=== PATIENT | female | born 1955 | race Caucasian/White ===

== ENCOUNTER → 2017-12-07 08:55 | Outpatient (CLI) | payer OTHER, SELFPAY ==
--- NOTE | 2017-12-07 08:58 | BI_ITS ---
MAMMOGRAPHY - BILATERAL SCREENING REASON FOR EXAM: Female, 62 years old. Routine annual screening examination. PERTINENT HISTORY: Non-contributory. TECHNIQUE: Digital bilateral breast velvet (3D mammographic acquisition) in the CC and MLO projections. 2-D mediolateral oblique (MLO) and craniocaudad (CC) views of both breasts were obtained. CAD: Full Field Digital Mammography with Computer Added Detection was performed. COMPARISON: Comparison is made with prior outside examination dated November 12, 2013. FINDINGS: Breast Composition: The breasts are almost entirely fatty. There are no dominant masses or suspicious calcifications. No other significant abnormalities are identified. There has been no significant change since the prior study. BI/SCREENING MAMM (CAD), BILAT IMPRESSION: Stable bilateral screening mammogram. Yearly follow-up mammogram recommended. (A) ASSESSMENT CATEGORY: BIRADS Category 1: Negative. A letter regarding these results will be sent to the patient by the facility within 30 days. Approximately 10% of breast cancers are not detected by mammography. A normal mammogram should not delay biopsy of a clinically suspicious abnormality. [id number] Electronically Signed: Matty Machado MD at 12:20 EDT Tel [phone], Service support ,
--- NOTE | 2017-12-07 09:18 | BD_ITS ---
STUDY: DUAL ENERGY X-RAY ABSORPTIOMETRY / DXA REASON FOR EXAM: Female, 62 years old. Early menopause. Loss of height. TECHNIQUE: Bone Mineral Density (BMD) measurements of lumbar spine and bilateral hips were obtained. COMPARISON: None. FINDINGS: Lumbar Spine (L1-L4): g/cm2 (0.989) / T-score (-1.6) / Z-score (-0.1) Findings are suggestive of osteopenia with a moderate fracture risk. Left Femur Total: g/cm2 (0.874) / T-score (-1.1) / Z-score (0.1) Left Femoral Neck: g/cm2 (0.716) / T-score (-2.3) / Z-score (-0.9) Right Femur Total: g/cm2 (0.847) / T-score (-1.3) / Z-score (-0.2) Right Femoral Neck: g/cm2 (0.719) / T-score (-2.3) / Z-score (-0.9) BD/Dexa Bone Density Study IMPRESSION: The patient is considered osteopenic as outlined below according to World [employer] Organization (WHO) criteria with a moderate fracture risk. Reference Information: The T-score is the number of standard deviations above or below the standard which is normal for young adults at their peak bone mineral density. The World Health Organization (WHO) interprets the T-scores as follows: Above -1 Normal bone density Between -1 and -2.5 Osteopenia Equal to / or below -2.5 Osteoporosis As a practical clinical guideline, osteopenia may be graded as follows: Mild -1 through -1.5 Moderate -1.6 through -2.0 Severe -2.1 through -2.4 The Z-score is the number of standard deviations above or below age-matched controls. A Z-score of less than -1.5 would be considered abnormal. References: 1. NIH Osteoporosis and Related Bone Diseases http://www.osteo.org 2. International Society for Clinical Densitometry http://www.iscd.org 3. National Osteoporosis Foundation http://www.nof.org Electronically Signed: Matty Machado MD at 12:52 EDT Tel [phone], Service support ,
== END ==
PROVIDERS: Family Provider Internal Medicine; PCP Internal Medicine; Visit Provider Internal Medicine
DX: Z12.31 Encounter for screening mammogram for malignant neoplasm of breast (principal); Z78.0 Asymptomatic menopausal state
CPT/HCPCS: 77063; 77067; 77080

== ENCOUNTER 2018-01-19 21:41 | Emergency (ER) | payer OTHER, SELFPAY ==
[2018-01-19 21:42] VITALS: BP 111/71; PULSE 79; RESP 16; TEMP 36.6; O2SAT 95; BMI 34.2
[2018-01-19 22:24] LABS: Mucous, Urine 0 SEEN /hpf (<or=2+); Red Blood Cells-Urine 0 SEEN /hpf (0-5)
[2018-01-19 22:28] LABS: Color, Urine Yellow (Yellow); Glucose, Dipstick 1000 mg/dl (Normal); Ketone-Dipstick Negative (Negative); Leukocyte Esterase-Dipstick 500 /ul (Negative); Nitrite-Dipstick Negative (Negative); Occult Blood-Urine 10 /ul (Negative); Protein-Dipstick 15 mg/dl (Negative); Specific Gravity, Urine 1.015 (1.002-1.030); Urine Bilirubin Dipstick Negative (Negative); Urine Clarity Sl. Cloudy (Clear); Urine Urobilinogen Normal (Normal)
[2018-01-19 22:45] LABS: Bacteria RARE /hpf (None Seen); Squamous Epithelial Cells - UA 0-5 SEEN /hpf (5-10); White Blood Cells 50-100 SEEN /hpf (0-5)
--- NOTE | 2018-01-19 22:56 | ED.VISSUMM ---
- ER Visit Summary Date of Service: 01/19/18 Chief Complaint: Abdominal and flank pain History of Present Illness: The patient is a 62 F who reports that she has upper abdominal and flank pain that began yesterday. She describes as a pressure. 9 out of 10 at worst and 710 currently. Is worsened by walking periods relieved by remaining still. She had nausea without vomiting. Her last bowel movements today. No melena or hematochezia. She had frequent urination, but no dysuria. Reports this is similar to when she has had a UTI in the past. She denies any fever or chills. Physical Examination: Vitals: Stable. Afebrile. General: Well-nourished and well-developed. Head: Normocephalic atraumatic. Neck: Supple, no lymphadenopathy. No JVD. Nontender. Cardiovascular: Regular rate and rhythm. No murmurs. Respiratory: No respiratory distress. Clear to auscultation bilaterally. Abdominal: Soft, mild diffuse upper abdominal tenderness to palpation, nondistended, normal bowel sounds. No guarding, rebound, or peritoneal signs. Back: Mild CVA tenderness bilaterally. Extremities: Nontender, no edema. Skin: Normal color, no rash. Neurologic: Alert and oriented ?3. Cranial nerves II through XII are intact. Normal strength and sensation. Psych: Normal affect. Test Results: UA does show a UTI. LFTs marked for globulin 4.4. Lipase normal. Chem-7 more for glucose 130 BUN of 19. CBC is more for 7 neutrophils of 47. Emergency Department Course and Treatment: Patient was treated with morphine and Zofran IV. She was given Keflex and Azo p.o. Treatment Plan: Patient will be discharged on Keflex and Pyridium. Instructed follow-up her primary care physician 1 week for another exam. Return to the emergency department for any worsening symptoms. Disposition: To home in improved and stable condition. Impression: 1. UTI. This note was generated with [employer] dictation software. It may contain incorrect words, spelling, and punctuation that were not noted in review of the chart prior to signing ED Disposition - Plan for ED Patient: Chief Complaint: Complaint Instructions: ED UTI Cystitis Female Prescriptions: Cephalexin [Keflex] 500 mg PO BID #14 capsule Phenazopyridine HCl [Pyridium] 200 mg PO TID #10 tablet Referrals: Madison Martins MD [Primary Care Provider] - 1 Week
[2018-01-19] MEDS: Ondansetron 4 MG/2 ML Vial IV (22:58)
[2018-01-19] MEDS: Morphine 4 MG/ML Syringe IV (22:58)
[2018-01-19 23:18] LABS: AST(SGOT) 29 U/L (15-37); Alanine Aminotransfer ALT/SGPT 27 U/L (13-56); Albumin, Serum 3.4 g/dL (3.2-5.0); Alkaline Phosphatase 101 U/L (45-117); Anion Gap 7 (5-15); BUN 19 mg/dL (7-18); BUN/Creat Ratio 19.8 RATIO (10-20); Bilirubin, Direct 0.09 mg/dL (0.00-0.30); Calcium,Total 9.1 mg/dL (8.5-10.1); Chloride 101 mmol/L (98-107); Creatinine, Serum 0.96 mg/dL (0.55-1.02); EST Glomerular Filtration Rate 62 mL/min (>60); Est Glom Filt Rate - Afr Amer 75 mL/min (>60); Estimated Creatinine Clearance 49.62 ml/min; Globulin 4.4 g/dL (2.2-4.2); Glucose 130 mg/dL (74-106); Lipase 167 U/L (73-393); Potassium 4.3 mmol/L (3.5-5.1); Protein, Total 7.8 g/dL (6.4-8.2); Sodium Level 138 mmol/L (136-145)
[2018-01-19 23:25] LABS: Absolute Lymphocyte Count 3.41 X10^3/ul (0.83-4.51); Basophil# 0.03 X10^3/uL; Basophil% 0.3 % (0-1); Eosinophil# 0.36 X10^3/uL; Eosinophils% 4.2 % (0-5); Hematocrit 40.5 % (37-47); Hemoglobin 12.4 g/dl (12.0-15.0); Lymphocyte # 3.41 X10^3/ul (4.0); Lymphocyte % 39.5 % (19-41); Mean Corp Hgb Conc 30.6 g/gl (32-36); Mean Corpuscular Volume 84.9 fL (81-99); Mean Platelet Vol. 9.4 fl (6.2-12.0); Monocyte# 0.79 X10^3/uL; Monocyte% 9.2 % (0-10); Neutrophil # 4.03 X10^3/uL (2.7-7.7); Neutrophil % 46.7 % (47-70); Platelet Count 246 K/mm3 (150-450); RBC Distribution Width CV 14.4 % (11.6-14.6); Red Blood Count 4.77 M/mm3 (4.2-5.4); White Blood Count 8.6 K/mm3 (4.4-11.0)
[2018-01-19] MEDS: Phenazopyridine 95 MG Tablet 190 MG PO (23:27)
[2018-01-19] MEDS: Cephalexin 250 MG Capsule 500 MG PO (23:27)
[2018-01-19 23:29] LABS: POSITIVE COUNT NO; POSITIVE DIFFERENTIAL NO; POSITIVE MORPHOLOGY NO
[2018-01-20 00:11] VITALS: BP 108/70; PULSE 64; RESP 16; O2SAT 98
== END 2018-01-20 00:12 | disposition home or self-care (01) ==
LOC: ED 22:25
PROVIDERS: Emergency Provider Emergency Medicine; Family Provider Internal Medicine; PCP Internal Medicine
DX: N39.0 Urinary tract infection, site not specified (principal); E11.9 Type 2 diabetes mellitus without complications; E78.00 Pure hypercholesterolemia, unspecified
CPT/HCPCS: 80048; 80076; 81001; 83690; 85025; 96361; 96374; 96375; 99285; J7030; J7040; A4216; J2405

== ENCOUNTER → 2018-03-02 10:22 | Outpatient (CLI) | payer OTHER, SELFPAY ==
--- NOTE | 2018-03-02 10:25 | STE_ITS ---
Reason For Study: Chest Pain Stress Results Protocol: Dex Protocol Maximum Predicted HR: 157 bpm Target HR: 133 bpm% Max imum Predicted HR: 89 % DurationHeart Rate Stage (mm:ss) (bpm) BPCom ment Baseline 78 118/72 No Chest Pain Dex Protocol Stage I 3:00 11 1 130/70No Chest Pain Dex Protocol Stage II 3:00 13 7 146/72No Chest Pain Dex Protocol Stage III 0:30 13 9 / No Chest Pain; Moderate Dyspnea; Leg Pain Recovery 86 114/70 No Chest Pain Stress Duration: 6:30 mm:ss Maximum Stress HR: 139 bpmM ETS: 8 Baseline Echocardiogram Findings Stress Echo Wall motion Data Resting WMIntermediate WMStress WM Resting Wall Motion Wall Motion Stress No regional wall motion No regional wall motion abnormalities noted. abnormalities noted. Ejection Fraction 55 %. Ejection Fraction 65 %. Stress Results Normal blood pressure response to exercise. Exercise was stopped due to dyspnea. Interpretation Summary Exercise stress echocardiogram. Stress test. Resting EKG demonstrates normal sinus rhythm with a rate of 78 bpm normal intervals and noted resting blood pressure 118/72 mmHg. The patient exercised according to regular Dex protocol for total duration of 6 minutes and 30 seconds completing 30 seconds into stage III of the Dex protocol. The maximum heart rate attained was 148 bpm which was 94% of maximum predicted heart rate the maximum workload was 8.5 metabolic equivalents. The patient maintained sinus rhythm throughout the recording. At rest and during peak exercise upsloping ST changes only were noted with no meet the criteria for ischemia. The resting blood pressure 118/72 with a peak blood pressure 146/72. Rate pressure product was 20,000. Stress echocardiogram. Resting echocardiographic images demonstrated an ejection fraction of approximately 55%. The patient exercised according to regular Dex protocol and peak stress images demonstrate an ejection fraction of 65%. No wall motion abnormalities were noted. No clinical angina was present. Next Conclusion: Normal exercise stress echo with no regional wall motion abnormalities noted No clinical angina noted No arrhythmias present. Ordering Physician: Seymour Doyle Referring Physician: Seymour Doyle Performed By: Isi Hatch, SANTIAGO
== END ==
PROVIDERS: Family Provider Internal Medicine; PCP Internal Medicine; Referring Provider Internal Medicine Cardiovascular Disease; Visit Provider Internal Medicine Cardiovascular Disease
DX: R07.9 Chest pain, unspecified (principal)
CPT/HCPCS: 93017; 93350

== ENCOUNTER → 2018-03-20 12:10 | Outpatient (CLI) | payer OTHER, SELFPAY ==
--- NOTE | 2018-03-20 12:12 | CT_ITS ---
STUDY: CARDIAC CALCIUM SCORING - CT CHEST REASON FOR EXAM: Female, 63 years old. Chest pain, coronary calcium scoring, screening. RADIATION DOSAGE (If Supplied By Facility): CTDIvol = ( 12.19 ) mGy, DLP = ( 219.42 ) mGycm TECHNIQUE: Axial non-enhanced images were acquired through the heart for the sole purpose of measuring coronary artery calcium. Individualized dose optimization techniques were used for this CT. COMPARISON: None. FINDINGS: Body wall soft tissues unremarkable. Limited evaluation of upper abdomen is normal. There is no acute osseous process. Scoliosis, osteopenia and mild thoracic spondylosis. Normal esophagus. No mediastinal or hilar mass or lymphadenopathy. Calcified pulmonary nodule of the apical segment of the left lower lobe consistent with old granulomatous disease. Lungs otherwise clear. Unremarkable airways. Cardiovascular: Normal heart size without effusion. Mild epicardial lipomatosis. Mild lipomatous hypertrophy of interatrial septum. There is evidence of mild fatty metaplasia involving one of the left ventricular papillary muscles. This is typically a benign finding. Not necessarily related to any prior myocardial infarction. The right and left coronary arteries each emerge from the appropriate coronary sinus with left coronary dominance to the PDA. There is a small focus of coronary calcium in the proximal RCA. There is no calcium in the left main. There is no calcium in the circumflex. There is no calcium in the PDA. There is a small focus of calcium in the proximal LAD. Total Calcium Score: 31.4 [address]AD [address]/Limited Chest CT w/CCTA IMPRESSION: A Calcium Score of 31.4 places the patient in the approximate 62nd percentile, based on the KELLY data calculator. Mild plaque burden. Likely mild or minimal coronary stenosis. Please go to: www.kelly-nhlbi.org/Calcium/input.aspx , for a description of the calculator. Electronically Signed: Taiwo Paez, at 17:36 EDT Tel , Service support ,
[2018-03-20 12:43] VITALS: PULSE 75; RESP 16; O2SAT 94; BMI 32.9
--- NOTE | 2018-03-28 07:17 | CA.SCORE ---
Calcium Scoring Date of Study:: 03/28/18 Coronary Calcium Scoring: Coronary calcium scoring. High-resolution CT imaging of the chest was performed on 03/20/2018 with particular attention paid to the coronary arteries. Images from the examination were examined for the presence and extent of coronary artery calcification using the coronary calcifications software. The patient tolerated the procedure well and there were no complications. The results of the coronary calcification analysis provided below demonstrated the following: Left main coronary calcium score of 0. Left anterior descending artery calcium score 27. Circumflex artery calcium score of 0. Right coronary artery calcium score 4. Total Agagston score of 31. The above is suggestive of mild plaque burden only noted. Impression: Low calcium score with evidence of mild plaque burden only.
== END ==
PROVIDERS: Family Provider Internal Medicine; PCP Internal Medicine; Referring Provider Internal Medicine Cardiovascular Disease; Visit Provider Internal Medicine Cardiovascular Disease
DX: R07.9 Chest pain, unspecified (principal)
CPT/HCPCS: 75571; 76380

== ENCOUNTER 2018-04-30 21:26 | Emergency (ER) | payer OTHER, SELFPAY ==
[2018-04-30 21:27] VITALS: BP 156/66; PULSE 79; RESP 16; TEMP 36.4; O2SAT 97; BMI 33.3
--- NOTE | 2018-04-30 21:30 | RAD_ITS ---
STUDY: X-RAY - LEFT FOOT CLINICAL: Female, 63 years old. Injury 5 days ago. Pain along the plantar aspect of foot. Bruising across the dorsal aspect of the toes. TECHNIQUE: 3 view(s) of the foot. COMPARISON: None. FINDINGS: Normal talus and tarsal bones. There are enthesophytes at the insertions of the Achilles tendon and plantar aponeurosis upon an otherwise normal calcaneus. Mild arthrosis of the visualized subtalar, talonavicular, calcaneocuboid, tarsal and tarsometatarsal articulations. Normal metatarsi. There is degenerative arthrosis of the metatarsophalangeal joint of the hallux . Normal tibial and fibular sesamoid bones. Normal interphalangeal joint of the great toe. Normal phalanges of the great toe. Normal second through fifth metatarsophalangeal joints. There is a nondisplaced fractures through the base of the fifth proximal phalanx. Otherwise normal interphalangeal joints and phalanges of the lesser toes. There is soft tissue swelling over the forefoot. RAD/Foot min 3 Views IMPRESSION: 1. Nondisplaced fracture of the base of the fifth proximal phalanx with associated soft tissue swelling. 2. Degenerative changes of the hindfoot. Electronically Signed: Alfredo Ayala DO at 22:05 EST Tel [phone], Service support ,
--- NOTE | 2018-04-30 23:12 | ED.DCSUM_ITS ---
- ER Visit Summary Date of Service: 04/30/18 Chief Complaint: Left third fourth fifth toe pain and pain right and left leg and feet with walking History of Present Illness: The patient is a 63 F who has multiple medical problems presents because of injury to her left foot. She complains of pain discoloration third fourth fifth toe. Maximal pain is fifth toe. She does not give description of neuropathic pain or paresthesia. She does complain of bilateral leg pain and feet pain with walking after 5-10 minutes and resolution of her symptoms after 5 minutes of rest. She does have history of smoking for greater than 30 years. She does have history of diabetes, hypertension hyperlipidemia. She has not smoked in 8 years. Physical Examination: Vital signs noted unremarkable blood pressure 156/66. There is discoloration of the third fourth and fifth toe. There is no subungual hematoma noted. There is significant pain over the fourth and fifth toe. There is no pain the patient at the base of the fifth metatarsal. Is no pain the patient over the lateral medial malleolus. The DP and PT pulses are not palpable either side. There is biphasic flow right PT and left DP. Plus minus biphasic flow left PT and monophasic flow right DP. Capillary refill is normal. Test Results: Three-view x-ray of the foot was obtained per nursing protocol. There is a nondisplaced fracture of the proximal phalanx. Radiologist read was in before mind. Emergency Department Course and Treatment: X-ray per nursing protocol Doppler flow since patient is giving symptoms of claudication. Treatment Plan: Issac tape hard sole shoe and keep appointment with box loader. Outpatient arterial study with treadmill exercising Disposition: Discharge to home with appropriate outpatient testing and follow-up Impression: 1. Nondisplaced proximal phalanx fracture fifth left toe 2. Claudication 3. Peripheral arterial disease 4. History of type 2 diabetes 5. History of hypercholesterolemia This note was generated with [employer] dictation software. It may contain incorrect words, spelling, and punctuation that were not noted in review of the chart prior to signing ED Disposition - Plan for ED Patient: Disposition: Home or Assisted Living Chief Complaint: Lower Extremity Injury Instructions: ED PVD, ED Fx Toe Closed Referrals: Madison Martins MD [Primary Care Provider] - 1-2 Weeks Kole Bojorquez DPM [STAFF PHYSICIAN] - Keep Ad appointment
[2018-04-30 23:34] VITALS: RESP 16
== END 2018-04-30 23:35 | disposition home or self-care (01) ==
PROVIDERS: Emergency Provider Emergency Medicine; Family Provider Internal Medicine; PCP Internal Medicine
DX: S92.912A Unspecified fracture of left toe(s), initial encounter for closed fracture (principal); X58.XXXA Exposure to other specified factors, initial encounter; Y93.89 Activity, other specified; Y92.9 Unspecified place or not applicable; Y99.9 Unspecified external cause status; I73.9 Peripheral vascular disease, unspecified; E11.9 Type 2 diabetes mellitus without complications; E78.00 Pure hypercholesterolemia, unspecified; Z87.891 Personal history of nicotine dependence
CPT/HCPCS: 73630; 99283

== ENCOUNTER → 2018-05-04 10:48 | Outpatient (CLI) | payer OTHER, SELFPAY ==
[2018-04-30 21:27] VITALS: BMI 33.3
--- NOTE | 2018-05-04 11:07 | VDLE_ITS ---
Reason For Study: Leg Pain RIGHT LEFT GSV is normal. GSV is normal. CFV is compressible, spontaneous, phasic, CFV is compressible, spontaneous, phasic, competent and demonstrates normal competent, and demonstrates normal augmentation. augmentation. FV is compressible, spontaneous, phasic, FV is compressible, spontaneous, phasic, competent and demonstrates normal competent and demonstrates normal augmentation. augmentation. POP V is compressible, spontaneous, phasic, POP V is compressible, spontaneous, phasic, competent and demonstrates normal competent and demonstrates normal augmentation. augmentation. T/P Trunk is compressible. T/P Trunk is compressible. PTV is compressible. PTV is compressible. RT PerV is compressible. LT PerV is compressible. Procedure Exam performed in department. A preliminary report was called and/or faxed to Dr. Berry. Interpretation Summary Deep veins of the lower extremities are bilaterally patent and compressible segmentally. There is no evidence of deep vein thrombosis on either side. Valvular competence appears intact within the proximal deep venous systems bilaterally. The greater saphenous veins appear bilaterally patent and compressible segmentally. Ordering Physician: Caro Berry Referring Physician: Madison Martins Performed By: Lakeshia Malagon RVT and Student
== END ==
PROVIDERS: Family Provider Internal Medicine; PCP Internal Medicine; Referring Provider Podiatrist; Visit Provider Podiatrist
DX: I87.2 Venous insufficiency (chronic) (peripheral) (principal); I73.89 Other specified peripheral vascular diseases; I82.491 Acute embolism and thrombosis of other specified deep vein of right lower extremity; M79.604 Pain in right leg; M79.605 Pain in left leg
CPT/HCPCS: 93970

== ENCOUNTER → 2018-05-21 14:00 | Outpatient (CLI) | payer OTHER, SELFPAY ==
[2018-05-07 09:09] VITALS: BMI 33.3
--- NOTE | 2018-05-21 14:03 | ART_ITS ---
Reason For Study: LEG PAIN Left Segmental Pressures Left brachial= 125mmHg. Left posterior tibial artery = 130mmHg. Left dorsalis pedis artery = 132mmHg. Left digit = 117 mmHg. The left dorsalis pedis waveforms are triphasic. The left posterior tibial artery waveforms are triphasic. Right Segmental Pressures Right brachial= 127mmHg. Right posterior tibial artery = 140mmHg. Right dorsalis pedis artery = 137mmHg. Right digit = 118 mmHg. The right dorsalis pedis waveforms are triphasic. The right posterior tibial artery waveforms are triphasic. Indices The right ankle brachial index by the dorsalis pedis is 1.0. The right ankle brachial index by the posterior tibial artery is 1.1. The right digital-brachial index is .93. The left ankle brachial index by the dorsalis pedis is 1.0. The left ankle brachial index by the posterior tibial artery is 1.0. The left digital-brachial index is .92. Interpretation Summary Triphasic waveforms are noted at ankle level bilaterally. Resting ankle-brachial indices appear bilaterally normal. Resting digital-brachial indices appear bilaterally normal. There is no evidence of significant arterial occlusive disease. Ordering Physician: Caro Berry Referring Physician: Caro Berry Performed By: Lakeshia Malagon Adwoa
== END ==
PROVIDERS: Family Provider Internal Medicine; PCP Internal Medicine; Referring Provider Podiatrist; Visit Provider Podiatrist
DX: I87.2 Venous insufficiency (chronic) (peripheral) (principal); I73.89 Other specified peripheral vascular diseases; I82.491 Acute embolism and thrombosis of other specified deep vein of right lower extremity; M79.604 Pain in right leg; M79.605 Pain in left leg
CPT/HCPCS: 93923

== ENCOUNTER → 2018-06-20 14:53 | Outpatient (CLI) | payer OTHER, SELFPAY ==
[2018-06-20 14:23] VITALS: BMI 33.3
--- NOTE | 2018-06-20 14:56 | RAD_ITS ---
STUDY: X-RAY CHEST REASON FOR EXAM: Female, 63 years old. Chest pain. Cough. TECHNIQUE: Frontal and lateral views of the chest COMPARISON: None. FINDINGS: The lungs are clear. There are no pleural effusions. There is no pneumothorax. The heart is normal in size. The visualized osseous structures are within normal limits. RAD/Chest PA and Lateral IMPRESSION: No acute thoracic pathology. Electronically Signed: Hayes Chavis, at 15:23 EST Tel , Service support ,
--- OUTSIDE RECORDS SUMMARY | 2018-08-22 17:29 | XMS RPT_ITS ---
:1955 Author Organization OHIP Support Name Relationship Address Phone VEGA FERRELL Unavailable [address] + [place] [address] [facility] Unavailable [address] + [place] [address] ARNIE MELGAR Unavailable . + [place] [address] VEGA FERRELL Unavailable [address] + [place] [address] [facility] Unavailable [address] + [place] [address] ANTOINE MELGARMY Unavailable . + [place] [address] VEGA FERRELL Unavailable [address] + [place] [address] [facility] Unavailable [address] + [place] [address] ARNIE MELGAR Unavailable . + [facility] [place] [address] VEGA FERRELL Unavailable [address] + [place] [address] [facility] Unavailable [address] + [place] [address] TALIA ARNIE Unavailable Unavailable + [place] [place] [address] VEGA FERRELL Unavailable [address] + [place] [address] [facility] Unavailable [address] + [place] [address] ANTOINE MELGARMY Unavailable . + [place] [address] VEGA FERRELL Unavailable [address] + [place] [address] [facility] Unavailable [address] + [place] [address] ARNIE MELGAR Unavailable . + [place] [address] FERRELLVEGA Unavailable [address] + [place] [address] [facility] Unavailable [address] + [place] [address] ARNIE MELGAR Unavailable . + [place] [address] FERRELLVEGA Voss Unavailable [address] + [place] [address] [facility] Unavailable [address] + [place], [place] [id number] NOEL Unavailable . + [place] [place] [address] VEGA FERRELL Unavailable [address] + [place] [address] [facility] Unavailable [address] + [place], [place] [address]ARNIE NOEL Unavailable Unavailable + [place] [address] VEGA FERRELL Unavailable [address] + [place] [address] [facility] Unavailable [address] + [place] [address]ARNIE NOEL Unavailable Unavailable + [place] [address] VEGA FERRELL Unavailable [address] + [place] [address] [facility] Unavailable [address] + [place], [place] [address]ARNIE NOEL Unavailable Unavailable + [place] [address] VEGA FERRELL Unavailable [address] + [place] [address] [facility] Unavailable [address] + [place], [place] [address]ARNIE NOEL Unavailable Unavailable + [place] [address] VEGA FERRELL Unavailable [address] + [place] [address] [facility] Unavailable [address] + [place], [place] [address]ARNIE NOEL Unavailable . + ., [place] . VEGA FERRELL Unavailable [address] + [place] [address] [facility] Unavailable [address] + [place], [place] [id number] NOEL Unavailable . + ., [place] . VEGA FERRELL Unavailable [address] + [place] [address] [facility] Unavailable [address] + [place], [place] [phone] NOEL Unavailable . + ., [place] . VEGA FERRELL Unavailable [address] + [place] [address] [facility] Unavailable [address] + [place], [place] [id number] NOEL Unavailable Unavailable + VEGA FERRELL Unavailable [address] + [place] [address] [facility] Unavailable [address] + [place], [place] [address]ARNIE NOEL Unavailable Unavailable + VEGA FERRELL Unavailable [address] + [place] [address] [facility] Unavailable [address] + [place], [place] [address]ARNIE NOEL Unavailable . + ., [place] . VEGA FERRELL Unavailable [address] + [place] [address] [facility] Unavailable [address] + [place], [place] [address]ARNIE NOEL Unavailable . + ., [place] . Care Team Providers Name Role Phone Madison Martins Attending Unavailable Primay Care Physicia, No Referring Unavailable Primay Care Physicia, No Primary Care Unavailable Keke Maza Attending Unavailable Oleghe, Efewongbe Attending Unavailable Oleghe, Efewongbe Referring Unavailable Oleghe, Efewongbe Primary Care Unavailable Oleghe, Efewongbe Primary Care Unavailable Chris Queenuel Attending Unavailable Bernice, Kishor Referring Unavailable Oleghe, Efewongbe Attending Unavailable Primay Care Physicia, No Referring Unavailable Oleghe, Efewongbe Primary Care Unavailable Jeimy Morales Attending Unavailable Fascione, Caro Attending Unavailable Fascione, Caro Referring Unavailable Oleghe, Efewongbe Primary Care Unavailable Oleghe, Efewongbe Attending Unavailable Oleghe, Efewongbe Primary Care Unavailable Oleghe, Efewongbe Attending Unavailable Oleghe, Efewongbe Referring Unavailable Oleghe, Efewongbe Attending Unavailable Oleghe, Efewongbe Referring Unavailable Oleghe, Efewongbe Primary Care Unavailable Vivek, [place] Attending Unavailable Oleghe, Efewongbe Referring Unavailable Oleghe, Efewongbe Primary Care Unavailable Vivek, [place] Attending Unavailable Vivek, [place] Referring Unavailable Oleghe, Efewongbe Primary Care Unavailable Vivek, Seymour Attending Unavailable Vivek, [place] Referring Unavailable Oleghe, Efewongbe Primary Care Unavailable Vivek, [place] Consulting Unavailable Vivek, [place] Attending Unavailable Vivek, Seym[place] Referring Unavailable Oleghe, Efewongbe Primary Care Unavailable Vivek, [place] Attending Unavailable Vivek, [place] Referring Unavailable Oleghe, Efewongbe Primary Care Unavailable Vivek, [place] Consulting Unavailable Vivek, [place] Attending Unavailable Oleghe, Efewongbe Referring Unavailable Oleghe, Efewongbe Primary Care Unavailable Howard Abdoulaye Attending Unavailable LexusoneCaro Attending Unavailable Fascione, Caro Referring Unavailable Oleghe, Efewongbe Primary Care Unavailable Oleghe, Efewongbe Attending Unavailable Oleghe, Efewongbe Referring Unavailable CYNTHIA FUENTES Attending Unavailable CASSIDY SALEEM ([facility]) Referring Unavailable TODD MATOS Referring Unavailable Aline FUENTES Attending Unavailable CASSIDY SALEEM Referring Unavailable CASSIDY SALEEM Primary Care Unavailable Aline FUENTES Referring Unavailable [facility] Primary Care Unavailable Aline FUENTES Attending Unavailable Aline FUENTES Referring Unavailable [facility] Primary Care Unavailable NANCI BERUMEN Attending Unavailable Aline FUENTES Referring Unavailable [facility] Primary Care Unavailable Aline FUENTES Referring Unavailable [facility] Primary Care Unavailable Aline FUENTES Admitting Unavailable Aline FUENTES Attending Unavailable [facility] Primary Care Unavailable Aline FUENTES Attending Unavailable Aline FUENTES Referring Unavailable [facility] Primary Care Unavailable Aline FUENTES Attending Unavailable Aline FUENTES Referring Unavailable [facility] Primary Care Unavailable [facility] Care Unavailable PROBLEMS PROBLEMS DATE TYPE CONDITION / CODE ATTENDING STATUS SOURCE 06/20/2018 Unknown R07.9 - Chest pain, Oleghe, Active [place] unspecified / [facility] R07.9(ICD-10) Hospital Repository 06/20/2018 Unknown R05 - Cough / Oleghe, Active [facility] R05(ICD-10) [facility] Hospital Repository 05/07/2018 Unknown E11.9 - Type 2 Oleghe, Active [place] diabetes mellitus [facility] without Hospital complications / Repository E11.9(ICD-10) 05/07/2018 Unknown E66.9 - Obesity, Oleghe, Active [place] unspecified / [facility] E66.9(ICD-10) Hospital Repository 05/07/2018 Unknown E78.5 - Oleghe, Active [place] Hyperlipidemia, [facility] unspecified / Hospital E78.5(ICD-10) Repository 04/25/2018 Active Type 2 diabetes NA Active [facility] mellitus with Clinic Other hyperglycemia / [place] E11.65(ICD-10) Repository 02/14/2018 Unknown K21.9 - VivekRaghavendraSeymour Active [facility] without esophagitis Repository / K21.9(ICD-10) 12/07/2017 Unknown Z12.31 - Encounter Oleyessenia, Active [place] for screening [facility] mammogram for Hospital malignant neoplasm Repository of breast / Z12.31(ICD-10) 12/07/2017 Unknown Z78.0 - Oleghe, Active [place] Asymptomatic [facility] menopausal state / Hospital Z78.0(ICD-10) Repository 08/24/2017 Active Acute upper NA Active [place] Other infection, [place] unspecified / Repository J06.9(ICD-10) 07/04/2017 Active Rectocele / NINIVAGGIO, Active [place] N81.6(ICD-10) [facility] Other [place] Repository 07/04/2017 [facility] [place] / N39.46(ICD-10) [facility] Other [place] Repository 07/04/2017 Active [facility] [place] pre[facility]ural [facility] Other examination / [place] Z01.818(ICD-10) Repository 07/04/2017 Active [facility] [place] mellitus without [facility] Other complications / [place] E11.9(ICD-10) Repository 07/04/2017 Admitting Unknown / KRISTINIVAGGSARAH BETH, Active [facility] diagnosis UNK(Unknown) [facility] Repository PROCEDURES PROCEDURES No Procedure Records FoundRESULTS RESULTS INTERNAL MEDICINE Observed: 06/25/2018 Status: F Source: [place] OFFICE VISIT 8:15 AM [facility] REPOSITORY [facility] [address] [place] [address] [place] [address] OFFICE VISIT Date of Service: 06/20/18 MR#: [id number] Acct: [id number] Name: LACIE WHITE Rep #: [id number] : 1955 Provider: Madison Martins MD Age/Sex: 63/F Location: [facility] Status: Signed Intake Vital Signs06/20/18 Body Mass Index (BMI) 33.3 06/20/18 Height 5 ft 3 in 06/20/18 Weight: 189 lb 06/20/18 Body Mass Index (BMI) 33.5 06/20/18 Blood Pressure 101/68 Intake Visit Reasons: head and chest congestion and cough Chief Complaint: Cough, Chest Congestion. Is patient in pain?: Yes (Mid back) Allergies Penicillins Allergy (Verified 06/20/18 14:21) Hives Sulfa (Sulfonamide Antibiotics) Allergy (Verified 06/20/18 14:21) Hives OCEAN PERCH Allergy (Uncoded 06/20/18 14:21) Hives Medications empagliflozin 10 mg tablet 40 mg PO QDAY 11/22/17 [History Confirmed 06/20/18] fluoxetine 40 mg capsule 40 mg PO QDAY 11/22/17 [History Confirmed 06/20/18] liraglutide 0.6 mg/0.1 mL (18 mg/3 mL) subcutaneous pen injector 1.2 mg SC QDAY 11/22/17 [History Confirmed 06/20/18] omeprazole 40 mg capsule,delayed release 40 mg PO QDAY 11/22/17 [History Confirmed 06/20/18] atorvastatin 40 mg tablet 40 mg PO DAILY #90 tab 02/06/18 [Rx Confirmed 06/20/18] insulin glargine (U-100) 100 unit/mL (3 mL) subcutaneous pen 1.7 unit SC QDAY ml 02/14/18 [History Confirmed 06/20/18] alendronate 35 mg tablet 35 mg PO QWEEK #20 tab 05/07/18 [Rx Confirmed 06/20/18] azithromycin 500 mg tablet See Rx Instructions PO .COMPLEX #9 tab 06/20/18 [Rx Confirmed 06/20/18] PFSH Medical History Obesity (BMI 30.0-34.9) (Chronic) Osteopenia (Chronic) Type 2 diabetes mellitus (Chronic) GERD (gastroesophageal reflux disease) (Chronic) Kidney stones (Chronic) Hyperlipidemia (Chronic) Hearing loss (Chronic) Frequent headaches (Chronic) IBS (irritable bowel syndrome) (Chronic) Depression (Chronic) Anemia (Chronic) Seasonal allergies (Chronic) History of DVT in adulthood (Resolved) Surgical History History of appendectomy (Resolved) History of cholecystectomy (Resolved) History of hysterectomy with bilateral oophorectomy (Resolved) History of shoulder surgery (Resolved) Family History Mother Anemia Adjustment disorder with anxiety Arthritis High cholesterol Bleeding disorder Osteoporosis COPD (chronic obstructive pulmonary disease) Peptic ulcer disease Sister Adjustment disorder with anxiety Brother Adjustment disorder with anxiety Mental disorder Aunt Colon cancer Social History Smoking Status: Former smoker how long ago did patient quit smokin alcohol intake: never substance use type: does not use what type of physical activity do you participate in: none HPI HPI Chief Complaint: Cough, Chest Congestion. Details: LACIE WHITE, is a 63yo F who presents to the office today due to worsening cough, feeling unwell, chest and nasal congestion. Said to have been ongoing for about 6 days and has slowly worsened. She also reports significant pain on deep inhalation and coughing on her right posterior chest. She reports a history of sick contacts. ROS Const Constitutional: Positive for headache(s); no chills, fatigue, fever(s), frequent falls, malaise, weakness, sleep problems or change in appetite Eyes Eyes: No blurry vision, change in vision, double vision, discharge or visual disturbances ENT ENT: Positive for nasal discharge, post nasal drip, headache(s), sore throat and hoarseness; no abnormal hearing, ear pain, ear pressure, tinnitus or dizziness/vertigo Resp Respiratory: Positive for cough Cough: Yes productive, change in phlegm color (Thick AND Light brown), chest congestion, pain on inspiration (Mid back) and pain with cough (Mid back); no shortness of breath or wheezing Cardio Cardiology: No chest pain at rest, chest pain with exertion, shortness of breath, dyspnea on exertion, generalized swelling, irregular heart rhythm, lightheadedness, orthopnea, fast heart rate or palpitations Gastro GI: No abdominal pain, change in bowel habits, constipation, diarrhea, nausea/dyspepsia or vomiting Genitourinary-Female: No difficulty urinating, burning urination, painful urination, urinary incontinence, urinary frequency, urinary urgency, urinary hesitancy, urinary retention, Frequent nighttime urination/ nocturia, sexual problems, genital lesions, abnormal vaginal bleeding, pelvic pain, vaginal dryness, vaginal odor or Vaginal Itching Musc Musculoskeletal: Positive for back pain (Rt side worse); no joint pain, joint swelling, limited range of motion, numbness, tingling or muscle weakness Skin Skin: No change in skin color, itching, rash or wounds Breast Breast: No breast lump or breast pain Neuro Neurology: Positive for headache(s); no frequent falls, weakness, visual disturbances, abnormal hearing, numbness, tingling, unsteady gait/balance, dizziness, loss of vision or memory loss Psych Psychiatric: No change in appetite, No memory loss, No anxiety, No depression, No Thoughts of harming yourself/Others Endo Endocrine: No fatigue, heat intolerance, increased thirst/drinking, increased hunger or increased urination Aller/Imm Allergy/Immunologic: No wheezing, itchy eyes or seasonal allergy symptoms Jacoby/Lymp Hematologic/Lymphatic: No easy bleeding, easy bruising or enlarged lymph nodes Exam Const General: cooperative, no acute distress, well developed Orientation: alert, awake, oriented x3 HENMT Head: normal to inspection, normocephalic, atraumatic Ears: hearing grossly normal bilaterally Resp Effort AND Inspection: normal respiratory effort, able to speak in complete sentences Auscultation: Bilateral: Clear to Auscultation Cardio Rate: regular rate Rhythm: regular rhythm Heart Sounds: S1 normal, S2 normal GI Palpation: soft, no hepatosplenomegaly Musc Musculoskeletal: No muscle weakness Neuro General: alert, awake, oriented x3, moves all extremities, CN's II-XI intact bilaterally Extrem General: no clubbing, cyanosis or edema Psych Appearance: grossly normal Mental Status: mental status grossly normal Affect: normal affect Assessment AND Plan 1. Cough R05 Plan Worsening over the last 6 days. Associated feeling of unwell. X-ray negative for pneumonia. Azithromycin, ibuprofen 600 mg 3 times daily, continue Mucinex, rest and increase fluid intake. Airborne immune supplements also recommended. Orders Orders: 2. Back pain M54.9 Plan Most likely pleuritic. Ibuprofen 600 mg 3 times daily with food. Rest and other conservative measures as above. Advised to call with any questions or concerns. 3. Upper respiratory infection J06.9 Plan Same as above. This note was generated with [employer] dictation software. It may contain incorrect words, spelling, and punctuation that were not noted in checking the note before signing. Plan Detail Other Orders Orders: Other Medications New: Coding Level of Care Code Off vis,est,level 4 Diagnoses Cough R05 Back pain M54.9 Upper respiratory infection J06.9 06/25/18 0815 <Electronically signed by Madison Martins MD> Date Madison Martins MD Cosigner Signature: Date (if applicable) CC: CHEST PA AND LATERAL Observed: 06/20/2018 Status: F Source: [place] 2:56 PM [facility] REPOSITORY [facility] Imaging Services [address] [place] [address] Chest PA and Lateral MR#: [id number] Acct: [id number] Name: LACIE WHITE Rep #: [id number] : 1955 F 63 From: Hayes Chavis MD PCP: Madison Martins MD Status: REG CLI Study: Chest PA and Lateral Date of Exam: 06/20/18 Exam# [id number] Ordering Dr: Madison Martins MD STUDY: X-RAY CHEST REASON FOR EXAM: Female, 63 years old. Chest pain. Cough. TECHNIQUE: Frontal and lateral views of the chest COMPARISON: None. FINDINGS: The lungs are clear. There are no pleural effusions. There is no pneumothorax. The heart is normal in size. The visualized osseous structures are within normal limits. RAD/Chest PA and Lateral IMPRESSION: No acute thoracic pathology. Electronically Signed: Hayes Chavis, at 15:23 EST Tel , Service support , CC: Madison Martins MD Chipper Operator: Signed ARTERIAL Observed: 05/21/2018 Status: F Source: [place] 4:32 PM [facility] REPOSITORY [facility] Cardiovascular Services [address] [place] [address] Lower Ext Art Exam w/o Exercis 05/21/18 1406 MR#: [id number] Acct: [id number] Name: LACIE WHITE Rep #: [id number] : 1955 63 From: Blu Alanis MD Attending Dr: Caro Berry DPM Status: REG CLI Ordering Dr: Caro Berry DPM Date: 05/21/18 Location: [facility] Sex: F C Admitted: Reason For Study: LEG PAIN Left Segmental Pressures Left brachial= 125mmHg. Left posterior tibial artery = 130mmHg. Left dorsalis pedis artery = 132mmHg. Left digit = 117 mmHg. The left dorsalis pedis waveforms are triphasic. The left posterior tibial artery waveforms are triphasic. Right Segmental Pressures Right brachial= 127mmHg. Right posterior tibial artery = 140mmHg. Right dorsalis pedis artery = 137mmHg. Right digit = 118 mmHg. The right dorsalis pedis waveforms are triphasic. The right posterior tibial artery waveforms are triphasic. Indices The right ankle brachial index by the dorsalis pedis is 1.0. The right ankle brachial index by the posterior tibial artery is 1.1. The right digital-brachial index is .93. The left ankle brachial index by the dorsalis pedis is 1.0. The left ankle brachial index by the posterior tibial artery is 1.0. The left digital-brachial index is .92. Interpretation Summary Triphasic waveforms are noted at ankle level bilaterally. Resting ankle-brachial indices appear bilaterally normal. Resting digital-brachial indices appear bilaterally normal. There is no evidence of significant arterial occlusive disease. Ordering Physician: Caro Berry Referring Physician: Caro Berry Performed By: Cassidy Malagon RVT 05/21/18 1632 Date Blu Alanis MD CC: Madison Martins MD; Caro Berry DPM Date Dictated: 05/21/18 1406 Date Transcribed: 05/21/18 163 Chipper Operator: Signed INTERNAL MEDICINE Observed: 05/07/2018 Status: F Source: [place] OFFICE VISIT 1:47 PM [facility] [place] [address] [place] [address] OFFICE VISIT Date of Service: 05/07/18 MR#: [id number] Acct: [id number] Name: CHRISTOPHERLACIE M Rep #: [id number] : 1955 Provider: Madison Martins MD Age/Sex: 63/F Location[place] [facility] [place] Status: Signed Intake Vital Signs05/07/18 Body Mass Index (BMI) 33.3 05/07/18 Height 5 ft 3 in Intake Visit Reasons: 3 MO FU Chief Complaint: Follow up visit Is patient in pain?: No Allergies Penicillins Allergy (Verified 04/30/18 21:29) Hives Sulfa (Sulfonamide Antibiotics) Allergy (Verified 04/30/18 21:29) Hives OCEAN PERCH Allergy (Uncoded 04/30/18 21:29) Hives Medications empagliflozin 10 mg tablet 40 mg PO QDAY 11/22/17 [History Confirmed 04/30/18] fluoxetine 40 mg capsule 40 mg PO QDAY 11/22/17 [History Confirmed 04/30/18] liraglutide 0.6 mg/0.1 mL (18 mg/3 mL) subcutaneous pen injector 1.2 mg SC QDAY 11/22/17 [History Confirmed 04/30/18] omeprazole 40 mg capsule,delayed release 40 mg PO QDAY 11/22/17 [History Confirmed 04/30/18] atorvastatin 40 mg tablet 40 mg PO DAILY #90 tab 02/06/18 [Rx Confirmed 04/30/18] insulin glargine (U-100) 100 unit/mL (3 mL) subcutaneous pen 1.7 unit SC QDAY ml 02/14/18 [History Confirmed 04/30/18] alendronate 35 mg tablet 35 mg PO QWEEK #20 tab 05/07/18 [Rx Confirmed 05/07/18] icosapent ethyl 1 gram capsule 2 g PO BID #180 cap 05/07/18 [Rx Confirmed 05/07/18] Post menopausal: Yes PFSH Medical History Obesity (BMI 30.0-34.9) (Chronic) Osteopenia (Chronic) Type 2 diabetes mellitus (Chronic) GERD (gastroesophageal reflux disease) (Chronic) Kidney stones (Chronic) Hyperlipidemia (Chronic) Hearing loss (Chronic) Frequent headaches (Chronic) IBS (irritable bowel syndrome) (Chronic) Depression (Chronic) Anemia (Chronic) Seasonal allergies (Chronic) History of DVT in adulthood (Resolved) Surgical History History of appendectomy (Resolved) History of cholecystectomy (Resolved) History of hysterectomy with bilateral oophorectomy (Resolved) History of shoulder surgery (Resolved) Family History Mother Anemia Adjustment disorder with anxiety Arthritis High cholesterol Bleeding disorder Osteoporosis COPD (chronic obstructive pulmonary disease) Peptic ulcer disease Sister Adjustment disorder with anxiety Brother Adjustment disorder with anxiety Mental disorder Aunt Colon cancer Social History Smoking Status: Former smoker how long ago did patient quit smokin alcohol intake: never substance use type: does not use what type of physical activity do you participate in: none HPI HPI Chief Complaint: Follow up visit Details: LACIE WHITE, is a 63yo F who presents to the office today for follow-up. She has no acute complaints at this time. Most recently sustained fractures of her left foot/digits after bumping her foot into a stool ([employer]). Currently following up with podiatry. Most recent bone density scan was suggestive of severe osteopenia with a T score of -2.3 in both hips. Also prior history of smoking last cigarette use was 8 years ago. Continues to follow-up with endocrinology. Most recent A1c up from 7.7 to about 8. Plans are underway to adjust her medications. She also did follow-up with cardiology due to her history of intermittent chest pain. Workup was not suggestive of any significant coronary disease. ROS Const Constitutional: No weight change, body ache, chills, fatigue, sleep problems, fever(s), change in appetite, snoring, weakness, frequent falls, headache(s) or excessive sweating Eyes Eyes: No change in vision, eye pain, light sensitivity or blurry vision ENT ENT: No headache(s), abnormal hearing, ear pain, tinnitus, nasal congestion, sore throat or neck pain Resp Respiratory: No snoring, cough, shortness of breath or wheezing Cardio Cardiology: No excessive sweating, chest pain at rest, chest pain with exertion, shortness of breath, dyspnea on exertion, palpitations, orthopnea or lightheadedness Gastro GI: No abdominal pain, change in bowel habits, constipation, diarrhea, vomiting, nausea/dyspepsia or cramping Genitourinary-Female: No burning urination, painful urination, urinary incontinence, urinary frequency, abnormal vaginal bleeding, pelvic pain or other Musc Musculoskeletal: No neck pain, abnormal walking, joint pain, back pain, limited range of motion, numbness, tingling or muscle weakness Skin Skin: No redness, dry skin, itching, lesions, wounds or rash Neuro Neurology: No weakness, frequent falls, headache(s), abnormal hearing, abnormal walking, numbness, tingling, abnormal speech, dizziness or memory loss Psych Psychiatric: No change in appetite, No memory loss, No anxiety, No depression, No Thoughts of harming yourself/Others Endo Endocrine: No fatigue, excessive sweating, cold intolerance, increased thirst/drinking, heat intolerance, flushing or increased hunger Aller/Imm Allergy/Immunologic: No wheezing, itchy eyes, hives or seasonal allergy symptoms Jacoby/Lymp Hematologic/Lymphatic: No easy bleeding, easy bruising or enlarged lymph nodes Exam Const General: cooperative, no acute distress, well developed Orientation: alert, awake, oriented x3 [facility] Head: normal to inspection, normocephalic, atraumatic Ears: hearing grossly normal bilaterally Resp Effort AND Inspection: normal respiratory effort, able to speak in complete sentences Auscultation: Bilateral: Clear to Auscultation Cardio Rate: regular rate Rhythm: regular rhythm Heart Sounds: S1 normal, S2 normal GI Palpation: soft, no hepatosplenomegaly Musc Musculoskeletal: No muscle weakness Neuro General: alert, awake, oriented x3, moves all extremities, CN's II-XI intact bilaterally Extrem General: no clubbing, cyanosis or edema Psych Appearance: grossly normal Mental Status: mental status grossly normal Affect: normal affect Assessment AND Plan 1. Osteopenia M85.80 Plan Severe. Also recent history of left lower extremity digit fractures. Prior history of smoking and family history of pathologic fractures. Will start on Fosamax 35 mg weekly. Administration discussed. If patient is poorly tolerant, will consider Prolia. Continue calcium and vitamin D supplements. 2. Type 2 diabetes mellitus E11.9 Plan Poorly controlled. Currently follows up with her pediatrician managing partner in [place]. Plan is underway to adjust her medications. Refer to the Why Weight program as patient will benefit from dietary counseling and weight loss. Orders Referrals: 3. Hyperlipidemia E78.5 Plan Currently on atorvastatin. Some improvement in her numbers. Per Patient. Labs were done at [place]. Triglycerides however still elevated. Will start on the Vascepa. Lifestyle and dietary modifications encouraged. Orders Referrals: 4. Chest pain R07.9 Plan No concerns at this time. Did follow-up with cardiology and workup was not suggestive of any significant heart disease. Risk factor modifications encouraged. Will follow. 5. Obesity (BMI 30.0-34.9) E66.9 Plan BMI of 33.8. Refer to the why weight program as above. This note was generated with [employer] dictation software. It may contain incorrect words, spelling, and punctuation that were not noted in checking the note before signing. Orders Referrals: Plan Detail Other Medications New: icosapent ethyl (Vascepa) administer with food2 grams (2 x 1 gram) PO BID 180 caps 3RF ; swallow whole; do not crush/chew/dissolve/break /cut Coding Level of Care Code Off vis,est,level 4 Diagnoses Osteopenia M85.80 Type 2 diabetes mellitus E11.9 Hyperlipidemia E78.5 Chest pain R07.9 Obesity (BMI 30.0-34.9) E66.9 05/07/18 1347 <Electronically signed by Madison Martins MD> Date Madison Martins MD Cosigner Signature: Date (if applicable) CC: VENOUS DUPLEX LOWER Observed: 05/05/2018 Status: F Source: [place] EXTREMITY 9:56 AM [facility] REPOSITORY [facility] Cardiovascular Services [address] [address] Venous Duplex US - Vega Extrem 05/04/18 1110 MR#: [id number] Acct: [id number] Name: LACIE WHITE Rep #: [id number] : 1955 63 From: Blu Alanis MD Attending Dr: Caro Berry DPM Status: REG CLI Ordering Dr: Caro Berry DPM Date: 05/04/18 Location: CVS Sex: F C Admitted: Reason For Study: Leg Pain RIGHT LEFT GSV is normal. GSV is normal. CFV is compressible, spontaneous, phasic, CFV is compressible, spontaneous, phasic, competent and demonstrates normal competent, and demonstrates normal augmentation. augmentation. FV is compressible, spontaneous, phasic, FV is compressible, spontaneous, phasic, competent and demonstrates normal competent and demonstrates normal augmentation. augmentation. POP V is compressible, spontaneous, phasic, POP V is compressible, spontaneous, phasic, competent and demonstrates normal competent and demonstrates normal augmentation. augmentation. T/P Trunk is compressible. T/P Trunk is compressible. PTV is compressible. PTV is compressible. RT PerV is compressible. LT PerV is compressible. Procedure Exam performed in department. A preliminary report was called and/or faxed to Dr. Berry. Interpretation Summary Deep veins of the lower extremities are bilaterally patent and compressible segmentally. There is no evidence of deep vein thrombosis on either side. Valvular competence appears intact within the proximal deep venous systems bilaterally. The greater saphenous veins appear bilaterally patent and compressible segmentally. Ordering Physician: Caro Berry Referring Physician: Madison Martins Performed By: Cassidy Malagon RVT and Student 05/05/1855 Date Blu Alanis MD CC: Madison Martins MD; Caor Berry DPM Date Dictated: 05/04/18 1110 Date Transcribed: 05/05/18954 Chipper Operator: Signed EMERGENCY DEPARTMENT Observed: 04/30/2018 Status: F Source: [place] SUMMARY 11:14 PM [facility] REPOSITORY [facility] Medical Records Department [address] [place] [address] Emergency Department Summary 04/30/18 2307 MR#: [id number] Acct: [id number] Name: LACIE WHITE Rep #: [id number] : 1955 63 From: Abdoulaye Howard MD PCP: Madison Martins MD Status: REG ER - ER Visit Summary Date of Service: 04/30/18 Chief Complaint: Left third fourth fifth toe pain and pain right and left leg and feet with walking History of Present Illness: The patient is a 63 F who has multiple medical problems presents because of injury to her left foot. She complains of pain discoloration third fourth fifth toe. Maximal pain is fifth toe. She does not give description of neuropathic pain or paresthesia. She does complain of bilateral leg pain and feet pain with walking after 5-10 minutes and resolution of her symptoms after 5 minutes of rest. She does have history of smoking for greater than 30 years. She does have history of diabetes, hypertension hyperlipidemia. She has not smoked in 8 years. Physical Examination: Vital signs noted unremarkable blood pressure 156/66. There is discoloration of the third fourth and fifth toe. There is no subungual hematoma noted. There is significant pain over the fourth and fifth toe. There is no pain the patient at the base of the fifth metatarsal. Is no pain the patient over the lateral medial malleolus. The DP and PT pulses are not palpable either side. There is biphasic flow right PT and left DP. Plus minus biphasic flow left PT and monophasic flow right DP. Capillary refill is normal. Test Results: Three-view x-ray of the foot was obtained per nursing protocol. There is a nondisplaced fracture of the proximal phalanx. Radiologist read was in before mind. Emergency Department Course and Treatment: X-ray per nursing protocol Doppler flow since patient is giving symptoms of claudication. Treatment Plan: Issac tape hard sole shoe and keep appointment with technical aide. Outpatient arterial study with treadmill exercising Disposition: Discharge to home with appropriate outpatient testing and follow-up Impression: 1. Nondisplaced proximal phalanx fracture fifth left toe 2. Claudication 3. Peripheral arterial disease 4. History of type 2 diabetes 5. History of hypercholesterolemia This note was generated with [employer] logoation software. It may contain incorrect words, spelling, and punctuation that were not noted in review of the chart prior to signing ED Disposition - Plan for ED Patient: Disposition: Home or Assisted Living Chief Complaint: Lower Extremity Injury Instructions: ED PVD, ED Fx Toe Closed Referrals: Madison Martins MD [Primary Care Provider] - 1-2 Weeks Kole Bojorquez DPM [STAFF PHYSICIAN] - Keep Ad appointment What to do if you have Problems For any increased pain, shortness of breath, bleeding, nausea or vomiting, chest pain, or any unexpected problems, contact your Primary Care Provider. Call [facility] ([phone]) or report to the closest Emergency Room. Call 911 if necessary. 04/30/18 9257 <Electronically signed by Abdoulaye Howard MD> Date Abdoulaye Howard MD Cosigner Signature (If Indicated): Date CC: Madison Martins MD; Kole Bojorquez DPM FOOT MIN 3 VIEWS Observed: 04/30/2018 Status: F Source: [place] 9:30 PM [facility] REPOSITORY [facility] Imaging Services [address] [place] [address] Foot min 3 Views MR#: [id number] Acct: [id number] Name: LACIE WHITE Rep #: [id number] : 1955 F 63 From: Alfredo Ayala DO PCP: Madison Martins MD Status: PRE ER Study: Foot min 3 Views Date of Exam: 04/30/18 Exam# [id number] Ordering Dr: Cuco Mckenna STUDY: X-RAY - LEFT FOOT CLINICAL: Female, 63 years old. Injury 5 days ago. Pain along the plantar aspect of foot. Bruising across the dorsal aspect of the toes. TECHNIQUE: 3 view(s) of the foot. COMPARISON: None. FINDINGS: Normal talus and tarsal bones. There are enthesophytes at the insertions of the Achilles tendon and plantar aponeurosis upon an otherwise normal calcaneus. Mild arthrosis of the visualized subtalar, talonavicular, calcaneocuboid, tarsal and tarsometatarsal articulations. Normal metatarsi. There is degenerative arthrosis of the metatarsophalangeal joint of the hallux . Normal tibial and fibular sesamoid bones. Normal interphalangeal joint of the great toe. Normal phalanges of the great toe. Normal second through fifth metatarsophalangeal joints. There is a nondisplaced fractures through the base of the fifth proximal phalanx. Otherwise normal interphalangeal joints and phalanges of the lesser toes. There is soft tissue swelling over the forefoot. RAD/Foot min 3 Views IMPRESSION: 1. Nondisplaced fracture of the base of the fifth proximal phalanx with associated soft tissue swelling. 2. Degenerative changes of the hindfoot. Electronically Signed: Alfredo Ayala DO at 22:05 EST Tel [phone], Service support , CC: ED PHYSICIAN PROVIDER; Madison Martins MD Chipper Operator: Signed MDRD EGFR Collected: 04/25/2018 Status: F Source: [facility] 10:22 AM HEALTH SYSTEM REPOSITORY TYPE CODE TESTS RESULT OUT OF RANGE REFERENCE UNITS LAB LGFRF(LOINC >60mL/min/1.73m ) 2 eGFR >60 Result Comment: If the patient is , multiply the result by 1.210. Performed By: #### LGFR #### [place] [address] MICROALB/CREAT, RANDOM Collected: 04/25/2018 Status: F Source: [place] 9:30 AM [facility] REPOSITORY TYPE CODE TESTS RESULT OUT OF RANGE REFERENCE UNITS LAB CREAU(LOINC mg/dL ) 58.4 Creatinine,U rine LAB MAR(LOINC) 0.20-2.50 mg/dL 2.40 Microalbumin ,Random LAB MACRE(LOINC 0.10-30.00 mg/g ) High MA/Creat 41.10 Ratio Performed By: #### MALBR #### [place] [address] TOTAL 25-OH VITAMIN Collected: 04/25/2018 Status: F Source: [facility] 9:30 AM HEALTH SYSTEM REPOSITORY TYPE CODE TESTS RESULT OUT OF REFERENCE UNITS RANGE LAB 25VD1(LOINC 30.0-100.0 ng/mL ) Low Total 25-OH 24.9 Vitamin D Performed By: #### 25VD1 #### [place] [address] LDL-CHOL, DIRECT Collected: 04/25/2018 Status: F Source: [facility] 9:30 AM HEALTH SYSTEM REPOSITORY TYPE CODE TESTS RESULT OUT OF REFERENCE UNITS RANGE LAB LDLX(LOINC) LDL-Chol, SEE BELOW Direct Result Comment: LDL-Chol, Direct 122 H <100 mg/dL <100 mg/dL, Optimal 100-129 mg/dL, Near optimal/above optimal 130-159 mg/dL, Borderline high 160-189 mg/dL, High >189 mg/dL, Very high Secondary prevention optimal LDL Cholesterol levels are recommended to be < 70 mg/dL VLDL Cholesterol SEE BELOW <30 mg/dL Test Not Indicated Performing Laboratory: [facility] [address] [place] [address] Performed By: #### LDLX #### [place] [address] HEMOGLOBIN A1C Collected: 04/25/2018 Status: F Source: [facility] 9:28 AM HEALTH SYSTEM REPOSITORY TYPE CODE TESTS RESULT OUT OF REFERENCE UNITS RANGE LAB LA1C2(LOINC 4.5-6.2 % ) High Hgb A1c 8.6 LAB ESAV(LOINC) mg/dl Est. Avg. 200 Glucose Performed By: #### LA1C #### [place] [address] BASIC PANEL Collected: 04/25/2018 Status: F Source: [facility] 9:[facility] REPOSITORY TYPE CODE TESTS RESULT OUT OF REFERENCE UNITS RANGE LAB RUBBER GOODS INSPECTOR(LOINC) 136-145 mEq/L Low Sodium Blood 135 LAB LK(LOINC) 3.5-5.1 mEq/L Potassium Blood 3.9 LAB LCL(LOINC) 98-107 mEq/L Chloride Blood 104 LAB LCO2(LOINC 21-32 mEq/L ) CO2 Blood 32 LAB LGLU(LOINC 70-99 mg/dL ) Glucose High Blood 153 LAB LBUN(LOINC 7-25 mg/dL ) BUN Blood 16 LAB LCREA(LOIN 0.51-0.95 mg/dL C) Creatinine Blood 0.64 LAB LCA(LOINC) 8.5-10.1 mg/dL Calcium Blood 9.3 LAB LANGP(LOIN 8-20 C) Low Anion Gap 3 LAB LBNCR(LOIN 10-20 C) High BUN/Creatinine 25 Ratio Performed By: #### LP8 #### [place] [address] AST-SGOT BLOOD Collected: 04/25/2018 Status: F Source: [facility] 9:28 HEALTH SYSTEM REPOSITORY TYPE CODE TESTS RESULT OUT OF RANGE REFERENCE UNITS LAB LAST(LOINC) 15-37 U/L Low AST-SGOT 14 Blood Performed By: #### LAST #### [place] [address] ALT-SGPT BLOOD Collected: 04/25/2018 Status: F Source: [facility] 9:28 AM HEALTH SYSTEM REPOSITORY TYPE CODE TESTS RESULT OUT OF RANGE REFERENCE UNITS LAB LALT(LOINC) 14-63 U/L ALT-SGPT 25 Blood Performed By: #### LALT #### [facility] [address] [place], [place] [address] TRIGLYCERIDE BLOOD Collected: 04/25/2018 Status: F Source: [facility] 9:28 AM HEALTH SYSTEM REPOSITORY TYPE CODE TESTS RESULT OUT OF REFERENCE UNITS RANGE LAB LTRIG(LOIN 0-149 mg/dL C) Triglyceride High Blood 316 Performed By: #### LTRIG #### [facility] [address] [place], [place] [address] CARDIOLOGY VISIT Observed: 04/03/2018 Status: F Source: [place] REPORT 9:59 AM [facility] REPOSITORY [facility] [place] [id number] [place] [address] OFFICE VISIT Date of Service: 04/03/18 MR#: [id number] Acct: [id number] Name: LACIE WHITE Rep #: [id number] : 1955 Provider: Seymour Doyle MD Age/Sex: 63/F Location: [facility] Status: Signed HPI HPI Chief Complaint: Follow up visit Details: LACIE WHITE, is a 63 F who presents to the office today for a follow up visit. She is a pleasant lady with a history of diabetes mellitus, hyperlipidemia who says that she has been getting intermittent chest pain in the past. She did have a stress test a year ago which she says was inconclusive. More recently she had an abdominal scan and was told that she did have calcium deposits. She was concerned about the above and together with the chest pain was decided to refer her here. Her most recent fasting lipid profile demonstrated triglyceride level of close to 500. She underwent an exercise stress echo where she exercised to 8.5 metabolic equivalents without any evidence of angina or EKG changes. In addition she underwent a CT scan of her chest which demonstrated a calcium score of 31 which suggests mild plaque burden only. She has had occasional chest discomfort which is somewhat atypical. She has had no typical neck arm or jaw discomfort suggest angina no dizziness or diaphoresis no near syncope or syncope. She has been compliant with her medications. Her blood pressure has been under excellent control. She is currently on high intensity statin. Her physical exam today demonstrates clear lung nicholas regular rate and rhythm and no pedal edema. Intake Vital Signs04/03/18 Height 5 ft 3 in 04/03/18 Weight: 188 lb 04/03/18 Body Mass Index (BMI) 33.3 04/03/18 Blood Pressure 128/6 H 04/03/18 Blood Pressure Location Lt brachial Intake Visit Reasons: 1 M FU Gospel Worker Required: No Accompanied by: none Is patient in pain?: No Allergies Penicillins Allergy (Verified 04/03/18 09:46) Hives Sulfa (Sulfonamide Antibiotics) Allergy (Verified 04/03/18 09:46) Hives OCEAN PERCH Allergy (Uncoded 02/14/18 11:55) Hives Medications empagliflozin 10 mg tablet 10 mg PO QDAY 11/22/17 [History Confirmed 04/03/18] fluoxetine 40 mg capsule 40 mg PO QDAY 11/22/17 [History Confirmed 04/03/18] liraglutide 0.6 mg/0.1 mL (18 mg/3 mL) subcutaneous pen injector 0.6 mg SC QDAY 11/22/17 [History Confirmed 04/03/18] omeprazole 40 mg capsule,delayed release 40 mg PO QDAY 11/22/17 [History Confirmed 04/03/18] alendronate 35 mg tablet 35 mg PO QWEEK #14 tab 02/06/18 [Rx Confirmed 04/03/18] aspirin 81 mg tablet,delayed release 81 mg PO DAILY #90 tab 02/06/18 [Rx Confirmed 04/03/18] atorvastatin 40 mg tablet 40 mg PO DAILY #90 tab 02/06/18 [Rx Confirmed 04/03/18] cholecalciferol (vitamin D3) 50,000 unit capsule 50,000 unit PO QWEEK 02/14/18 [History Confirmed 04/03/18] insulin glargine (U-100) 100 unit/mL (3 mL) subcutaneous pen 1.5 unit SC QDAY ml 02/14/18 [History Confirmed 04/03/18] [facility] Medical History Obesity (BMI 30.0-34.9) (Chronic) Osteopenia (Chronic) Type 2 diabetes mellitus (Chronic) GERD (gastroesophageal reflux disease) (Chronic) Kidney stones (Chronic) Hyperlipidemia (Chronic) Hearing loss (Chronic) Frequent headaches (Chronic) IBS (irritable bowel syndrome) (Chronic) Depression (Chronic) Anemia (Chronic) Seasonal allergies (Chronic) History of DVT in adulthood (Resolved) Surgical History History of appendectomy (Resolved) History of cholecystectomy (Resolved) History of hysterectomy with bilateral oophorectomy (Resolved) History of shoulder surgery (Resolved) Family History Mother Anemia Adjustment disorder with anxiety Arthritis High cholesterol Bleeding disorder Osteoporosis COPD (chronic obstructive pulmonary disease) Peptic ulcer disease Sister Adjustment disorder with anxiety Brother Adjustment disorder with anxiety Mental disorder Aunt Colon cancer Social History Smoking Status: Former smoker how long ago did patient quit smokin alcohol intake: never substance use type: does not use what type of physical activity do you participate in: none ROS Const Const: Negative for fatigue, weakness, night sweats, excessive sweating, frequent falls, headache(s) or daytime sleepiness Eyes Eyes: Negative for loss of peripheral vision, transient loss of vision, blind spots, double vision or blurry vision ENT ENT: Negative for headache(s), dizziness, balance problems, Nosebleed/epistaxis, tongue swelling or lip swelling Cardio Chest Pain: Yes (occasional) Palpitations: No Edema: None Muscle aches with walking: None Resp Respiratory: Negative for SOB at rest, SOB orthopnea\SOB lying down, Cough, paroxysmal nocturnal dyspnea or SOB with activity GI GI: Negative nausea, vomiting, heartburn, black,tarry stools or bright, red blood in stools : Negative for hematuria Musc Musc: Negative for balance problems, muscle aches/ myalgia, muscle weakness or joint pain Skin Skin: Negative non-healing lesions, unusual bruising or rash Neuro Neuro: Negative for weakness, frequent falls, headache(s), double vision, dizziness, lightheadedness, orthostatic symptoms, blurry vision or lack of coordination Jacoby Hematologic/Lymphatic: Negative for easy bruising or easy bleeding Endo Endo: Negative for fatigue, excessive sweating, cold intolerance, heat intolerance, increased thirst/drinking or hair loss Psych Psych: Negative for anxiety or depression Allergy Allergy/Immunology: Negative for throat swelling, Negative for tongue swelling, Negative for hives, Negative for rash, Negative for lip swelling Cardiology Exam Const Appearance: cooperative, healthy appearing, well developed, well groomed and no acute distress Nutritional Appearance: well nourished and average body habitus Orientation: alert, awake and oriented x3 Head Head: normal to inspection, normocephalic and atraumatic Ears: hearing grossly normal bilaterally and external ears normal Nose: external nose normal, nasal mucous membranes and turbinates normal, nares normal, septum normal, no nasal discharge Face and Sinus: face symmetric Mouth: oral mucosae normal, tongue normal, oropharynx normal and moist mucous membranes Teeth and gingiva: dentition normal Throat: posterior oropharynx normal, tonsils normal and uvula midline Eyes General: appearance normal, both eyes and all related structures Eyelids: eyelids normal Conjunctivae: conjunctivae normal Pupils: PERRL, normal by confrontation and accommodation normal EOM: EOM intact bilaterally Neck Neck: normal visual inspection, trachea midline and no JVD JVD: +5 Carotids: normal carotid upstroke and bounding pulses Chest Chest inspection: normal inspection of the chest, symmetric chest movement and normal respiratory effort Auscultation: Bilateral: Clear to Auscultation Cardio Palpation: normal PMI Rate: regular rate Rhythm: regular rhythm Heart sounds: S1 normal, S2 normal and normal, physiologic split S2; negative rub, gallop or murmur GI GI: normal to inspection, soft, no hepatosplenomegaly and bowel sounds present Neuro General: alert, awake, oriented x3, no focal sensory deficit, gait normal and moves all extremities Skin Skin: no rashes or lesions noted Extremities Pulses: Normal: Right Femoral Pulse, Left Femoral Pulse, Right Dorsalis Pedis Pulse, Left Dorsalis Pedis Pulse, Right Posterior Tibial Pulse, Left Posterior Tibial Pulse, Right Radial Pulse, Left Radial Pulse Lower Extremity Edema: None: Bilateral Musculoskel Musculoskeletal: No joint tenderness Psych Psychological: normal affect Assessment AND Plan 1. Chest pain R07.9 Plan She has had some atypical chest discomfort by the results of the coronary calcification score, as well as the stress echocardiogram were helpful. This is a low risk. At this time I would suggest that we pursue aggressive lipid-lowering medication with her high intensity statin. No other testing will be performed at this particular time. 2. Hyperlipidemia E78.5 Plan She continues to follow-up with the pediatrician managing partner in [place] and I have encouraged her to do so. At this juncture no new therapeutic options would be recommended. Thank you for allowing me to participate in the care of your patient. Please don't hesitate to call if any issues arise Plan Detail Follow Up 1 Year (production supv) Coding Level of Care Code Off vis,est,level 3 Diagnoses Chest pain R07.9 Hyperlipidemia E78.5 Coding Level of Care Code Off vis,est,level 3 Diagnoses Chest pain R07.9 Hyperlipidemia E78.5 04/03/18 0959 <Electronically signed by Seymour Doyle MD> Date Seymour Doyle MD Cosigner Signature: Date (if applicable) CC: Madison Martins MD LIMITED CHEST CT Observed: 03/20/2018 Status: F Source: [place] W/CCTA 1:25 PM [facility] REPOSITORY [facility] Imaging Services [address] [place] [id number] w/CCTA MR#: [id number] Acct: [id number] Name: LACIE WHITE Rep #: [id number] : 1955 F 63 From: Taiwo Paez MD PCP: Madison Martins MD Status: [facility] CLI Study: Limited Chest CT w/CCTA Date of Exam: 03/20/18 Exam# [id number] Ordering Dr: Seymour Doyle MD STUDY: CARDIAC CALCIUM SCORING - CT CHEST REASON FOR EXAM: Female, 63 years old. Chest pain, coronary calcium scoring, screening. RADIATION DOSAGE (If Supplied By Facility): CTDIvol = ( 12.19 ) mGy, DLP = ( 219.42 ) mGycm TECHNIQUE: Axial non-enhanced images were acquired through the heart for the sole purpose of measuring coronary artery calcium. Individualized dose optimization techniques were used for this CT. COMPARISON: None. FINDINGS: Body wall soft tissues unremarkable. Limited evaluation of upper abdomen is normal. There is no acute osseous process. Scoliosis, osteopenia and mild thoracic spondylosis. Normal esophagus. No mediastinal or hilar mass or lymphadenopathy. Calcified pulmonary nodule of the apical segment of the left lower lobe consistent with old granulomatous disease. Lungs otherwise clear. Unremarkable airways. Cardiovascular: Normal heart size without effusion. Mild epicardial lipomatosis. Mild lipomatous hypertrophy of interatrial septum. There is evidence of mild fatty metaplasia involving one of the left ventricular papillary muscles. This is typically a benign finding. Not necessarily related to any prior myocardial infarction. The right and left coronary arteries each emerge from the appropriate coronary sinus with left coronary dominance to the PDA. There is a small focus of coronary calcium in the proximal RCA. There is no calcium in the left main. There is no calcium in the circumflex. There is no calcium in the PDA. There is a small focus of calcium in the proximal LAD. Total Calcium Score: 31.4 LAD [address]/Limited Chest CT w/CCTA IMPRESSION: A Calcium Score of 31.4 places the patient in the approximate 62nd percentile, based on the KELLY data calculator. Mild plaque burden. Likely mild or minimal coronary stenosis. Please go to: [email or web address].[email or web address] , for a description of the calculator. Electronically Signed: Taiwo Jeannine, at 17:36 EDT Tel , Service support , CC: Seymour Doyle MD; Madison Martins MD Chipper Operator: Signed STRESS TEST ECHO W/O Observed: 03/02/2018 Status: F Source: [place] [facility] 3:24 PM [facility] REPOSITORY [facility] Cardiovascular Services [address] [place] [address] Stress Test Echo w/o Contrast MR#: [id number] Acct: [id number] Name: LACIE WHITE Rep #: [id number] : 1955 62 From: Seymour Doyle MD Primary Care: Madison Martins MD Status: REG CLI Ordering Dr: Seymour Doyle MD Sex: F C Reason For Study: Chest Pain Stress Results Protocol: Dex Protocol Maximum Predicted HR: 157 bpm Target HR: 133 bpm% Max imum Predicted HR: 89 % DurationHeart Rate Stage (mm:ss) (bpm) BPCom ment Baseline 78 118/72 No Chest Pain Dex Protocol Stage I 3:00 11 1 130/70No Chest Pain Dex Protocol Stage II 3:00 13 7 146/72No Chest Pain Dex Protocol Stage III 0:30 13 9 / No Chest Pain; Moderate Dyspnea; Leg Pain Recovery 86 114/70 No Chest Pain Stress Duration: 6:30 mm:ss Maximum Stress HR: 139 bpmM ETS: 8 Baseline Echocardiogram Findings Stress Echo Wall motion Data Resting WMIntermediate WMStress WM Resting Wall Motion Wall Motion Stress No regional wall motion No regional wall motion abnormalities noted. abnormalities noted. Ejection Fraction 55 %. Ejection Fraction 65 %. Stress Results Normal blood pressure response to exercise. Exercise was stopped due to dyspnea. Interpretation Summary Exercise stress echocardiogram. Stress test. Resting EKG demonstrates normal sinus rhythm with a rate of 78 bpm normal intervals and noted resting blood pressure 118/72 mmHg. The patient exercised according to regular Dex protocol for total duration of 6 minutes and 30 seconds completing 30 seconds into stage III of the Dex protocol. The maximum heart rate attained was 148 bpm which was 94% of maximum predicted heart rate the maximum workload was 8.5 metabolic equivalents. The patient maintained sinus rhythm throughout the recording. At rest and during peak exercise upsloping ST changes only were noted with no meet the criteria for ischemia. The resting blood pressure 118/72 with a peak blood pressure 146/72. Rate pressure product was 20,000. Stress echocardiogram. Resting echocardiographic images demonstrated an ejection fraction of approximately 55%. The patient exercised according to regular Dex protocol and peak stress images demonstrate an ejection fraction of 65%. No wall motion abnormalities were noted. No clinical angina was present. Next Conclusion: Normal exercise stress echo with no regional wall motion abnormalities noted No clinical angina noted No arrhythmias present. Ordering Physician: Seymour Doyle Referring Physician: Seymour Doyle Performed By: Iis Hatch RDCS 03/02/18 1523 Date Seymour Doyle MD CC: Seymour Doyle MD; Madison Martins MD Date Dictated: 03/02/18 1115 Date Transcribed: 03/02/18 1523 Chipper Operator: Signed CARDIOLOGY VISIT Observed: 02/14/2018 Status: F Source: [place] [facility] 12:18 PM [facility] REPOSITORY [facility] [address] [place] [address] OFFICE VISIT Date of Service: 02/14/18 MR#: [id number] Acct: [id number] Name: LACIE WHITE Rep #: [id number] : 1955 Provider: Seymour Doyle MD Age/Sex: 62/F [place] [facility]: Signed HPI HPI Chief Complaint: Initial visit Details: LACIE WHITE, is a 62 F who presents to the office today for an initial visit. She is a pleasant lady with a history of diabetes mellitus hyperlipidemia who says that she has been getting intermittent chest pain in the past. She did have a stress test a year ago which she says was inconclusive. More recently she had an abdominal scan and was told that she did have calcium deposits. She was concerned about the above and together with the chest pain was decided to refer her here. Her most recent fasting lipid profile demonstrated triglyceride level of close to 500. She has had no typical neck arm or jaw discomfort suggest angina no dizziness or diaphoresis no near syncope or syncope. She has been compliant with her medications. Her blood pressure has been under excellent control. She is currently on high intensity statin. Her physical exam today demonstrates clear lung nicholas regular rate and rhythm and no pedal edema. Intake Vital Signs02/14/18 Height 5 ft 3 in 02/14/18 Weight: 189 lb 02/14/18 Body Mass Index (BMI) 33.5 02/14/18 Blood Pressure 108/62 02/14/18 Respiratory Rate 16 02/14/18 Pulse Rate 72 Intake Visit Reasons: PCP ref'd for intermittent CP Allergies Penicillins Allergy (Verified 02/14/18 11:55) Hives Sulfa (Sulfonamide Antibiotics) Allergy (Verified 02/14/18 11:55) Hives OCEAN PERCH Allergy (Uncoded 02/14/18 11:55) Hives Medications empagliflozin 10 mg tablet 10 mg PO QDAY 11/22/17 [History Confirmed 02/14/18] fluoxetine 40 mg capsule 40 mg PO QDAY 11/22/17 [History Confirmed 02/14/18] liraglutide 0.6 mg/0.1 mL (18 mg/3 mL) subcutaneous pen injector 0.6 mg SC QDAY 11/22/17 [History Confirmed 02/14/18] omeprazole 40 mg capsule,delayed release 40 mg PO QDAY 11/22/17 [History Confirmed 02/14/18] alendronate 35 mg tablet 35 mg PO QWEEK #14 tab 02/06/18 [Rx Confirmed 02/14/18] aspirin 81 mg tablet,delayed release 81 mg PO DAILY #90 tab 02/06/18 [Rx Confirmed 02/14/18] atorvastatin 40 mg tablet 40 mg PO DAILY #90 tab 02/06/18 [Rx Confirmed 02/14/18] cholecalciferol (vitamin D3) 50,000 unit capsule 50,000 unit PO QWEEK 02/14/18 [History Confirmed 02/14/18] insulin glargine (U-100) 100 unit/mL (3 mL) subcutaneous pen 1.5 unit SC QDAY ml 02/14/18 [History Confirmed 02/14/18] [facility] Medical History Obesity (BMI 30.0-34.9) (Chronic) Osteopenia (Chronic) Type 2 diabetes mellitus (Chronic) GERD (gastroesophageal reflux disease) (Chronic) Kidney stones (Chronic) Hyperlipidemia (Chronic) Hearing loss (Chronic) Frequent headaches (Chronic) IBS (irritable bowel syndrome) (Chronic) Depression (Chronic) Anemia (Chronic) Seasonal allergies (Chronic) History of DVT in adulthood (Resolved) Surgical History History of appendectomy (Resolved) History of cholecystectomy (Resolved) History of hysterectomy with bilateral oophorectomy (Resolved) History of shoulder surgery (Resolved) Family History Mother Anemia Adjustment disorder with anxiety Arthritis High cholesterol Bleeding disorder Osteoporosis COPD (chronic obstructive pulmonary disease) Peptic ulcer disease Sister Adjustment disorder with anxiety Brother Adjustment disorder with anxiety Mental disorder Aunt Colon cancer Social History Smoking Status: Former smoker how long ago did patient quit smokin alcohol intake: never substance use type: does not use what type of physical activity do you participate in: none ROS Const Const: Negative for fatigue, weakness, difficulty sleeping, frequent falls, excessive sweating or headache(s) Eyes Eyes: Negative for loss of peripheral vision, transient loss of vision, blurry vision, tunnel vision or double vision ENT ENT: Negative for headache(s), dizziness, Nosebleed/epistaxis or balance problems Cardio Chest Pain: Yes (Chest pain with activity for the past 2 years) Frequency: other (couple times a month) Character: sharp, tightness Onset: exercise Location: mid sternal (Radiates to jaw) Duration: minutes Exacerbation: activity Relieving: rest Palpitations: No Edema: None Muscle aches with walking: None Resp Respiratory: Negative for SOB with activity, SOB at rest, SOB orthopnea\SOB lying down, paroxysmal nocturnal dyspnea or Cough GI GI: Negative nausea, heartburn, black,tarry stools or vomiting : Negative for hematuria Musc Musc: Negative for balance problems, muscle aches/ myalgia, muscle weakness or joint pain Skin Skin: Negative non-healing lesions, unusual bruising or rash Neuro Neuro: Negative for weakness, frequent falls, headache(s), blurry vision, double vision, dizziness, lightheadedness, orthostatic symptoms, near syncope, syncope or lack of coordination Jacoby Hematologic/Lymphatic: Negative for easy bruising or easy bleeding Endo Endo: Negative for fatigue, excessive sweating or increased thirst/drinking Psych Psych: Negative for anxiety or depression Allergy Allergy/Immunology: Negative for hives, Negative for rash Cardiology Exam Const Appearance: cooperative, healthy appearing, well developed, well groomed and no acute distress Nutritional Appearance: well nourished and average body habitus Orientation: alert, awake and oriented x3 Head Head: normal to inspection, normocephalic and atraumatic Ears: hearing grossly normal bilaterally and external ears normal Nose: external nose normal, nasal mucous membranes and turbinates normal, nares normal, septum normal, no nasal discharge Face and Sinus: face symmetric Mouth: oral mucosae normal, tongue normal, oropharynx normal and moist mucous membranes Teeth and gingiva: dentition normal Throat: posterior oropharynx normal, tonsils normal and uvula midline Eyes General: appearance normal, both eyes and all related structures Eyelids: eyelids normal Conjunctivae: conjunctivae normal Pupils: PERRL, normal by confrontation and accommodation normal EOM: EOM intact bilaterally Neck Neck: normal visual inspection, trachea midline and no JVD JVD: +5 Carotids: normal carotid upstroke and bounding pulses Chest Chest inspection: normal inspection of the chest, symmetric chest movement and normal respiratory effort Auscultation: Bilateral: Clear to Auscultation Cardio Palpation: normal PMI Rate: regular rate Rhythm: regular rhythm Heart sounds: S1 normal, S2 normal and normal, physiologic split S2; negative rub, gallop or murmur GI GI: normal to inspection, soft, no hepatosplenomegaly and bowel sounds present Neuro General: alert, awake, oriented x3, no focal sensory deficit, gait normal and moves all extremities Skin Skin: no rashes or lesions noted Extremities Pulses: Normal: Right Femoral Pulse, Left Femoral Pulse, Right Dorsalis Pedis Pulse, Left Dorsalis Pedis Pulse, Right Posterior Tibial Pulse, Left Posterior Tibial Pulse, Right Radial Pulse, Left Radial Pulse Lower Extremity Edema: None: Bilateral Musculoskel Musculoskeletal: No joint tenderness Psych Psychological: normal affect Assessment AND Plan 1. Chest pain R07.9 Plan She does have somewhat atypical chest discomfort my recommendation at this time will be for us to do a combination of tests by obtaining a coronary calcification score as well as a stress echocardiogram. Putting these 2 together we should be able to restart if I have appropriately to see whether she has any evidence of coronary disease or not. I discussed the above with her the risks benefits and alternatives she understands and agrees to proceed. In the meantime she will continue on the high intensity statin. As you know the recent studies have shown that for asymptomatic diabetic patients there is probably little benefit of the daily aspirin. However I will wait till the results of her stress test performed before suggesting discontinuation of the above. Orders Orders: Plan Detail Other Orders Orders: Follow Up 1 Month (csop) Coding Level of Care Code Off vis,new,level 4 Diagnoses Chest pain R07.9 Coding Level of Care Code Off vis,new,level 4 Diagnoses Chest pain R07.9 02/14/18 1218 <Electronically signed by Seymour Doyle MD> Date Seymour Doyle MD Cosigner Signature: Date (if applicable) CC: Madison Martins MD 12 LEAD EKG PERFORMED Observed: 02/14/2018 Status: F [place] [facility] [place] PM [facility] REPOSITORY [address] [address] 12 Lead EKG performed by [facility] 02/14/18 1202 MR#: [id number] Acct: [id number] Name: LACIE WHITE Rep #: [id number] : 1955 62 From: Seymour Doyle MD Attending Dr: Seymour Doyle MD Status: DEP AMB Ordering Dr: Seymour Doyle MD Date: 02/14/18 [place] [facility] [place]: F C Admitted: [facility]12 Lead EKG performed by [facility] ECG Report Interpretation Sinus Rhythm - Nonspecific T-abnormality. ABNORMAL Electronically signed on 05/02/2018 at 11:29 by Seymour Doylewood Software Version [id number] 05/02/18 1135 Date Seymour Doyle MD CC: Madison Martins MD Date Dictated: 02/14/18 120 Date Transcribed: 02/14/181201 Chipper Operator: CO Signed INTERNAL MEDICINE Observed: 02/06/2018 Status: F Source: [place] OFFICE VISIT 3:57 PM [facility] [address] [place], [place] [address] OFFICE VISIT Date of Service: 02/06/18 MR#: [id number] Acct: [id number] Name: LACIE WHITE Rep #: [id number] : 1955 Provider: Madison Martins MD Age/Sex: 62/F Location: [facility] Status: Signed Intake Vital Signs02/06/18 Height 5 ft 3 in 02/06/18 Weight: 189 lb 02/06/18 Body Mass Index (BMI) 33.5 02/06/18 Blood Pressure 108/70 Intake Visit Reasons: 3 mo fu Chief Complaint: 3 MO FU Is patient in pain?: No Allergies Penicillins Allergy (Verified 02/06/18 09:01) Hives Sulfa (Sulfonamide Antibiotics) Allergy (Verified 02/06/18 09:01) Hives OCEAN PERCH Allergy (Uncoded 02/06/18 09:01) Hives Medications empagliflozin 10 mg tablet 10 mg PO QDAY 11/22/17 [History Confirmed 11/24/17] fluoxetine 40 mg capsule 40 mg PO QDAY 11/22/17 [History Confirmed 11/24/17] insulin glargine (U-100) 100 unit/mL (3 mL) subcutaneous pen 17 unit SC QDAY ml 11/22/17 [History Confirmed 11/24/17] liraglutide 0.6 mg/0.1 mL (18 mg/3 mL) subcutaneous pen injector 0.6 mg SC QDAY 11/22/17 [History Confirmed 11/24/17] omeprazole 40 mg capsule,delayed release 40 mg PO QDAY 11/22/17 [History Confirmed 11/24/17] alendronate 35 mg tablet 35 mg PO QWEEK #14 tab 02/06/18 [Rx Confirmed 02/06/18] aspirin 81 mg tablet,delayed release 81 mg PO DAILY #90 tab 02/06/18 [Rx Confirmed 02/06/18] atorvastatin 40 mg tablet 40 mg PO DAILY #90 tab 02/06/18 [Rx Confirmed 02/06/18] PFSH Medical History GERD (gastroesophageal reflux disease) (Chronic) Kidney stones (Chronic) Hyperlipidemia (Chronic) Hearing loss (Chronic) Frequent headaches (Chronic) IBS (irritable bowel syndrome) (Chronic) Depression (Chronic) Diabetes (Chronic) Anemia (Chronic) Seasonal allergies (Chronic) Surgical History History of appendectomy (Acute) History of cholecystectomy (Acute) History of hysterectomy with bilateral oophorectomy (Acute) History of shoulder surgery (Acute) Family History Mother Anemia Adjustment disorder with anxiety Arthritis High cholesterol Bleeding disorder Osteoporosis COPD (chronic obstructive pulmonary disease) Peptic ulcer disease Sister Adjustment disorder with anxiety Brother Adjustment disorder with anxiety Mental disorder Aunt Colon cancer Social History Smoking Status: Former smoker how long ago did patient quit smokin alcohol intake: never substance use type: does not use what type of physical activity do you participate in: none HPI HPI Chief Complaint: 3 MO FU Details: LACIE WHITE, is a 62yo F who presents to the office today for follow-up of recent ER visit for UTI. Symptoms are now resolved. She continues to follow-up with pediatrician managing partner for management of her type 2 diabetes mellitus which she states for the most part is well controlled. She reports history of intermittent chest pain that started out being worked up however, did not follow through. She still reports intermittent chest pain. She however denies shortness of breath or palpitations. Recent bone density scan done suggestive of significant osteopenia. Positive family history of osteoporosis in her mother. Prior smoking history. ROS Const Constitutional: No chills, fatigue, fever(s), frequent falls, malaise, weakness, sleep problems or change in appetite Eyes Eyes: No blurry vision, change in vision, double vision, discharge or visual disturbances ENT ENT: No abnormal hearing, ear pain, ear pressure, tinnitus or dizziness/vertigo Resp Respiratory: No cough, shortness of breath or wheezing Cardio Cardiology: No chest pain at rest, chest pain with exertion, shortness of breath, dyspnea on exertion, generalized swelling, irregular heart rhythm, lightheadedness, orthopnea, fast heart rate or palpitations Gastro GI: No abdominal pain, change in bowel habits, constipation, diarrhea, nausea/dyspepsia or vomiting Genitourinary-Female: No difficulty urinating, burning urination, painful urination, urinary incontinence, urinary frequency, urinary urgency, urinary hesitancy, urinary retention, Frequent nighttime urination/ nocturia, sexual problems, genital lesions, abnormal vaginal bleeding, pelvic pain, vaginal dryness, vaginal odor or Vaginal Itching Musc Musculoskeletal: No joint pain, back pain, joint swelling, limited range of motion, muscle weakness, numbness or tingling Skin Skin: No change in skin color, itching, rash or wounds Breast Breast: No breast lump or breast pain Neuro Neurology: No frequent falls, weakness, abnormal hearing, numbness, tingling, unsteady gait/balance, dizziness, loss of vision, memory loss or visual disturbances Psych Psychiatric: No memory loss, No anxiety, No change in appetite, No depression, No Thoughts of harming yourself/Others Endo Endocrine: No fatigue, heat intolerance, increased thirst/drinking, increased hunger or increased urination Aller/Imm Allergy/Immunologic: No wheezing, itchy eyes or seasonal allergy symptoms Jacoby/Lymp Hematologic/Lymphatic: No easy bleeding, easy bruising or enlarged lymph nodes Exam Const General: cooperative, no acute distress, well developed Orientation: alert, awake, oriented x3 HENMT Head: normal to inspection, normocephalic, atraumatic Ears: hearing grossly normal bilaterally Resp Effort AND Inspection: normal respiratory effort, able to speak in complete sentences Auscultation: Bilateral: Clear to Auscultation Cardio Rate: regular rate Rhythm: regular rhythm Heart Sounds: S1 normal, S2 normal GI Palpation: soft, no hepatosplenomegaly Musc Musculoskeletal: No muscle weakness Neuro General: alert, awake, oriented x3, moves all extremities, CN's II-XI intact bilaterally Extrem General: no clubbing, cyanosis or edema Psych Appearance: grossly normal Mental Status: mental status grossly normal Affect: normal affect Assessment AND Plan 1. Type 2 diabetes mellitus E11.9 Plan Well controlled per patient. Currently follows up with her pediatrician managing partner. Continue current management. Will request records from her pediatrician managing partner. Follow-up with podiatry and ophthalmology recommended Orders Referrals: 2. Hyperlipidemia E78.5 Plan Increase atorvastatin to 40 mg daily. Continue low-dose aspirin. Other lifestyle and dietary modifications discussed. 3. Chest pain R07.9 Plan Chronic and intermittent. Had started work up in the past however, did not follow through. Referred to cardiology. Orders Referrals: 4. Osteopenia M85.80 Plan Severe osteopenia. Due to the significant family history and prior history of smoking, will start on alendronate 35 mg weekly. Continue calcium and vitamin D supplements daily. Follow-up at next visit. 5. Healthcare maintenance Z00.00 Plan Recent mammogram within normal. Colonoscopy and Pap smear Carol a year. Pneumonia vaccinations at next visit. Discussed shingles vaccine at next visit. This note was generated with [employer] dictation software. It may contain incorrect words, spelling, and punctuation that were not noted in checking the note before signing. Plan Detail Other Medications New: Discontinued: Coding Level of Care Code Off vis,est,level 4 Diagnoses Type 2 diabetes mellitus E11.9 Hyperlipidemia E78.5 Chest pain R07.9 Osteopenia M85.80 Healthcare maintenance Z00.00 02/06/18 1557 <Electronically signed by Madison Martins MD> Date Madison Martins MD Cosigner Signature: Date (if applicable) CC: BASIC METABOLIC PANEL Collected: 01/23/2018 Status: F Source: [facility] 10:55 AM PRIMARY CARE REPOSITORY Order Comment: Items in this order include: HgbA1C, Basic Metabolic Panel , AST (SGOT), ALT (SGPT), Direct LDL , Triglyceride, Vit D 25 [place] (Total), Urine, Random, Albumin/Crea , , , Fastin hours TYPE CODE TESTS RESULT OUT OF REFERENCE UNITS RANGE LAB CO28(LOINC 74-100 mg/dL ) Glucose High 135 LAB CO25(LOINC 8.5-10.5 mg/dL ) Calcium 9.7 LAB CO19(LOINC 135-145 mmol/L ) Sodium 139 LAB CO20(LOINC 3.5-5.3 mmol/L ) Potassium 4.5 LAB CO22(LOINC 98-107 mmol/L ) Chloride 99 LAB CO21(LOINC 22.0-30.0 mmol/L ) CO2 29.5 LAB CO58(LOINC 8.00-16.00 mmol/l ) Anion Gap 10.50 LAB CO23(LOINC 6-22 mg/dL ) BUN 14 LAB CO24(LOINC 0.1-1.2 mg/dL ) Creatinine 0.7 LAB CO101(LOIN Ratio C) B/C Ratio 20.0 LAB CO516(LOIN >60 mL/min per C) 1.73 GFR 84 Result Comment: The GFR estimate is not adjusted for race. If the patient's race is -[place], the GFR estimate must be multiplied by a factor of 1.21. Performed By: #### C45, C104, C103, C119, C141, C3763, C80, C406 #### [facility] [address] [place] [address] AST (SGOT) Collected: 01/23/2018 Status: F Source: [facility] 10:55 AM PRIMARY CARE REPOSITORY Order Comment: Fastin hours TYPE CODE TESTS RESULT OUT OF RANGE REFERENCE UNITS LAB CO15(LOINC) 11-43 U/L AST 20 Performed By: #### C45, C104, C103, C119, C141, C3763, C80, C406 #### [facility] [address] [place] [address] ALT (SGPT) Collected: 01/23/2018 Status: F Source: [facility] 10:55 AM PRIMARY CARE REPOSITORY Order Comment: Fastin hours TYPE CODE TESTS RESULT OUT OF RANGE REFERENCE UNITS LAB CO14(LOINC) 10-52 U/L ALT 29 Performed By: #### C45, C104, C103, C119, C141, C3763, C80, C406 #### [facility] [address] [place] [address] TRIGLYCERIDE Collected: 01/23/2018 Status: F Source: [facility] 10:55 AM PRIMARY CARE REPOSITORY Order Comment: Fastin hours TYPE CODE TESTS RESULT OUT OF REFERENCE UNITS RANGE LAB CO2(LOINC) <150 mg/dL Triglyceride High 497 Performed By: #### C45, C104, C103, C119, C141, C3763, C80, C406 #### [facility] [address] [place] [address] DIRECT LDL Collected: 01/23/2018 Status: F Source: [facility] 10:55 AM PRIMARY CARE REPOSITORY Order Comment: Items in this order include: HgbA1C, Basic Metabolic Panel , AST (SGOT), ALT (SGPT), Direct LDL , Triglyceride, Vit D 25 [place] (Total), Urine, Random, Albumin/Crea , , , Fastin hours TYPE CODE TESTS RESULT OUT OF REFERENCE UNITS RANGE LAB CO105(LOINC <130 mg/dL ) Direct LDL 101 Result Comment: LDL goal dependent upon individual risk Performed By: #### C45, C104, C103, C119, C141, C3763, C80, C406 #### [facility] [address] [place] [address] VIT D 25 [place] (TOTAL) Collected: 01/23/2018 Status: F Source: [facility] 10:55 AM PRIMARY CARE REPOSITORY Order Comment: Fastin hours TYPE CODE TESTS RESULT OUT OF RANGE REFERENCE UNITS LAB CO246(LOINC 31.0-100.0 ng/ml ) Low Vit D 25 15.4 [place] (Total) Result Comment: Deficiency <10 ng/ml Insufficiency 10-30 ng/ml Sufficiency 31-100 ng/ml Toxicity >100 ng/ml Performed By: #### C45, C104, C103, C119, C141, C3763, C80, C406 #### [facility] [address] [place] [address] URINE, RANDOM, Collected: 01/23/2018 Status: F Source: [facility] ALBUMIN/CREA 10:55 AM PRIMARY CARE REPOSITORY Order Comment: Items in this order include: HgbA1C, Basic Metabolic Panel , AST (SGOT), ALT (SGPT), Direct LDL , Triglyceride, Vit D 25 [place] (Total), Urine, Random, Albumin/Crea , , , Fastin hours TYPE CODE TESTS RESULT OUT OF REFERENCE UNITS RANGE LAB CO67(LOINC 0.0-1.6 mg/dL ) Urine Microalbumin 1.1 LAB CO68(LOINC 28.0-217.0 mg/dl ) Urine Creatinine 72.2 LAB CO69(LOINC 0.0-29.9 mcg/mg ) creat Urine Microalb/ Creat 15.2 Ratio Result Comment: The ADA (Diabetes Care 26:s94-s98,2003) defines abnormalities in albumin excretion as follows: Category Result (mcg/mg creatinine) Normal <30 Microalbuminuria 30-299 Clinical Albuminuria > or =300 The ADA recommends that at least two of three specimens collected within a 3-6 month period be abnormal before considering a patient to be within a diagnostics category. Performed By: #### C45, C104, C103, C119, C141, C3763, C80, C406 #### [facility] [address] [place] [address] HGBA1C Collected: 01/23/2018 Status: F Source: [facility] 10:55 AM PRIMARY CARE REPOSITORY Order Comment: Items in this order include: HgbA1C, Basic Metabolic Panel , AST (SGOT), ALT (SGPT), Direct LDL , Triglyceride, Vit D 25 [place] (Total), Urine, Random, Albumin/Crea , , , Fastin hours TYPE CODE TESTS RESULT OUT OF RANGE REFERENCE UNITS LAB CO36(LOINC) <6.0 % High HgbA1C 7.7 Performed By: #### C45, C104, C103, C119, C141, C3763, C80, C406 #### [facility] [address] [place] [address] EMERGENCY DEPARTMENT Observed: 01/20/2018 Status: F Source: [place] SUMMARY 12:36 AM [facility] REPOSITORY [facility] Medical Records Department [address] [place] [address] Emergency Department Summary 01/19/18 2256 MR#: [id number] Acct: [id number] Name: LACIE WHITE Rep #: [id number] : 1955 62 From: Kishor Queen MD PCP: Madison Martins MD Status: DEP ER - ER Visit Summary Date of Service: 01/19/18 Chief Complaint: Abdominal and flank pain History of Present Illness: The patient is a 62 F who reports that she has upper abdominal and flank pain that began yesterday. She describes as a pressure. 9 out of 10 at worst and 710 currently. Is worsened by walking periods relieved by remaining still. She had nausea without vomiting. Her last bowel movements today. No melena or hematochezia. She had frequent urination, but no dysuria. Reports this is similar to when she has had a UTI in the past. She denies any fever or chills. Physical Examination: Vitals: Stable. Afebrile. General: Well-nourished and well-developed. Head: Normocephalic atraumatic. Neck: Supple, no lymphadenopathy. No JVD. Nontender. Cardiovascular: Regular rate and rhythm. No murmurs. Respiratory: No respiratory distress. Clear to auscultation bilaterally. Abdominal: Soft, mild diffuse upper abdominal tenderness to palpation, nondistended, normal bowel sounds. No guarding, rebound, or peritoneal signs. Back: Mild CVA tenderness bilaterally. Extremities: Nontender, no edema. Skin: Normal color, no rash. Neurologic: Alert and oriented 3. Cranial nerves II through XII are intact. Normal strength and sensation. Psych: Normal affect. Test Results: UA does show a UTI. LFTs marked for globulin 4.4. Lipase normal. Chem-7 more for glucose 130 BUN of 19. CBC is more for 7 neutrophils of 47. Emergency Department Course and Treatment: Patient was treated with morphine and Zofran IV. She was given Keflex and Azo p.o. Treatment Plan: Patient will be discharged on Keflex and Pyridium. Instructed follow-up her primary care physician 1 week for another exam. Return to the emergency department for any worsening symptoms. Disposition: To home in improved and stable condition. Impression: 1. UTI. This note was generated with [employer] dictation software. It may contain incorrect words, spelling, and punctuation that were not noted in review of the chart prior to signing ED Disposition - Plan for ED Patient: Chief Complaint: Complaint Instructions: ED UTI Cystitis Female Prescriptions: Cephalexin [Keflex] 500 mg PO BID #14 capsule Phenazopyridine HCl [Pyridium] 200 mg PO TID #10 tablet Referrals: Madison Martins MD [Primary Care Provider] - 1 Week What to do if you have Problems For any increased pain, shortness of breath, bleeding, nausea or vomiting, chest pain, or any unexpected problems, contact your Primary Care Provider. Call [facility] ([phone]) or report to the closest Emergency Room. Call 911 if necessary. 01/20/18 0036 <Electronically signed by Kishor Queen MD> Date Kishor Queen MD Cosigner Signature (If Indicated): Date CC: Madison Martins MD CBC W/DIFF, AUTOMATED Collected: 01/19/2018 Status: F Source: [place] 11:20 PM [facility] REPOSITORY TYPE CODE TESTS RESULT OUT OF RANGE REFERENCE UNITS LAB L100.1000 4.4-11.0 K/mm3 Normal WBC 8.6 LAB L100.1200 4.2-5.4 M/mm3 Normal RBC 4.77 LAB L100.1300 12.0-15.0 g/dl Normal HGB 12.4 LAB L100.1400 37-47 % Normal HCT 40.5 LAB L100.1500 81-99 fL Normal MCV 84.9 LAB L100.1600 27.0-32.0 pg Low MCH 26.0 LAB L100.1700 32-36 g/gl Low MCHC 30.6 LAB L100.1810 11.6-14.6 % Normal RDW CV 14.4 LAB L100.1820 35.1-43.9 fl High RDW SD 45.0 LAB L100.1900 150-450 K/mm3 Normal PLT 246 LAB L100.2000 6.2-12.0 fl Normal MPV 9.4 LAB L100.2100 47-70 % Low NEUT% 46.7 LAB L100.2200 19-41 % Normal LY% 39.5 LAB L100.2300 0-10 % Normal MONO% 9.2 LAB L100.2400 0-5 % Normal EO% 4.2 LAB L100.2500 0-1 % Normal BASO% 0.3 LAB L100.2550 0.0-0.9 % Normal IM GRAN % 0.100 Result Comment: IG% - Immature Granulocytes (promyelocytes, myelocytes and metamyelocytes) > 1% indicates that a LEFT SHIFT is Present. LAB L100.2620 2.0-7.7 X10 3/uL Normal Absolute Neut 4.0 LAB L100.2720 0.83-4.51 X10 3/ul Normal Absolute Lymph 3.41 Performed By: #### L100.0100 #### [facility] [address] [place], [place], [address] CBC W/DIFF, AUTOMATED Collected: 01/19/2018 Status: F Source: [place] 10:50 PM [facility] REPOSITORY TYPE CODE TESTS RESULT OUT OF RANGE REFERENCE UNITS LAB L100.1000 4.4-11.0 K/mm3 Normal WBC 7.0 LAB L100.1200 4.2-5.4 M/mm3 Normal RBC 4.93 LAB L100.1300 12.0-15.0 g/dl Normal HGB 12.9 LAB L100.1400 37-47 % Normal HCT 41.8 LAB L100.1500 81-99 fL Normal MCV 84.8 LAB L100.1600 27.0-32.0 pg Low MCH 26.2 LAB L100.1700 32-36 g/gl Low MCHC 30.9 LAB L100.1810 11.6-14.6 % Normal RDW CV 14.5 LAB L100.1820 35.1-43.9 fl High RDW SD 45.2 LAB L100.1900 150-450 K/mm3 Low PLT 96 LAB L100.2000 6.2-12.0 fl Normal MPV 10.3 LAB L100.2100 47-70 % Low NEUT% 45.7 LAB L100.2200 19-41 % High LY% 43.5 LAB L100.2300 0-10 % Normal MONO% 6.4 LAB L100.2400 0-5 % Normal EO% 3.7 LAB L100.2500 0-1 % Normal BASO% 0.3 LAB L100.2550 0.0-0.9 % Normal IM GRAN % 0.400 Result Comment: IG% - Immature Granulocytes (promyelocytes, myelocytes and metamyelocytes) > 1% indicates that a LEFT SHIFT is Present. LAB L100.2620 2.0-7.7 X10 3/uL Normal Absolute Neut 3.2 LAB L100.2720 0.83-4.51 X10 3/ul Normal Absolute Lymph 3.04 Performed By: #### L100.0100 #### [facility] [address] [place], [address] BASIC METABOLIC Collected: 01/19/2018 Status: F Source: [place] PROFILE ([facility]) 10:50 PM [facility] REPOSITORY TYPE CODE TESTS RESULT OUT OF RANGE REFERENCE UNITS LAB L501.0100 74-106 mg/dL High GLU 130 Result Comment: Fasting Glucose result greater than or equal to 126 mg/dL suggests DIABETES MELLITUS per A.D.A. criteria. Please note revised GLUCOSE reference range effective 2017. LAB L501.1000 7-18 mg/dL High BUN 19 LAB L501.1100 0.55-1.02 mg/dL Normal CREAT,SERUM 0.96 Result Comment: The validity of the calculated GFR AND GFRAA in patients over 70 years has not been determined. Clinical correlation is essential. LAB L501.1110 >60 mL/min Normal EST GFR 62 Result Comment: Non- GFR Calc LAB L501.1115 >60 mL/min Normal EST GFR - AA 75 Result Comment: GFR Calc LAB L501.1255 ml/min Normal Estimated CRCL 49.62 LAB L501.1300 10-20 RATIO Normal BUN/CRE 19.8 LAB L501.2200 8.5-10 mg/dL Normal .1 CA 9.1 LAB L501.5300 136-14 mmol/L Normal 5 NA 138 LAB L501.5600 3.5-5. mmol/L Normal 1 K 4.3 Result Comment: Moderate Hemolysis, Result may be falsely increased. LAB L501.5900 98-107 mmol/L Normal CL 101 LAB L501.6100 21.0-32.0 mmol/L Normal CO2 30.0 LAB L501.6200 5-15 Normal 7 GAP Performed By: #### L500.2500, L500.3400, L501.2450 #### [facility] [address] [place], [place], [id number] LIVER PROFILE Collected: 01/19/2018 Status: F Source: [place] 10:50 PM [facility] REPOSITORY TYPE CODE TESTS RESULT OUT OF RANGE REFERENCE UNITS LAB L501.1500 6.4-8.2 g/dL Normal T PROT 7.8 LAB L501.1800 3.2-5.0 g/dL Normal ALB 3.4 LAB L501.1950 2.2-4.2 g/dL High GLOB 4.4 LAB L501.4100 15-37 U/L Normal AST 29 Result Comment: Moderate Hemolysis, Result may be falsely increased. LAB L501.4305 45-117 U/L Normal ALK P 101 LAB L501.4405 13-56 U/L Normal ALT 27 LAB L501.4600 0.20-1.00 mg/dL Normal T BILI 0.50 LAB L501.4700 0.00-0.30 mg/dL Normal D BILI 0.09 Performed By: #### L500.2500, L500.3400, L501.2450 #### [facility] [address] [place], [place], [id number] LIPASE Collected: 01/19/2018 Status: F Source: [place] 10:50 PM [facility] REPOSITORY TYPE CODE TESTS RESULT OUT OF RANGE REFERENCE UNITS LAB L501.2450 73-393 U/L Normal LIPASE 167 Performed By: #### L500.2500, L500.3400, L501.2450 #### [facility] [address] [place], [address] URINALYSIS, COMPLETE Collected: 01/19/2018 Status: F Source: [place] 9:50 PM [facility] REPOSITORY Order Comment: How was Urine Obtained? 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 Cloudy LAB L400.3200 Normal mg/dl High GLUCOSE, UR 1000 LAB L400.3300 Negative mg/dL Normal BILIRUBIN URINE Negative LAB L400.3400 Negative mg/dl Normal KETONE UR Negative LAB L400.3465 1.002-1.030 Normal SP.GR. DIPSTX 1.015 LAB L400.3550 5.0 - 8.0 pH UR Normal 6.0 LAB L400.3600 Negative mg/dl High PROT 15 DIPSTX LAB L400.3700 Normal mg/dl Normal UROBILI Normal LAB L400.3750 Negative Normal NITRITE UR Negative LAB L400.3780 Negative /ul High 10 OCCULT BLOOD-UR LAB L400.3800 Negative /ul High LEUK ESTERASE 500 LAB L400.4050 0-5 /hpf WBC Normal 50-100 SEEN LAB L400.4100 0-5 /hpf 0 Normal RBC-UA SEEN LAB L400.4150 5-10 /hpf SQUAM Normal EPI 0-5 SEEN LAB L400.4300 None Seen /hpf Normal BACTERIA RARE LAB L400.4350 <or=2+ /hpf 0 Normal MUCUS, URINE SEEN Performed By: #### L400.0001 #### [facility] [address] [place], [address] DEXA BONE DENSITY Observed: 12/07/2017 Status: F Source: [place] STUDY 8:58 AM [facility] REPOSITORY [facility] Imaging Services [address] [place] [address] Dexa Bone Density Study MR#: [id number] Acct: [id number] Name: LACIE WHITE Rep #: [id number] : 1955 F 62 From: Matty Machado MD PCP: Madison Martins MD Status: REG CLI Study: Dexa Bone Density Study Date of Exam: 12/07/17 Exam# [id number] Ordering Dr: Madison Martins MD STUDY: DUAL ENERGY X-RAY ABSORPTIOMETRY / DXA REASON FOR EXAM: Female, 62 years old. Early menopause. Loss of height. TECHNIQUE: Bone Mineral Density (BMD) measurements of lumbar spine and bilateral hips were obtained. COMPARISON: None. FINDINGS: Lumbar Spine (L1-L4): g/cm2 (0.989) / T-score (-1.6) / Z-score (-0.1) Findings are suggestive of osteopenia with a moderate fracture risk. Left Femur Total: g/cm2 (0.874) / T-score (-1.1) / Z- score (0.1) Left Femoral Neck: g/cm2 (0.716) / T-score (-2.3) / Z- score (-0.9) Right Femur Total: g/cm2 (0.847) / T-score (-1.3) / Z- score (-0.2) Right Femoral Neck: g/cm2 (0.719) / T-score (-2.3) / Z-score (-0.9) BD/Dexa Bone Density Study IMPRESSION: The patient is considered osteopenic as outlined below according to World Gustavo Organization (WHO) criteria with a moderate fracture risk. Reference Information: The T-score is the number of standard deviations above or below the standard which is normal for young adults at their peak bone mineral density. The World Health Organization (WHO) interprets the T-scores as follows: Above -1 Normal bone density Between -1 and -2.5 Osteopenia Equal to / or below -2.5 Osteoporosis As a practical clinical guideline, osteopenia may be graded as follows: Mild -1 through -1.5 Moderate -1.6 through -2.0 Severe -2.1 through -2.4 The Z-score is the number of standard deviations above or below age-matched controls. A Z-score of less than -1.5 would be considered abnormal. References: 1. NIH Osteoporosis and Related Bone Diseases http://www.osteo.org 2. International Society for Clinical Densitometry http://www.iscd.org 3. National Osteoporosis Foundation http://www.nof.org Electronically Signed: Matty Machado MD at 12:52 EDT Tel [phone], Service support , CC: Madison Martins MD Chipper Operator: Signed SCREENING MAMM (CAD), Observed: 12/07/2017 Status: F Source: [place] BILAT 8:58 AM [facility] REPOSITORY [facility] Imaging Services [address] [place] [id number] SCREENING MAMM (CAD), BIL MR#: [id number] Acct: [id number] Name: LACIE WHITE Rep #: [id number] : 1955 F 62 From: Matty Machado MD PCP: Madison Martins MD Status: REG CLI Study: SCREENING MAMM (CAD), BILAT Date of Exam: 12/07/17 Exam# [id number] Ordering Dr: Madison Martins MD MAMMOGRAPHY - BILATERAL SCREENING REASON FOR EXAM: Female, 62 years old. Routine annual screening examination. PERTINENT HISTORY: Non-contributory. TECHNIQUE: Digital bilateral breast velvet (3D mammographic acquisition) in the CC and MLO projections. 2-D mediolateral oblique (MLO) and craniocaudad (CC) views of both breasts were obtained. CAD: Full Field Digital Mammography with Computer Added Detection was performed. COMPARISON: Comparison is made with prior outside examination dated November 12, 2013. FINDINGS: Breast Composition: The breasts are almost entirely fatty. There are no dominant masses or suspicious calcifications. No other significant abnormalities are identified. There has been no significant change since the prior study. BI/SCREENING MAMM (CAD), BILAT IMPRESSION: Stable bilateral screening mammogram. Yearly follow-up mammogram recommended. (A) ASSESSMENT CATEGORY: BIRADS Category 1: Negative. A letter regarding these results will be sent to the patient by the facility within 30 days. Approximately 10% of breast cancers are not detected by mammography. A normal mammogram should not delay biopsy of a clinically suspicious abnormality. [id number] Electronically Signed: Matty Machado MD at 12:20 EDT Tel [phone], Service support , CC: Madison Martins MD Chipper Operator: Signed ED NOTE Observed: 11/17/2017 Status: COMPLETED Source: [place] 7:14 PM [facility] [place] REPOSITORY HNO ID: [id number] Author: Eugenia (Rn) MUSA Morel Service: Emergency Medicine Author Type: Registered Nurse Type: ED Notes Filed: 11/17/2017 7:17 PM Note Text: Patient is alert, talkative, states she feels somewhat better. Patient instructed on Flexeril and Naproxen, do not take any other NSAIDS, do not work or drive on Flexeril. Work note given. Rest, ice, and see PCP in one week if pain persists. Patient ambulates easily without distress to lobby. ED PROV NOTE Observed: 11/17/2017 Status: COMPLETED Source: [place] 6:46 PM [facility] [place] REPOSITORY HNO ID: [id number] Author: David Monzon DO Service: Emergency Medicine Author Type: Physician Type: ED Provider Notes Filed: 11/17/2017 6:53 PM Note Text: ED Provider Note Patient Name: Lacie White SERVICE DATE: 11/17/17 History Patient presents with: Back Pain Patient presents with low back pain that began today. Patient states he slipped coming out of a pool and hit the right side of her back. Patient states the pain is over the right lumbar paraspinal muscles. Patient denies any radiation of the pain. Patient denies any paresthesias or weakness. Patient denies any bowel or bladder changes. Patient states her pain is constant and worse with movement. Patient denies any other symptoms. PAST MEDICAL HISTORY Diagnosis Date - Diabetes (HCC) - H/O blood clots At age 24; spontaneous. Coumadin x 6months, ASA x 1 yr - Heartburn - Hyperlipemia - Irritable bowel - Obesity - Seasonal allergies PAST SURGICAL HISTORY Procedure Laterality Date - F TOTAL ABDOMINAL HYSTERECTOMY Age 22 for endometriosis - REMOVAL OF OVARY(S) ex lap, age 24 - SHOULDER SURGERY HX FAMILY HISTORY Problem Relation Age of Onset - Hyperlipidemia Mother - Stroke Mother - Eczema Mother Social History Social History Main Topics - Smoking status: Former Smoker - Smokeless tobacco: Never Used - Alcohol use No - Drug use: No - Sexual activity: Not on file ALLERGIES Allergen Reactions - Sulfa (Sulfonamide * Hives - Penicillin Hives Review of Systems Constitutional: Negative for chills and fever. Respiratory: Negative for cough and shortness of breath. Cardiovascular: Negative for chest pain and palpitations. Gastrointestinal: Negative for nausea and vomiting. Genitourinary: Negative for dysuria and hematuria. Musculoskeletal: Positive for back pain. Negative for neck pain. Neurological: Negative for weakness and numbness. Physical Exam BP 143/55 Pulse 92 Temp (Src) 96.2 (Temporal Artery) Resp 18 Ht 5' 3 (1.60m) Wt 183 lb (83.0kg) SpO2 98% BMI 32.43 kg/(m2). Physical Exam Constitutional: She is oriented to person, place, and time. She appears well-developed and well-nourished. HENT: Head: Normocephalic and atraumatic. Eyes: EOM are normal. Neck: Neck supple. Musculoskeletal: Lumbar back: She exhibits decreased range of motion, tenderness, pain and spasm. She exhibits no bony tenderness, no swelling and no deformity. Neurological: She is alert and oriented to person, place, and time. No cranial nerve deficit. Skin: Skin is warm and dry. Psychiatric: She has a normal mood and affect. Her behavior is normal. Nursing note and vitals reviewed. Diagnostic Testing ED Labs Ordered and Reviewed - No data to display XR LUMBAR GENERAL 3V AP/LAT/L5-S1 Final Result EXAM TITLE: ?LUMBOSACRAL SPINE 2 OR 3 VIEWS ? DATE: ?11/17/2017 18:11 ? COMPARISON: ?None. ? CLINICAL INDICATION/HISTORY: ?Low back pain. ?Recent fall. ? TECHNIQUE: ?AP, lateral and cone down lateral views of the lumbar spine are presented. ? FINDINGS: There are five ltc-tyq-vffibee lumbar vertebra. No fracture or subluxations are noted. Mild multilevel degenerative disc disease. ?Atherosclerotic calcifications abdominal aorta. ? IMPRESSION: ?No acute findings radiographically. Procedures Medical Decision Making MDM X-rays of the lumbar spine were obtained. There is no acute fracture noted. Patient was given a dose of Heilwood here. Patient was given prescriptions for Naprosyn and Flexeril. Patient was instructed to use ice to the area. Patient was instructed to follow-up with her primary care physician in 5-7 days. Patient understood and was agreeable with the plan. All questions were answered. ED Course / Clinical Impression Clinical Impressions as of Nov 17 1852 Acute myofascial strain of lumbar region, initial encounter Plan The patient was DISCHARGED: Counseled patient regarding radiology results AND suspected diagnosis AND need for follow-up. Discharged home with verbal and written instructions. They were instructed to return as needed for persistent or worsening symptoms or any new concerns. Condition at time of disposition: stable SIGNATURE: David Monzon, DO David Monzon DO 11/17/171852 LUMBOSACRAL SPINE 2 OR Observed: 11/17/2017 Status: F Source: [facility] 3 VIEWS 6:22 PM [facility] REPOSITORY Performed at [facility] APPROVED BY: Huang Yang MD EXAM TITLE: LUMBOSACRAL SPINE 2 OR 3 VIEWS DATE: 11/17/2017 18:11 COMPARISON: None. CLINICAL INDICATION/HISTORY: Low back pain. Recent fall. TECHNIQUE: AP, lateral and cone down lateral views of the lumbar spine are presented. FINDINGS: There are five [id number]-sog-fnrzxoq lumbar vertebra. No fracture or subluxations are noted. Mild multilevel degenerative disc disease. Atherosclerotic calcifications abdominal aorta. IMPRESSION: No acute findings radiographically. ED NOTE Observed: 11/17/2017 Status: COMPLETED Source: [place] 5:35 PM [facility] RE[facility] HNO ID: [id number] Author: Eugenia Womack) Maria Teresa, RN Service: Emergency Medicine Author Type: Registered Nurse Type: ED Notes Filed: 11/17/2017 7:18 PM Note Text: Patient informed: the name of medication, why we are giving it, possible side effects, what they may expect to feel, and was offered a chance to ask questions, prior to the administration of Heilwood. ED NOTE Observed: 11/17/2017 Status: COMPLETED Source: [place] 4:46 PM [facility] REPOSITORY HNO ID: [id number] Author: Eugenia HansenRn) Maria Teresa, RN Service: Emergency Medicine Author Type: Registered Nurse Type: ED Notes Filed: 11/17/2017 4:47 PM Note Text: Patient states that she fell today about 30 mins ago getting out of a swimming pool. Denies LOC, Head injury, states she hit her right side of back, pain in lower back on the right side. No obvious injury or trauma. 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 ED NOTE Observed: 10/21/2017 Status: COMPLETED Source: [place] 11:02 PM [facility] REPOSITORY HNO ID: [id number] Author: Dary HansenRn) MUSA Jeff Service: Emergency Medicine Author Type: Registered Nurse Type: ED Notes Filed: 10/21/2017 11:02 PM Note Text: Dc instr include wound care, fu w pcp, return prn. 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 Laceration mechanism: Metal edge Pain details: Quality: Sharp Severity: Mild Timing: Constant Foreign body present: No foreign bodies Relieved by: Nothing Worsened by: Nothing Ineffective treatments: None tried Tetanus status: Out of date Associated symptoms: no fever and no numbness PAST MEDICAL HISTORY Diagnosis Date - Diabetes (HCC) - H/O blood clots At age 24; spontaneous. Coumadin x 6months, ASA x 1 yr - Heartburn - Hyperlipemia - Irritable bowel - Obesity - Seasonal allergies PAST SURGICAL HISTORY Procedure Laterality Date - F TOTAL ABDOMINAL HYSTERECTOMY Age 22 for endometriosis - REMOVAL OF OVARY(S) ex lap, age 24 - SHOULDER SURGERY HX FAMILY HISTORY Problem Relation Age of Onset - Hyperlipidemia Mother - Stroke Mother - Eczema Mother Social History Social History Main Topics - Smoking status: Former Smoker - Smokeless tobacco: Never Used - Alcohol use No - Drug use: No - Sexual activity: Not on file ALLERGIES Allergen Reactions - Sulfa (Sulfonamide * Hives - Penicillin Hives Review of Systems Constitutional: Negative for fever. Skin: Positive for wound. Physical Exam BP 135/71 Pulse 89 Temp (Src) 97.8 (Temporal Artery) Resp 18 Ht 5' 4 (1.63m) Wt 187 lb (84.8kg) SpO2 95% BMI 32.08 kg/(m2). Physical Exam Constitutional: She is oriented to person, place, and time. She appears well-developed and well-nourished. HENT: Head: Normocephalic and atraumatic. Pulmonary/Chest: Effort normal. Neurological: She is alert and oriented to person, place, and time. Skin: Skin is warm and dry. Psychiatric: She has a normal mood and affect. Thought content normal. Nursing note and vitals reviewed. Diagnostic Testing ED Labs Ordered and Reviewed - No data to display LAC REPAIR Date/Time: 10/21/2017 10:58 PM Performed by: ASHLEY ONEILL Authorized by: ASHLEY ONEILL Consent: Consent obtained: Verbal Consent given by: Patient Risks discussed: Infection Alternatives discussed: No treatment Anesthesia (see MAR for exact dosages): Anesthesia method: None Laceration details: Location: Finger Finger location: L long finger Length (cm): 1 Repair type: Repair type: Simple Exploration: Wound extent: no foreign bodies/material noted, no nerve damage noted and no tendon damage noted Contaminated: no Treatment: Area cleansed with: Steve Amount of cleaning: Standard Skin repair: Repair method: Tissue adhesive Approximation: Approximation: Close Post-procedure details: Dressing: Open (no dressing) Patient tolerance of procedure: Tolerated well, no immediate complications Comments: Discussed wound care and follow up Medical Decision Making MDM ED Course / Clinical Impression Clinical Impressions as of Oct 21 2258 Laceration of left middle finger without foreign body, nail damage status unspecified, initial encounter Plan The patient was DISCHARGED: Counseled patient regarding suspected diagnosis AND need for follow-up. Discharged home with verbal and written instructions. They were instructed to return as needed for persistent or worsening symptoms or any new concerns. Condition at time of disposition: stable SIGNATURE: MD Ashley Harrison MD 10/21/17 2300 ED NOTE Observed: 10/21/2017 Status: COMPLETED Source: [place] 9:52 PM [facility] REPOSITORY HNO ID: [id number] Author: Dary HansenRn) MUSA Jeff Service: Emergency Medicine Author Type: Registered Nurse Type: ED Notes Filed: 10/21/2017 9:52 PM Note Text: Laceration to tip of left index finger while using kitchen appliance. ED NOTE Observed: 10/21/2017 Status: COMPLETED Source: [place] 9:50 PM [facility] REPOSITORY HNO ID: [id number] Author: Beatriz HansenRn) Christiano RN Service: Emergency Medicine Author Type: Registered Nurse Type: ED Notes Filed: 10/21/2017 9:59 PM Note Text: Apprx 1cm laceration. + bleeding. Dressing in place on arrival. BASIC METABOLIC PANEL Collected: 10/19/2017 Status: F Source: [facility] 11:57 AM PRIMARY CARE REPOSITORY Order Comment: This order was split into 2 orders: [id number] (HgbA1C,Basic Metabolic Panel ,Triglyceride,ESR, Westergren,Rheumatoid Factor ,TSH, , , , , ), [id number] (SANGITA Screen W/R eflex Titer) Items in this order include: HgbA1C, Basic Metabolic Panel , Triglyceride, ESR, Westergren, Rheumatoid Factor , TSH, , , , , Fasting: NO TYPE CODE TESTS RESULT OUT OF REFERENCE UNITS RANGE LAB CO28(LOINC 74-100 mg/dL ) Glucose High 151 LAB CO25(LOINC 8.5-10.5 mg/dL ) Calcium 9.8 LAB CO19(LOINC 135-145 mmol/L ) Sodium 142 LAB CO20(LOINC 3.5-5.3 mmol/L ) Potassium 4.1 LAB CO22(LOINC 98-107 mmol/L ) Chloride 101 LAB CO21(LOINC 22.0-30.0 mmol/L ) CO2 30.0 LAB CO58(LOINC 8.00-16.00 mmol/l ) Anion Gap 11.00 LAB CO23(LOINC 6-22 mg/dL ) BUN 16 LAB CO24(LOINC 0.1-1.2 mg/dL ) Creatinine 0.8 LAB CO101(LOIN Ratio C) B/C Ratio 20.0 LAB CO516(LOIN >60 mL/min per C) 1.73 GFR 72 Result Comment: The GFR estimate is not adjusted for race. If the patient's race is -[place], the GFR estimate must be multiplied by a factor of 1.21. Performed By: #### C45, C119, C606, C400, C406, C4117 #### [facility] [address] [place] [address] #### [id number] #### Refer to report for performing lab TRIGLYCERIDE Collected: 10/19/2017 Status: F Source: [facility] 11:57 AM PRIMARY CARE REPOSITORY Order Comment: Fasting: NO TYPE CODE TESTS RESULT OUT OF REFERENCE UNITS RANGE LAB CO2(LOINC) <150 mg/dL Triglyceride High 453 Performed By: #### C45, C119, C606, C400, C406, C4117 #### [facility] [address] [place] [address] #### [id number] #### Refer to report for performing lab RHEUMATOID FACTOR Collected: 10/19/2017 Status: F Source: [facility] 11:57 AM PRIMARY CARE REPOSITORY Order Comment: This order was split into 2 orders: [id number] (HgbA1C,Basic Metabolic Panel ,Triglyceride,ESR, Westergren,Rheumatoid Factor ,TSH, , , , , ), [id number] (SANGITA Screen W/R eflex Titer) Items in this order include: HgbA1C, Basic Metabolic Panel , Triglyceride, ESR, Westergren, Rheumatoid Factor , TSH, , , , , Fasting: NO TYPE CODE TESTS RESULT OUT OF REFERENCE UNITS RANGE LAB CO61(LOINC 0.0-12.0 IU/mL ) Rheumatoid <8.6 Factor Performed By: #### C45, C119, C606, C400, C406, C4117 #### [facility] [address] [place] [address] #### [id number] #### Refer to report for performing lab TSH Collected: 10/19/2017 Status: F Source: [facility] 11:57 AM PRIMARY CARE REPOSITORY Order Comment: This order was split into 2 orders: [id number] (HgbA1C,Basic Metabolic Panel ,Triglyceride,ESR, Westergren,Rheumatoid Factor ,TSH, , , , , ), [id number] (SANGITA Screen W/R eflex Titer) Items in this order include: HgbA1C, Basic Metabolic Panel , Triglyceride, ESR, Westergren, Rheumatoid Factor , TSH, , , , , Fasting: NO TYPE CODE TESTS RESULT OUT OF RANGE REFERENCE UNITS LAB CO32(LOINC) 0.50-6.00 MIU/mL TSH 2.81 Performed By: #### C45, C119, C606, C400, C406, C4117 #### [facility] [address] [place] [address] [address] [place] [id number] #### [id number] #### Refer to report for performing lab HGBA1C Collected: 10/19/2017 Status: F Source: [facility] 11:57 AM PRIMARY CARE REPOSITORY Order Comment: This order was split into 2 orders: [id number] (HgbA1C,Basic Metabolic Panel ,Triglyceride,ESR, Westergren,Rheumatoid Factor ,TSH, , , , , ), [id number] (SANGITA Screen W/R eflex Titer) Items in this order include: HgbA1C, Basic Metabolic Panel , Triglyceride, ESR, Westergren, Rheumatoid Factor , TSH, , , , , Fasting: NO TYPE CODE TESTS RESULT OUT OF RANGE REFERENCE UNITS LAB CO36(LOINC) <6.0 % High HgbA1C 8.2 Performed By: #### C45, C119, C606, C400, C406, C4117 #### [facility] [address] [place] [address] [address] [place] [address] #### [id number] #### Refer to report for performing lab ESR, WESTERGREN Collected: 10/19/2017 Status: F Source: [facility] 11:57 AM PRIMARY CARE REPOSITORY Order Comment: This order was split into 2 orders: [id number] (HgbA1C,Basic Metabolic Panel ,Triglyceride,ESR, Westergren,Rheumatoid Factor ,TSH, , , , , ), [id number] (SANGITA Screen W/R eflex Titer) Items in this order include: HgbA1C, Basic Metabolic Panel , Triglyceride, ESR, Westergren, Rheumatoid Factor , TSH, , , , , Fasting: NO TYPE CODE TESTS RESULT OUT OF REFERENCE UNITS RANGE LAB CO361(LOIN 0-30 mm/hr C) ESR, Westergren 7 Performed By: #### C45, C119, C606, C400, C406, C4117 #### [facility] [address] [place] [address] #### [id number] #### Refer to report for performing lab SANGITA SCREEN W/REFLEX Collected: 10/19/2017 Status: F Source: [facility] TITER 11:57 AM PRIMARY CARE REPOSITORY Order Comment: This order was split into 2 orders: [id number] (HgbA1C,Basic Metabolic Panel ,Triglyceride,ESR, Westergren,Rheumatoid Factor ,TSH, , , , , ), [id number] (SANGITA Screen W/R eflex Titer) Items in this order include: SANGITA Screen W/Reflex Titer Fasting: NO TESTING PERFORMED AT: [] [facility], [address] [place] [address], [id number], PHONE: [phone], DIABETOLOGIST: STUART LU, PHD TYPE CODE TESTS RESULT OUT OF REFERENCE UNITS RANGE LAB [id number](BIJAN NC) ANTINUCLEAR ANTIBODIES, IFA NEGATIVE Result Comment: NEGATIVE <1:80 BORDERLINE 1:80 POSITIVE >1:80 Performed By: #### C45, C119, C606, C400, C406, C4117 #### [facility] [address] [place] [address] #### [id number] #### Refer to report for performing lab ED NOTE Observed: 08/24/2017 Status: COMPLETED Source: [place] 1:34 PM [facility] OTHER [facility] REPOSITORY HNO ID: [id number] Author: Tamera HansenRn) MUSA Willingham Service: Emergency Medicine Author Type: Registered Nurse Type: ED Notes Filed: 08/24/2017 1:35 PM Note Text: Pt wanted a work note and off till Monday - TOMAS Banks ED NOTE Observed: 08/24/2017 Status: COMPLETED Source: [place] 1:33 PM [facility] REPOSITORY HNO ID: [id number] Author: Tamera (Rn) MUSA Willingham Service: Emergency Medicine Author Type: Registered Nurse Type: ED Notes Filed: 08/24/2017 1:33 PM Note Text: ED PROV NOTE Observed: 08/24/2017 Status: COMPLETED Source: [place] 11:27 AM [facility] OTHER [facility] REPOSITORY HNO ID: [id number] Author: TOMAS Huerta (Pa) Service: Emergency Medicine Author Type: Physician [employer] Specialist Type: ED Provider Notes Filed: 08/24/2017 1:51 PM Note Text: ED Provider Note Patient Name: Lacie White SERVICE DATE: 08/24/17 History Patient presents with: Cough Nasal Congestion Ear Pain History provided by: Patient interpreter used: No This is a 62-year-old female past medical history of diabetes, hyperlipidemia and IBS who presents to the ED with chief complaint of URI symptoms since Monday. Patient endorses cough productive of yellow sputum, myalgias, bilateral ear pain which she describes as achiness as well as nasal congestion. She tried DayQuil this week with no relief of her symptoms. States that her granddaughter had cold-like symptoms over the past 2 days. 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 She did not receive an influenza vaccination this year. She has not tried anything for her symptoms today. She reports decreased appetite but denies any nausea, vomiting, diarrhea or abdominal pain. She has not recorded a temperature blood endorses chills. Denies any chest pain, shortness of breath, numbness, tingling, or other complaints at this time. PAST MEDICAL HISTORY Diagnosis Date - Diabetes (HCC) - H/O blood clots At age 24; spontaneous. Coumadin x 6months, ASA x 1 yr - Heartburn - Hyperlipemia - Irritable bowel - Obesity - Seasonal allergies PAST SURGICAL HISTORY Procedure Laterality Date - F TOTAL ABDOMINAL HYSTERECTOMY Age 22 for endometriosis - REMOVAL OF OVARY(S) ex lap, age 24 - SHOULDER SURGERY HX FAMILY HISTORY Problem Relation Age of Onset - Hyperlipidemia Mother - Stroke Mother - Eczema Mother Social History Social History Main Topics - Smoking status: Former Smoker - Smokeless tobacco: Never Used - Alcohol use No - Drug use: No - Sexual activity: Not Asked ALLERGIES Allergen Reactions - Sulfa (Sulfonamide * Hives - Penicillin Hives Review of Systems Constitutional: Negative for appetite change, chills and fever. Respiratory: Negative for cough and shortness of breath. Cardiovascular: Negative for chest pain and leg swelling. Gastrointestinal: Negative for abdominal pain, diarrhea, nausea and vomiting. Genitourinary: Negative for dysuria and hematuria. Musculoskeletal: Negative for arthralgias. Neurological: Negative for dizziness and syncope. Physical Exam BP 103/47 Pulse 87 Temp (Src) 99.9 (Tympanic) Resp 16 Physical Exam Constitutional: She is oriented to person, place, and time. She appears well-developed and well-nourished. No distress. Well-appearing female in NAD. HENT: Head: Normocephalic and atraumatic. Right Ear: Hearing, tympanic membrane, external ear and ear canal normal. Left Ear: Hearing, tympanic membrane, external ear and ear canal normal. Nose: Rhinorrhea present. Mouth/Throat: Uvula is midline, oropharynx is clear and moist and mucous membranes are normal. No trismus in the jaw. No oropharyngeal exudate, posterior oropharyngeal edema, posterior oropharyngeal erythema or tonsillar abscesses. Eyes: Conjunctivae are normal. Pupils are equal, round, and reactive to light. Right eye exhibits discharge. Left eye exhibits discharge. Clear watery discharge b/l Neck: Normal range of motion. Neck supple. No rigidity. Normal range of motion present. No nuchal rigidity or meningismus. Cardiovascular: Normal rate, regular rhythm and normal heart sounds. No murmur heard. Pulmonary/Chest: Effort normal and breath sounds normal. No respiratory distress. She has no wheezes. She has no rales. Abdominal: Soft. She exhibits no distension. There is no tenderness. Musculoskeletal: Normal range of motion. She exhibits no edema or deformity. Neurological: She is alert and oriented to person, place, and time. Skin: Skin is warm and dry. Psychiatric: She has a normal mood and affect. Her behavior is normal. Judgment and thought content normal. Nursing note and vitals reviewed. Diagnostic Testing ED Labs Ordered and Reviewed INFLUENZA A AND B DIRECT ANTIGEN (AV,EU,FV,HL,GUEVARA,MM,SP) Procedures Medical Decision Making / ED Course ED Course Kirsten Banks (Pa)'s Documentation Value Comment Time Rapid Influenza A/B: See below Negative for influenza A and B. 08/24 1146 Re-evaluated patient, she states she is feeling somewhat better. VSS and she would like to go home to continue with supportive care. 08/24 1323 Vital signs were reviewed. Triage records and medical records were reviewed. Nursing notes were reviewed and incorporated. Patient is a 62-year-old female past medical history of diabetes, hyperlipidemia and IBS who presents to the ED with chief complaint of URI symptoms since Monday. Pt is well-appearing, hemodynamically stable and afebrile. On PE, NAD, oropharynx Without swelling, erythema or exudates but there is some postnasal drainage, and bl tm wnl, heart rrr no mrg, lungs ctab no wrr, abd soft nt nd, no nuchal rigidity. Rapid influenza test here negative. She is given IV fluids and Toradol here with improvement of her symptoms and normalization of her vitals. Upon reevaluation, patient states that she is feeling better like to go home. Recommended further supportive care at home with Tylenol and Mucinex. I offered patient a prescription for Mucinex but she declines at this time. She requests note for work and is provided one through Monday. RT ED and follow-up instructions were provided. I encouraged patient to return to ED immediately if symptoms worsen and/or new symptoms develop. Patient was discharged home in stable condition. Patient expressed understanding and is amendable to this course of action. Patient understood suspected diagnosis and instruction. No barriers of communication were apparent and I answered all questions. Encounter Diagnosis ICD-10-CM 1. Upper respiratory tract infection, unspecified type J06.9 Plan The Patient was DISCHARGED: Counseled patient regarding lab results AND suspected diagnosis AND need for follow-up. Discharged home with verbal and written instructions. They were instructed to return as needed for persistent or worsening symptoms or any new concerns. Condition at time of disposition: improved and stable SIGNATURE: PILI Huerta PA (Pa) 08/24/17 1351 RAPID INFLUENZA A/B Collected: 08/24/2017 Status: F Source: [facility] 11:26 AM [facility] SYSTEM REPOSITORY TYPE CODE TESTS RESULT OUT OF REFERENCE UNITS RANGE LAB MRFLU(LOIN Negative C) Rapid Influenza A/B See below Result Comment: Negative for influenza A and B. Performed By: #### MRFLW #### [facility] [address] [place] [address] ED NOTE Observed: 08/24/2017 Status: COMPLETED Source: [place] 11:15 AM [facility] OTHER CAMPUS REPOSITORY HNO ID: [id number] Author: Tamera Womack) MUSA Willingham Service: Emergency Medicine Author Type: Registered Nurse Type: ED Notes Filed: 08/24/2017 11:30 AM Note Text: Pt has body aches ED NOTE Observed: 08/24/2017 Status: COMPLETED Source: [place] 11:02 AM [facility] OTHER [facility] REPOSITORY HNO ID: [id number] Author: Tamera Womack) MUSA Willingham Service: Emergency Medicine Author Type: Registered Nurse Type: ED Notes Filed: 08/24/2017 11:03 AM Note Text: Pt has had URI Sx since Monday of cough, ear pain and congestion. Pt has tried a dayquil type med. No meds today CNOV Observed: 07/04/2017 Status: COMPLETED Source: [place] 10:00 AM [facility] OTHER [facility] REPOSITORY Office Visit (AGUROGYN) CHRISTOPHERLACIE ([id number]) 1955 F Date Time Provider Department 07/04/17 10:00 AM CYNTHIA FUENTES During your visit today, we recorded the following information about you: Pulse Blood pressure Weight Height 80/minute 122/72 89.8 kg 1.6 m Cynthia Fuentes MD 07/04/2017 11:07 AM Signed CHIEF COMPLAINT: Lacie Yunio is a 62 year old GP3. female who presents for consultation requested by Dr. Saleem for an opinion regarding Mixed urge and stress incontinence. PMH: 1. Type 2 diabetes. On jardacin, vitoza, and insulin injection. Usually around 130 postprandial. 2. Pt has had a h/o microscopic hematuria. S/p cystoscopy and CT urogram (10 years ago). All negative. 3. Recent palpitations. Had an exercise stress test, but couldn't get the pt's heart rate high enough. Going for a nuclear stress test URINARY SYMPTOMS: Pt has had leakage of urine for about 10 years. She had gone to a urologist about 10 years ago who did a work up for her AMH and told her she would benefit from ANDquot;mesh.ANDquot; However, she did not have a good interaction and never went back. She now constantly feels like she is wet. Pt has COREY with coughing fits and when she laughs. Voids 4-5 times per day and ANDgt;2x/night. She has nocturia with leakage. Pt feels like she is wet all of the time. She wipes herself and sometimes has to sit back down because she is wet. She sometimes has to pull her pants down 3 different times. Pt does not wear pads; has to change her underwear a few times per week. Sometimes leaks with urgency. Pt has urgency with running water. No leakage with intercourse. Drinks 1 cup of coffee per day. PROLAPSE SYMPTOMS: None FECAL/FLATAL SYMPTOMS Pt goes every other day to [facility]. Pt has IBS, constipation and diarrhea. Colonscopy x 3. Pt had 6 polyps on the first; wnl since. Flatal incontinence. No fecal incontinence. Sometimes feels fecal urgency. HISTORY OF PRESENT ILLNESS: Urinary Incontinence: Yes - No. of episodes: 2-3/day; Pad use - NA; Do you usually experience urine leakage related to coughing, sneezing, or laughing: yes, Do you usually experience urine leakage related to physical exercise such as walking, running, aerobics, or tennis: yes, Do you usually experience urine leakage related to lifting or bending over: no Do you usually experience urine leakage related to a feeling of urgency: yes, Leaks with: Cough/sneeze Previous UI Treatment: None Voiding Dysfunction: Feeling of incomplete emptying Urinary Urgency: yes, # of Daytime Voids: 3-5 # of Nocturic Episodes: 2-3 per day Dysuria: no Hematuria: no Recurrent UTI: No Nocturnal Enuresis: no Prolapse Symptoms: Do You usually have a sensation of bulging or protrusion from the vaginal area: no Do you usually have a bulge or something falling out that you can see or feel in the vaginal area: No Previous Treatment: None Defecatory Symptoms: None Number of Bowel Movements: 1 per Day Fecal Incontinence: No Sexual Dysfunction: No - Active, no complaints FUNCTIONAL STATUS: Walk indoors, such as around the house (1.75 METs) Do light work around the house, such as dusting or washing dishes (2.70 METs) Take care of self, that is eating, dressing, bathing, using the toilet (2.75 METs) Walk a block or two on level ground (2.75 METs) Do moderate work around the house such as vacuuming, sweeping floors, or carrying in groceries (3.50 METs) Do yardwork, such as raking leaves, weeding,or pushing a power mower (4.50 METs) Have sexual relations (5.25 METs) Climb a flight of stairs or walk up a hill (5.50 METs) Participate in moderate recreational activities, such as golf, bowling, dancing, doubles tennis, or throwing a baseball or football (6.00 METs) Participate in strenuous sport, such as swimming, singles tennis, football, basketball, or skiing (7.50 METs) Do heavy work around the house, such as scrubbing floors, lifting or moving heavy furniture (8.00 METs) Run a short distance (8.00 METs) GYNECOLOGIC HISTORY: The pt's last Pap smear was 6-7 years ago, and it was normal. She has never had an abnormal Pap. Her last mammogram was 3-4 years ago, and it was normal. She has never had an abnormal mammogram. H/o dense breasts. She underwent menopause at the age of 24 with oophorectomy. Was on HRT until the age of 49. She has had a hysterectomy in the past, ROSIBEL for endometriosis at the age of 22. No PMB. She is currently sexually active, and she does not experience dyspareunia. She has a male partner. She does hope for sexual relations in the future. She denies a history of sexual abuse. OBSTETRICAL HISTORY: x 3, CD x 0. Largest baby 8lb 2oz. No forceps or vacuum use. She did no sustain a tear into the rectum. 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 Skin: Negative for rash or itching. Psychiatric: Negative for depression. Reports normal stress. Neurologic: Negative for new headache or syncope. Endocrine: Negative for sweating, cold intolerance or heat tolerance. Cardiovascular: Negative for recent chest pain, chest pressure or chest discomfort. Has had palpitations and is currently being worked up Hematologic/Lymphatic: Negative for easy bruising or excessive bleeding. Respiratory: Negative for wheezing, shortness of breath or persistent cough. Gastrointestinal: Negative for persistent abdominal pain. Negative for anorexia, persistent nausea and/or vomiting. Musculoskeletal: Negative for muscle pain, back pain, joint pain or stiffness. OBJECTIVE: Ht 5' 2.992ANDquot; (1.60m) Wt 198 lb (89.8kg) BMI 35.08 kg/(m2). Physical Exam Constitutional: BMI - Body mass index is 35.08 kg/(m2). General Appearance: Well appearing, alert, in no acute distress, well-hydrated, well nourished. Skin: Skin color, texture, turgor normal, no suspicious rashes or lesions Neck: Supple, no adenopathy; thyroid symmetric, normal size Lungs: Lungs clear to auscultation. No wheezing, rhonchi, rales Heart: RRR without murmur, gallop, or rubs. No ectopy Breasts:Deferred Abdomen: Normal abdominal exam, Abdomen soft, non-tender. No masses, organomegaly Pelvic: External Genitalia: No lesions or other abnormalities Vagina: Ant Wall - Normal support ; Post Wall - Rectocele Stage II Cervix / Morral - Normal support See POP-Q Cervix: Absent Urethra: Hypermobile ANDgt;30 degrees. + UPPER TIER Bimanual: No tenderness, No masses Rectovaginal: Rectocele Anal Sphincter: Anal Brandeis: Yes Resting Tone: Normal Squeeze Strength: 2+ out of 5 Sphincter Defect: no Levator Ani Contraction: 3+ Saddle Sensory Exam (S2-4): normal POP-Q: Prolapse Noted: Yes Aa = -2.0 Ba = -2.0 C = -7 gh = 3 pb = 4 tvl = 8 Ap = 0 Bp = 0 D = N/A Uroflow: pt voided 72ml with a scanned PVR of 65ml. Max flow 22ml/s. Urine dip: negative blood, negative nitrites IMPRESSION: Lacie White is a 62 year old female with Mixed urge and stress incontinence, Pelvic Organ Prolapse (stage 2 rectocele), h/o asymptomatic microscopic hematuria, type 2 diabetes, subjective feeling of heart palpitations PLAN: 1. It sounds as if the patient has some issues with mixed incontinence. When asked, she thinks the COREY bothers her more. For Stress Incontinence: Discussed treatment options including observation and non-surgical options including pelvic floor exercises with/without physical therapy, and pessary fitting. In addition, surgical options were reviewed including midurethral sling, a procedure involving mesh, and non-mesh procedures. She understands that a MUS is the gold standard and is minimally-invasive, fast and effective. We also discussed risks involving mesh, including a 2% risk of erosion, the possibility of new onset pain/dyspareunia, retention and recurrent UTIs. After our discussion, the patient decided to proceed with midurethral sling surgery. For Urgency Urinary Incontinence: Discussed treatment options including observation, pelvic floor exercises, physical therapy, and medications. Explained the role of pelvic floor exercises and physical therapy. Explained the common side effects of medications including but not limited to dry mouth, dry eyes, and constipation. Patient was counseled that if medications are not effective and/or side effects are intolerable, other options including Botox, PTNS, and Interstim are available. After our discussion, the patient decided to proceed with midurethral sling and address her UUI and OAB after her sling surgery. UDS at the end of July with a pre op. Midurethral sling planned for 08/28/17. 2. Prolapse, type 2 rectocele: asymptomatic at this time. Will consider posterior repair and perineorrhaphy, but pt does not have symptoms of constipation except from her IBS. 3. Type 2 diabetes: will get a hgb a1c prior to surgery. Pt made aware that it is important for it to be ANDlt;8 to decrease her perioperative risks and for adequate wound healing, especially with a mesh procedure. 4. Cardiac issues: pt also aware that she will have to complete her cardiac work up prior to surgery. 5. H/o DVT at age 24: Will consider maya- and/or post op heparin. 5. H/o AMH: urine dip negative today. This was a 60 minute consultation visit, ANDgt; 50% of which was spent in counseling and coordination of care. Clinical labs and past medical records were reviewed, and chronic illnesses were addressed, including type 2 diabetes, h/o microscopic hematuria, heart palpitations, prior DVT. We developed a comprehensive treatment plan for the new diagnoses of mixed urinary incontinence, rectocele, including surgery for a midurethral sling, cystoscopy. Plan for follow-up for urodynamics and pre op. The documentation by the RENARD was reviewed and verified. Cynthia Fuentes MD My final recommendations will be communicated back to the requesting physician by way of shared Medical record or letter via [place] mail. Alessandro Duque MA 07/10/2017 9:05 AM Signed Addended by: ALESSANDRO DUQUE on: 07/10/2017 09:05 AM Modules accepted: Orders Nanci Berumen CNP 07/10/2017 11:32 AM Signed Addended by: NANCI BERUMEN CNP on: 07/10/2017 11:32 AM Modules accepted: Orders Referring Provider: CASSIDY SALEEM ([facility]) [[id number]] Allergies As of Date: 07/04/2017 Noted Allergy Reaction SULFA (SULFONAMIDE ANTIBIOTICS) 10/31/2016 4 - Hives PENICILLIN 10/31/2016 4 - Hives Date Reviewed: 07/04/2017 Reviewed by: Alessandro Londono) Erica - Fully Assessed Reason for Visit: New Patient [172] Primary Visit Diagnosis:Mixed stress and urge urinary incontinence [N39.46] Other Visit Diagnoses:Rectocele [N81.6] Pre-op evaluation [Z01.818] Controlled type 2 diabetes mellitus without complication, without long-term current use of insulin (HCC) [E11.9] Feeling of incomplete bladder emptying [R39.14] Order(s):URODYNAMICS [3540220] Order #: [id number] SURGICAL REQUEST - ELECTIVE [4437725] Order #: [id number]: 1 CBC [SQCBC] Order #: [id number] FUTURE BASIC METABOLIC PNL [SQBMP] Order #: [id number] FUTURE TYPE + SCREEN,30 DAY [FWUUFV51] Order #: [id number] FUTURE HGB A1C [DUBKP3C] Order #: [id number] FUTURE FLOW RATE (AG) [8083921] Order #: [id number] UA DIP B/O [3031530] Order #: [id number] MSR POST-VOID RESID URINE [[id number]] Order #: [id number] Prescriptions as of 07/04/2017 Sig: ONETOUCH VERIO STRIPS JARDIANCE 10 MG TABLET LISINOPRIL 10 MG TABLET Take 10 mg by mouth once vimal* ATORVASTATIN 20 MG TABLET Take 20 mg by mouth once vimal* VICTOZA 2-CHET SUBCUTANEOUS Inject 1.2 mg subcutaneously * INSULIN GLARGINE 100 UNIT/ML * Inject 1.6 Units subcutaneous* FLUOXETINE 40 MG CAPSULE Take 1 capsule by mouth once * OMEPRAZOLE 40 MG CAPSULE,JESUS* Take 1 capsule by mouth once * HYDROCORTISONE 2.5 % TOPICAL * Apply 1 application to affect* Medication notes this encounter HYDROCORTISONE 2.5 % TOPICAL CREAM >> Alessandro Duque MA 07/04/2017 9:52 AM >> ALESSANDRO DUQUE Jul 04, 2017 9:52 AM Not taking Problem List As Of Date 07/04/2017 Noted Resolved Gastroesophageal reflux disease without esophag*INVALID FOR* Hyperlipemia [E78.5] Diabetes (HCC) [E11.9] Urinary incontinence, mixed [N39.46] INVALID FOR* More... Rectocele [N81.6] INVALID FOR* More... Follow-up and Disposition History Recorded Encounter Status:Closed by CYNTHIA FUENTES MD on 07/04/17 PROGRESS Observed: 07/04/2017 Status: COMPLETED Source: [facility] 9:43 AM CLINIC OTHER CAMPUS REPOSITORY HNO ID: [id number] Author: Cynthia Fuentes Service: (none) Author Type: Physician Type: Progress Notes Filed: 07/04/2017 11:07 AM Note Text: CHIEF COMPLAINT: Lacie White is a 62 year old GP3. female who presents for consultation requested by Dr. Saleem for an opinion regarding Mixed urge and stress incontinence. PMH: 1. Type 2 diabetes. On jardacin, vitoza, and insulin injection. Usually around 130 postprandial. 2. Pt has had a h/o microscopic hematuria. S/p cystoscopy and CT urogram (10 years ago). All negative. 3. Recent palpitations. Had an exercise stress test, but couldn't get the pt's heart rate high enough. Going for a nuclear stress test URINARY SYMPTOMS: Pt has had leakage of urine for about 10 years. She had gone to a urologist about 10 years ago who did a work up for her AMH and told her she would benefit from mesh. However, she did not have a good interaction and never went back. She now constantly feels like she is wet. Pt has COREY with coughing fits and when she laughs. Voids 4-5 times per day and >2x/night. She has nocturia with leakage. Pt feels like she is wet all of the time. She wipes herself and sometimes has to sit back down because she is wet. She sometimes has to pull her pants down 3 different times. Pt does not wear pads; has to change her underwear a few times per week. Sometimes leaks with urgency. Pt has urgency with running water. No leakage with intercourse. Drinks 1 cup of coffee per day. PROLAPSE SYMPTOMS: None FECAL/FLATAL SYMPTOMS Pt goes every other day to [facility]. Pt has IBS, constipation and diarrhea. Colonscopy x 3. Pt had 6 polyps on the first; wnl since. Flatal incontinence. No fecal incontinence. Sometimes feels fecal urgency. HISTORY OF PRESENT ILLNESS: Urinary Incontinence: Yes - No. of episodes: 2-3/day; Pad use - NA; Do you usually experience urine leakage related to coughing, sneezing, or laughing: yes, Do you usually experience urine leakage related to physical exercise such as walking, running, aerobics, or tennis: yes, Do you usually experience urine leakage related to lifting or bending over: no Do you usually experience urine leakage related to a feeling of urgency: yes, Leaks with: Cough/sneeze Previous UI Treatment: None Voiding Dysfunction: Feeling of incomplete emptying Urinary Urgency: yes, # of Daytime Voids: 3-5 # of Nocturic Episodes: 2-3 per day Dysuria: no Hematuria: no Recurrent UTI: No Nocturnal Enuresis: no Prolapse Symptoms: Do You usually have a sensation of bulging or protrusion from the vaginal area: no Do you usually have a bulge or something falling out that you can see or feel in the vaginal area: No Previous Treatment: None Defecatory Symptoms: None Number of Bowel Movements: 1 per Day Fecal Incontinence: No Sexual Dysfunction: No - Active, no complaints FUNCTIONAL STATUS: Walk indoors, such as around the house (1.75 METs) Do light work around the house, such as dusting or washing dishes (2.70 METs) Take care of self, that is eating, dressing, bathing, using the toilet (2.75 METs) Walk a block or two on level ground (2.75 METs) Do moderate work around the house such as vacuuming, sweeping floors, or carrying in groceries (3.50 METs) Do yardwork, such as raking leaves, weeding,or pushing a power mower (4.50 METs) Have sexual relations (5.25 METs) Climb a flight of stairs or walk up a hill (5.50 METs) Participate in moderate recreational activities, such as golf, bowling, dancing, doubles tennis, or throwing a baseball or football (6.00 METs) Participate in strenuous sport, such as swimming, singles tennis, football, basketball, or skiing (7.50 METs) Do heavy work around the house, such as scrubbing floors, lifting or moving heavy furniture (8.00 METs) Run a short distance (8.00 METs) GYNECOLOGIC HISTORY: The pt's last Pap smear was 6-7 years ago, and it was normal. She has never had an abnormal Pap. Her last mammogram was 3-4 years ago, and it was normal. She has never had an abnormal mammogram. H/o dense breasts. She underwent menopause at the age of 24 with oophorectomy. Was on HRT until the age of 49. She has had a hysterectomy in the past, ROSIBEL for endometriosis at the age of 22. No PMB. She is currently sexually active, and she does not experience dyspareunia. She has a male partner. She does hope for sexual relations in the future. She denies a history of sexual abuse. OBSTETRICAL HISTORY: x 3, CD x 0. Largest baby 8lb 2oz. No forceps or vacuum use. She did no sustain a tear into the rectum. 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 Skin: Negative for rash or itching. Psychiatric: Negative for depression. Reports normal stress. Neurologic: Negative for new headache or syncope. Endocrine: Negative for sweating, cold intolerance or heat tolerance. Cardiovascular: Negative for recent chest pain, chest pressure or chest discomfort. Has had palpitations and is currently being worked up Hematologic/Lymphatic: Negative for easy bruising or excessive bleeding. Respiratory: Negative for wheezing, shortness of breath or persistent cough. Gastrointestinal: Negative for persistent abdominal pain. Negative for anorexia, persistent nausea and/or vomiting. Musculoskeletal: Negative for muscle pain, back pain, joint pain or stiffness. OBJECTIVE: Ht 5' 2.992 (1.60m) Wt 198 lb (89.8kg) BMI 35.08 kg/(m2). Physical Exam Constitutional: BMI - Body mass index is 35.08 kg/(m2). General Appearance: Well appearing, alert, in no acute distress, well-hydrated, well nourished. Skin: Skin color, texture, turgor normal, no suspicious rashes or lesions Neck: Supple, no adenopathy; thyroid symmetric, normal size Lungs: Lungs clear to auscultation. No wheezing, rhonchi, rales Heart: RRR without murmur, gallop, or rubs. No ectopy Breasts:Deferred Abdomen: Normal abdominal exam, Abdomen soft, non-tender. No masses, organomegaly Pelvic: External Genitalia: No lesions or other abnormalities Vagina: Ant Wall - Normal support ; Post Wall - Rectocele Stage II Cervix / Morral - Normal support See POP-Q Cervix: Absent Urethra: Hypermobile >30 degrees. + UPPER TIER Bimanual: No tenderness, No masses Rectovaginal: Rectocele Anal Sphincter: Anal Brandeis: Yes Resting Tone: Normal Squeeze Strength: 2+ out of 5 Sphincter Defect: no Levator Ani Contraction: 3+ Saddle Sensory Exam (S2-4): normal POP-Q: Prolapse Noted: Yes Aa = -2.0 Ba = -2.0 C = -7 gh = 3 pb = 4 tvl = 8 Ap = 0 Bp = 0 D = N/A Uroflow: pt voided 72ml with a scanned PVR of 65ml. Max flow 22ml/s. Urine dip: negative blood, negative nitrites IMPRESSION: Lacie White is a 62 year old female with Mixed urge and stress incontinence, Pelvic Organ Prolapse (stage 2 rectocele), h/o asymptomatic microscopic hematuria, type 2 diabetes, subjective feeling of heart palpitations PLAN: 1. It sounds as if the patient has some issues with mixed incontinence. When asked, she thinks the COREY bothers her more. For Stress Incontinence: Discussed treatment options including observation and non-surgical options including pelvic floor exercises with/without physical therapy, and pessary fitting. In addition, surgical options were reviewed including midurethral sling, a procedure involving mesh, and non-mesh procedures. She understands that a MUS is the gold standard and is minimally-invasive, fast and effective. We also discussed risks involving mesh, including a 2% risk of erosion, the possibility of new onset pain/dyspareunia, retention and recurrent UTIs. After our discussion, the patient decided to proceed with midurethral sling surgery. For Urgency Urinary Incontinence: Discussed treatment options including observation, pelvic floor exercises, physical therapy, and medications. Explained the role of pelvic floor exercises and physical therapy. Explained the common side effects of medications including but not limited to dry mouth, dry eyes, and constipation. Patient was counseled that if medications are not effective and/or side effects are intolerable, other options including Botox, PTNS, and Interstim are available. After our discussion, the patient decided to proceed with midurethral sling and address her UUI and OAB after her sling surgery. UDS at the end of July with a pre op. Midurethral sling planned for 08/28/17. 2. Prolapse, type 2 rectocele: asymptomatic at this time. Will consider posterior repair and perineorrhaphy, but pt does not have symptoms of constipation except from her IBS. 3. Type 2 diabetes: will get a hgb a1c prior to surgery. Pt made aware that it is important for it to be <8 to decrease her perioperative risks and for adequate wound healing, especially with a mesh procedure. 4. Cardiac issues: pt also aware that she will have to complete her cardiac work up prior to surgery. 5. H/o DVT at age 24: Will consider maya- and/or post op heparin. 5. H/o AMH: urine dip negative today. This was a 60 minute consultation visit, > 50% of which was spent in counseling and coordination of care. Clinical labs and past medical records were reviewed, and chronic illnesses were addressed, including type 2 diabetes, h/o microscopic hematuria, heart palpitations, prior DVT. We developed a comprehensive treatment plan for the new diagnoses of mixed urinary incontinence, rectocele, including surgery for a midurethral sling, cystoscopy. Plan for follow-up for urodynamics and pre op. The documentation by the MA was reviewed and verified. Cynthia Fuentes MD My final recommendations will be communicated back to the requesting physician by way of shared Medical record or letter via [place] mail. ALLERGIES ALLERGIES DATE TYPE / CODE NAME / CODE REACTION SEVERITY SOURCE 06/20/2018 Drug Penicillins/F00 Hives Unknown [place] Allergy/899620989(S 8716413(RXNORM) [facility] Repository 06/20/2018 Drug Sulfa Hives Unknown [place] Allergy/035660358(S (Sulfonamide [facility]) Antibiotics)/F0 Hospital 22619803(RXNORM Repository ) 06/20/2018 Miscellaneous OCEAN PERCH Hives Unknown [place] Allergy/032145712(S [facility]) Hospital Repository 10/31/2016 [facility] (SULFONAMIDE [facility] Other MED CT) ANTIBIOTICS) [place] Repository 10/31/2016 DRUG PENICILLIN HIVES [facility] INGREDI/190355071(S [facility] Other NOMED CT) [place] Repository NG/069463097(SNOMED SULFA [facility]) (SULFONAMIDE [facility] ANTIBIOTICS) Repository NG/280578683(SNOMED PENICILLIN [facility]) Health System Repository ENCOUNTERS ENCOUNTERS ADMIT/DISCHARGE ACCOUNT NUMBER ADMITTING ENCOUNTER LOCATION SOURCE CLASS 06/20/2018 [id number] Ambulatory [facility] ding:RAD Repository 06/20/2018/06/20/19 [id number] Ambulatory BMSBuilding: [place] [facility] [place] 06/14/2018 [id number] Ambulatory [facility] ding:DC Repository 05/21/2018 [id number] Ambulatory [facility] ding:CVS Repository 05/07/2018/05/07/20 [id number] Ambulatory BMSBuilding: [place] [facility] [place] 05/04/2018 [id number] Ambulatory [facility] ding:CVS Repository 04/30/2018/04/30/20 [id number] Emergency [address] ding:ED Repository 04/25/2018 [id number] Ambulatory [facility] Repository 04/03/2018/04/03/20 [id number] Ambulatory BMSBuilding: [place] 18 BMS.[facility] Repository 03/28/2018 [id number] Ambulatory BMSBuilding: [place] BMS.CF.[facility] Repository 03/20/2018 [id number] Ambulatory [facility] ding:CT Repository 03/02/2018 [id number] Ambulatory BMSBuilding: [place] BMS.CF.[facility] Repository 03/02/2018 [id number] Ambulatory [facility] ding:CVS Repository 02/14/2018/02/15/20 [id number] Ambulatory BMSBuilding: [place] 18 BMS.[facility] Repository 02/13/2018 [id number] Ambulatory BMSBuilding: [place] BMS.[facility] Repository 02/06/2018/02/07/20 [id number] Ambulatory BMSBuilding: [place] 18 [facility] [place] 01/19/2018/01/21/20 [id number] Emergency [address] ding:ED Repository 12/07/2017 [id number] Ambulatory [facility] ding:OPBD Repository 11/22/2017 [id number] Ambulatory BMSBuilding: [place] [facility] [place] 11/06/2017/11/07/19 [id number] Ambulatory BMSBuilding: [place] 18 [facility] Repository 10/10/2017 [id number] Ambulatory [facility] MEDICAL Repository CENTERBuildi ng:AGUROGYN 09/12/2017 [id number] Ambulatory [facility] MEDICAL Repository CENTERBuildi ng:AGUROGYN 08/28/2017 [id number] [facility] CENTERBuildi ng:AKSUR 08/24/2017/08/25/19 [id number] Emergency [address] Repository 08/24/2017/08/25/19 [id number] Emergency [address] MEDICAL Repository CENTERBuildi ng:AKEDBRoom : EDBed: 19 08/15/2017 [id number] Ambulatory [facility] MEDICAL Repository CENTERBuildi ng:AGUROGYN 08/15/2017 [id number] Ambulatory [facility] MEDICAL Repository CENTERBuildi ng:AGUROGYN 08/15/2017 [id number] Ambulatory [facility] MEDICAL Repository CENTERBuildi ng:AGUROGYN 08/14/2017 [id number] Ambulatory [facility] MEDICAL Repository CENTERBuildi ng:AKPSTB 07/04/2017/07/04/19 [id number] Ambulatory [address] Repository 07/04/2017/07/04/19 [id number] Ambulatory [address] MEDICAL Repository CENTERBuildi ng:AGUROGYN PAYERS PAYERS ENCOUNTER GUARANTOR PAYER SUBSCRIBER SOURCE 06/20/2018 L[address]IE [address] [place] Insurance:MEDICAL ANTON[place]OB[place] [facility] [id number] [address]Btw: (614) Number: Repository [phone] () [id number] Date:6575-02-68VW [address] [place] [address]QY: 06/20/2018 Secondary NOT GIVENUNK [place] Insurance:SELF PAY [facility] Number: Effective Repository Date:2018-06-20 06/20/2018 LACIE Parish Primary LACIE Jaquez [id number] [place] Insurance:MEDICAL ANTONIODOB: [facility] [id number] [facility] [address]Zeq: (614) Number: Repository [phone] () [id number] Date:2999-38-35YL [address] [address]RB: 06/20/2018 Secondary NOT GIVENUNK [place] Insurance:SELF PAY [facility] Number: Effective Repository Date:2018-06-20 06/14/2018 LACIE Parish Primary LACIE Jaquez [id number] [place] Insurance:MEDICAL ANTONIODOB: [facility] [id number] [facility] [address]Nnh: (614) Number: Repository [phone] () [id number] Date:2435-52-20VX [facility] [address] [place] [address]XN: 06/14/2018 Secondary NOT GIVENUNK [place] Insurance:SELF PAY [facility] Number: Effective Repository Date:2018-06-13 05/21/2018 LACIE M Primary LACIE [address] [place] Insurance:[facility] ANTONIODOB: [facility] [address]Vsimgm [id number] Hospital [address]Omu: (614) Number: Repository [phone] () [id number] Date:9806-74-24[address], [place] [address]YT: 05/21/2018 Secondary NOT GIVENUNK [place] [facility] Effective Repository Date:2018-05-14 05/07/2018 LACIE Parish Primary [address] [place] Insurance:[facility] ANTONIODOB: [address] [place], CARE [address]Mkdxom [id number] [place] [address]Eti: Number: Repository [id number] (HP) Date:5565-34-96TN [facility] [place]KEG, [place] [address]AZ: 05/07/2018 Secondary NOT GIVENUNK [place] Insurance:SELF PAY [facility] Number: Effective Repository Date:2018-04-30 05/04/2018 LACIE Parish Primary [address] [place] Insurance:[facility] ANTONIODOB: [address] [place], [place] [address]Cpylir [id number] Hospital [place] [address]Era: Number: Repository [id number] (HP) Date:2245-54-83BS [facility] 537[address]WFJK, [place] [address]KL: 05/04/2018 Secondary NOT GIVENUNK [place] Insurance:SELF PAY [facility] Number: Effective Repository Date:2018-05-04 04/30/2018 LACIE Parish Primary [address] [place] Insurance:[facility] ANTONIODOB: [address] [place], [place] [address]Bhhxsm [id number] [place] [address]Fnc: Number: Repository [id number] (HP) Date:6619-75-19GV [facility] [address]VFAA, [place] [address]JB: 04/30/2018 Secondary NOT GIVENUNK [place] Insurance:SELF PAY [facility] Number: Effective Repository Date:2018-04-30 04/03/2018 LACIE Parish Primary [address] [place] Insurance:[facility] ANTONIODOB: [address] [place], [place] [address]Lgtvco [id number] [facility] [address]Ehd: Number: Repository [id number] (HP) Date:9988-83-86[address]RSCDL, [place] [address]TZ: 04/03/2018 Secondary NOT GIVENUNK [place] Insurance:SELF PAY [facility] Number: Effective Repository Date:2018-04-03 03/28/2018 LACIE Lugo Primary [address] [place] Insurance:[facility] ANTONIODOB: [address] [place], [place] [address]Eexmuv [id number] Health Clinic [address]Ufc: Number: Repository [id number] (HP) Date:0508-05-75KG [address]SPGHUBM, [place] [address]YW: 03/28/2018 Secondary NOT GIVENUNK [place] Insurance:SELF PAY [facility] Number: Effective Repository Date:2018-03-28 03/20/2018 LACIE Lugo Primary [address] [place] Insurance:[facility] ANTONIODOB: [address] [place], [place]ARE [address]Jquzoj [id number] Health Clinic [address]Zlp: Number: Repository [id number] (HP) Date:2088-86-16[address]OTBLRNK, [place] [address]EB: 03/20/2018 Secondary NOT GIVENUNK [place] Insurance:SELF PAY [facility] Number: Effective Repository Date:2018-03-19 03/02/2018 LACIE Parish Primary [address] [place] Insurance:[facility] ANTONIODOB: [address] [place], [place] [address]Pgjsdt [id number] Health Clinic [address]Dfd: Number: Repository [id number] (HP) Date:3420-88-57[address]AWXJVCL, [place] [address]KZ: 03/02/2018 Secondary NOT GIVENUNK [place] Insurance:SELF PAY [facility] Number: Effective Repository Date:2018-03-02 03/02/2018 LACIE Parish Primary [address] [place] Insurance:[facility] ANTONIODOB: [address] [place] [place] [address]Gawmqt [id number] [address]Abz: Number: Repository [id number] (HP) Date:7244-17-06GD [facility] 233279NPVYFAW, [place] [address]SE: 03/02/2018 Secondary NOT GIVENUNK [place] Insurance:SELF PAY [facility] Number: Effective Repository Date:2018-02-15 02/14/2018 LACIE Parish Primary [address]ACIE [address] [place] Insurance:[employer] [place] ANTONIODOB: [address] [place], CARE [id number] [id number] [facility] [place] [address]Ntw: Number: Repository [id number] (HP) Date:[id number] [address]DCWJRQY, [place] [address]AT: 02/14/2018 Secondary NOT GIVENUNK Leonid Insurance:SELF PAY [facility] Number: Effective Repository Date:2018-02-14 02/13/2018 LACIE Parish Primary [address] [place] Insurance:[employer] [place] ANTONIODOB: [address] [place], CARE [address]Yhzcve [id number] [place] [address]Lah: Number: Repository [id number] (HP) Date:[id number] [facility] [place]293OLXBRDO, [place] [address]JL: 02/13/2018 Secondary NOT GIVENUNK Leonid Insurance:SELF PAY [facility] Number: Effective Repository Date:2018-02-13 02/06/2018 LACIE Parish Primary [address] [place] Insurance:[employer] [place] ANTONIODOB: [address] [place], CARE [id number] [id number] [facility] [address]Chp: Number: Repository [id number] (HP) Date:[id number] [address]BSJJPYU, [place] [address]PZ: 02/06/2018 Secondary NOT GIVENUNK Leonid Insurance:SELF PAY [facility] Number: Effective Repository Date:2018-02-06 01/19/2018 LACIE Parish Primary [address] [place] Insurance:[employer] [place] ANTONIODOB: [address] [place], CARE [id number] [id number] Health Clinic [address]Yrc: Number: Repository [id number] (HP) Date:0405-70-26PC [address]BVXZCVM, [place] [address]CI: 01/19/2018 Secondary NOT GIVENUNK Leonid Insurance:SELF PAY [facility] Number: Effective Repository Date:2018-01-19 12/07/2017 LACIE Lugo Primary [address] [place] Insurance:[employer] [place] ANTONIODOB: [address] [place], CARE [id number] [id number] Health Clinic [address]Uhu: Number: Repository [id number] (HP) Date:4602-42-63TO [address]CHBREYV, [place] [address]OD: 12/07/2017 Secondary NOT GIVENUNK Leonid Insurance:SELF PAY [facility] Number: Effective Repository Date:2017-11-06 11/22/2017 LACIE [address] Primary LACIE YUNIODOB: [address] [place] [address] Insurance:[employer] [id number] in CARE [address] [place], [place] [address]Tel: [phone]) Number: Repository [phone] () [id number] Date:2670-47-91RL [address]OJRYMHC, [place] [address]OO: 11/22/2017 Secondary NOT GIVENUNK [place] Insurance:SELF PAY [facility]: Effective Repository Date:2017-11-22 11/06/2017 LACIE [address] Primary LACIE MARISSAIODOB: [address] [place] [address] Insurance:[facility] [id number] access hospitalODI, [facility] [address]HfqldqKindred [facility] [place] [address]Euq: (614) Number: Repository [phone] () [id number] Date:4764-59-52NX [address]EXTMFAW, [place] [address]YV: 11/06/2017 Secondary NOT GIVENUNK Leonid Insurance:SELF PAY [facility] Number: Effective Repository Date:2017-11-20 10/10/2017 LACIE YUNSHUBHAMOB: Primary Insurance:[facility] LACIE YUNSHUBHAMOB: [facility] [id number] Medical CenterODI, Number: Repository [place] [address]Cht: [id number] Date: (HP) 09/12/2017 LACIE MARISSASHUBHAMOB: Primary Insurance:[facility] LACIE YUNIODOB: [facility] CHOICE PLUSPoly [id number], Number: Repository [place] [address]Msg: [id number] Date: (HP) 08/28/2017 LACIE ARAMBULAOB: Primary Insurance:[facility] LACIE YUNIODOB: [facility] CHOICE PLUSChan [facility] [id number] Medical CenterODI, Number: Repository [place] [address]Ogi: [id number] Date: (HP) 08/24/2017 LACIE Lugo Primary Insurance:[facility] LACIE Lugo [facility] ANTONIODOB: CHOICE PLUSPolicy ANTONIODOB: Health System Number: [id number] Medical Center [facility], [id number] [place] [address]Hcq: Date: (HP) 08/15/2017 LACIE ARAMBULAOB: Primary Insurance:[facility] LACIE YUNIODOB: [facility] CHOICE PLUSPolicy [id number] Medical CenterODI, Number: Repository [place] [address]Mfy: [id number] Date: (HP) 08/15/2017 LACIE YUNIODOB: Primary Insurance:[facility] LACIE YUNIODOB: [facility] CHOICE PLUSPolicy [id number] Health System [facility], Number: Repository [place] [address]Bak: [id number] Date: (HP) 08/15/2017 LACIE MARISSAIODOB: Primary Insurance:[facility] LACIE YUNIODOB: [facility] CHOICE PLUSPolicy [id number] Health, Number: Repository [place] [address]Ihm: [id number] Date: (HP) 08/14/2017 LACIE Lugo Primary Insurance:[facility] LACIE Lugo [facility] ANTONIODOB: CHOICE PLUSPolicy ANTONIODOB: Health System Number: [id number] [facility], [id number] [place] [address]Bdp: Date: (HP) 07/04/2017 LACIE MARISSAIODOB: Primary Insurance:[facility] LACIE YUNIODOB: [facility] CHOICE PLUSPolicy [id number] Medical CenterODI, Number: Repository [place] [address]Gkv: [id number] Date: (HP)
== END ==
PROVIDERS: Family Provider Internal Medicine; PCP Internal Medicine; Referring Provider Internal Medicine; Visit Provider Internal Medicine
DX: R05 Cough (principal); R07.9 Chest pain, unspecified
CPT/HCPCS: 71046

== ENCOUNTER 2018-06-28 10:00 | Outpatient (RCR) | payer OTHER, SELFPAY ==
[2018-05-07 09:09] VITALS: BMI 33.3
== END 2018-06-28 23:59 ==
LOC: DC 10:00
PROVIDERS: Family Provider Internal Medicine; PCP Internal Medicine; Visit Provider Internal Medicine
DX: E11.9 Type 2 diabetes mellitus without complications (principal); Z71.3 Dietary counseling and surveillance
CPT/HCPCS: 97802; G0108

== ENCOUNTER 2018-07-26 09:00 | Outpatient (RCR) | payer OTHER, SELFPAY ==
[2018-06-20 14:23] VITALS: BMI 33.3
== END 2018-07-26 23:59 ==
LOC: DC 09:00
PROVIDERS: Family Provider Internal Medicine; PCP Internal Medicine; Visit Provider Internal Medicine
DX: E11.9 Type 2 diabetes mellitus without complications (principal)
CPT/HCPCS: 97803; G0108

== ENCOUNTER 2018-08-02 12:41 | Outpatient (RCR) | payer OTHER, SELFPAY ==
[2018-06-20 14:23] VITALS: BMI 33.3
== END 2018-08-26 23:59 ==
LOC: DC 12:41
PROVIDERS: Family Provider Internal Medicine; PCP Internal Medicine; Visit Provider Internal Medicine
DX: E11.9 Type 2 diabetes mellitus without complications (principal); Z71.3 Dietary counseling and surveillance
CPT/HCPCS: G0109

== ENCOUNTER 2018-08-12 23:20 | Emergency (ER) | payer OTHER, SELFPAY ==
[2018-08-10 14:53] VITALS: BMI 32.2
[2018-08-12 23:21] VITALS: BP 120/57; PULSE 70; RESP 18; TEMP 36.7; O2SAT 95; BMI 32.3
--- NOTE | 2018-08-12 23:45 | ED.VISSUMM ---
- ER Visit Summary Date of Service: 08/12/18 Chief Complaint: Right flank pain History of Present Illness: The patient is a 63 F 2-day history of flank discomfort now developing nausea. Urinary frequency. No gross hematuria. No fever or chills. No history of prior kidney stones. Pain starts in the right flank radiates down to her right side of her abdomen. Physical Examination: Older female no acute distress. Vital signs are stable. She is afebrile. She does not seem septic or toxic. She is in no acute distress. H EENT exam unremarkable. Neck nontender no lymphadenopathy. Lungs clear to auscultation bilaterally. Heart regular rate and rhythm no murmur. Abdomen is soft. Nontender. Nondistended. Normal bowel sounds. She has had both an appendectomy and cholecystectomy. Nondistended. No signs of obstruction. Patient is moving all 4 extremities. Neurovascular intact. No edema. Normal range of motion. Normal motor strength. Back she has right CVA but more primarily right paraspinal soft tissue tenderness. There is no redness or warmth. No signs of trauma. Left side and spine are unremarkable. Neurologically she is awake and alert with no focal motor deficits. Test Results: Urinalysis shows 5-10 white cells no red cells 5-10 epithelial cells rare bacteria no nitrates. Urine culture was sent but at this time I do not feel that she needs antibiotics. I discussed this with the patient. On repeat abdominal exam at 07 23 her abdomen benign. She has no peritoneal signs. Patient clinically looks well. Earlier while in the ER while waiting for test results she had some GI type reflux symptoms and EKG was obtained and showed a sinus rhythm with a rate of 66 with absolutely no signs of [place] anemia. She has had prior cardiac evaluation and a coronary CT done in the past. Emergency Department Course and Treatment: Patient requested and was treated with something for pain and nausea she was given IV morphine 4 mg and Zofran. Treatment Plan: Fluids and rest. Tylenol Motrin for pain. Follow-up with her doctor if not improving. Urine culture pending Disposition: Discharge Impression: Flank pain of uncertain etiology This note was generated with [employer] dictation software. It may contain incorrect words, spelling, and punctuation that were not noted in review of the chart prior to signing ED Disposition - Plan for ED Patient: Referrals: Madison Martins MD [Primary Care Provider] -
[2018-08-12] MEDS: Morphine 4 MG/ML Syringe IV (23:56)
[2018-08-12] MEDS: Ondansetron 4 MG/2 ML Vial IV (23:56)
[2018-08-13 00:08] LABS: Mucous, Urine 0 SEEN /hpf (<or=2+); Red Blood Cells-Urine 0 SEEN /hpf (0-5)
[2018-08-13 00:20] LABS: Color, Urine Yellow (Yellow); Glucose, Dipstick Normal (Normal); Ketone-Dipstick Negative (Negative); Leukocyte Esterase-Dipstick 25 /ul (Negative); Nitrite-Dipstick Negative (Negative); Occult Blood-Urine Negative /ul (Negative); Protein-Dipstick 15 mg/dl (Negative); Specific Gravity, Urine 1.015 (1.002-1.030); Urine Bilirubin Dipstick Negative (Negative); Urine Clarity Clear (Clear); Urine Urobilinogen Normal (Normal); Urine pH 6.5 (5.0 - 8.0)
[2018-08-13 00:26] LABS: Bacteria RARE /hpf (None Seen); Squamous Epithelial Cells - UA 0-5 SEEN /hpf (5-10); White Blood Cells 5-10 SEEN /hpf (0-5)
[2018-08-13 00:51] VITALS: BP 116/52; PULSE 76; RESP 16; TEMP 36.6; O2SAT 97
--- NOTE | 2018-08-13 00:53 | ED.RN ---
PT RINGS CALL LIGHT AND COMPLAINS TO THIS RN OF CHEST PAIN. PT REPORTS PAIN STARTED 10 MIN AGO, DESCRIBES IT GRIPPING PAIN.. DR. MEGLAR INFORMED. THIS RN CALLED FOR EKG. PT PLACED ON SEISMOGRAPH HELPER, NSR NOTED. PT VS STABLE. RESPIRATORY CALLED TO OBTAIN EKG.
[2018-08-13 01:17] VITALS: BP 112/68; PULSE 72; RESP 16; TEMP 36.9; O2SAT 96
[2018-08-13 01:46] VITALS: BP 106/58; PULSE 65; RESP 18; O2SAT 98
--- NOTE | 2018-08-13 02:38 | ED.DEP ---
ED Disposition - Plan for ED Patient: Disposition: Home or Assisted Living Instructions: ED Flank Pain Uncertain Cause Referrals: Madison Martins MD [Primary Care Provider] - 3-5 Days if not improving Additional Instructions: Plenty of water. We sent a urine culture if that comes back positive for infection we will notify you and start treatment. Tylenol and Motrin for pain. Follow-up with your doctor if not improving or return to ER feeling worse
[2018-08-13 02:46] VITALS: BP 102/55; PULSE 67; RESP 15; O2SAT 96
== END 2018-08-13 02:47 | disposition home or self-care (01) ==
PROVIDERS: Emergency Provider Emergency Medicine; Family Provider Internal Medicine; PCP Internal Medicine
DX: R10.9 Unspecified abdominal pain (principal); R35.0 Frequency of micturition; E11.9 Type 2 diabetes mellitus without complications; Z90.49 Acquired absence of other specified parts of digestive tract; Z87.891 Personal history of nicotine dependence
CPT/HCPCS: 81001; 87086; 87088; 87186; 96374; 96375; 99283; A4216; J2405

== ENCOUNTER 2018-08-30 09:26 | Outpatient (RCR) | payer OTHER, SELFPAY ==
[2018-08-27 01:06] VITALS: BMI 33.3
== END 2018-09-25 23:59 ==
LOC: DC 09:26
PROVIDERS: Family Provider Internal Medicine; PCP Internal Medicine; Visit Provider Internal Medicine
DX: E11.9 Type 2 diabetes mellitus without complications (principal); Z71.3 Dietary counseling and surveillance
CPT/HCPCS: G0109

== ENCOUNTER → 2018-09-14 09:22 | Outpatient (CLI) | payer OTHER, SELFPAY ==
[2018-09-13 16:17] VITALS: BMI 32.3
== END ==
PROVIDERS: Family Provider Internal Medicine; PCP Internal Medicine; Referring Provider Internal Medicine; Visit Provider Internal Medicine
DX: R19.7 Diarrhea, unspecified (principal)
CPT/HCPCS: 87493

== ENCOUNTER 2018-09-27 10:41 | Outpatient (RCR) | payer OTHER, SELFPAY ==
[2018-09-26 01:12] VITALS: BMI 33.3
== END 2018-09-27 23:59 | disposition home or self-care (01) ==
LOC: DC 10:41
PROVIDERS: Family Provider Internal Medicine; PCP Internal Medicine; Visit Provider Internal Medicine
DX: E11.9 Type 2 diabetes mellitus without complications (principal); Z71.3 Dietary counseling and surveillance
CPT/HCPCS: G0109

== ENCOUNTER 2018-11-01 09:52 | Outpatient (RCR) | payer OTHER, SELFPAY ==
[2018-10-27 00:50] VITALS: BMI 32.3
== END 2018-11-25 23:59 ==
LOC: DC 09:52
PROVIDERS: Family Provider Internal Medicine; PCP Internal Medicine; Visit Provider Internal Medicine
DX: E11.9 Type 2 diabetes mellitus without complications (principal); Z71.3 Dietary counseling and surveillance

== ENCOUNTER → 2018-12-11 | Outpatient (CLI) | payer OTHER, SELFPAY ==
[2018-12-11 16:22] VITALS: BMI 32.3
[2018-12-11 16:57] LABS: Bacteria 0 SEEN /hpf (None Seen); Red Blood Cells-Urine 0 SEEN /hpf (0-5)
[2018-12-11 17:29] LABS: Color, Urine Yellow (Yellow); Glucose, Dipstick Normal (Normal); Ketone-Dipstick Negative (Negative); Leukocyte Esterase-Dipstick 500 /ul (Negative); Nitrite-Dipstick Negative (Negative); Occult Blood-Urine Negative /ul (Negative); Protein-Dipstick Negative (Negative); Urine Bilirubin Dipstick Negative (Negative); Urine Clarity Clear (Clear); Urine Urobilinogen Normal (Normal)
[2018-12-11 17:32] LABS: Mucous, Urine RARE /hpf (<or=2+); Squamous Epithelial Cells - UA 0-5 SEEN /hpf (5-10); White Blood Cells 0-5 SEEN /hpf (0-5)
== END | disposition home or self-care (01) ==
LOC: LABSPEC 16:51
PROVIDERS: Family Provider Internal Medicine; PCP Internal Medicine; Referring Provider Physician Assistant Surgical; Visit Provider Physician Assistant Surgical
DX: N39.0 Urinary tract infection, site not specified (principal)
CPT/HCPCS: 81001; 87086; 87088

== ENCOUNTER 2018-12-21 01:09 | Emergency (ER) | payer OTHER, SELFPAY ==
[2018-12-14 13:23] VITALS: BMI 30.9
[2018-12-21 01:10] VITALS: BP 104/86; PULSE 82; RESP 18; TEMP 36.8; O2SAT 94; BMI 31.9
--- NOTE | 2018-12-21 01:54 | ED.DCSUM_ITS ---
- ER Visit Summary Date of Service: 12/21/18 Chief Complaint: Back pain History of Present Illness: The patient is a 63 F who presents with 2 weeks of lower back pain. She states it feels like back labor. Her pain radiates into both buttocks and thighs. She denies any numbness tingling weakness fevers abdominal pain urinary retention fecal incontinence. No history of trauma fall or injury. She initially thought that she had a UTI and was recently seen at the now clinic and treated with antibiotics although her culture was negative on follow-up with her primary care physician. No fevers. No history of back surgeries. Her pain is worse with movement and ambulation. She does complain of nausea without vomiting. Physical Examination: Afebrile vitals normal Moist mucous membranes Heart regular rate and rhythm Lungs are clear Abdomen soft nontender nondistended Patient has bilateral paraspinal lumbar tenderness Straight leg raise negative 5 out of 5 dorsiflexion, plantarflexion, extensor hallucis longus Test Results: Not indicated Emergency Department Course and Treatment: Patient's pain does seem to be musculoskeletal in nature with lumbar radiculopathy. She does not have signs or symptoms to suggest serious acute pathology such as cauda equina syndrome or epidural abscess. I do not see an indication for any emergent imaging. We will treat with a short course of [place] as well as a prednisone burst. She was advised to follow-up with her primary care physician. She was instructed on specific signs and symptoms to monitor for and conditions which should prompt return here to the emergency department for reevaluation such as fevers or vomiting. Treatment Plan: [] Disposition: Discharge Impression: Lumbar radiculopathy This note was generated with Access MediQuip dictation software. It may contain incorrect words, spelling, and punctuation that were not noted in review of the chart prior to signing ED Disposition - Plan for ED Patient: Referrals: Madison Martins MD [Primary Care Provider] -
--- NOTE | 2018-12-21 01:56 | DCINST.ED_ITS ---
ED Disposition - Plan for ED Patient: Instructions: BACK PAIN w/ SCIATICA Prescriptions: Hydrocodone Bitart/Apap 5-325 [[place] 5MG-325MG] 1 tab PO Q6H PRN PRN 3 Days #10 tab PRN Reason: Pain Prescription Printed predniSONE tablet 60 mg PO DAILY #15 tab Prescription Printed Referrals: Madison Martins MD [Primary Care Provider] -
[2018-12-21] MEDS: HYDROcodone Bitartrate/Apap 5/325 Tablet PO (02:01)
[2018-12-21 02:13] VITALS: RESP 14
== END 2018-12-21 02:13 | disposition home or self-care (01) ==
LOC: ED 02:02
PROVIDERS: Emergency Provider Emergency Medicine; Family Provider Internal Medicine; PCP Internal Medicine
DX: M54.16 Radiculopathy, lumbar region (principal); E11.9 Type 2 diabetes mellitus without complications; K21.9 Gastro-esophageal reflux disease without esophagitis; E78.00 Pure hypercholesterolemia, unspecified
CPT/HCPCS: 99283

== ENCOUNTER → 2019-02-12 07:36 | Outpatient (CLI) | payer OTHER, SELFPAY ==
--- NOTE | 2019-02-12 07:39 | CT_ITS ---
STUDY: CT ABDOMEN AND PELVIS WITH AND WITHOUT CONTRAST REASON FOR EXAM: Female, 63 years old. Right flank pain. Recurrent UTIs. History of kidney stones. RADIATION DOSAGE (If Supplied By Facility): CTDIvol = ( 24.42 ) mGy, DLP = ( 3726.48 ) mGycm TECHNIQUE: Transaxial images were obtained from the dome of the diaphragm to the symphysis pubis with oral contrast. 100 IV/Oral Isovue 250 was administered. Sagittal and coronal images were reconstructed. Individualized dose optimization techniques were used for this CT. COMPARISON: None. FINDINGS: The visualized lung bases are unremarkable. The visualized portions of the heart are within normal limits. There is decreased attenuation of the liver consistent with steatosis. There are surgical clips in the gallbladder fossa consistent with a prior cholecystectomy. There is a 1.2 cm cyst in the posterior aspect of the spleen. Normal pancreas. Normal bilateral adrenal glands. There is a 1.8 cm x 1.7 cm cyst in the inferior pole of the right kidney as well as a 1.2 cm cyst in the upper pole of the right kidney. There is a 2.5 cm x 3 cm cyst in the posterior upper aspect of the left kidney. This also evidence of a 1.6 cm x 1.5 cm cyst in the medial midportion of the left kidney. Gastric distention due to residual fluid as well as oral contrast. Normal small intestine. Normal colon. Prior appendectomy. There is diffuse atherosclerotic calcification of the abdominal aorta, without a demonstrated aneurysm. Normal inferior vena cava. There is borderline retroperitoneal lymphadenopathy with enlarged nodes no greater than 10mm in the short axis diameter. Normal urinary bladder. There is absence of the uterus consistent with a prior hysterectomy. Increased markings in the subcutaneous tissue overlying the right periumbilical region. There are mild degenerative changes of the visualized lumbar spine. CT/CT Abd/Pelvis W/WO Contrast IMPRESSION: Bilateral renal cysts. Fatty infiltration of the liver. Electronically Signed: Matty aMchado, at 14:52 EDT , Service support ,
[2019-02-12 07:51] LABS: CREATININE FINGERSTICK 0.8 mg/dL (0.55-1.02); EGFR FINGERSTICK > 60.0000 mL/min (>60)
== END ==
PROVIDERS: Family Provider Internal Medicine; PCP Internal Medicine; Referring Provider Urology; Visit Provider Urology
DX: R10.9 Unspecified abdominal pain (principal); N39.0 Urinary tract infection, site not specified
CPT/HCPCS: 74178; Q9967

== ENCOUNTER → 2019-03-25 | Outpatient (CLI) | payer MEDICARE, OTHER, SELFPAY ==
[2019-03-22 10:38] VITALS: BMI 31.8
--- NOTE | 2019-03-25 14:53 | BI_ITS ---
MAMMOGRAPHY - BILATERAL SCREENING REASON FOR EXAM: Female, 64 years old. Routine annual screening examination. PERTINENT HISTORY: Non-contributory. TECHNIQUE: Digital bilateral breast tonya (3D mammographic acquisition) in the CC and MLO projections. 2-D mediolateral oblique (MLO) and craniocaudad (CC) views of both breasts were obtained. CAD: Full Field Digital Mammography with Computer Added Detection was performed. COMPARISON: Comparison is made with prior study dated December 07, 2017. FINDINGS: Breast Composition: The breasts are almost entirely fatty. There are no dominant masses or suspicious calcifications. No other significant abnormalities are identified. There has been no significant change since the prior study. BI/SCREEN MAMM (CAD) W/TONYA BILAT IMPRESSION: Stable bilateral screening mammogram. Yearly follow-up mammogram recommended. (A) ASSESSMENT CATEGORY: BIRADS Category 1: Negative. A letter regarding these results will be sent to the patient by the facility within 30 days. Approximately 10% of breast cancers are not detected by mammography. A normal mammogram should not delay biopsy of a clinically suspicious abnormality. [id number] Electronically Signed: Matty Machado, at 8:42 EDT , Service support ,
== END | disposition home or self-care (01) ==
LOC: OPBI 14:50
PROVIDERS: Family Provider Internal Medicine; PCP Internal Medicine; Referring Provider Internal Medicine; Visit Provider Internal Medicine
DX: Z12.31 Encounter for screening mammogram for malignant neoplasm of breast (principal)
CPT/HCPCS: 77063; 77067

== ENCOUNTER 2019-04-02 06:48 | Day surgery (SDC) | payer OTHER, MEDICARE, SELFPAY ==
[2019-03-22 10:38] VITALS: BMI 31.8
[2019-03-27 11:36] LABS: Hematocrit 42.4 % (37-47); Hemoglobin 13.1 g/dL (12.0-15.0); Mean Corp Hgb Conc 30.9 g/dL (32-36); Mean Corpuscular Hgb 27.1 pg (27.0-32.0); Mean Corpuscular Volume 87.8 fL (81-99); Mean Platelet Vol. 9.3 fl (6.2-12.0); Platelet Count 289 K/mm3 (150-450); RBC Distribution Width CV 13.9 % (11.6-14.6); RBC Distribution Width SD 44.3 fl (35.1-43.9); Red Blood Count 4.83 M/mm3 (4.2-5.4); White Blood Count 7.1 K/mm3 (4.4-11.0)
[2019-03-27 12:07] LABS: Hemoglobin A1c 6.1 % (4.2-6.3)
[2019-04-02 07:36] VITALS: BP 135/65; PULSE 70; RESP 16; TEMP 36.7; O2SAT 95; BMI 32.2
[2019-04-02] MEDS: Lactated Ringers 1,000 ML 100 ML IV (07:45)
[2019-04-02 08:01] LABS: Bedside Glucose 97 mg/dL (70-110)
[2019-04-02 08:07] LABS: Mucous, Urine 0 SEEN /hpf (<or=2+); Red Blood Cells-Urine 0 SEEN /hpf (0-5)
[2019-04-02 08:09] LABS: Color, Urine Yellow (Yellow); Glucose, Dipstick Normal (Normal); Ketone-Dipstick Negative (Negative); Leukocyte Esterase-Dipstick Negative /ul (Negative); Nitrite-Dipstick Negative (Negative); Occult Blood-Urine Negative /ul (Negative); Protein-Dipstick Negative (Negative); Urine Bilirubin Dipstick Negative (Negative); Urine Clarity Clear (Clear); Urine Urobilinogen Normal (Normal)
[2019-04-02 08:24] LABS: Squamous Epithelial Cells - UA 0-5 SEEN /hpf (5-10)
[2019-04-02 08:25] LABS: Bacteria RARE /hpf (None Seen); White Blood Cells 0-5 SEEN /hpf (0-5)
[2019-04-02] MEDS: Ciprofloxacin 400 MG/200 ML BAG 200 MG IV (08:39)
--- NOTE | 2019-04-02 08:43 | OP.PCM_ITS ---
Problem List (1) COREY (stress urinary incontinence, female) Status: Acute (2) Urethral hypermobility Status: Acute Report of Operation Date of Procedure: 04/02/19 Pre-Operative Diagnosis: urethral hypermobility, stress incontinence Post-Operative Diagnosis: same Surgery/Procedure Performed:: Altis midurethral sling, cystoscopy Description of Surgical Findings:: sling flat, good position. no complication. surgical first assistant: None - Hue Type of Anesthesia:: General Special Medications: Cipro Estimated Blood Loss (mL): 20cc Fluids Replaced: 600cc Description of Procedure: The patient is a 64-year-old female with incontinence evaluated in the office with cystoscopy and urodynamics. She is determined to have stress urinary incontinence and urethral hypermobility. Risk benefits and alternatives were discussed and she agreed to proceed with surgical intervention. Informed consent was obtained for placement of mid urethral sling and cystoscopy. The patient was taken to the operating room and placed on the operating room table. Anesthesia monitored the head, neck, airway, IV access and vital signs throughout the case. Once anesthesia was appropriately administered the patient was placed into dorsal lithotomy position and was prepped and draped in usual sterile fashion. She was then placed into Trendelenburg position and a Nova catheter the mid urethra was identified and injected submucosally with 1% lidocaine with epinephrine for hemostatic control and dissection. A midline incision approximately 1.5 cm in length was made over the mid urethra. Blunt and sharp dissection was performed until the periurethral space was opened bilaterally. The Altis mid urethral sling was inserted using the trochars, first the patient's right side followed by the left. There were no difficulties with insertion of the sling. It lay flat against the urethra without tension. The tensioning suture was cut and the incision was closed using running interlocking 2-0 Vicryl suture. The Nova catheter was removed and a cystourethroscopy revealed no evidence of foreign material within the urinary bladder or the urethra including mesh. There were no other abnormalities including erythema, mass or ulceration of the bladder mucosa. The bladder was left with a few cc of fluid and the scope was removed. Patient was awakened and taken to the recovery room in good condition. There were no complications during the procedure. Grafts/Implants Used: Altis midurethral sling (Colpoplast) - Complications none - Admit VTE Documentation VTE Present on Admission: Yes VTE Mechan Device Prophylaxis: SCD's VTE Pharm Prophylaxis ordered?: No Reason prophylaxis not ordered:: Treatment Not Indicated
--- NOTE | 2019-04-02 08:45 | DCINST_ITS ---
Discharge Diet: No Restrictions Discharge Activity: May not drive while taking narcotic pain medications., May Shower, - - no lifting over 5 pounds, no exercise, no strenuous activity, no intercourse, no tub bathing, ok to shower. May resume sexual activity in: 4-6 weeks Lifting Restrictions: 5 pounds Call your doctor if your incision/area has: Continuous Slow Oozing, Sudden Increased Bleeding, Foul Smelling Discharge Call your doctor if you observe: Fever of 101 or Higher, Inability to urinate, Inability to have a bowel movement, Shortness of breath, Chest pain, Calf discomfort, Uncontrolled pain Allergies/Adverse Reactions: Allergies Penicillins Allergy (Verified 04/02/19 07:35) Hives Sulfa (Sulfonamide Antibiotics) Allergy (Verified 04/02/19 07:35) Hives OCEAN PERCH Allergy (Uncoded 04/02/19 07:35) Hives Medications to take at Discharge semaglutide 0.25 mg or 0.5 mg (2 mg/1.5 mL) subcutaneous pen injector 0.5 mg SC QWEEK 08/10/18 fluoxetine 40 mg capsule 40 mg PO QDAY #90 cap 11/30/18 omeprazole 40 mg capsule,delayed release 40 mg PO QDAY #90 cap 11/30/18 cholecalciferol (vitamin D3) 1,000 unit capsule 1,000 unit PO DAILY 12/14/18 atorvastatin 40 mg tablet 40 mg PO DAILY #90 tab 03/01/19 estradiol 0.01% (0.1 mg/gram) vaginal cream 1 g VAGINAL .3xw g 03/22/19 insulin glargine (U-100) 100 unit/mL (3 mL) subcutaneous pen 18 unit SC QDAY ml 03/22/19 Primary Care Physician: Madison Martins MD [Primary Care Provider] - Test Results: Test results from this visit will be discussed in further detail at your follow- up appointment, if applicable. Please Follow Up With: Yvonne Mooney MD When: 2 weeks, call for appt Proposed Discharge Date: 04/02/19
[2019-04-02 09:26] VITALS: BP 117/57; BP 135/65; PULSE 83; RESP 16; TEMP 36.5; O2SAT 97
[2019-04-02 09:30] VITALS: BP 113/58; BP 135/65; PULSE 79; RESP 16; O2SAT 92
[2019-04-02 09:45] VITALS: BP 103/48; BP 135/65; PULSE 78; RESP 16; O2SAT 2
[2019-04-02 09:50] VITALS: BP 105/50; BP 135/65; PULSE 78; RESP 16; TEMP 36.7; O2SAT 93
[2019-04-02] MEDS: Acetaminophen 325 MG Tablet PO (10:45)
[2019-04-02] MEDS: oxyCODONE 5 MG Tablet PO (10:45)
[2019-04-02 11:33] VITALS: BP 111/56; BP 135/65; PULSE 76; RESP 16; TEMP 36.8; O2SAT 96
== END 2019-04-02 11:48 | disposition home or self-care (01) ==
LOC: SDC 06:57 → AC 06:57
PROVIDERS: Family Provider Internal Medicine; PCP Internal Medicine; Referring Provider Urology; Visit Provider Urology
PROC: 0TJB8ZZ Inspection of Bladder, Via Natural or Artificial Opening Endoscopic (ICD-10-PCS; CPT 57288; principal; 2019-04-02 08:15)
DX: N39.3 Stress incontinence (female) (male) (principal); N36.41 Hypermobility of urethra; E11.9 Type 2 diabetes mellitus without complications; R39.15 Urgency of urination; R35.1 Nocturia; N39.0 Urinary tract infection, site not specified; N76.0 Acute vaginitis
CPT/HCPCS: 00860; 57288; 36415; 81001; 82962; 83036; 85027; 87086; 87088; J7120; J0744; J2405

== ENCOUNTER → 2019-04-04 11:05 | Outpatient (CLI) | payer MEDICARE, OTHER, SELFPAY ==
[2019-04-02 07:36] VITALS: BMI 32.2
--- NOTE | 2019-04-04 11:16 | EKG12_ITS ---
Test Reason : SOB Blood Pressure : / mmHG Vent. Rate : 082 BPM Atrial Rate : 082 BPM P-R Int : 136 ms QRS Dur : 068 ms QT Int : 388 ms P-R-T Axes : 008 -04 039 degrees QTc Int : 453 ms Normal sinus rhythm Low voltage QRS Borderline ECG Confirmed by LIZZETTE COLINDRES, JENNA ([id number]), electronic news gathering editor MATEO BROWN ([id number]) on 04/16/2019 11:34:04 AM Referred By: Eliceo Gu Confirmed By:JENNA CROCKER MD
[2019-04-04 11:37] LABS: Hematocrit 43.4 % (37-47); Hemoglobin 13.3 g/dL (12.0-15.0); Mean Corp Hgb Conc 30.6 g/dL (32-36); Mean Corpuscular Hgb 27.5 pg (27.0-32.0); Mean Corpuscular Volume 89.9 fL (81-99); Mean Platelet Vol. 9.3 fl (6.2-12.0); Platelet Count 290 K/mm3 (150-450); RBC Distribution Width CV 13.5 % (11.6-14.6); RBC Distribution Width SD 45.2 fl (35.1-43.9); Red Blood Count 4.83 M/mm3 (4.2-5.4); White Blood Count 7.8 K/mm3 (4.4-11.0)
[2019-04-04 12:01] LABS: Anion Gap 6 (5-15); BUN 12 mg/dL (7-18); BUN/Creat Ratio 14.3 RATIO (10-20); Calcium,Total 8.7 mg/dL (8.5-10.1); Chloride 103 mmol/L (98-107); Creatinine, Serum 0.84 mg/dL (0.55-1.02); EST Glomerular Filtration Rate 72 mL/min (>60); Est Glom Filt Rate - Afr Amer 87 mL/min (>60); Glucose 76 mg/dL (74-106); Sodium Level 143 mmol/L (136-145)
== END ==
PROVIDERS: Orthopaedic Surgery; Family Provider Internal Medicine; PCP Internal Medicine; Referring Provider Physician Assistant; Visit Provider Physician Assistant
DX: Z01.818 Encounter for other preprocedural examination (principal); Z01.810 Encounter for preprocedural cardiovascular examination; E11.9 Type 2 diabetes mellitus without complications
CPT/HCPCS: 36415; 80048; 85027; 93005

== ENCOUNTER 2019-04-07 11:39 | Inpatient (IN) | payer MEDICARE, OTHER, SELFPAY ==
[2019-04-07] VITALS (12 sets, daily range): BP systolic 104–140; BP diastolic 33–83; PULSE 93–123; RESP 18–26; TEMP 37.6–39.5; O2SAT 81–96; BMI 31.8; BMI 31.7
--- NOTE | 2019-04-07 12:52 | RAD_ITS ---
STUDY: X-RAY CHEST REASON FOR EXAM: Female, 64 years old. Bladder mesh surgery recently. Complaining of fever and nausea TECHNIQUE: Single AP portable view of the chest. COMPARISON: 06/20/2018 FINDINGS: The lungs are clear and expanded. There is no demonstrated pleural abnormality. Normal size heart. Normal mediastinum and bertha. Normal visualized pulmonary arteries. Normal visualized aortic arch and descending thoracic aorta. Normal visualized thoracic spine. Normal visualized ribs, clavicles, and shoulders. There is no demonstrated abnormality of the visualized soft tissue structures of the upper abdomen. RAD/Chest 1 View (Portable) IMPRESSION: Normal x-ray examination of the chest. Electronically Signed: Delta Ochoa DO at 13:05 EST Tel , Service support ,
[2019-04-07 13:08] LABS: ALB/GLOB Ratio 0.8 RATIO (0.9-2.4); AST(SGOT) 10 U/L (15-37); Absolute Neutrophil Count 14.6 X10^3/uL (2.0-7.7); Alanine Aminotransfer ALT/SGPT 16 U/L (13-56); Albumin, Serum 3.4 g/dL (3.2-5.0); Alkaline Phosphatase 79 U/L (45-117); Anion Gap 7 (5-15); BUN 12 mg/dL (7-18); BUN/Creat Ratio 11.9 RATIO (10-20); Basophil# 0.05 X10^3/uL; Basophil% 0.3 % (0-1); Chloride 101 mmol/L (98-107); Creatinine, Serum 1.01 mg/dL (0.55-1.02); EST Glomerular Filtration Rate 59 mL/min (>60); Eosinophil# 0.33 X10^3/uL; Est Glom Filt Rate - Afr Amer 71 mL/min (>60); Estimated Creatinine Clearance 45.94 ml/min; Globulin 4.3 g/dL (2.2-4.2); Glucose 168 mg/dL (74-106); Hemoglobin 14.2 g/dL (12.0-15.0); Lactic Acid 1.5 mmol/L (0.4-2.0); Mean Corp Hgb Conc 31.6 g/dL (32-36); Mean Corpuscular Hgb 27.4 pg (27.0-32.0); Mean Corpuscular Volume 86.9 fL (81-99); Mean Platelet Vol. 9.9 fl (6.2-12.0); Monocyte% 5.5 % (0-10); NRBC Flagged by Analyzer 0 % (0-5); Neutrophil # 14.57 X10^3/uL (2.7-7.7); Neutrophil % 88.5 % (47-70); POSITIVE DIFFERENTIAL YES; Platelet Count 293 K/mm3 (150-450); Potassium 3.9 mmol/L (3.5-5.1); Protein, Total 7.7 g/dL (6.4-8.2); RBC Distribution Width CV 13.7 % (11.6-14.6); RBC Distribution Width SD 44.2 fl (35.1-43.9); Red Blood Count 5.18 M/mm3 (4.2-5.4); Sodium Level 136 mmol/L (136-145); White Blood Count 16.5 K/mm3 (4.4-11.0)
[2019-04-07] MEDS: 0.9% Normal Saline 1,000 ML 1000 ML IV (13:18)
[2019-04-07] MEDS: Ceftriaxone 1 GM/50 ML BAG IV (13:18)
[2019-04-07] MEDS: Acetaminophen 325 MG Tablet 650 MG PO ×2 (13:18→21:28)
[2019-04-07 13:19] LABS: Differential Indicated SCAN CRITERIA MET
[2019-04-07 13:26] LABS: Bacteria 0 SEEN /hpf (None Seen); Mucous, Urine 0 SEEN /hpf (<or=2+); White Blood Cells 0 SEEN /hpf (0-5)
[2019-04-07 13:30] LABS: Color, Urine Yellow (Yellow); Glucose, Dipstick Normal (Normal); Ketone-Dipstick 5 mg/dl (Negative); Leukocyte Esterase-Dipstick 25 /ul (Negative); Nitrite-Dipstick Negative (Negative); Occult Blood-Urine 10 /ul (Negative); Protein-Dipstick 15 mg/dl (Negative); Urine Bilirubin Dipstick Negative (Negative); Urine Clarity Clear (Clear); Urine Urobilinogen Normal (Normal)
[2019-04-07 13:37] LABS: Red Blood Cells-Urine 0-5 SEEN /hpf (0-5); Squamous Epithelial Cells - UA 0-5 SEEN /hpf (5-10)
--- NOTE | 2019-04-07 13:53 | CT_ITS ---
STUDY: CT ABDOMEN AND PELVIS WITH CONTRAST REASON FOR EXAM: Female, 64 years old. Postop. Fever. Elevated white count. RADIATION DOSAGE (If Supplied By Facility): CTDIvol = ( 16.44 ) mGy, DLP = ( 1144.51 ) mGycm TECHNIQUE: Transaxial images were obtained from the dome of the diaphragm to the symphysis pubis without oral contrast. IV 100mL Isovue-300 100 was administered. Sagittal and coronal images were reconstructed. Individualized dose optimization techniques were used for this CT. COMPARISON: None. FINDINGS: On the first image of the sequences, there appears to be questionable airspace disease in the inferior segment of the left upper lobe. Pneumonia cannot be excluded. The visualized portions of the heart are within normal limits. Normal liver. There are surgical clips in the gallbladder fossa consistent with a prior cholecystectomy. Normal spleen. Normal pancreas. Normal bilateral adrenal glands. Nonenhancing renal cysts bilaterally. Otherwise, unremarkable kidneys Normal visualized stomach. Normal small intestine. There are multiple colonic diverticula consistent with diverticulosis. There is non-visualization of the appendix. There is diffuse atherosclerotic calcification of the abdominal aorta, without a demonstrated aneurysm. Normal inferior vena cava. Normal retroperitoneum. Normal urinary bladder. There is absence of the uterus consistent with a prior hysterectomy. Normal abdominal wall. There are diffuse degenerative changes of the visualized lumbar spine. CT/Abdomen/Pelvis W IV Cont ONLY IMPRESSION: On the first image, there is questionable inferior segment left upper lobe pneumonia. Otherwise, lung bases are clear. No acute findings of the abdomen and pelvis. No evidence of abscess, obstruction or infection. Electronically Signed: Delta Ochoa DO at 14:50 EST Tel , Service support ,
[2019-04-07] MEDS: 0.9% Normal Saline 1,000 ML 150 ML IV ×2 (15:06→23:39)
[2019-04-07] MEDS: levoFLOXacin IV 750 MG/150 ML BAG 100 MG IV (15:08)
--- NOTE | 2019-04-07 15:21 | ED.VISSUMM ---
- ER Visit Summary Date of Service: 04/07/19 Chief Complaint: [Fever] History of Present Illness: The patient is a 64 F [ presents to the emergency line of a fever that started last evening. Patient had some nausea and dry heaves. Patient denies any cough. She denies diarrhea. Patient gives history that she had recent bladder sling surgery [address] Mooney. Patient thinks that her urine looks a little cloudy although she is been on an antibiotic for about a week which she believes to be Macrobid. Patient is also diabetic. She has history of high cholesterol. Patient's had prior appendectomy, cholecystectomy, and hysterectomy. She denies abnormal vaginal discharge or bleeding. Denies any rashes.] Physical Examination: [HEENT-PERRLA, EOMI. Cranial nerves II through XII grossly intact. TMs clear. Mucous membranes moist. No adenopathy. Cardiovascular-regular rate and rhythm without murmur or ectopy Lungs-clear to auscultation, chest wall stable without crepitus or subcu emphysema Abdomen-normoactive bowel sounds, soft. Patient has some mild tenderness palpation over the suprapubic region and right lower quadrant. There is no rebound, rigidity, or perineal signs. Extremities-intact ?4, normal range of motion, normal pulses, atraumatic] Test Results: [CBC with differential obtained showed a white count of 16.5, hemoglobin 14, hematocrit 45, platelets 293. Chemistries unremarkable. LFTs normal. Urinalysis was normal. Lactate was 1.5. Chest x-ray showed nothing acute. CT scan of the abdomen pelvis with IV contrast showed nothing acute intra-abdominal he however there was suspicion for a pneumonia of the left upper lobe lower segment.] Emergency Department Course and Treatment: [Patient on arrival was empirically started on Rocephin [address] report patient also was started on Levaquin 750 mg IV. Patient was given a liter normal same fluid bolus on arrival. Cultures ordered and pending. Urine culture ordered and pending. I did discuss case with hospitalist will evaluate patient for admission. I also discussed case with patient's urologist who is aware that patient is here and febrile given that she is postsurgical.] Treatment Plan: [Admit] Disposition: [Admit] Impression: [Pneumonia Hypoxia Sepsis Postop status post bladder sling] This note was generated with Dragon dictation software. It may contain incorrect words, spelling, and punctuation that were not noted in review of the chart prior to signing ED Disposition - Plan for ED Patient: Referrals: Madison Martins MD [Primary Care Provider] -
--- NOTE | 2019-04-07 15:22 | HP.PCM_ITS ---
Problem List (1) Sepsis Status: Acute Qualifiers: Sepsis type: sepsis due to unspecified organism Sepsis acute organ dysfunction status: unspecified Qualified Code(s): A41.9 - Sepsis, unspecified organism (2) Pneumonia Status: Acute Qualifiers: Pneumonia type: due to unspecified organism Laterality: left Lung location: lower lobe of lung Qualified Code(s): J18.9 - Pneumonia, unspecified organism (3) Anxiety and depression Status: Chronic (4) CHRISTOPHER (obstructive sleep apnea) Status: Chronic (5) Obesity (BMI 30.0-34.9) Status: Chronic (6) Type 2 diabetes mellitus Status: Chronic Qualifiers: Diabetes mellitus fdc insulin use: with 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 use Diabetes mellitus complication status: with other specified complication Qualified Code(s): E11.69 - Type 2 diabetes mellitus with other specified complication; Z79.4 - terminologist (current) use of insulin (7) GERD (gastroesophageal reflux disease) Status: Chronic Qualifiers: Esophagitis presence: esophagitis presence not specified Qualified Code(s): K21.9 - Gastro-esophageal reflux disease without esophagitis (8) Frequent headaches Status: Chronic (9) IBS (irritable bowel syndrome) Status: Chronic Qualifiers: Irritable bowel syndrome type: unspecified Qualified Code(s): K58.9 - Irritable bowel syndrome without diarrhea (10) Anemia Status: Chronic Qualifiers: Anemia type: unspecified type Qualified Code(s): D64.9 - Anemia, unspecified History of Present Illness Date of Admission: 04/07/19 Chief Complaint: Fever, nausea, malaise The patient is a 64 y/o F w/ PMHx: CHRISTOPHER, Anxiety and Depression, Obesity, HLD, IBS, Diabetes mellitus type II, Chronic Headaches, Hx DVT 24 years old, Allergic Rhinitis who presents to the [facility] ED on 04/07/19 with history of the evening prior onset sudden fever, nausea, dry heaves, dark appearing urine but poor oral intake x 24-48 hours, but no foul odor and still notes some incontinence following her operative intervention for correction s/p bladder sling surgery per Dr. Mooney with noted vaginal approach w/ concurrent lumbar back pain worsening x 48 hours. Patient denied any cough but did note some difficulty with deep inspiratory effort as noted uncomfortable as well as some dyspnea but primarily with exertion. Work-up in the ED included T102.1, heart rate initially 123, BP 123/72, respiratory rate 25, 85% on room air, CBC with WBC 16.5, hemoglobin 14.2, platelet 293 with left shift, CMP with glucose 168, lactic acid 1.5, urinalysis with no obvious UTI nor severe evidence of dehydration, blood culture x2 pending per ED, initial chest x-ray with no acute cardia pulmonary findings, CT abdomen and pelvis with questionable inferior segment left upper lobe pneumonia with no acute findings in the abdomen or pelvis. In the ED patient administered Tylenol, normal saline, Levaquin. Past Medical History Past Medical History (Chronic Problems): Chronic Problems (Last Reviewed 03/22/19 @ 10:38 by Rosita Garcia) Anxiety and depression (Chronic) Cervicocranial syndrome (Chronic) Vaginal dryness, menopausal (Chronic) CHRISTOPHER (obstructive sleep apnea) (Chronic) Obesity (BMI 30.0-34.9) (Chronic) Osteopenia (Chronic) Chest pain (Chronic) Type 2 diabetes mellitus (Chronic) GERD (gastroesophageal reflux disease) (Chronic) Kidney stones (Chronic) Hyperlipidemia (Chronic) Hearing loss (Chronic) Frequent headaches (Chronic) IBS (irritable bowel syndrome) (Chronic) Depression (Chronic) Anemia (Chronic) Medical History: Medical History (Last Reviewed 03/22/19 @ 10:38 by Rosita Garcia) Obesity (BMI 30.0-34.9) (Chronic) E66.9 Osteopenia (Chronic) M85.80 Type 2 diabetes mellitus (Chronic) E11.9 GERD (gastroesophageal reflux disease) (Chronic) K21.9 Kidney stones (Chronic) N20.0 Hyperlipidemia (Chronic) E78.5 Hearing loss (Chronic) H91.90 Frequent headaches (Chronic) R51 IBS (irritable bowel syndrome) (Chronic) K58.9 Depression (Chronic) F32.9 Anemia (Chronic) D64.9 Seasonal allergies J30.2 History of DVT in adulthood Z86.718 age 24 Allergies Penicillins Allergy (Verified 04/07/19 11:41) Hives Sulfa (Sulfonamide Antibiotics) Allergy (Verified 04/07/19 11:41) Hives OCEAN PERCH Allergy (Uncoded 04/07/19 11:41) Hives Home Medications: Ambulatory Orders Medication Instructions Recorded semaglutide 0.25 mg or 0.5 mg (2 0.5 mg SC QWEEK 08/10/18 mg/1.5 mL) subcutaneous pen injector fluoxetine 40 mg capsule 40 mg PO QDAY #90 cap 11/30/18 omeprazole 40 mg capsule,delayed 40 mg PO QDAY #90 cap 11/30/18 release cholecalciferol (vitamin D3) 1,000 1,000 unit PO DAILY 12/14/18 unit capsule atorvastatin 40 mg tablet 40 mg PO DAILY #90 tab 03/01/19 estradiol 0.01% (0.1 mg/gram) 1 g VAGINAL .3xw g 03/22/19 vaginal cream insulin glargine (U-100) 100 18 unit SC QDAY ml 03/22/19 unit/mL (3 mL) subcutaneous pen Oxycodone HCl/Acetaminophen 1 - 2 tab PO Q6H PRN PRN 7 Days 04/02/19 [Percocet 5/325] #20 tab Surgical History: Surgical History (Last Reviewed 03/22/19 @ 10:38 by Rosita Garcia) History of appendectomy Z90.49 1979's History of cholecystectomy Z90.49 1989's History of hysterectomy with bilateral oophorectomy Z90.710, Z90.722 1979's History of shoulder surgery Z98.890 2010 Surgical History: - - Recent Altis midurethral sling, cystoscopy, hysterectomy with bilateral nephrectomy, cholecystectomy, shoulder surgery, appendectomy. Psychiatric History: Anxiety, Depression QUALITY ASSURANCE History: No pertinent QUALITY ASSURANCE history Lives: Spouse/ Significant Other Smoking Status: Former smoker - Quit cigarette tobacco usage 8.5 years prior to current presentation. Prior to this < 1 pack/day. Tobacco Use: Non-smoker Alcohol: None Drugs: None - *Family History Maternal Family History: Family History (Last Reviewed 03/22/19 @ 10:38 by Rosita Garcia) Mother Anemia Adjustment disorder with anxiety Arthritis High cholesterol Bleeding disorder Osteoporosis COPD (chronic obstructive pulmonary disease) Peptic ulcer disease Sister Adjustment disorder with anxiety Brother Adjustment disorder with anxiety Mental disorder Aunt Colon cancer History Items: - - Patient maternal family history of anemia, bleeding disorder, chronic COPD, GI bleed with peptic ulcer history, hyperlipidemia, anxiety. Paternal Family History: Family History (Last Reviewed 03/22/19 @ 10:38 by Rosita Garcia) Mother Anemia Adjustment disorder with anxiety Arthritis High cholesterol Bleeding disorder Osteoporosis COPD (chronic obstructive pulmonary disease) Peptic ulcer disease Sister Adjustment disorder with anxiety Brother Adjustment disorder with anxiety Mental disorder Aunt Colon cancer History Items: Hypertension Review of Systems Constitutional: Reports: Anorexia, Chills, Fever, Malaise, Weakness, Fatigue. Denies: Weight Change HEENT: Denies: Head Aches, Sinus Congestion, Sinus Drainage Cardiovascular: Denies: Chest Pain, Palpitations Respiratory: Reports: Shortness of breath upon exertion. Denies: Cough, Shortness of Breath, Shortness of breath at rest, Sputum production, Wheezing Gastrointestinal: Reports: Nausea, Vomiting. Denies: Abdominal Pain Genitourinary: Denies: Dysuria Musculoskeletal: Reports: Back Pain. Denies: Joint Pain, Joint Tenderness Skin: Denies: Rash, Wounds Neurological: Denies: Numbness, Tingling, Focal weakness Psychiatric: Reports: Anxiety, Depression. Denies: Homicidal Ideations, Suicidal Ideations Hematologic/ Lymphatic: Denies: Easy Bruising, Easy Bleeding VTE Information - Inpt Only VTE Present on Admission: No VTE Mechan Device Prophylaxis: SCD's VTE Pharm Prophylaxis ordered?: Yes Patient Problems: Active and Suspected Problems (Last Reviewed 03/22/19 @ 10:38 by Rosita Garcia) Sepsis (Acute) Pneumonia (Acute) Subjective: Seated upright in ED bed, fatigued appearance, no acute distress. Objective: Physical Examination: General: awake, alert, oriented x 3 and cooperative, seated upright in the ED bed in no apparent distress, ill appearing, fatigued. Skin: normal color, turgor, no icterus, cyanosis, chronic dermatitis present, non blanching, mildly raised small papules, more prominent BL LE. HEENT: AT/NC, EOMI, PERRLA, dry MM, no carotid bruits or JVD noted. Lungs: Diffusely diminished BS, > BL bases, poor effort, notes uncomfortable with increased effort, no rales, ronchi or wheezing. Heart: Tachycardic with regular rhythm; no gallop, rub audible. Abdomen: soft, obese, expected TTP given recent bladder surgery w/ suprapubic TTP otherwise NTTP, ND, mildly decreased BS, no HSM. Extremities: no cyanosis, clubbing, or edema. Neurological: patient awake, alert, oriented x 3; cognitive function intact; pupils equally reactive to light and accomodation; cranial nerves II-XII grossly normal, moving all 4 extremities, no focal deficits, strength severely globally decreased secondary to acute presentation. Psychiatric: affect appears fatigued, no acute evidence of depressive or anxiety feelings. - Physical Exam Vitals/I&O's: Vital Signs Temp Pulse Resp BP Pulse Ox 102 F H 104 H 20 H 125/83 H 94 04/07/19 14:49 04/07/19 15:08 04/07/19 15:08 04/07/19 15:08 04/07/19 15:08 Oxygen Flow Rate (L/min) 2 Oxygen Delivery Method Nasal Cannula Weight: 180 lb Body Mass Index (BMI) 31.8 Intake and Output for Last 24 Hours 04/05/19 04/06/19 04/07/19 23:59 23:59 23:59 Intake Total 1050 / 1050 Balance 1050 / 1050 Laboratory Results 04/07/19 12:00: WBC 16.5 H, RBC 5.18, Hgb 14.2, Hct 45.0, MCV 86.9, MCH 27.4, MCHC 31.6 L, RDW Std Deviation 44.2 H, RDW Coeff of Mihir 13.7, Plt Count 293, MPV 9.9, Immature Gran % (Auto) 0.700, Neut % (Auto) 88.5 H, Lymph % (Auto) 3.0 L, [place] % (Auto) 5.5, Eos % (Auto) 2.0, Baso % (Auto) 0.3, Absolute Neuts (auto) 14.6 H, Absolute Lymphs (auto) 0.50 L, Nucleated RBC % 0 04/07/19 12:00: Sodium 136, Potassium 3.9, Chloride 101, Carbon Dioxide 28.0, Anion Gap 7, BUN 12, Creatinine 1.01, Estim Creat Clear Calc 45.94, Est GFR (MDRD) Af Amer 71, Est GFR (MDRD) Non-Af 59 L, BUN/Creatinine Ratio 11.9, Glucose 168 H, Calcium 9.0, Total Bilirubin 0.90, AST 10 L, ALT 16, Alkaline Phosphatase 79, Total Protein 7.7, Albumin 3.4, Globulin 4.3 H, Albumin/Globulin Ratio 0.8 L 04/07/19 12:00: Lactic Acid 1.5 11/10/19 13:20: Urine Color Yellow, Urine Clarity Clear, Urine pH 6.0, Ur Specific [place] 1.010, Urine Protein 15 H, Urine Glucose (UA) Normal, Urine Ketones 5 H, Urine Occult Blood 10 H, Urine Nitrite Negative, Urine Bilirubin Negative, Urine Urobilinogen Normal, Ur Leukocyte Esterase 25 H, Urine RBC 0-5 SEEN, Urine WBC 0 SEEN, Ur Squamous Epith Cells 0-5 SEEN, Urine Bacteria 0 SEEN, Urine Mucus 0 SEEN Current Medications Sodium Chloride () 1,000 mls @ 150 mls/hr IV .Q6H40M NIECY Last Admin: 04/07/19 15:06 Dose: 150 mls/hr Documented by: Levofloxacin (Levaquin Iv) 750 mg in 150 mls @ 100 mls/hr IV X1 ONE Stop: 04/07/19 16:29 Last Admin: 04/07/19 15:08 Dose: 100 mls/hr Documented by: Assessment/Plan All Active Problems (Last Reviewed 03/22/19 @ 10:38 by Rosita Garcia) COREY (stress urinary incontinence, female) (Acute) Urethral hypermobility (Acute) Sepsis (Acute) Pneumonia (Acute) Urinary tract infection (Acute) Upper respiratory infection (Acute) Back pain (Acute) Cough (Acute) The patient is a 64 y/o F w/ PMHx: CHRISTOPHER, Anxiety and Depression, Obesity, HLD, IBS, Diabetes mellitus type II, Chronic Headaches, Hx DVT 24 years old, Allergic Rhinitis who presents to the [facility] ED on 04/07/19 with history of the evening prior onset sudden fever, nausea, dry heaves, dark appearing urine, recently on macrobid following discharge from recent bladder sling surgery per Dr. Mooney with noted vaginal approach. (1) Acute Sepsis secondary to Pneumonia, Recently inpatient for Surgery, < 5 days: Work-up in the ED included T102.1, heart rate initially 123, BP 123/72, respiratory rate 25, 85% on room air, CBC with WBC 16.5, hemoglobin 14.2, platelet 293 with left shift, CMP with glucose 168, lactic acid 1.5, urinalysis with no obvious UTI nor severe evidence of dehydration, blood culture x2 pending per ED, initial chest x-ray with no acute cardia pulmonary findings, CT abdomen and pelvis with questionable inferior segment left upper lobe pneumonia with no acute findings in the abdomen or pelvis. Will admit to [facility], maintain on oxygen with wean as tolerated to room air, continue ATC duonebs, PRN albuterol, maintained on IV Rocephin and Azithromycin, HOB, IS parameters w/ pending sputum cultures, respiratory viral panel and urine antigens. Bld cx x 2 obtained in the ED. (2) Hx urethral hypermobility, stress incontinence: 04/02/19 Altis midurethral sling, cystoscopy surgery per Dr. Mooney, updating her regarding patient admission and she requested post-void residual x 1. From OR note no complications noted. (3) Diabetes mellitus type II: Will continue home insulin regimen, allow clears given presentation and ADAT to ADA diet, accu checks w/ ISS. (4) Anxiety and depression: Continue patient home fluoxetine regimen. (5) Hyperlipidemia: Continue home statin regimen. (6) CHRISTOPHER: CPAP q HS encouraged. (7) DVT prophylaxis: SCDs, Lovenox. Code Visit Inpatient E&M: 77528 Init Hosp L3
[2019-04-07 16:37] LABS: Magnesium 1.9 mg/dL (1.6-2.6)
[2019-04-07] MEDS: Glucerna Shake 120 ML LIQUID PO (17:22)
[2019-04-07] MEDS: Ondansetron 4 MG/2 ML Vial IV (17:25)
[2019-04-07 17:26] LABS: Bedside Glucose 105 mg/dL (70-110)
[2019-04-07 21:11] LABS: Bedside Glucose 125 mg/dL (70-110)
[2019-04-07] MEDS: Ipratropium/Albuterol Sulfate 3 ML AMPUL.NEB INHALATION (23:30)
--- NOTE | 2019-04-07 23:30 | CPS ---
Pt states she is non compliant at home with PAP use. Hospital machine offered and pr refused at this time. Pt unaware of current PAP settings.
[2019-04-08] VITALS (12 sets, daily range): BP systolic 94–110; BP diastolic 43–49; PULSE 64–98; RESP 16–20; TEMP 37.2–39; O2SAT 93–98
[2019-04-08 05:59] LABS: Absolute Lymphocyte Count 0.94 X10^3/uL (0.83-4.51); Absolute Neutrophil Count 9.9 X10^3/uL (2.0-7.7); Basophil# 0.02 X10^3/uL; Basophil% 0.2 % (0-1); Eosinophil# 0.46 X10^3/uL; Eosinophils% 3.7 % (0-5); Hematocrit 39.1 % (37-47); Hemoglobin 12.3 g/dL (12.0-15.0); Lymphocyte # 0.94 X10^3/ul (4.0); Lymphocyte % 7.5 % (19-41); Mean Corp Hgb Conc 31.5 g/dL (32-36); Mean Corpuscular Hgb 27.3 pg (27.0-32.0); Mean Corpuscular Volume 86.9 fL (81-99); Monocyte% 9.5 % (0-10); NRBC Flagged by Analyzer 0 % (0-5); Neutrophil # 9.88 X10^3/uL (2.7-7.7); Neutrophil % 78.4 % (47-70); Platelet Count 190 K/mm3 (150-450); RBC Distribution Width CV 14.3 % (11.6-14.6); RBC Distribution Width SD 45.7 fl (35.1-43.9); White Blood Count 12.6 K/mm3 (4.4-11.0)
--- NOTE | 2019-04-08 05:59 | RAD_ITS ---
STUDY: X-RAY CHEST REASON FOR EXAM: Female, 64 years old. Shortness of breath/dyspnea. TECHNIQUE: PA and lateral views of the chest. COMPARISON: Comparison is made with prior study dated April 07, 2019. FINDINGS: Small left pleural effusion with bibasilar infiltrates worse on the left lung base. This is superimposed on mild degree of CHF. Normal size heart. Normal mediastinum and bertha. Normal visualized pulmonary arteries. There is atherosclerotic calcification of the aortic arch with tortuosity. There are diffuse degenerative changes of the visualized thoracic spine. Normal visualized ribs, clavicles, and shoulders. Surgical clips are seen in the right upper quadrant in keeping with prior cholecystectomy. RAD/Chest PA and Lateral IMPRESSION: Small left pleural effusion with bibasilar atelectasis/infiltrates worse on the left side superimposed on a mild degree of CHF. Electronically Signed: Matty Machado, at 13:01 EST , Service support ,
[2019-04-08 06:10] LABS: Anion Gap 8 (5-15); BUN 9 mg/dL (7-18); BUN/Creat Ratio 11.6 RATIO (10-20); Calcium,Total 7.7 mg/dL (8.5-10.1); Chloride 108 mmol/L (98-107); Creatinine, Serum 0.77 mg/dL (0.55-1.02); EST Glomerular Filtration Rate 80 mL/min (>60); Est Glom Filt Rate - Afr Amer 96 mL/min (>60); Estimated Creatinine Clearance 60.25 ml/min; Glucose 99 mg/dL (74-106); Potassium 3.7 mmol/L (3.5-5.1); Sodium Level 140 mmol/L (136-145)
[2019-04-08] MEDS: 0.9% Normal Saline 1,000 ML 150 ML IV (06:58)
[2019-04-08 07:02] LABS: Bedside Glucose 118 mg/dL (70-110)
[2019-04-08] MEDS: Ipratropium/Albuterol Sulfate 3 ML AMPUL.NEB INHALATION ×4 (07:07→18:44)
[2019-04-08] MEDS: Glucerna Shake 120 ML LIQUID PO (08:05)
--- NOTE | 2019-04-08 08:12 | PCM.PROGNOTE ---
Patient Problems: Active and Suspected Problems (Last Reviewed 03/22/19 @ 10:38 by Rosita Garcia) Sepsis (Acute) Pneumonia (Acute) Subjective: Chief complaint: Follow-up after admission for community acquired pneumonia and sepsis. Patient seen and examined. No acute events overnight. She mentioned that her breathing is getting better. Still requiring of cough with minimal sputum. She has been having spikes of fever overnight. Maximum temperature was 103.1 Fahrenheit. This morning, she is febrile, blood pressure and heart rate are stable, pulse ox is 97% on 3 L. - Physical Exam Vitals/I&O's: Vital Signs Temp Pulse Resp BP Pulse Ox 101.4 F H 98 16 103/43 L 97 04/08/19 08:09 04/08/19 08:09 04/08/19 08:09 04/08/19 08:09 04/08/19 08:09 Oxygen Flow Rate (L/min) 3 Oxygen Delivery Method Nasal Cannula Weight: 179 lb 3.773 oz Body Mass Index (BMI) 31.7 Intake and Output for Last 24 Hours 04/06/19 04/07/19 04/08/19 23:59 23:59 23:59 Intake Total 2220 / 2564 1344 / 1344 Balance 2220 / 2564 1344 / 1344 General: Alert, Oriented x3, Cooperative, No apparent distress, - HEENT: Atraumatic, PERRLA, EOMI, Normocephalic Oral: Moist Mucosa, No Gingival or Mucosal Lesions/ Ulcerations Neck: Supple, No JVD, Negative Carotid Bruits, Trachea Midline, Thyroid Normal Size and Texture Lungs: No wheeze, No rales, Diminished, Rhonchi, - - Decreased breath sounds bilateral, more at the bases, scattered rhonchi. Cardiovascular: Regular rate, Regular Rhythm, Normal S1, Normal S2, PMI Normal Abdomen: Bowel Sounds Present, Soft, Non Tender, Non-Distended, No Hepato-splenomegaly Extremities: No clubbing, No cyanosis, No edema Skin: No rashes, No breakdown Lymphatic: No Cervical, Supraclavicular, or Inguinal Adenopathy Neurological: Cranial nerves II-XII grossly intact, Motor Exam 5/5 strength throughout Psych/Mental Status: Normal Affect, Appropriate, Alert and oriented to time, place, person, mood and affect Microbiology Past 72 Hours 04/07/19 16:47 Mucosa - Nasopharyngeal Respiratory Panel (PCR) - Final 04/07/19 20:55 Urine, Clean Catch Streptococcus pneumoniae Antigen (M - Final 04/07/19 20:55 Urine, Clean Catch Legionella Antigen - Final Laboratory Results 04/07/19 12:00: WBC 16.5 H, RBC 5.18, Hgb 14.2, Hct 45.0, MCV 86.9, MCH 27.4, MCHC 31.6 L, RDW Std Deviation 44.2 H, RDW Coeff of Mihir 13.7, Plt Count 293, MPV 9.9, Immature Gran % (Auto) 0.700, Neut % (Auto) 88.5 H, Lymph % (Auto) 3.0 L, [place] % (Auto) 5.5, Eos % (Auto) 2.0, Baso % (Auto) 0.3, Absolute Neuts (auto) 14.6 H, Absolute Lymphs (auto) 0.50 L, Nucleated RBC % 0 04/07/19 12:00: Sodium 136, Potassium 3.9, Chloride 101, Carbon Dioxide 28.0, Anion Gap 7, BUN 12, Creatinine 1.01, Estim Creat Clear Calc 45.94, Est GFR (MDRD) Af Amer 71, Est GFR (MDRD) Non-Af 59 L, BUN/Creatinine Ratio 11.9, Glucose 168 H, Calcium 9.0, Total Bilirubin 0.90, AST 10 L, ALT 16, Alkaline Phosphatase 79, Total Protein 7.7, Albumin 3.4, Globulin 4.3 H, Albumin/Globulin Ratio 0.8 L 04/07/19 12:00: Lactic Acid 1.5 04/07/19 12:00: Magnesium 1.9 04/07/19 13:20: Urine Color Yellow, Urine Clarity Clear, Urine pH 6.0, Ur Specific [place] 1.010, Urine Protein 15 H, Urine Glucose (UA) Normal, Urine Ketones 5 H, Urine Occult Blood 10 H, Urine Nitrite Negative, Urine Bilirubin Negative, Urine Urobilinogen Normal, Ur Leukocyte Esterase 25 H, Urine RBC 0-5 SEEN, Urine WBC 0 SEEN, Ur Squamous Epith Cells 0-5 SEEN, Urine Bacteria 0 SEEN, Urine Mucus 0 SEEN 04/07/19 17:17: POC Glucose 105 04/07/19 21:07: POC Glucose 125 H 04/08/19 05:04: WBC 12.6 H, RBC 4.50, Hgb 12.3, Hct 39.1, MCV 86.9, MCH 27.3, MCHC 31.5 L, RDW Std Deviation 45.7 H, RDW Coeff of Mihir 14.3, Plt Count 190, MPV 10.0, Immature Gran % (Auto) 0.700, Neut % (Auto) 78.4 H, Lymph % (Auto) 7.5 L, [place] % (Auto) 9.5, Eos % (Auto) 3.7, Baso % (Auto) 0.2, Absolute Neuts (auto) 9.9 H, Absolute Lymphs (auto) 0.94, Nucleated RBC % 0 04/08/19 05:04: Sodium 140, Potassium 3.7, Chloride 108 H, Carbon Dioxide 24.0, Anion Gap 8, BUN 9, Creatinine 0.77, Estim Creat Clear Calc 60.25, Est GFR (MDRD) Af Amer 96, Est GFR (MDRD) Non-Af 80, BUN/Creatinine Ratio 11.6, Glucose 99, Calcium 7.7 L 04/08/19 06:54: POC Glucose 118 H Clinical Impression(s) from Imaging Studies Chest X-Ray 04/07/19 12:52 IMPRESSION: Normal x-ray examination of the chest. Electronically Signed: Delta Ochoa DO at 13:05 EST Tel , Service support , Abdomen/Pelvis CT 04/07/19 13:53 IMPRESSION: On the first image, there is questionable inferior segment left upper lobe pneumonia. Otherwise, lung bases are clear. No acute findings of the abdomen and pelvis. No evidence of abscess, obstruction or infection. Electronically Signed: Delta Ochoa DO at 14:50 EST Tel , Service support , Current Medications Acetaminophen (Tylenol) 650 mg PO Q6H PRN PRN PRN Reason: non-cardiac pain, fever >100.4 Last Admin: 04/07/19 21:28 Dose: 650 mg Documented by: Hydrocodone Bitart/Acetaminophen ([place] 5mg-325mg) 1 tablet PO Q4H PRN PRN PRN Reason: Pain Score 4-10/10 Al Hydroxide/Mg Hydroxide (Mylanta Ii) 15 - 30 ml PO Q4H PRN PRN PRN Reason: INDIGESTION Albuterol Sulfate (Ventolin Aerosols) 2.5 mg INHALATION Q2H PRN PRN PRN Reason: dyspnea, wheezing Albuterol/Ipratropium (Duoneb) 3 ml INHALATION Q4HWA.RT [facility] Last Admin: 04/08/19 07:07 Dose: 3 ml Documented by: Atorvastatin Calcium (Lipitor) 40 mg PO QHS [facility] Dextrose (D50w Syringe) 0 gm IV X1 PRN; Protocol PRN Reason: Hypoglycemia Enoxaparin Sodium (Lovenox) 40 mg SC DAILY@1000 NIECY Fluoxetine HCl (Prozac) 40 mg PO DAILY [facility] Glucagon () 1 mg IM .X1 PRN PRN Reason: Hypoglycemia Guaifenesin (Robitussin) 20 ml PO Q4H PRN PRN PRN Reason: COUGH Hydralazine HCl (Apresoline Iv) 10 mg IV Q4H PRN PRN PRN Reason: SBP > 160 Azithromycin 500 mg/ Dextrose 255 mls @ 250 mls/hr IV Q24 [facility] Stop: 04/13/19 10:01 Ceftriaxone Sodium 2 gm/ (Sodium Chloride) 50 mls @ 100 mls/hr IV Q24 [facility] Stop: 04/15/19 10:01 Sodium Chloride () 250 mls @ 15 mls/hr IV .[id number] PRN PRN Reason: Saline Flush Insulin Glargine (Lantus (Bkc)) 18 units SC 1100 NIECY Insulin Human Lispro (Humalog Kwikpen (Bkc)) 0 unit SC ACHS [facility]; Protocol Last Admin: 04/08/19 06:58 Dose: Not Given Documented by: Magnesium Hydroxide (Milk Of Magnesia) 30 ml PO DAILY PRN PRN Reason: Constipation Melatonin (Melatonin) 3 mg PO QHS PRN PRN PRN Reason: INSOMNIA Morphine Sulfate () 1 - 2 mg IV Q4H PRN PRN PRN Reason: Pain Score 1-10/10 Nutritional Formula (Lactose Free) (Glucerna Shake) 120 ml PO TIDCM [facility] Last Admin: 04/08/19 08:05 Dose: 120 ml Documented by: Ondansetron HCl (Zofran) 4 mg IV Q8H PRN PRN PRN Reason: NAUSEA/VOMITING Last Admin: 04/07/19 17:25 Dose: 4 mg Documented by: Pantoprazole Sodium (Protonix) 40 mg PO DAILY NIECY Sodium Chloride () 10 - 40 ml IV UD PRN PRN Reason: SALINE FLUSH Throat Lozenges (Cepacol Sore Throat Lozenge) 1 lozenge MUCOUS MEM Q2H PRN PRN PRN Reason: Sore throat or cough Medical Necessity - Tobacco Use Smoking Status: Former smoker Tobacco Use: Non-smoker Assessment/Plan All Active Problems (Last Reviewed 03/22/19 @ 10:38 by Rosita Garcia) Sepsis (Acute) Pneumonia (Acute) This is a 64 years old female patient presented to the emergency room because of fever and she was found to have community acquired pneumonia with sepsis. #1 left upper lobe community-acquired pneumonia/sepsis: This was discovered on CT scan abdomen and pelvis which revealed questionable infiltrate on the inferior segment of the left upper lobe. Chest x-ray showed no obvious infiltrate. Patient is on IV Rocephin and Zithromax. She is still having spikes of fever, white blood cell count is trending down. She is requiring oxygen of up to 3 L. Lactic acid was normal. Pneumococcal and Legionella antigen were negative. Respiratory panel for viruses were negative. Blood cultures pending. Plan to continue same treatment, repeat CBC tomorrow morning, DC IV fluids. #2 hypoxia: Secondary to #1. She is requiring oxygen of up to 3 L. Today, she mentioned that her breathing is getting better. Plan to continue same treatment, continue bronchodilators. #3 history of urethral hypermobility/stress incontinence: Status post mid urethral sling that was done on April 02, 2019 but patient was not admitted. Today, she denies any complaints. #4 type 2 diabetes mellitus: Blood sugar stable, continue Lantus insulin and sliding scale. #5 anxiety/depression: Stable, continue Prozac, melatonin. #6 hyperlipidemia: Continue statins. #7 obstructive sleep apnea. #8 DVT prophylaxis: Subcu Lovenox. This note was generated with [employer] software. It may contain incorrect words, spelling, and punctuation that were not noted in checking the note before signing. Code Visit Inpatient E&M: 47588 Subs Hosp L2
[2019-04-08] MEDS: Acetaminophen 325 MG Tablet 650 MG PO ×2 (08:35→19:34)
[2019-04-08] MEDS: Pantoprazole Sodium 40 MG Tablet PO (09:18)
[2019-04-08] MEDS: FLUoxetine 20 MG Capsule 40 MG PO (09:18)
[2019-04-08] MEDS: Enoxaparin 40 MG/0.4 ML Syringe SC (09:18)
[2019-04-08] MEDS: 0.9% Saline Lock 10 ML Syringe IV (09:23)
--- NOTE | 2019-04-08 11:05 | CASEMGMT ---
RN LENNIE Face to Face with patient for initial transition planning/care coordination assessment. RN CM introduced self and role at [facility]. Patient lying in bed, alert and oriented. Patient willing to participate in assessment and is able to answer all questions appropriately. Care providers, pharmacy, and demographics verified. Patient wishes to discharge home, denies need for home health at this time. Patient states she has no further needs or concerns at this time. CM to follow for discharge planning needs that may arise. PCP: Lakshmi Specialists: None Preferred Pharmacy: [facility]: [facility] Prescription Benefit: yes Living Will/HPOA: none LNOK: Son, Significant other Living Arrangements: Patient lives with significant other in 1 story home with couple step and railing to enter the home. Transportation: self, family DME/HHC: Patient has Cpap at home. Denies need for HHC. Will monitor for need for home oxygen. Disposition Plan: Patient to discharge home with family support and follow-up plans in place. Ruba CARLSON, RN, CM
[2019-04-08 11:55] LABS: Bedside Glucose 251 mg/dL (70-110)
[2019-04-08] MEDS: Insulin Lispro 100 UNIT/ML INSULN.PEN SC ×3 (12:03→21:56)
[2019-04-08 17:26] LABS: Bedside Glucose 153 mg/dL (70-110)
[2019-04-08 21:56] LABS: Bedside Glucose 150 mg/dL (70-110)
[2019-04-08] MEDS: Atorvastatin Calcium 40 MG Tablet PO (21:56)
--- NOTE | 2019-04-08 22:09 | CPS ---
Pt. refused BiPAP/CPAP use
[2019-04-09] VITALS (9 sets, daily range): BP systolic 85–115; BP diastolic 42–56; PULSE 80–96; RESP 16–18; TEMP 36.9–37.6; O2SAT 94–98
[2019-04-09 05:48] LABS: Absolute Lymphocyte Count 1.36 X10^3/uL (0.83-4.51); Basophil# 0.03 X10^3/uL; Basophil% 0.3 % (0-1); Eosinophil# 0.58 X10^3/uL; Hematocrit 39.1 % (37-47); Hemoglobin 12.1 g/dL (12.0-15.0); Lymphocyte # 1.36 X10^3/ul (4.0); Mean Corp Hgb Conc 30.9 g/dL (32-36); Mean Corpuscular Hgb 27.3 pg (27.0-32.0); Mean Corpuscular Volume 88.1 fL (81-99); Mean Platelet Vol. 10.3 fl (6.2-12.0); Monocyte# 0.62 X10^3/uL; Monocyte% 6.4 % (0-10); NRBC Flagged by Analyzer 0 % (0-5); Neutrophil # 7.01 X10^3/uL (2.7-7.7); Neutrophil % 72.5 % (47-70); Platelet Count 210 K/mm3 (150-450); RBC Distribution Width CV 14.1 % (11.6-14.6); RBC Distribution Width SD 45.7 fl (35.1-43.9); Red Blood Count 4.44 M/mm3 (4.2-5.4); White Blood Count 9.7 K/mm3 (4.4-11.0)
[2019-04-09] MEDS: Acetaminophen 325 MG Tablet 650 MG PO (06:08)
[2019-04-09] MEDS: BENZOCAINE/MENTHOL 1 LOZENGE MUCOUS MEM (06:08)
[2019-04-09] MEDS: 0.9% Saline Lock 10 ML Syringe IV ×2 (06:09→09:04)
[2019-04-09] MEDS: Ipratropium/Albuterol Sulfate 3 ML AMPUL.NEB INHALATION ×4 (06:51→18:49)
[2019-04-09 07:21] LABS: Bedside Glucose 126 mg/dL (70-110)
--- NOTE | 2019-04-09 08:10 | PCM.PROGNOTE ---
Patient Problems: Active and Suspected Problems (Last Updated 04/08/19 @ 08:56 by Shira Heredia MD) Sepsis (Acute) Pneumonia (Acute) Subjective: Chief complaint: Follow-up after admission for community acquired pneumonia and sepsis. Patient seen and examined. No acute events overnight. Today, she is feeling better. Shortness of breath improved and she has been off oxygen. She is still having spikes of fever overnight but it is trending down. Other vital signs are stable. - Physical Exam Vitals/I&O's: Vital Signs Temp Pulse Resp BP Pulse Ox 99.7 F H 90 16 115/56 L 98 04/09/19 06:10 04/09/19 06:51 04/09/19 06:51 04/09/19 06:10 04/09/19 06:51 Oxygen Flow Rate (L/min) 1 Oxygen Delivery Method Room Air Weight: 179 lb 3.773 oz Body Mass Index (BMI) 31.7 Intake and Output for Last 24 Hours 04/07/19 04/08/19 04/09/19 23:59 23:59 23:59 Intake Total 2220 / 2564 3301.5 / 3851.5 894 / 894 Output Total 600 / 600 Balance 2220 / 2564 2701.5 / 3251.5 894 / 894 General: Alert, Oriented x3, Cooperative, No apparent distress HEENT: Atraumatic, PERRLA, EOMI, Normocephalic Oral: Moist Mucosa, No Gingival or Mucosal Lesions/ Ulcerations Neck: Supple, No JVD, Negative Carotid Bruits, Trachea Midline, Thyroid Normal Size and Texture Lungs: No rhonchi, No wheeze, No rales, Diminished, - - Decreased breath sounds bilateral, more at the bases. Cardiovascular: Regular rate, Regular Rhythm, Normal S1, Normal S2 Abdomen: Bowel Sounds Present, Soft, Non Tender, Non-Distended, No Hepato-splenomegaly Extremities: No clubbing, No cyanosis, No edema Skin: No breakdown, Rash Present Lymphatic: No Cervical, Supraclavicular, or Inguinal Adenopathy Neurological: Cranial nerves II-XII grossly intact, Neuro grossly intact Psych/Mental Status: Normal Affect, Appropriate, Alert and oriented to time, place, person, mood and affect Microbiology Past 72 Hours 04/07/19 16:47 Mucosa - Nasopharyngeal Respiratory Panel (PCR) - Final 04/07/19 20:55 Urine, Clean Catch Streptococcus pneumoniae Antigen (M - Final 04/07/19 20:55 Urine, Clean Catch Legionella Antigen - Final Laboratory Results 04/08/19 11:41: POC Glucose 251 H 04/08/19 17:18: POC Glucose 153 H 04/08/19 21:49: POC Glucose 150 H 04/09/19 05:18: WBC 9.7, RBC 4.44, Hgb 12.1, Hct 39.1, MCV 88.1, MCH 27.3, MCHC 30.9 L, RDW Std Deviation 45.7 H, RDW Coeff of Mihir 14.1, Plt Count 210, MPV 10.3, Immature Gran % (Auto) 0.800, Neut % (Auto) 72.5 H, Lymph % (Auto) 14.0 L, Harding % (Auto) 6.4, Eos % (Auto) 6.0 H, Baso % (Auto) 0.3, Absolute Neuts (auto) 7.0, Absolute Lymphs (auto) 1.36, Nucleated RBC % 0 04/09/19 06:44: POC Glucose 126 H Current Medications Acetaminophen (Tylenol) 650 mg PO Q6H PRN PRN PRN Reason: non-cardiac pain, fever >100.4 Last Admin: 04/09/19 06:08 Dose: 650 mg Documented by: Hydrocodone Bitart/Acetaminophen (Pearblossom 5mg-325mg) 1 tablet PO Q4H PRN PRN PRN Reason: Pain Score 4-10/10 Al Hydroxide/Mg Hydroxide (Mylanta Ii) 15 - 30 ml PO Q4H PRN PRN PRN Reason: INDIGESTION Albuterol Sulfate (Ventolin Aerosols) 2.5 mg INHALATION Q2H PRN PRN PRN Reason: dyspnea, wheezing Albuterol/Ipratropium (Duoneb) 3 ml INHALATION Q4HWA.RT [facility] Last Admin: 04/09/19 06:51 Dose: 3 ml Documented by: Atorvastatin Calcium (Lipitor) 40 mg PO QHS [facility] Last Admin: 04/08/19 21:56 Dose: 40 mg Documented by: Dextrose (D50w Syringe) 0 gm IV X1 PRN; Protocol PRN Reason: Hypoglycemia Enoxaparin Sodium (Lovenox) 40 mg SC DAILY@1000 [facility] Last Admin: 04/08/19 09:18 Dose: 40 mg Documented by: Fluoxetine HCl (Prozac) 40 mg PO DAILY [facility] Last Admin: 04/08/19 09:18 Dose: 40 mg Documented by: Glucagon () 1 mg IM .X1 PRN PRN Reason: Hypoglycemia Guaifenesin (Robitussin) 20 ml PO Q4H PRN PRN PRN Reason: COUGH Hydralazine HCl (Apresoline Iv) 10 mg IV Q4H PRN PRN PRN Reason: SBP > 160 Azithromycin 500 mg/ Dextrose 255 mls @ 250 mls/hr IV Q24 [facility] Stop: 04/13/19 10:01 Last Infusion: 04/08/19 11:46 Dose: Infused Documented by: Ceftriaxone Sodium 2 gm/ (Sodium Chloride) 50 mls @ 100 mls/hr IV Q24 [facility] Stop: 04/15/19 10:01 Last Infusion: 04/08/19 09:59 Dose: Infused Documented by: Sodium Chloride () 250 mls @ 15 mls/hr IV .[id number] PRN PRN Reason: Saline Flush Insulin Glargine (Lantus (Bkc)) 18 units SC 1100 [facility] Last Admin: 04/08/19 12:09 Dose: 18 units Documented by: Insulin Human Lispro (Humalog Kwikpen (Bkc)) 0 unit SC ACHS [facility]; Protocol Last Admin: 04/09/19 06:54 Dose: Not Given Documented by: Magnesium Hydroxide (Milk Of Magnesia) 30 ml PO DAILY PRN PRN Reason: Constipation Melatonin (Melatonin) 3 mg PO QHS PRN PRN PRN Reason: INSOMNIA Morphine Sulfate () 1 - 2 mg IV Q4H PRN PRN PRN Reason: Pain Score 1-10/10 Nutritional Formula (Lactose Free) (Glucerna Shake) 120 ml PO TIDCM [facility] Last Admin: 04/08/19 17:19 Dose: Not Given Documented by: Ondansetron HCl (Zofran) 4 mg IV Q8H PRN PRN PRN Reason: NAUSEA/VOMITING Last Admin: 04/07/19 17:25 Dose: 4 mg Documented by: Pantoprazole Sodium (Protonix) 40 mg PO DAILY [facility] Last Admin: 04/08/19 09:18 Dose: 40 mg Documented by: Sodium Chloride () 10 - 40 ml IV UD PRN PRN Reason: SALINE FLUSH Last Admin: 04/09/19 06:09 Dose: 10 ml Documented by: Throat Lozenges (Cepacol Sore Throat Lozenge) 1 lozenge MUCOUS MEM Q2H PRN PRN PRN Reason: Sore throat or cough Last Admin: 04/09/19 06:08 Dose: 1 lozenge Documented by: Medical Necessity - Tobacco Use Smoking Status: Former smoker Tobacco Use: Non-smoker Assessment/Plan All Active Problems (Last Updated 04/08/19 @ 08:56 by Shira Heredia MD) Sepsis (Acute) Pneumonia (Acute) This is a 64 years old female patient presented to the emergency room because of fever and she was found to have community acquired pneumonia with sepsis. #1 left upper lobe community-acquired pneumonia/sepsis: She is on IV Rocephin and Zithromax. She had a spike a fever last night, has been afebrile since then. Leukocytosis resolved. Other vital signs are stable and she has been off oxygen. Lactic acid was normal. Pneumococcal and Legionella antigen were negative. Respiratory panel for viruses were negative. Blood cultures pending. Plan to continue same treatment, possible DC home tomorrow morning. #2 hypoxia: Secondary to #1. Symptoms improved, she has been off oxygen. Plan as above. #3 history of urethral hypermobility/stress incontinence: Status post mid urethral sling that was done on April 02, 2019 but patient was not admitted. Today, she denies any complaints. #4 type 2 diabetes mellitus: Blood sugar stable, continue Lantus insulin and sliding scale. #5 anxiety/depression: Stable, continue Prozac, melatonin. #6 hyperlipidemia: Continue statins. #7 obstructive sleep apnea. #8 DVT prophylaxis: Subcu Lovenox. This note was generated with [employer] dictation software. It may contain incorrect words, spelling, and punctuation that were not noted in checking the note before signing. Code Visit Inpatient E&M: 28816 Subs Hosp L2
[2019-04-09] MEDS: Pantoprazole Sodium 40 MG Tablet PO (09:04)
[2019-04-09] MEDS: Enoxaparin 40 MG/0.4 ML Syringe SC (09:04)
[2019-04-09] MEDS: FLUoxetine 20 MG Capsule 40 MG PO (09:05)
[2019-04-09] MEDS: Insulin Lispro 100 UNIT/ML INSULN.PEN SC ×2 (11:20→21:05)
[2019-04-09] MEDS: Glucerna Shake 120 ML LIQUID PO ×2 (11:21→16:39)
[2019-04-09 11:30] LABS: Bedside Glucose 224 mg/dL (70-110)
[2019-04-09 16:45] LABS: Bedside Glucose 139 mg/dL (70-110)
[2019-04-09] MEDS: Atorvastatin Calcium 40 MG Tablet PO (21:05)
[2019-04-09 22:01] LABS: Bedside Glucose 158 mg/dL (70-110)
[2019-04-09] MEDS: guaiFENesin 10 ML UDC (200MG/10ML) 20 ML PO (23:26)
[2019-04-10 02:39] VITALS: BP 100/56; PULSE 90; RESP 18; TEMP 37.3; O2SAT 93
[2019-04-10 06:43] VITALS: PULSE 89; RESP 16; O2SAT 97
[2019-04-10] MEDS: Ipratropium/Albuterol Sulfate 3 ML AMPUL.NEB INHALATION ×2 (06:43→11:15)
[2019-04-10 07:01] LABS: Bedside Glucose 136 mg/dL (70-110)
--- NOTE | 2019-04-10 07:55 | DCINST_ITS ---
- Discharge Diagnoses Current Active Problems: Current Active and Chronic Problems (Last Updated 04/08/19 @ 08:56 by Shira Heredia MD) Sepsis (Acute) Pneumonia (Acute) Anxiety and depression (Chronic) You will use the following diet at home:: Calorie/Carbohydrate Controlled (specify 1200, 1400, etc) - 1800 antelmo. Your food should be the consistency of: Regular Discharge Activity: Return to Normal Activity Return to work on:: 04/15/19 Weight Bearing Status: Full weight bearing Call your doctor if you observe: Fever of 101 or Higher, Shortness of breath, Dizziness, Fainting spells, Chest pain, Increased palpitations (irregular heartbeat), Uncontrolled pain Instructions: Pneumonia Allergies/Adverse Reactions: Allergies Penicillins Allergy (Verified 04/07/19 16:33) Hives Sulfa (Sulfonamide Antibiotics) Allergy (Verified 04/07/19 16:33) Hives OCEAN PERCH Allergy (Uncoded 04/07/19 16:33) Hives Medications to take at Discharge semaglutide 0.25 mg or 0.5 mg (2 mg/1.5 mL) subcutaneous pen injector 0.5 mg SC QWEEK 08/10/18 fluoxetine 40 mg capsule 40 mg PO QDAY #90 cap 11/30/18 omeprazole 40 mg capsule,delayed release 40 mg PO QDAY #90 cap 11/30/18 cholecalciferol (vitamin D3) 1,000 unit capsule 1,000 unit PO DAILY 12/14/18 atorvastatin 40 mg tablet 40 mg PO DAILY #90 tab 03/01/19 estradiol 0.01% (0.1 mg/gram) vaginal cream 1 g VAGINAL MOWEFR g 03/22/19 Insulin Glargine,Hum.rec.anlog [Ianagldung Reichpen U-100] 18 unit SQ QHS 04/07/19 Semaglutide [Ozempic] 1 mg SQ QWEEK 04/07/19 levoFLOXacin tablet [Levaquin tablet] 750 mg PO DAILY #5 tab 04/10/19 The following prescriptions were given: levoFLOXacin tablet [Levaquin tablet] 750 mg PO DAILY #5 tab Transmission Status: Pending to [facility] Primary Care Physician: Madison Martins MD [Primary Care Provider] - Please follow up with your Primary Care Physician in: 1 week. Test Results: Test results from this visit will be discussed in further detail at your follow- up appointment, if applicable.
[2019-04-10 08:05] VITALS: BP 120/65; PULSE 78; RESP 16; TEMP 36.8; O2SAT 94
[2019-04-10] MEDS: Pantoprazole Sodium 40 MG Tablet PO (10:45)
[2019-04-10] MEDS: FLUoxetine 20 MG Capsule 40 MG PO (10:45)
[2019-04-10] MEDS: Enoxaparin 40 MG/0.4 ML Syringe SC (10:46)
--- NOTE | 2019-04-10 10:47 | PCM.DC.SUM ---
Discharge Date and Diagnosis - Problem List Patient Problems: Active and Suspected Problems (Last Updated 04/08/19 @ 08:56 by Shira Heredia MD) Sepsis (Acute) Pneumonia (Acute) Date of Admission: 04/07/19 Date of Discharge: 04/10/19 - Primary Discharge Diagnosis Active and Suspected Problems (Last Updated 04/08/19 @ 08:56 by Shira Heredia MD) #1 left upper lobe community-acquired pneumonia. #2 sepsis. #3 hypoxia, resolved. - Secondary Discharge Diagnosis Chronic Problems (Last Updated 04/08/19 @ 08:56 by Shira Heredia MD) COREY (stress urinary incontinence, female) (Chronic) Urethral hypermobility (Chronic) Anxiety and depression (Chronic) Cervicocranial syndrome (Chronic) Vaginal dryness, menopausal (Chronic) CHRISTOPHER (obstructive sleep apnea) (Chronic) Obesity (BMI 30.0-34.9) (Chronic) Osteopenia (Chronic) Type 2 diabetes mellitus (Chronic) GERD (gastroesophageal reflux disease) (Chronic) Kidney stones (Chronic) Hyperlipidemia (Chronic) IBS (irritable bowel syndrome) (Chronic) Hospital Course and Treatment Imaging Results: Clinical Impression(s) from Imaging Studies Chest X-Ray 04/07/19 12:52 IMPRESSION: Normal x-ray examination of the chest. Electronically Signed: Delta Ochoa DO at 13:05 EST Tel , Service support , Abdomen/Pelvis CT 04/07/19 13:53 IMPRESSION: On the first image, there is questionable inferior segment left upper lobe pneumonia. Otherwise, lung bases are clear. No acute findings of the abdomen and pelvis. No evidence of abscess, obstruction or infection. Electronically Signed: Delta Ochoa DO at 14:50 EST Tel , Service support , Chest X-Ray 04/08/19 05:59 IMPRESSION: Small left pleural effusion with bibasilar atelectasis/infiltrates worse on the left side superimposed on a mild degree of CHF. Electronically Signed: Matty Machado, at 13:01 EST , Service support , Procedures: None Summary of Care Provided: Patient seen and examined on the day of discharge and appeared to be stable to be discharged home. She is feeling significantly better. Still having mild cough, no more shortness of breath. She has been afebrile overnight and her other vital signs were stable. She has been off oxygen. The patient is a 64 year old F patient presented to the medicine because of fever and she was found to have left upper lobe community acquired pneumonia with sepsis. Initial chest x-ray that was done in the ED revealed no acute infiltrate or consolidation. Patient did have fever and leukocytosis. CT scan abdomen and pelvis with IV contrast done and revealed questionable inferior segment left upper lobe pneumonia and without evidence of acute intra-abdominal pathology. Patient was started on IV antibiotics with IV Rocephin and Zithromax. Pneumococcal and Legionella antigen were negative. Respiratory panel for viruses were negative. Blood culture showed no growth in 48 hours. Initially, patient required oxygen up to 3 L. With IV antibiotic therapy, her symptoms improved and she was able to come off oxygen. She remained afebrile for more than 24 hours. Patient discharged home in a stable medical condition, discharged on Levaquin 750 mg p.o. daily, continued on her previous home medications without any changes, recommended follow-up with PCP in 1 week. Patient Problems: Active and Suspected Problems (Last Updated 04/08/19 @ 08:56 by Shira Heredia MD) Sepsis (Acute) Pneumonia (Acute) - Physical Exam Vitals/I&O's: Vital Signs Temp Pulse Resp BP Pulse Ox 98.2 F 78 16 120/65 94 04/10/19 08:05 04/10/19 08:05 04/10/19 08:05 04/10/19 08:05 04/10/19 08:05 Oxygen Flow Rate (L/min) 1 Oxygen Delivery Method Room Air Weight: 179 lb 3.773 oz Body Mass Index (BMI) 31.7 Intake and Output for Last 24 Hours 04/08/19 04/09/19 04/10/19 23:59 23:59 23:59 Intake Total 3301.5 / 3851.5 1699 / 2399 1400 / 1400 Output Total 600 / 600 Balance 2701.5 / 3251.5 1699 / 2399 1400 / 1400 General: Alert, Oriented x3, Cooperative, No apparent distress HEENT: Atraumatic, PERRLA, EOMI, Normocephalic Oral: Moist Mucosa, No Gingival or Mucosal Lesions/ Ulcerations Neck: Supple, No JVD, Negative Carotid Bruits, Trachea Midline, Thyroid Normal Size and Texture Lungs: Clear to auscultation, No rhonchi, No wheeze, No rales, Diminished Cardiovascular: Regular rate, Regular Rhythm, Normal S1, Normal S2 Abdomen: Bowel Sounds Present, Soft, Non Tender, Non-Distended, No Hepato-splenomegaly Extremities: No clubbing, No cyanosis, No edema Skin: No rashes, No breakdown Lymphatic: No Cervical, Supraclavicular, or Inguinal Adenopathy Neurological: Cranial nerves II-XII grossly intact, Neuro grossly intact Psych/Mental Status: Normal Affect, Appropriate Microbiology Past 72 Hours 04/07/19 13:03 Blood Culture (Wb) - Anticubital Left Blood Culture - Preliminary No growth in 48 hours. 04/07/19 12:00 Blood Culture (Wb) - Anticubital Right Blood Culture - Preliminary No growth in 48 hours. 04/07/19 16:47 Mucosa - Nasopharyngeal Respiratory Panel (PCR) - Final 04/07/19 20:55 Urine, Clean Catch Streptococcus pneumoniae Antigen (M - Final 04/07/19 20:55 Urine, Clean Catch Legionella Antigen - Final Laboratory Results 04/09/19 11:18: POC Glucose 224 H 04/09/19 16:38: POC Glucose 139 H 04/09/19 21:03: POC Glucose 158 H 04/10/19 06:55: POC Glucose 136 H Current Medications Acetaminophen (Tylenol) 650 mg PO Q6H PRN PRN PRN Reason: non-cardiac pain, fever >100.4 Last Admin: 04/09/19 06:08 Dose: 650 mg Documented by: Hydrocodone Bitart/Acetaminophen ([place] 5mg-325mg) 1 tablet PO Q4H PRN PRN PRN Reason: Pain Score 4-10/10 Al Hydroxide/Mg Hydroxide (Mylanta Ii) 15 - 30 ml PO Q4H PRN PRN PRN Reason: INDIGESTION Albuterol Sulfate (Ventolin Aerosols) 2.5 mg INHALATION Q2H PRN PRN PRN Reason: dyspnea, wheezing Albuterol/Ipratropium (Duoneb) 3 ml INHALATION Q4HWA.RT [facility] Last Admin: 04/10/19 06:43 Dose: 3 ml Documented by: Atorvastatin Calcium (Lipitor) 40 mg PO QHS [facility] Last Admin: 04/09/19 21:05 Dose: 40 mg Documented by: Dextrose (D50w Syringe) 0 gm IV X1 PRN; Protocol PRN Reason: Hypoglycemia Enoxaparin Sodium (Lovenox) 40 mg SC DAILY@1000 [facility] Last Admin: 04/10/19 10:46 Dose: 40 mg Documented by: Fluoxetine HCl (Prozac) 40 mg PO DAILY [facility] Last Admin: 04/10/19 10:45 Dose: 40 mg Documented by: Glucagon () 1 mg IM .X1 PRN PRN Reason: Hypoglycemia Guaifenesin (Robitussin) 20 ml PO Q4H PRN PRN PRN Reason: COUGH Last Admin: 04/09/19 23:26 Dose: 20 ml Documented by: Hydralazine HCl (Apresoline Iv) 10 mg IV Q4H PRN PRN PRN Reason: SBP > 160 Azithromycin 500 mg/ Dextrose 255 mls @ 250 mls/hr IV Q24 [facility] Stop: 04/13/19 10:01 Last Admin: 04/10/19 10:43 Dose: 250 mls/hr Documented by: Ceftriaxone Sodium 2 gm/ (Sodium Chloride) 50 mls @ 100 mls/hr IV Q24 [facility] Stop: 04/15/19 10:01 Last Admin: 04/10/19 09:12 Dose: 100 mls/hr Documented by: Sodium Chloride () 250 mls @ 15 mls/hr IV .[id number] PRN PRN Reason: Saline Flush Insulin Glargine (Lantus (Bkc)) 18 units SC 1100 [facility] Last Admin: 04/09/19 11:20 Dose: 18 units Documented by: Insulin Human Lispro (Humalog Kwikpen (Bkc)) 0 unit SC ACHS [facility]; Protocol Last Admin: 04/10/19 07:02 Dose: Not Given Documented by: Magnesium Hydroxide (Milk Of Magnesia) 30 ml PO DAILY PRN PRN Reason: Constipation Melatonin (Melatonin) 3 mg PO QHS PRN PRN PRN Reason: INSOMNIA Morphine Sulfate () 1 - 2 mg IV Q4H PRN PRN PRN Reason: Pain Score 1-10/10 Nutritional Formula (Lactose Free) (Glucerna Shake) 120 ml PO TIDCM [facility] Last Admin: 04/10/19 08:33 Dose: Not Given Documented by: Ondansetron HCl (Zofran) 4 mg IV Q8H PRN PRN PRN Reason: NAUSEA/VOMITING Last Admin: 04/07/19 17:25 Dose: 4 mg Documented by: Pantoprazole Sodium (Protonix) 40 mg PO DAILY [facility] Last Admin: 04/10/19 10:45 Dose: 40 mg Documented by: Sodium Chloride () 10 - 40 ml IV UD PRN PRN Reason: SALINE FLUSH Last Admin: 04/09/19 09:04 Dose: 10 ml Documented by: Throat Lozenges (Cepacol Sore Throat Lozenge) 1 lozenge MUCOUS MEM Q2H PRN PRN PRN Reason: Sore throat or cough Last Admin: 04/09/19 06:08 Dose: 1 lozenge Documented by: Discharge Activity: Return to Normal Activity Return to work on:: 04/15/19 Weight Bearing Status: Full weight bearing Call your doctor if you observe: Fever of 101 or Higher, Shortness of breath, Dizziness, Fainting spells, Chest pain, Increased palpitations (irregular heartbeat), Uncontrolled pain Home Medications: Medications to take at Discharge semaglutide 0.25 mg or 0.5 mg (2 mg/1.5 mL) subcutaneous pen injector 0.5 mg SC QWEEK 08/10/18 fluoxetine 40 mg capsule 40 mg PO QDAY #90 cap 11/30/18 omeprazole 40 mg capsule,delayed release 40 mg PO QDAY #90 cap 11/30/18 cholecalciferol (vitamin D3) 1,000 unit capsule 1,000 unit PO DAILY 12/14/18 atorvastatin 40 mg tablet 40 mg PO DAILY #90 tab 03/01/19 estradiol 0.01% (0.1 mg/gram) vaginal cream 1 g VAGINAL MOWEFR g 03/22/19 Insulin Glargine,Hum.rec.anlog [Basaglar Kwikpen U-100] 18 unit SQ QHS 04/07/19 Semaglutide [Ozempic] 1 mg SQ QWEEK 04/07/19 levoFLOXacin tablet [Levaquin tablet] 750 mg PO DAILY #5 tab 04/10/19 Following Prescrptions Were Given to Patient: levoFLOXacin tablet [Levaquin tablet] 750 mg PO DAILY #5 tab Transmission Status: Received by [facility] #69 Primary Care Physician: Madison Martins MD [Primary Care Provider] - Please follow up with your Primary Care Physician in: 1 week. Patient Instructions: Pneumonia Disposition: Home Minutes spent on discharge:: 28 Patient Condition:: Stable Medical Necessity - Tobacco Use Smoking Status: Former smoker Tobacco Use: Non-smoker Meaningful Use Info Meaningful Use Diagnoses (Choose all that apply): None applicable Code Visit Inpatient E&M: 88283 Disch Hosp
[2019-04-10 10:57] VITALS: O2SAT 94
[2019-04-10] MEDS: Insulin Lispro 100 UNIT/ML INSULN.PEN SC (11:14)
[2019-04-10 11:15] VITALS: PULSE 85; RESP 20
[2019-04-10 11:35] LABS: Bedside Glucose 198 mg/dL (70-110)
--- NOTE | 2019-04-11 15:30 | CASEMGMT ---
[facility] Discharge Follow-Up Phone Call. Lace: 9 Strata: 3 Discharge Date: 04/10/19 Adm Dx: Sepsis, PNA. Attempted discharge follow-up phone call. No answer. Message left for pt to return call to MS3 Ruba VIGIL CM, if she has any questions about the discharge instructions, medications, or follow-up appts. Phone number provided. Elaina CARLSON RN, CM
== END 2019-04-10 12:49 | disposition home or self-care (01) | DRG 871 ==
LOC: ED 15:28 → MS3 15:54
PROVIDERS: Admitting Provider Family Medicine; Emergency Provider Emergency Medicine; Family Provider Internal Medicine; PCP Internal Medicine; Referring Provider Family Medicine; Visit Provider Hospitalist
DX: A41.9 Sepsis, unspecified organism (principal); J18.9 Pneumonia, unspecified organism; E78.5 Hyperlipidemia, unspecified; R09.02 Hypoxemia; G47.33 Obstructive sleep apnea (adult) (pediatric); E66.9 Obesity, unspecified; K21.9 Gastro-esophageal reflux disease without esophagitis; Z87.891 Personal history of nicotine dependence; Z79.4 Long term (current) use of insulin
CPT/HCPCS: 36415; 71045; 71046; 74177; 80048; 80053; 81001; 82962; 83605; 83735; 85025; 85027; 87040; 87449; 87633; 93005; 94640; 97802; 99251; 99284; J7030; Q9967; A4216; G0463; J0696; J2405

== ENCOUNTER 2019-04-13 15:09 | Emergency (ER) | payer MEDICARE, OTHER, SELFPAY ==
[2019-04-07 16:12] VITALS: BMI 31.7
[2019-04-13 15:10] VITALS: BP 117/61; PULSE 87; RESP 16; TEMP 36.9; O2SAT 96; BMI 31.6
--- NOTE | 2019-04-13 15:45 | RAD_ITS ---
STUDY: X-RAY CHEST REASON FOR EXAM: Female, 64 years old. Pneumonia TECHNIQUE: Frontal and lateral views of the chest. COMPARISON: None. FINDINGS: The lungs are clear and expanded. There is no demonstrated pleural abnormality. Normal size heart. Normal mediastinum and bertha. Normal visualized pulmonary arteries. Normal visualized aortic arch and descending thoracic aorta. Normal visualized thoracic spine. Normal visualized ribs, clavicles, and shoulders. Cholecystectomy clips. RAD/Chest PA and Lateral IMPRESSION: No acute pulmonary findings. Electronically Signed: Marvin Soria MD at 16:28 EST Tel , Service support ,
--- NOTE | 2019-04-13 15:46 | ED.DCSUM_ITS ---
History of Present Illness Chief Complaint: Shortness of Breath Informant: Patient Onset: Yesterday Activity at onset: - - grad onset Timing: Continuous Quality: Dyspnea on exertion Current Severity: Mild Maximum Severity: Mild Worsened by: Coughing, Exertion. 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 Negative for: Fever Chest Pain: Continuous, Tightness. Negative for: Pleuritic Narrative: Patient was just recently seen in the emergency department for some abdominal symptoms and coughing, had negative chest x-ray, pneumonia found on CT she was admitted for IV antibiotics given sepsis and hypoxemia. She felt a lot better when she went home 3 days ago, but she has been gradually feeling more malaise, dyspneic since yesterday, sweating, chest tightness the entire time without any wheezing. 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 Lives: Spouse/ Significant Other Smoking Status: Former smoker - Family History Maternal Family History: Family History (Last Reviewed 03/22/19 @ 10:38 by Rosita Garcia) Mother Anemia Adjustment disorder with anxiety Arthritis High cholesterol Bleeding disorder Osteoporosis COPD (chronic obstructive pulmonary disease) Peptic ulcer disease Sister Adjustment disorder with anxiety Brother Adjustment disorder with anxiety Mental disorder Aunt Colon cancer Family History: Reports: - - Patient maternal family history of anemia, bleeding disorder, chronic COPD, GI bleed with peptic ulcer history, hyperlipidemia, anxiety. Paternal Family History: Family History (Last Reviewed 03/22/19 @ 10:38 by Rosita Garcia) Mother Anemia Adjustment disorder with anxiety Arthritis High cholesterol Bleeding disorder Osteoporosis COPD (chronic obstructive pulmonary disease) Peptic ulcer disease Sister Adjustment disorder with anxiety Brother Adjustment disorder with anxiety Mental disorder Aunt Colon cancer Family History: Reports: Hypertension Review of Systems General: Reports: Chills, Malaise, Sweats. Denies: Fever Eyes: Denies: Visual changes - bilaterally, Diplopia ENT: Denies: Bilateral ear pain, Rhinorrhea, Sore throat Cardiovascular: Reports: Chest pain. Denies: Palpitations, Heart racing Respiratory: Reports: Dyspnea, Cough, Dyspnea on exertion. Denies: Sputum, Orthopnea, Paroxysmal nocturnal dyspnea Gastrointestinal: Reports: Nausea - off and on. Denies: Abdominal pain, Vomiting, Diarrhea, Constipation, Melena, Hematochezia Genitourinary: Denies: Dysuria, Hematuria, Frequency Musculoskeletal: Denies: Neck pain, Back pain, Swelling, Extremity Pain Skin: Denies: Rash, Wounds Neurological: Reports: Headache. Denies: Weakness, Numbness Physical Exam Vital Signs/Narrative: Vital Signs Temp Pulse Resp BP Pulse Ox 04/13/19 15:10 98.4 F 87 16 117/61 96 Inital Vital Signs reviewed: Yes General: Well nourished, Well developed, No Acute Distress Head: Normocephalic, Atraumatic Eyes: Perrl, EOMI ENT: Moist mucous membranes, No rhinorrhea Neck: Supple, Nontender, No lymphadenopathy, No JVD Cardiovascular: Regular rate, Regular rhythm, No murmurs Respiratory: No distress, CTA bilaterally, Chest nontender Abdomen: Soft, Nontender, Nondistended, Normal bowel sounds Back: Nontender, Normal Inspection. Negative for: CVA tenderness Extremities: Nontender, No edema. Negative for: Calf Tenderness Skin: Normal color, No rash, No Trauma Neurological: Alert, Oriented x3, Cranial nerves II-XII grossly intact, Normal Strength, Normal Sensation Psychological: Normal affect, Normal Mood Diagnostic/Tx/Re-eval Impressions Chest X-Ray 04/13/19 15:45 IMPRESSION: No acute pulmonary findings. Electronically Signed: Marvin Soria MD at 16:28 EST Tel , Service support , 04/13/19 15:45 Chest PA and Lateral [RAD] Stat Laboratory Results 04/13/19 04/13/19 04/13/19 16:08 16:08 16:08 WBC 12.1 H RBC 5.04 Hgb 13.6 Hct 44.3 MCV 87.9 MCH 27.0 MCHC 30.7 L RDW Std Deviation 45.1 H RDW Coeff of Mihir 14.1 Plt Count 336 MPV 9.4 Immature Gran % (Auto) 1.900 H Neut % (Auto) 56.6 Lymph % (Auto) 23.1 [place] % (Auto) 7.4 Eos % (Auto) 9.8 H Baso % (Auto) 1.2 H Absolute Neuts (auto) 6.9 Absolute Lymphs (auto) 2.80 Nucleated RBC % 0 D-Dimer Quant (PE/DVT) 0.54 H* Sodium 140 Potassium 4.2 Chloride 104 Carbon Dioxide 29.0 Anion Gap 7 BUN 15 Creatinine 0.87 Estim Creat Clear Calc 53.33 Est GFR (MDRD) Af Amer 84 Est GFR (MDRD) Non-Af 69 BUN/Creatinine Ratio 17.2 Glucose 98 Calcium 9.2 Troponin I < 0.015 - Rhythm Strip Rhythm Strip: Sinus Rhythm Rate: 82 Ectopy: None - EKG Initial EKG Interpretation: Sinus Rhythm, No Acute Injury Pattern, - - diffuse low voltage; no electrical alternans Prior: Unchanged Treatment - Dyspnea: Albuterol Repeat Evaluation: Improved - Medical Decision Making After albuterol, patient's chest tightness and dyspnea is much improved, and her headache is improved after a small dose of Toradol. Her d-dimer is just barely elevated at 0.54, however when corrected for age this is well within normal limits for this patient at this time. Therefore, no further work-up to rule out pulmonary embolus acutely is indicated at this time. Workup is negative for acute cardiac etiologies of her symptoms. Her chest x-ray shows no acute abnormality. Given that she did not have the pneumonia show up on her chest x- ray before, and CT was necessary to see it, certainly she could have persistent infiltrate there but I do not think rescanning her is necessary since she is still on the antibiotic which is not broad-spectrum. I did review some test from before, she had negative blood cultures and a negative viral respiratory panel, so I do agree that the antibiotic is appropriate treatment. She is a couple more days left, they will stay in her system for longer than that, and she has an appointment on Monday which is [address], with her PCP. Plan is to prescribe her an albuterol inhaler to use as needed at home, we discussed reasons to return and to finish the antibiotic, they are comfortable with going home following up with her PCP and with this overall plan. ED Disposition - Plan for ED Patient: Disposition: Home or Assisted Living Diagnosis: Dyspnea on effort, Pneumonia, Chest pain Instructions: ALBUTEROL Oral Inhaler, PNEUMONIA (Adult) Prescriptions: Albuterol Inhaler [Ventolin Hfa] 1 - 2 puff INHALATION Q4H PRN PRN #1 inhaler PRN Reason: Wheezing Transmission Status: Pending to [id number] Referrals: Madison Martins MD [Primary Care Provider] - Keep Ad appointment
[2019-04-13] MEDS: Albuterol 2.5 MG/3 ML VIAL.NEB. INHALATION (16:01)
[2019-04-13 16:05] VITALS: PULSE 83; RESP 18
[2019-04-13 16:08] VITALS: PULSE 80; RESP 15; O2SAT 94
[2019-04-13] MEDS: Ketorolac 15 MG/ML Vial IV (16:12)
[2019-04-13 16:22] LABS: Absolute Neutrophil Count 6.9 X10^3/uL (2.0-7.7); Basophil# 0.15 X10^3/uL; Basophil% 1.2 % (0-1); Eosinophil# 1.18 X10^3/uL; Eosinophils% 9.8 % (0-5); Hematocrit 44.3 % (37-47); Hemoglobin 13.6 g/dL (12.0-15.0); Lymphocyte % 23.1 % (19-41); Mean Corp Hgb Conc 30.7 g/dL (32-36); Mean Corpuscular Volume 87.9 fL (81-99); Mean Platelet Vol. 9.4 fl (6.2-12.0); Monocyte# 0.89 X10^3/uL; Monocyte% 7.4 % (0-10); NRBC Flagged by Analyzer 0 % (0-5); Neutrophil # 6.85 X10^3/uL (2.7-7.7); Neutrophil % 56.6 % (47-70); Platelet Count 336 K/mm3 (150-450); RBC Distribution Width CV 14.1 % (11.6-14.6); RBC Distribution Width SD 45.1 fl (35.1-43.9); Red Blood Count 5.04 M/mm3 (4.2-5.4); White Blood Count 12.1 K/mm3 (4.4-11.0)
[2019-04-13 16:39] LABS: D-Dimer Quantitative (DVT/PE) 0.54 FEU/ug/m (0.27-0.49)
[2019-04-13 16:45] LABS: Anion Gap 7 (5-15); BUN 15 mg/dL (7-18); BUN/Creat Ratio 17.2 RATIO (10-20); Calcium,Total 9.2 mg/dL (8.5-10.1); Chloride 104 mmol/L (98-107); Creatinine, Serum 0.87 mg/dL (0.55-1.02); EST Glomerular Filtration Rate 69 mL/min (>60); Est Glom Filt Rate - Afr Amer 84 mL/min (>60); Estimated Creatinine Clearance 53.33 ml/min; Glucose 98 mg/dL (74-106); Potassium 4.2 mmol/L (3.5-5.1); Sodium Level 140 mmol/L (136-145)
[2019-04-13 16:59] VITALS: BP 127/76; PULSE 82; RESP 19; O2SAT 96
== END 2019-04-13 17:13 | disposition home or self-care (01) ==
LOC: ED 16:49
PROVIDERS: Emergency Provider Emergency Medicine; Family Provider Internal Medicine; PCP Internal Medicine
DX: J18.9 Pneumonia, unspecified organism (principal); R07.9 Chest pain, unspecified; R06.00 Dyspnea, unspecified; E11.9 Type 2 diabetes mellitus without complications; E78.5 Hyperlipidemia, unspecified; F32.9 Major depressive disorder, single episode, unspecified; F41.9 Anxiety disorder, unspecified; G47.33 Obstructive sleep apnea (adult) (pediatric); K21.9 Gastro-esophageal reflux disease without esophagitis; K58.9 Irritable bowel syndrome, unspecified; Z82.49 Family history of ischemic heart disease and other diseases of the circulatory system; Z87.442 Personal history of urinary calculi; Z88.0 Allergy status to penicillin; Z87.891 Personal history of nicotine dependence; Z88.2 Allergy status to sulfonamides; Z90.49 Acquired absence of other specified parts of digestive tract; Z90.710 Acquired absence of both cervix and uterus
CPT/HCPCS: 71046; 80048; 84484; 85025; 85379; 93005; 94640; 96374; 99284; A4216

== ENCOUNTER → 2019-05-06 14:07 | Outpatient (CLI) | payer MEDICARE, OTHER, SELFPAY ==
[2019-05-06 10:52] VITALS: BMI 31.6
[2019-05-06 15:01] LABS: Red Blood Cells-Urine 0 SEEN /hpf (0-5)
[2019-05-06 15:22] LABS: Color, Urine Yellow (Yellow); Glucose, Dipstick Normal (Normal); Ketone-Dipstick Negative (Negative); Leukocyte Esterase-Dipstick 500 /ul (Negative); Nitrite-Dipstick Negative (Negative); Occult Blood-Urine 10 /ul (Negative); Protein-Dipstick 15 mg/dl (Negative); Specific Gravity, Urine 1.025 (1.002-1.030); Urine Bilirubin Dipstick Negative (Negative); Urine Clarity Sl. Cloudy (Clear); Urine Urobilinogen Normal (Normal)
[2019-05-06 15:31] LABS: Squamous Epithelial Cells - UA 5-10 SEEN /hpf (5-10); White Blood Cells 5-10 SEEN /hpf (0-5)
[2019-05-06 15:32] LABS: Bacteria RARE /hpf (None Seen); Mucous, Urine 1+ /hpf (<or=2+); Yeast-Urine RARE /hpf (None Seen)
== END ==
PROVIDERS: Family Provider Internal Medicine; PCP Internal Medicine; Referring Provider Physician Assistant; Visit Provider Physician Assistant
DX: N39.0 Urinary tract infection, site not specified (principal)
CPT/HCPCS: 81001; 87086; 87088

== ENCOUNTER 2019-05-13 09:19 | Day surgery (SDC) | payer MEDICARE, OTHER, SELFPAY ==
[2019-04-17 11:06] VITALS: BMI 31.6
[2019-05-06 10:52] VITALS: BMI 31.6
[2019-05-13] VITALS (8 sets, daily range): BP systolic 98–127; BP diastolic 50–86; PULSE 61–75; RESP 16; TEMP 36.3–36.9; O2SAT 94–100; BMI 32.6
[2019-05-13 09:55] LABS: Bedside Glucose 120 mg/dL (70-110)
[2019-05-13] MEDS: Lactated Ringers 1,000 ML 100 ML IV (10:15)
[2019-05-13] MEDS: Epinephrine (1 mg/ml) 1 MG/ML VIAL (13:16)
[2019-05-13] MEDS: Bupiv/Epi 0.25% 30 ML Vial (13:16)
--- NOTE | 2019-05-13 14:01 | PCM.OPRPT ---
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
== END 2019-05-13 16:30 | disposition home or self-care (01) ==
LOC: SDC 09:20 → AC 09:22
PROVIDERS: Family Provider Internal Medicine; PCP Internal Medicine; Referring Provider Orthopaedic Surgery; Visit Provider Orthopaedic Surgery
PROC: (CPT 29827; principal; 2019-05-13 11:15)
DX: M75.51 Bursitis of right shoulder (principal); M75.31 Calcific tendinitis of right shoulder; M19.011 Primary osteoarthritis, right shoulder; E11.9 Type 2 diabetes mellitus without complications; E78.00 Pure hypercholesterolemia, unspecified; G47.30 Sleep apnea, unspecified; Z86.711 Personal history of pulmonary embolism; Z87.891 Personal history of nicotine dependence; Z88.0 Allergy status to penicillin
CPT/HCPCS: 01630; 29824; 82962; J7120; J2405

== ENCOUNTER 2019-05-27 13:48 | Emergency (ER) | payer MEDICARE, OTHER, SELFPAY ==
[2019-05-13 09:56] VITALS: BMI 32.6
[2019-05-27 13:49] VITALS: BP 121/66; PULSE 87; RESP 16; TEMP 36.4; O2SAT 97; BMI 32.1
--- NOTE | 2019-05-27 13:50 | RAD_ITS ---
STUDY: X-RAY - UNILATERAL RIBS ( LEFT ) WITH CHEST REASON FOR EXAM: Female, 64 years old. LEFT SIDE/RIB PAIN, NKI TECHNIQUE - RIBS: 2 view(s) of the ribs. TECHNIQUE - CHEST: Single PA view of the chest. COMPARISON: 04/13/2019 FINDINGS - RIBS: Normal visualized ribs without a demonstrated fracture. FINDINGS - CHEST: The lungs are clear and expanded. There is no demonstrated pleural abnormality. Normal size heart. Normal mediastinum and bertha. Normal visualized pulmonary arteries. Normal visualized aortic arch and descending thoracic aorta. Normal visualized thoracic spine. Normal visualized ribs, clavicles, and shoulders. There is no demonstrated abnormality of the visualized soft tissue structures of the upper abdomen. RAD/Ribs Uni Min 3V w/PA Chest IMPRESSION: RIBS: Normal x-ray examination of the ribs. CHEST: Normal x-ray examination of the chest. Electronically Signed: Taiwo Mattson MD at 14:23 EST Tel , Service support ,
--- NOTE | 2019-05-27 14:51 | ED.VIS.GEN ---
History of Present Illness Chief Complaint: Chest Other Detail of Chief Complaint: Left rib pain Informant: Patient, Family Onset: Days - 2 days Current Severity: Moderate Maximum Severity: Moderate Narrative: Patient presents with left rib pain for the past 2 days. She recently had right shoulder surgery and has been wearing her sling on the right arm. Patient states she was trying to do laundry 2 days ago. She bent over the edge of the washer to reach down into the tub with her left arm. Her left ribs were pinched against the edge of the washer and she developed pain to this area. Since that time she had continued pain, worse with a deep breath or movement. She states it now hurts to get up and walk. She does report having pneumonia about 1 month ago. She has not had fever. - Past Medical History (1) Pneumonia Status: Chronic (2) Anxiety and depression Status: Chronic (3) Cervicocranial syndrome Status: Chronic (4) GERD (gastroesophageal reflux disease) Status: Chronic (5) Hyperlipidemia Status: Chronic (6) IBS (irritable bowel syndrome) Status: Chronic (7) Kidney stones Status: Chronic (8) CHRISTOPHER (obstructive sleep apnea) Status: Chronic (9) Osteopenia Status: Chronic (10) Type 2 diabetes mellitus Status: Chronic Past Medical History - Allergies and Home Meds Allergies/Adverse Reactions: Allergies ciprofloxacin [From Cipro] Allergy (Verified 05/13/19 09:53) Hives SEVERE HIVES AFTER ONE DOSE ON 05/09/19 Penicillins Allergy (Verified 05/06/19 10:48) Hives Sulfa (Sulfonamide Antibiotics) Allergy (Verified 05/06/19 10:48) Hives OCEAN PERCH Allergy (Uncoded 05/06/19 10:48) Hives Primary Care Physician: Madison Martins MD [Primary Care Provider] - Doctors: Dr. Isidro Surgical History: - - Recent Altis midurethral sling, cystoscopy, hysterectomy with bilateral nephrectomy, cholecystectomy, shoulder surgery, appendectomy. Lives: Spouse/ Significant Other Smoking Status: Former smoker - Family History Maternal Family History: Family History (Last Reviewed 05/06/19 @ 10:51 by Matt Prater) Mother Anemia Adjustment disorder with anxiety Arthritis High cholesterol Bleeding disorder Osteoporosis COPD (chronic obstructive pulmonary disease) Peptic ulcer disease Sister Adjustment disorder with anxiety Brother Adjustment disorder with anxiety Mental disorder Aunt Colon cancer Family History: Reports: - - Patient maternal family history of anemia, bleeding disorder, chronic COPD, GI bleed with peptic ulcer history, hyperlipidemia, anxiety. Paternal Family History: Family History (Last Reviewed 05/06/19 @ 10:51 by Matt Prater) Mother Anemia Adjustment disorder with anxiety Arthritis High cholesterol Bleeding disorder Osteoporosis COPD (chronic obstructive pulmonary disease) Peptic ulcer disease Sister Adjustment disorder with anxiety Brother Adjustment disorder with anxiety Mental disorder Aunt Colon cancer Family History: Reports: Hypertension Review of Systems General: Denies: Chills, Fever Eyes: Denies: Visual changes - bilaterally ENT: Denies: Bilateral ear pain Cardiovascular: Reports: Chest pain - Left chest wall Respiratory: Reports: Dyspnea - Pain with deep breathing. Denies: Cough Gastrointestinal: Denies: Abdominal pain, Nausea, Vomiting, Diarrhea Musculoskeletal: Reports: Back pain Skin: Denies: Rash Neurological: Denies: Headache Hematologic: Denies: Easy bruising Allergy: Denies: Uticaria Physical Exam Vital Signs/Narrative: Vital Signs Temp Pulse Resp BP Pulse Ox 05/27/19 13:49 97.6 F L 87 16 121/66 H 97 Inital Vital Signs reviewed: Yes General: Well nourished, Well developed Head: Normocephalic ENT: Moist mucous membranes Neck: Supple Cardiovascular: Regular rate, Regular rhythm Respiratory: No distress, CTA bilaterally, Chest tenderness - Left lateral chest wall tenderness. No crepitus. Abdomen: Soft, Nontender Extremities: Nontender Skin: Normal color, No rash Neurological: Alert, Oriented x3 Psychological: Normal affect Diagnostic/Tx/Re-eval Impressions Ribs w/Chest X-Ray 05/27/19 13:50 IMPRESSION: RIBS: Normal x-ray examination of the ribs. CHEST: Normal x-ray examination of the chest. Electronically Signed: Taiwo Mattson MD at 14:23 EST Tel , Service support , 05/27/19 13:50 Ribs Uni Min 3V w/PA Chest [RAD] Stat - Medical Decision Making X-rays were obtained per nursing protocol and reveal no evidence of acute abnormality. Patient has oxycodone at home from her shoulder surgery. She states she does not take it because it just makes her drowsy and does not work for her. She believes she has had Vicodin in the past. She be given a short course of [place]. I discussed using a towel to wrap around her left ribs for her sling to fit over to help take pressure off her ribs. She does voice concern about possible pneumonia and that when she was recently diagnosed it was not noted on chest x-ray but was seen on a CAT scan. At that time she had significant fever. She has not had recent fever and has had only very minimal cough. Patient has reproducible chest wall pain with a known mechanism. I do not think she needs a CT scan at this time. ED Disposition - Plan for ED Patient: Disposition: Home or Assisted Living Diagnosis: Contusion of rib on left side Instructions: RIB: CONTUSION vs MINOR FRACTURE Prescriptions: Hydrocodone Bitart/Apap 5-325 [[place] 5MG-325MG] 1 tablet PO Q6H PRN PRN 3 Days #14 tablet PRN Reason: Pain Transmission Status: Sent to [facility] Referrals: Madison Martins MD [Primary Care Provider] - 1 Week if not improving
[2019-05-27 15:18] VITALS: BP 109/62; PULSE 82; RESP 16; O2SAT 98
[2019-05-27] MEDS: HYDROcodone Bitartrate/Apap 5/325 Tablet PO (15:21)
== END 2019-05-27 15:31 | disposition home or self-care (01) ==
PROVIDERS: Emergency Provider Emergency Medicine; Family Provider Internal Medicine; PCP Internal Medicine
DX: S20.212A Contusion of left front wall of thorax, initial encounter (principal); F32.9 Major depressive disorder, single episode, unspecified; F41.9 Anxiety disorder, unspecified; K21.9 Gastro-esophageal reflux disease without esophagitis; E78.5 Hyperlipidemia, unspecified; G47.33 Obstructive sleep apnea (adult) (pediatric); E11.9 Type 2 diabetes mellitus without complications; Z87.442 Personal history of urinary calculi; Z79.4 Long term (current) use of insulin; Z79.899 Other long term (current) drug therapy; Z87.891 Personal history of nicotine dependence; X50.1XXA Overexertion from prolonged static or awkward postures, initial encounter; Y93.E2 Activity, laundry; Y92.008 Other place in unspecified non-institutional (private) residence as the place of occurrence of the external cause; Y99.8 Other external cause status
CPT/HCPCS: 71101; 99283

== ENCOUNTER → 2019-08-19 12:55 | Outpatient (CLI) | payer MEDICARE, OTHER, SELFPAY ==
[2019-06-14 11:23] VITALS: BMI 31.8
--- NOTE | 2019-08-19 12:56 | RAD_ITS ---
STUDY: X-RAY CHEST REASON FOR EXAM: Female, 64 years old. FALL ONE WEEK AGO, RIGHT ANTERIOR UPPER CHEST PAIN TECHNIQUE: PA and lateral views of the chest. COMPARISON: Comparison is made with prior study dated May 27, 2019. FINDINGS: The lungs are clear and expanded. Scattered calcified granulomas. There is no demonstrated pleural abnormality. Normal size heart. Normal mediastinum and bertha. Normal visualized pulmonary arteries. There is atherosclerotic calcification of the aortic arch with tortuosity. There are degenerative changes of the visualized thoracic spine. Normal visualized ribs, clavicles, and shoulders. There is no demonstrated abnormality of the visualized soft tissue structures of the upper abdomen. RAD/Chest PA and Lateral IMPRESSION: Normal x-ray examination of the chest. Electronically Signed: Matty Machado, at 13:11 EDT , Service support ,
== END ==
PROVIDERS: PCP Internal Medicine; Referring Provider Physician Assistant Surgical; Visit Provider Physician Assistant Surgical
DX: S20.219A Contusion of unspecified front wall of thorax, initial encounter (principal)
CPT/HCPCS: 71046

== ENCOUNTER → 2019-10-16 06:36 | Outpatient (CLI) | payer MEDICARE, OTHER, SELFPAY ==
[2019-09-20 10:10] VITALS: BMI 31.8
--- NOTE | 2019-10-16 08:55 | NEURO ---
NCS and/or EMG Patient Report Ordering Doctor: David Isidro DATE OF SERVICE: 10/16/19 Aurelia James is a 64 year old female who presents for electrodiagnostic testing of the upper limbs. She has numbness, tingling and stiffness in both hands, worse on the right side. Electrodiagnostic findings: Median motor nerve demonstrates prolonged distal latency, amplitude and conduction velocity bilaterally. Normal ulnar motor response bilaterally, including conduction across the elbow. Normal median ulnar F waves. Prolonged median sensory latency at the wrist bilaterally. Normal radial ulnar sensory responses. On needle EMG, all muscles tested in the upper limb showed no evidence of denervation with normal motor unit action potentials. Electrodiagnostic assessment: This is an abnormal study. 1. Electrodiagnostic findings demonstrate bilateral median mononeuropathy. This is consistent with a mild left carpal tunnel syndrome and a mild to moderate right carpal tunnel syndrome.
== END ==
PROVIDERS: PCP Internal Medicine; Referring Provider Orthopaedic Surgery; Visit Provider Orthopaedic Surgery
DX: M79.642 Pain in left hand (principal); M79.641 Pain in right hand; R20.2 Paresthesia of skin
CPT/HCPCS: 95886; 95913

== ENCOUNTER → 2019-10-17 06:43 | Outpatient (CLI) | payer MEDICARE, OTHER, SELFPAY ==
[2019-09-20 10:10] VITALS: BMI 31.8
[2019-10-17 07:46] LABS: Anion Gap 4 (5-15); BUN 17 mg/dL (7-18); BUN/Creat Ratio 23.7 RATIO (10-20); Calcium,Total 9.1 mg/dL (8.5-10.1); Chloride 104 mmol/L (98-107); Cholesterol 192 mg/dL (200); Creatinine, Serum 0.72 mg/dL (0.55-1.02); EST Glomerular Filtration Rate 87 mL/min (>60); Est Glom Filt Rate - Afr Amer 105 mL/min (>60); Glucose 121 mg/dL (74-106); High Density Lipoprotein 51 mg/dL; Potassium 4.2 mmol/L (3.5-5.1); Sodium Level 142 mmol/L (136-145); Triglycerides 358 mg/dL; Very Low Density Lipoprotein 72 mg/dL (5-40)
[2019-10-17 07:47] LABS: Microalbumin,Random Urine 75.3 mg/L (NO RANGE EST.); Microalbumin:Creatinine Ratio 46.8 mg/g CRE (<30 mg/g CRE)
[2019-10-17 07:59] LABS: Hemoglobin A1c 6.7 % (3.8-5.6)
== END ==
PROVIDERS: PCP Internal Medicine
DX: E11.65 Type 2 diabetes mellitus with hyperglycemia (principal)
CPT/HCPCS: 36415; 80048; 80061; 82043; 82570; 83036

== ENCOUNTER → 2019-10-18 10:33 | Outpatient (CLI) | payer MEDICARE, OTHER, SELFPAY ==
[2019-10-18 10:19] VITALS: BMI 31.8
--- NOTE | 2019-10-18 10:34 | RAD_ITS ---
STUDY: X-RAY - LEFT KNEE REASON FOR EXAM: Fell last night. TECHNIQUE: 4 view(s) of the knee. COMPARISON: None. FINDINGS: Normal visualized distal femur. Normal visualized proximal tibia and fibula. Normal proximal tibiofibular articulation. Normal medial femorotibial compartment. Normal lateral femorotibial compartment. There is mild lateral tilt of the patella. There is a joint effusion. There is mild patellar enthesopathy. RAD/Knee 4 or More Views IMPRESSION: Mild lateral tilt of the patella. Joint effusion. No demonstrated fracture. Electronically Signed: Reji Winn MD at 11:13 EDT Tel , Service support ,
--- NOTE | 2019-10-18 10:34 | RAD_ITS ---
STUDY: X-RAY - LEFT WRIST REASON FOR EXAM: Fell last night. TECHNIQUE: 3 view(s) of the wrist were obtained. COMPARISON: None. FINDINGS: There is osteopenia. Normal visualized distal radius and ulna. Normal radiocarpal articulation. Normal distal radioulnar articulation. Normal carpal bones. Normal carpal articulations. Normal carpometacarpal articulation of the thumb. Normal second through fifth carpometacarpal articulations. Normal visualized metacarpal bones. The soft tissue structures are unremarkable. RAD/Wrist min 3 Views IMPRESSION: Osteopenia. No demonstrated fracture. Electronically Signed: Reji Winn MD at 11:23 EDT Tel , Service support ,
== END ==
PROVIDERS: PCP Internal Medicine; Referring Provider Physician Assistant Surgical; Visit Provider Physician Assistant Surgical
DX: S86.912A Strain of unspecified muscle(s) and tendon(s) at lower leg level, left leg, initial encounter (principal); S66.912A Strain of unspecified muscle, fascia and tendon at wrist and hand level, left hand, initial encounter
CPT/HCPCS: 73110; 73564

== ENCOUNTER → 2019-11-18 10:41 | Outpatient (CLI) | payer MEDICARE, OTHER, SELFPAY ==
[2019-11-15 16:14] VITALS: BMI 31.8
[2019-11-18 12:08] LABS: Mucous, Urine 0 SEEN /hpf (<or=2+); Red Blood Cells-Urine 0 SEEN /hpf (0-5)
[2019-11-18 12:16] LABS: Color, Urine Yellow (Yellow); Glucose, Dipstick 50 mg/dl (Normal); Ketone-Dipstick Negative (Negative); Leukocyte Esterase-Dipstick 100 /ul (Negative); Nitrite-Dipstick Negative (Negative); Occult Blood-Urine Negative /ul (Negative); Protein-Dipstick Negative (Negative); Specific Gravity, Urine 1.005 (1.002-1.030); Urine Bilirubin Dipstick Negative (Negative); Urine Clarity Clear (Clear); Urine Urobilinogen Normal (Normal)
[2019-11-18 12:23] LABS: Bacteria RARE /hpf (None Seen); Squamous Epithelial Cells - UA 0-5 SEEN /hpf (5-10); White Blood Cells 0-5 SEEN /hpf (0-5)
== END ==
PROVIDERS: PCP Internal Medicine; Referring Provider Physician Assistant Surgical; Visit Provider Physician Assistant Surgical
DX: N39.0 Urinary tract infection, site not specified (principal); R35.0 Frequency of micturition
CPT/HCPCS: 81001; 87086; 87088; 87186

== ENCOUNTER → 2019-11-22 09:54 | Outpatient (CLI) | payer MEDICARE, OTHER, SELFPAY ==
[2019-11-15 16:14] VITALS: BMI 31.8
[2019-11-22 10:48] LABS: Absolute Lymphocyte Count 2.31 X10^3/uL (0.83-4.51); Absolute Neutrophil Count 6.8 X10^3/uL (2.0-7.7); Basophil# 0.03 X10^3/uL; Basophil% 0.3 % (0-1); Eosinophil# 0.59 X10^3/uL; Eosinophils% 5.5 % (0-5); Hematocrit 43.7 % (37-47); Hemoglobin 13.3 g/dL (12.0-15.0); Lymphocyte # 2.31 X10^3/ul (4.0); Lymphocyte % 21.6 % (19-41); Mean Corp Hgb Conc 30.4 g/dL (32-36); Mean Corpuscular Hgb 26.8 pg (27.0-32.0); Mean Corpuscular Volume 88.1 fL (81-99); Monocyte# 0.86 X10^3/uL; NRBC Flagged by Analyzer 0 % (0-5); Neutrophil # 6.79 X10^3/uL (2.7-7.7); Neutrophil % 63.6 % (47-70); Platelet Count 333 K/mm3 (150-450); RBC Distribution Width CV 14.4 % (11.6-14.6); RBC Distribution Width SD 45.7 fl (35.1-43.9); Red Blood Count 4.96 M/mm3 (4.2-5.4); White Blood Count 10.7 K/mm3 (4.4-11.0)
[2019-11-22 11:20] LABS: Anion Gap 4 (5-15); BUN 23 mg/dL (7-18); BUN/Creat Ratio 27.7 RATIO (10-20); Calcium,Total 9.2 mg/dL (8.5-10.1); Chloride 100 mmol/L (98-107); Creatinine, Serum 0.83 mg/dL (0.55-1.02); EST Glomerular Filtration Rate 73 mL/min (>60); Est Glom Filt Rate - Afr Amer 89 mL/min (>60); Glucose 154 mg/dL (74-106); Potassium 4.4 mmol/L (3.5-5.1); Sodium Level 137 mmol/L (136-145)
== END ==
PROVIDERS: PCP Internal Medicine; Referring Provider Registered Nurse; Visit Provider Registered Nurse
DX: Z01.818 Encounter for other preprocedural examination (principal); E11.9 Type 2 diabetes mellitus without complications
CPT/HCPCS: 36415; 80048; 85025

== ENCOUNTER 2019-12-14 13:08 | Emergency (ER) | payer MEDICARE, OTHER, SELFPAY ==
[2019-11-15 16:14] VITALS: BMI 31.8
[2019-12-14 13:10] VITALS: BP 142/80; PULSE 74; RESP 17; TEMP 38.7; O2SAT 93; BMI 35.9
--- NOTE | 2019-12-14 13:27 | RAD_ITS ---
STUDY: X-RAY CHEST REASON FOR EXAM: Female, 64 years old. FEVER, cough, nausea vomiting -- headache TECHNIQUE: Frontal view of the chest COMPARISON: August 19, 2019 FINDINGS: The lungs are clear and expanded. There is no demonstrated pleural abnormality. Normal size heart. Normal mediastinum and bertha. Normal visualized pulmonary arteries. Normal visualized aortic arch and descending thoracic aorta. Normal visualized thoracic spine. Normal visualized ribs, clavicles, and shoulders. There is no demonstrated abnormality of the visualized soft tissue structures of the upper abdomen. RAD/Chest 1 View (Portable) IMPRESSION: Normal x-ray examination of the chest. Electronically Signed: Chip Jiménez, at 15:18 EDT Tel , Service support ,
--- NOTE | 2019-12-14 13:29 | ED.VISSUMM ---
- ER Visit Summary Date of Service: 12/14/19 Chief Complaint: [Fever and not feeling well] History of Present Illness: The patient is a 64 F [presents to the emergency department with complaint not feeling well throughout the week. Patient states that she just kind of felt fatigued and rundown all week. About 2 days ago started having headache and body aches and fever. Fever was first documented today at 102 at home. Patient denies any sore throat. She states that she has minimal cough. She was recently treated for a urinary tract infection and is no longer on antibiotics. Patient also recently treated for vaginitis. She denies any abdominal pain. She denies urinary symptoms. Patient states that her recently had similar symptoms a week ago but his symptoms only lasted about a day and then resolved. Patient has history of diabetes, high cholesterol, history of anxiety, history of depression, and history of UTIs. Patient's had prior appendectomy, cholecystectomy, hysterectomy, and recent carpal tunnel surgery.] Physical Examination: [HEENT-PERRLA, EOMI. Cranial nerves II through XII grossly intact. TMs clear. Mucous membranes moist. No adenopathy. Cardiovascular-regular rate and rhythm without murmur or ectopy Lungs-clear to auscultation, chest wall stable without crepitus or subcu emphysema Abdomen-normoactive bowel sounds, soft, nontender, no rebound or rigidity, no peritoneal signs. Extremities-intact ?4, normal range of motion, normal pulses, atraumatic. Patient does have a splint on her right wrist.] I removed the dressing from her left wrist and there is no evidence of infection to the surgical wound. Dressing was reapplied. Test Results: [CBC with differential showed a slightly elevated white count of 14.3, hemoglobin 12.8, hematocrit 40, placed 310. Chemistries unremarkable. Urinalysis showed minimal leukocyte esterase and 5-10 WBCs and rare bacteria. COVID-19 test performed was negative. Chest x-ray was normal.] Blood cultures ordered and pending. Urine culture ordered. Emergency Department Course and Treatment: [At this point etiology of fever is unclear. She was given a dose of doxycycline empirically.] Treatment Plan: [Patient will be treated empirically with doxycycline for the respiratory symptoms. They understand that even with a negative COVID test cannot completely rule out a false negative especially early on in the disease process. Advised patient to self quarantine for 14 days.] Patient advised to return if increasing shortness of breath or condition should worsen anyway. Disposition: [Discharged home in stable condition] Impression: [Fever of unknown origin] This note was generated with [employer] dictation software. It may contain incorrect words, spelling, and punctuation that were not noted in review of the chart prior to signing ED Disposition - Plan for ED Patient: Referrals: Madison Martins MD [Primary Care Provider] -
[2019-12-14] MEDS: 0.9% Normal Saline 1,000 ML 150 ML IV (13:55)
[2019-12-14 14:06] LABS: Absolute Lymphocyte Count 0.56 X10^3/uL (0.83-4.51); Absolute Neutrophil Count 12.6 X10^3/uL (2.0-7.7); Basophil# 0.04 X10^3/uL; Basophil% 0.3 % (0-1); Eosinophil# 0.29 X10^3/uL; Hematocrit 39.7 % (37-47); Hemoglobin 12.8 g/dL (12.0-15.0); Lymphocyte # 0.56 X10^3/ul (4.0); Lymphocyte % 3.9 % (19-41); Mean Corp Hgb Conc 32.2 g/dL (32-36); Mean Corpuscular Hgb 27.8 pg (27.0-32.0); Mean Corpuscular Volume 86.3 fL (81-99); Mean Platelet Vol. 9.6 fl (6.2-12.0); Monocyte# 0.68 X10^3/uL; Monocyte% 4.8 % (0-10); NRBC Flagged by Analyzer 0 % (0-5); Neutrophil % 88.4 % (47-70); POSITIVE DIFFERENTIAL YES; Platelet Count 310 K/mm3 (150-450); RBC Distribution Width SD 44.2 fl (35.1-43.9); White Blood Count 14.3 K/mm3 (4.4-11.0)
[2019-12-14 14:16] LABS: Mucous, Urine 0 SEEN /hpf (<or=2+); Red Blood Cells-Urine 0 SEEN /hpf (0-5)
[2019-12-14 14:17] LABS: Anion Gap 5 (5-15); BUN 12 mg/dL (7-18); BUN/Creat Ratio 13.6 RATIO (10-20); Calcium,Total 8.8 mg/dL (8.5-10.1); Chloride 106 mmol/L (98-107); Creatinine, Serum 0.88 mg/dL (0.55-1.02); EST Glomerular Filtration Rate 68 mL/min (>60); Est Glom Filt Rate - Afr Amer 83 mL/min (>60); Estimated Creatinine Clearance 50.41 ml/min; Glucose 162 mg/dL (74-106); Sodium Level 139 mmol/L (136-145)
[2019-12-14 14:18] LABS: Color, Urine Yellow (Yellow); Glucose, Dipstick Normal (Normal); Ketone-Dipstick Negative (Negative); Leukocyte Esterase-Dipstick 25 /ul (Negative); Nitrite-Dipstick Negative (Negative); Occult Blood-Urine Negative /ul (Negative); Protein-Dipstick 15 mg/dl (Negative); Urine Bilirubin Dipstick Negative (Negative); Urine Clarity Sl. Cloudy (Clear); Urine Urobilinogen Normal (Normal)
[2019-12-14 14:21] LABS: Differential Indicated SCAN CRITERIA MET
[2019-12-14] MEDS: Morphine 4 MG/ML Syringe IV (14:22)
[2019-12-14] MEDS: Ondansetron 4 MG/2 ML Vial IV (14:22)
[2019-12-14 14:24] LABS: Squamous Epithelial Cells - UA 0-5 SEEN /hpf (5-10)
[2019-12-14 14:24] LABS: Lactic Acid 1.4 mmol/L (0.4-1.9)
[2019-12-14 14:25] LABS: Bacteria RARE /hpf (None Seen); White Blood Cells 5-10 SEEN /hpf (0-5)
[2019-12-14 14:48] LABS: Differential Comment SCANNED
[2019-12-14 14:57] LABS: Probe Check PASS; Specimen Processing Control PASS
[2019-12-14 15:11] VITALS: BP 113/62; PULSE 89; RESP 16; TEMP 38.1; O2SAT 92
--- NOTE | 2019-12-14 15:33 | DCINST.ED_ITS ---
ED Disposition - Plan for ED Patient: Instructions: ED FUO Adult Prescriptions: Doxycycline 100 mg PO BID #20 cap Transmission Status: Pending to [facility] #[id number] Referrals: Madison Martins MD [Primary Care Provider] - 5-7 Days
[2019-12-14] MEDS: Doxycycline 100 MG CAPSULE PO (15:53)
== END 2019-12-14 15:57 | disposition home or self-care (01) ==
LOC: ED 13:55
PROVIDERS: Emergency Provider Emergency Medicine; PCP Internal Medicine
DX: R50.9 Fever, unspecified (principal); R51 Headache; R53.83 Other fatigue; E11.9 Type 2 diabetes mellitus without complications; E78.00 Pure hypercholesterolemia, unspecified; F32.9 Major depressive disorder, single episode, unspecified; F41.9 Anxiety disorder, unspecified; Z87.440 Personal history of urinary (tract) infections; Z90.49 Acquired absence of other specified parts of digestive tract
CPT/HCPCS: 36415; 71045; 80048; 81001; 83605; 85025; 87040; 87086; 87088; 87635; 96361; 96374; 96375; 99284; G2023; J7030; A4216; J2405; U0003

== ENCOUNTER → 2019-12-20 10:41 | Outpatient (CLI) | payer MEDICARE, OTHER, SELFPAY ==
[2019-12-20 09:57] VITALS: BMI 35.9
[2019-12-20 12:52] LABS: T4 Free Direct 1.03 ng/dL (0.76-1.46); Thyroid Stim Hormone (TSH) 1.88 uIU/mL (0.358-3.74)
== END ==
PROVIDERS: PCP Internal Medicine; Referring Provider Internal Medicine; Visit Provider Internal Medicine
DX: F32.9 Major depressive disorder, single episode, unspecified (principal); F41.9 Anxiety disorder, unspecified; Z13.29 Encounter for screening for other suspected endocrine disorder
CPT/HCPCS: 36415; 84439; 84443

== ENCOUNTER 2020-03-22 12:15 | Emergency (ER) | payer MEDICARE, OTHER, SELFPAY ==
[2019-12-20 09:57] VITALS: BMI 35.9
[2020-03-22 12:16] VITALS: BP 133/75; PULSE 71; RESP 16; TEMP 36.2; O2SAT 98; BMI 34.7
--- NOTE | 2020-03-22 12:53 | RAD_ITS ---
STUDY: X-RAY - UNILATERAL RIBS ( LEFT ) WITH CHEST REASON FOR EXAM: Female, 65 years old. Anterior pain below left breast radiating posterior due to fall this morning. TECHNIQUE - RIBS: 3 view(s) of the ribs. TECHNIQUE - CHEST: Single PA view of the chest. COMPARISON: 12/14/2019 FINDINGS - RIBS: Normal visualized ribs without a demonstrated fracture. FINDINGS - CHEST: The lungs are clear and expanded. There is no demonstrated pleural abnormality. Normal size heart. Normal mediastinum and bertha. Normal visualized pulmonary arteries. Normal visualized aortic arch and descending thoracic aorta. Normal visualized thoracic spine. Normal visualized ribs, clavicles, and shoulders. There is no demonstrated abnormality of the visualized soft tissue structures of the upper abdomen. RAD/Ribs Uni Min 3V w/PA Chest IMPRESSION: RIBS: Normal x-ray examination of the ribs. CHEST: Normal x-ray examination of the chest. Electronically Signed: Taiwo Mattson MD at 13:43 EDT Tel , Service support ,
--- NOTE | 2020-03-22 12:54 | ED.VIS.GEN ---
History of Present Illness Chief Complaint: Chest Pain Informant: Patient Narrative: Patient states that around 7 AM this morning she was getting out of bed she felt landing on her left side injuring her lower ribs. States it hurts to take a deep breath. She has not taken anything for the pain. She is actually had several visits in the past for falling and injuring her ribs. She denies hitting her head. - Past Medical History (1) Hypercholesterolemia with hypertriglyceridemia Status: Chronic (2) CHRISTOPHER (obstructive sleep apnea) Status: Chronic (3) COREY (stress urinary incontinence, female) Status: Chronic (4) Type 2 diabetes mellitus Status: Chronic Past Medical History - Allergies and Home Meds Allergies/Adverse Reactions: Allergies ciprofloxacin [From Cipro] Allergy (Verified 03/22/20 12:15) Hives SEVERE HIVES AFTER ONE DOSE ON 05/09/19 Penicillins Allergy (Verified 03/22/20 12:15) Hives Sulfa (Sulfonamide Antibiotics) Allergy (Verified 03/22/20 12:15) Hives OCEAN PERCH Allergy (Uncoded 03/22/20 12:15) Hives Primary Care Physician: Madison Martins MD [Primary Care Provider] - Surgical History: noncontributory, - Lives: Spouse/ Significant Other Smoking Status: Former smoker Alcohol: None Drugs: None - Family History Maternal Family History: Family History (Last Reviewed 12/20/19 @ 09:53 by Hetal Champion) Mother Anemia Adjustment disorder with anxiety Arthritis High cholesterol Bleeding disorder Osteoporosis COPD (chronic obstructive pulmonary disease) Peptic ulcer disease Sister Adjustment disorder with anxiety Brother Adjustment disorder with anxiety Mental disorder Aunt Colon cancer Family History: Reports: - - Patient maternal family history of anemia, bleeding disorder, chronic COPD, GI bleed with peptic ulcer history, hyperlipidemia, anxiety. Paternal Family History: Family History (Last Reviewed 12/20/19 @ 09:53 by Hetal Champion) Mother Anemia Adjustment disorder with anxiety Arthritis High cholesterol Bleeding disorder Osteoporosis COPD (chronic obstructive pulmonary disease) Peptic ulcer disease Sister Adjustment disorder with anxiety Brother Adjustment disorder with anxiety Mental disorder Aunt Colon cancer Family History: Reports: Hypertension Review of Systems General: Denies: Chills, Fever, Sweats Eyes: Denies: Visual changes - bilaterally, Diplopia ENT: Denies: Rhinorrhea, Sore throat Cardiovascular: Reports: Chest pain. Denies: Palpitations Respiratory: Denies: Dyspnea, Cough, Dyspnea on exertion Gastrointestinal: Denies: Abdominal pain, Nausea, Vomiting, Diarrhea, Melena, Hematochezia Genitourinary: Denies: Dysuria, Hematuria, Frequency Musculoskeletal: Denies: Back pain, Extremity Pain Skin: Denies: Rash, Wounds Neurological: Denies: Headache, Weakness, Numbness Physical Exam Vital Signs/Narrative: Vital Signs Temp Pulse Resp BP Pulse Ox 03/22/20 12:16 97.2 F L 71 16 133/75 H 98 Inital Vital Signs reviewed: Yes General: Well nourished, Well developed, Obese, No Acute Distress Head: Normocephalic, Atraumatic Eyes: Perrl, EOMI ENT: Moist mucous membranes, No rhinorrhea Neck: Supple, Nontender Cardiovascular: Regular rate, Regular rhythm, No murmurs Respiratory: No distress, CTA bilaterally, Chest tenderness - Tender palpation lower left ribs anteriorly midaxillary and posteriorly. No ecchymosis. No crepitance. Abdomen: Soft, Nontender, Nondistended, Normal bowel sounds Back: Nontender, Normal Inspection Extremities: Nontender, No edema Skin: Normal color, No rash Neurological: Alert, Oriented x3, Cranial nerves II-XII grossly intact, Normal Strength, Normal Sensation Psychological: Normal affect, Normal Mood Diagnostic/Tx/Re-eval - Medical Decision Making X-rays were negative for fracture or pneumothorax. Patient will be discharged home. Would recommend Tylenol Motrin for pain. Use of a throw pillow for chest wall stabilization. Follow-up with primary care as needed. ED Disposition - Plan for ED Patient: Disposition: Home or Assisted Living Diagnosis: Chest wall contusion Instructions: ED CHEST CONTUSION Referrals: Madison Martins MD [Primary Care Provider] - As Needed
[2020-03-22 14:00] VITALS: BP 140/73; PULSE 63; RESP 16
== END 2020-03-22 14:01 | disposition home or self-care (01) ==
LOC: ED 13:29
PROVIDERS: Emergency Provider Emergency Medicine; PCP Internal Medicine
DX: S20.219A Contusion of unspecified front wall of thorax, initial encounter (principal); W19.XXXA Unspecified fall, initial encounter; E11.9 Type 2 diabetes mellitus without complications; E78.00 Pure hypercholesterolemia, unspecified; E78.1 Pure hyperglyceridemia; N39.3 Stress incontinence (female) (male); G47.33 Obstructive sleep apnea (adult) (pediatric); Z82.49 Family history of ischemic heart disease and other diseases of the circulatory system; Z88.0 Allergy status to penicillin; Z88.1 Allergy status to other antibiotic agents; Z88.2 Allergy status to sulfonamides
CPT/HCPCS: 71101; 99281

== ENCOUNTER → 2020-04-22 10:07 | Outpatient (CLI) | payer MEDICARE, OTHER, SELFPAY ==
--- NOTE | 2020-04-22 10:14 | BD_ITS ---
STUDY: DUAL ENERGY X-RAY ABSORPTIOMETRY / DXA REASON FOR EXAM: Female, 65 years old. Age of surgical harrison 24. Pat is 195# and 63 and quot; a loss of 1 and quot; per pat. Past use of an HRT until 10 yrs ago. Past smoker quit 10 yrs ago. Past hx of using fosamax x 2 yrs. Type II diabetic takes meds for it. Takes calcium and Vit D. Exercises a little. Mother has osteo. Hx of toes and 4 ribs fx''d. TECHNIQUE: Bone Mineral Density (BMD) measurements of lumbar spine and bilateral hips were obtained. COMPARISON: Comparison is made with prior study dated 12/07/2017. FINDINGS: Lumbar Spine (L1-L4): g/cm2 (1.029) / T-score (-1.3) / Z-score (0.3) Findings are suggestive of osteopenia with a low fracture risk. Left Femur Total: g/cm2 (0.884) / T-score (-1.0) / Z-score (0.3) Left Femoral Neck: g/cm2 (0.745) / T-score (-2.1) / Z-score (-0.6) Right Femur Total: g/cm2 (0.837) / T-score (-1.4) / Z-score (-0.1) Right Femoral Neck: g/cm2 (0.689) / T-score (-2.5) / Z-score (-1.0) The T-Scores on the most recent prior examination were: Lumbar Spine (L1-L4): There has been improvement of bone density since the previous examination. Left Femur Total: which represents an improvement of 1.1%. Right Femur Total: which represents a worsening of 1.2%. BD/Dexa Bone Density Study IMPRESSION: The patient is considered osteopenic as outlined below according to World Gustavo Organization (WHO) criteria with a high fracture risk. There has been improvement of bone density since the previous examination. Reference Information: The T-score is the number of standard deviations above or below the standard which is normal for young adults at their peak bone mineral density. The World Health Organization (WHO) interprets the T-scores as follows: Above -1 Normal bone density Between -1 and -2.5 Osteopenia Equal to / or below -2.5 Osteoporosis As a practical clinical guideline, osteopenia may be graded as follows: Mild -1 through -1.5 Moderate -1.6 through -2.0 Severe -2.1 through -2.4 The Z-score is the number of standard deviations above or below age-matched controls. A Z-score of less than -1.5 would be considered abnormal. References: 1. NIH Osteoporosis and Related Bone Diseases www osteo.org 2. International Society for Clinical Densitometry www iscd.org 3. National Osteoporosis Foundation www nof.org Electronically Signed: Matty Machado, at 10:22 EST , Service support ,
== END ==
PROVIDERS: PCP Internal Medicine; Referring Provider Internal Medicine; Visit Provider Internal Medicine
DX: Z78.0 Asymptomatic menopausal state (principal)
CPT/HCPCS: 77080

== ENCOUNTER → 2020-04-27 11:03 | Outpatient (CLI) | payer MEDICARE, OTHER, SELFPAY ==
[2020-04-27 12:05] LABS: Microalbumin,Random Urine 14.8 mg/L (NO RANGE EST.); Microalbumin:Creatinine Ratio 15.6 mg/g CRE (<30 mg/g CRE)
[2020-04-27 12:26] LABS: Hemoglobin A1c 7.6 % (3.8-5.6)
[2020-04-27 12:47] LABS: AST(SGOT) 16 U/L (15-37); Alanine Aminotransfer ALT/SGPT 27 U/L (13-56); Albumin, Serum 3.1 g/dL (3.2-5.0); Alkaline Phosphatase 83 U/L (45-117); Anion Gap 4 (5-15); BUN 11 mg/dL (7-18); BUN/Creat Ratio 14.2 RATIO (10-20); Bilirubin, Direct 0.14 mg/dL (0.00-0.30); Calcium,Total 9.6 mg/dL (8.5-10.1); Chloride 105 mmol/L (98-107); Creatinine, Serum 0.78 mg/dL (0.55-1.02); EST Glomerular Filtration Rate 79 mL/min (>60); Est Glom Filt Rate - Afr Amer 96 mL/min (>60); Glucose 146 mg/dL (74-106); Potassium 4.5 mmol/L (3.5-5.1); Protein, Total 7.1 g/dL (6.4-8.2); Sodium Level 139 mmol/L (136-145); Thyroid Stim Hormone (TSH) 1.67 uIU/mL (0.358-3.74); Triglycerides 230 mg/dL
== END ==
PROVIDERS: PCP Internal Medicine
DX: E11.65 Type 2 diabetes mellitus with hyperglycemia (principal); E78.5 Hyperlipidemia, unspecified
CPT/HCPCS: 36415; 80048; 80076; 82043; 82570; 83036; 84443; 84478

== ENCOUNTER → 2020-05-05 15:41 | Outpatient (CLI) | payer MEDICARE, OTHER, SELFPAY ==
--- NOTE | 2020-05-05 15:44 | US_ITS ---
STUDY: RENAL ULTRASOUND - COMPLETE REASON FOR EXAM: Female, 65 years old. ABN FINDINGS ON IMAGING DONE ELSEWHERE TECHNIQUE: Ultrasound evaluation of the kidneys was performed with real-time and static scott-scale imaging. COMPARISON: 04/07/2019 FINDINGS: RIGHT KIDNEY: Normal location of the right kidney, which is normal in size. The right kidney measures 11.5 cm. There is a normal cortex of the right kidney. The renal cortex measures 1.8 cm. 2.2 cm exophytic cyst cyst lower pole the right kidney. 1.6 cm cyst upper pole the right kidney. There are no right renal calculi. There is no right hydronephrosis. DISTAL RIGHT URETER: There is non-visualization of the distal right ureter. There is no demonstrated right ureterovesical junction calculus. There is a visualized right ureteral jet. LEFT KIDNEY: Normal location of the left kidney, which is normal in size. The left kidney measures 12.0 cm. There is a normal cortex of the left kidney. The renal cortex measures 1.7 cm. 3.2 cm exophytic cyst upper pole of the left kidney. Another 1.8 cm cyst in the upper pole the left kidney. Another 2.0 cm cyst in the upper pole the left kidney. There are no left renal calculi. There is no left hydronephrosis. DISTAL LEFT URETER: There is non-visualization of the distal left ureter. There is no demonstrated left ureterovesical junction calculus. There is a visualized left ureteral jet. BLADDER: The distended urinary bladder has a volume of 148 ml. The empty urinary bladder has a volume of ml. There is a normal wall thickness of the distended urinary bladder. There is no demonstrated mass within the urinary bladder. There are no demonstrated bladder calculi. US/Kidney and Bladder IMPRESSION: Normal ultrasound of the kidneys and urinary bladder. Bilateral renal cysts. Electronically Signed: Taiwo Mattson MD at 8:52 EST Tel , Service support ,
== END ==
PROVIDERS: PCP Internal Medicine; Referring Provider Urology; Visit Provider Urology
DX: R93.49 Abnormal radiologic findings on diagnostic imaging of other urinary organs (principal)
CPT/HCPCS: 76770

== ENCOUNTER → 2020-05-14 14:29 | Outpatient (CLI) | payer MEDICARE, OTHER, SELFPAY ==
--- NOTE | 2020-05-14 14:41 | CT_ITS ---
STUDY: CT ABDOMEN AND PELVIS WITH AND WITHOUT CONTRAST REASON FOR EXAM: Female, 65 years old. RENAL LESIONS, GERD, IBS, SURG-HAYLEE, APPY, ROSIBEL/BSO,BLADDER MESH SLING RADIATION DOSAGE (If Supplied By Facility): CTDIvol = ( 23.10 ) mGy, DLP = ( 4078.70 ) mGycm TECHNIQUE: Transaxial images were obtained from the dome of the diaphragm to the symphysis pubis without oral contrast. IV 100mL Isovue-370 was administered. Sagittal and coronal images were reconstructed. Individualized dose optimization techniques were used for this CT. COMPARISON: Comparison is made with prior study dated 04/07/2019. FINDINGS: The visualized lung bases are unremarkable. Coronary artery calcification. There is decreased attenuation of the liver consistent with steatosis. There are surgical clips in the gallbladder fossa consistent with a prior cholecystectomy. Normal spleen. Normal pancreas. Normal bilateral adrenal glands. There is a 1.7 cm cyst in the posterior upper pole of the right kidney as well as a 1.6 cm cyst in the anterior inferior aspect of the right kidney. Multiple cysts are seen in the left kidney more prominent in the upper pole. The largest cyst measures 3 cm. Focal cortical thinning along the lateral midportion of the left kidney. Normal visualized stomach. Normal small intestine. Moderate amount of fecal material is seen in the colon. Scans of stenosis. There are surgical clips in the region of the appendix consistent with a prior appendectomy. There is scattered atherosclerotic calcification of the abdominal aorta, without a demonstrated aneurysm. Normal inferior vena cava. Normal retroperitoneum. Normal urinary bladder. There is absence of the uterus consistent with a prior hysterectomy. There is a 4.3 cm x 1.5 cm focal area of increased density in the superficial subcutaneous fat along the right side of the umbilicus. This may represent changes secondary to an injection site. Clinical correlation is recommended. There are mild degenerative changes of the visualized lumbar spine. CT/CT Abd/Pelvis W/WO Contrast IMPRESSION: Stable bilateral renal cysts. Focal area of increased density in the superficial subcutaneous fat along the right side of the umbilicus most likely related to recent injection site. Electronically Signed: Matty Machado, at 15:38 EST , Service support ,
== END ==
PROVIDERS: PCP Internal Medicine; Referring Provider Urology; Visit Provider Urology
DX: R93.41 Abnormal radiologic findings on diagnostic imaging of renal pelvis, ureter, or bladder (principal)
CPT/HCPCS: 74178; Q9967

== ENCOUNTER → 2020-06-11 15:38 | Outpatient (CLI) | payer MEDICARE, OTHER, SELFPAY ==
[2020-06-11 16:36] LABS: Absolute Lymphocyte Count 2.58 X10^3/uL (0.83-4.51); Absolute Neutrophil Count 7.1 X10^3/uL (2.0-7.7); Basophil# 0.04 X10^3/uL; Basophil% 0.4 % (0-1); Eosinophil# 0.28 X10^3/uL; Eosinophils% 2.5 % (0-5); Hematocrit 43.5 % (37-47); Hemoglobin 13.6 g/dL (12.0-15.0); Lymphocyte # 2.58 X10^3/ul (4.0); Lymphocyte % 23.3 % (19-41); Mean Corp Hgb Conc 31.3 g/dL (32-36); Mean Corpuscular Hgb 26.6 pg (27.0-32.0); Mean Platelet Vol. 9.8 fl (6.2-12.0); Monocyte# 1.06 X10^3/uL; Monocyte% 9.6 % (0-10); NRBC Flagged by Analyzer 0 % (0-5); Neutrophil # 7.05 X10^3/uL (2.7-7.7); Neutrophil % 63.7 % (47-70); Platelet Count 328 K/mm3 (150-450); RBC Distribution Width CV 14.3 % (11.6-14.6); Red Blood Count 5.12 M/mm3 (4.2-5.4); White Blood Count 11.1 K/mm3 (4.4-11.0)
[2020-06-11 17:01] LABS: ALB/GLOB Ratio 0.8 RATIO (0.9-2.4); AST(SGOT) 13 U/L (15-37); Alanine Aminotransfer ALT/SGPT 31 U/L (13-56); Albumin, Serum 3.4 g/dL (3.2-5.0); Alkaline Phosphatase 83 U/L (45-117); Anion Gap 4 (5-15); BUN 16 mg/dL (7-18); BUN/Creat Ratio 16.3 RATIO (10-20); Calcium,Total 9.4 mg/dL (8.5-10.1); Chloride 100 mmol/L (98-107); Creatinine, Serum 0.98 mg/dL (0.55-1.02); EST Glomerular Filtration Rate 60 mL/min (>60); Est Glom Filt Rate - Afr Amer 73 mL/min (>60); Globulin 4.1 g/dL (2.2-4.2); Glucose 116 mg/dL (74-106); Potassium 4.4 mmol/L (3.5-5.1); Protein, Total 7.5 g/dL (6.4-8.2); Sodium Level 135 mmol/L (136-145); Thyroid Stim Hormone (TSH) 1.54 uIU/mL (0.358-3.74)
[2020-06-12 09:21] LABS: Hepatitis C Antibody Non-Reactive (Nonreactive)
== END ==
PROVIDERS: PCP Family Medicine Geriatric Medicine; Visit Provider Family Medicine Geriatric Medicine
DX: E11.65 Type 2 diabetes mellitus with hyperglycemia (principal); E55.9 Vitamin D deficiency, unspecified; R53.83 Other fatigue; Z13.89 Encounter for screening for other disorder
CPT/HCPCS: 36415; 80053; 82306; 84443; 85025; 86803

== ENCOUNTER → 2020-06-18 14:07 | Outpatient (CLI) | payer MEDICARE, OTHER, SELFPAY ==
--- NOTE | 2020-06-18 14:09 | CT_ITS ---
STUDY: LOW DOSE CT LUNG CANCER SCREENING REASON FOR EXAM: Female, 65 years old. Lung mass, former smoker, smoked 1/2 pack/day x 40 years, quit 10 years ago, diabetes. RADIATION DOSAGE (If Supplied By Facility): CTDIvol = ( 3.02 ) mGy, DLP = ( 87.62 ) mGycm TECHNIQUE: No contrast was administered. Low dose technique was utilized (average mAS-38 and kVp 120). 1.25 mm axial source images with a slice interval of 1.25-mm were reconstructed in lung windows. 2.5 mm axial source images with a slice interval of 2.5-mm were reconstructed in lung windows. 5.0 mm axial source images with a slice interval of 5.0-mm were reconstructed in soft tissue windows. Nodule measured using lung windows on PACS and/or independent workstation with automated measurement of minimum and maximum diameter. Nodule measurement reported as average diameter rounded to the nearest whole number. Growth is defined as an increase ins size of greater than 1.5 mm. COMPARISON: None. NODULES: There is an 8.7 mm x 7.7 mm x 6.9 mm ill-defined nodule in the posterior segment of the left upper lobe. This abuts the pleural surface. This is seen on axial image #16 and coronal image #193. Aorta: Atherosclerotic plaque formation of the aortic arch and descending thoracic aorta. Coronary arteries: Coronary artery calcification. Mediastinal nodes: Small benign-appearing mediastinal lymph nodes. Other chest and abdominal findings: Healed left rib fractures as well as degenerative changes of the thoracic spine. CT/Low Dose CT Lung Screening IMPRESSION: Lung-RADS category 4B - Chest CT with or without contrast, PET/CT and/or tissue sampling can be obtained depending on the probability of malignancy and comorbidities. IMPORTANT NOTES FOR USE: ACR Lung-RADS Version 1.0 Assessment Categories Release Date: September 23, 2013 Category: Coded 0-4 bases on nodule(s) with highest degree of suspicion. Negative screen is defined as categories 1 and 2; a positive screen is defined as categories 3 and 4. Category 3 and 4A nodules that are unchanged on interval CT should be coded as category 2, and individuals returned to screening in 12 months. Category 4X: Category 3 or 4 nodules with additional imaging findings that increase the suspicion of lung cancer, such as spiculation, GGN that doubles in size in 1 year, enlarged lymph notes, etc. Category Modifiers: S (significant finding unrelated to lung cancer) and C (prior history of treated lung cancer) may be added to the 0-4 Lung-RADS Electronically Signed: Matty Machado MD at 15:24 EST , Service support ,
== END ==
PROVIDERS: PCP Family Medicine Geriatric Medicine; Referring Provider Family Medicine Geriatric Medicine; Visit Provider Family Medicine Geriatric Medicine
DX: Z12.2 Encounter for screening for malignant neoplasm of respiratory organs (principal); Z87.891 Personal history of nicotine dependence; R22.2 Localized swelling, mass and lump, trunk
CPT/HCPCS: 71271

== ENCOUNTER → 2020-07-02 07:39 | Outpatient (CLI) | payer MEDICARE, OTHER, SELFPAY ==
[2020-07-02] VITALS (11 sets, daily range): BP systolic 94–127; BP diastolic 46–70; PULSE 65–73; RESP 12–18; TEMP 37.2; O2SAT 93–100; BMI 32.8
--- NOTE | 2020-07-02 | ASPIGT_PTH ---
PATIENT: LACIE WHITE LOC: CT U#:[id number] AGE/SX: 70/F ROOM: RE07/02/[address]: Dr. Tal Lundy MD : 1955 BED: DIS: SPEC #: [id number] RECD: 07/02/20 12:34 STATUS: AUDI RESilvia #: [id number] LUPE: 07/02/20 00:[address]: Tal Lundy Chi DEPT: SURGICAL PATHOLOGY RECD BY: Lloyd Macario Tissues: Lung, NOS Procedures: FNA Specimen Adequacy Special Stain Group II Surgery Specimen Level IV Imprint (control) HEADER OPERATION: CT-guided left lung biopsy PRE-OP DIAGNOSIS: Left lung mass TISSUE SUBMITTED: Left lung mass 20-gauge core x4 MICROSCOPIC DIAGNOSIS Left lung mass, CT-guided core biopsy: Scant benign fibrous tissue. No evidence of malignancy. AM:jade 07/03/2020 COMMENT The specimen is evaluated at the time of biopsy by Dr. Bennett. Immediate Evaluation: Pass 1 - Negative for malignant cells. Pass 2 - Negative for malignant cells. Pass 3 - Negative for malignant cells. MICROSCOPIC DESCRIPTION Slides are reviewed. GROSS DESCRIPTION Received in fixative is one container labeled with the patient's name and designated CT-guided left lung biopsy. The specimen consists of multiple minute fragments of light fuchs soft tissue that in aggregate measure 0.5 x <0.1 x <0.1 cm. The specimen is totally submitted in one cassette. Multiple touch imprints are prepared at the time of core biopsy. / AM:jade 07/02/20 TC:5 CPT: 72568, 85728, 02208 x2
--- NOTE | 2020-07-02 07:56 | CT_ITS ---
PROCEDURE: CT GUIDED CORE NEEDLE BIOPSY OF A left upper lobe LUNG LESION INDICATION: Female, 65 years old. LUNG MASS PHYSICIAN: Dr. DESTINY Mireles CONSENT: Written informed consent was obtained having explained the risks, benefits and alternatives in detail with the patient who accepted the risks and agreed to proceed. Laboratory review and clinical assessment was performed. CONSCIOUS SEDATION PROTOCOL: The Drugs used were: 2 mg Versed, IV., and 50 mcg Fentanyl, IV. The sedation time was: 21 minutes. Conscious sedation was started at 9:05 AM and terminated at 920 6A The conscious sedation protocol was independently monitored. RADIATION DOSAGE (If Supplied By Facility): CTDIvol = ( 16.67 ) mGy, DLP = ( 528.25 ) mGycm Individualized dose optimization techniques were used for this CT. TECHNIQUE: The patient was placed in the prone position. A noncontrast CT was performed to localize the lesion in the posterior aspect of the left upper lobe . The skin surface was prepped and draped in a sterile fashion. 1% lidocaine was used for local anesthesia. Using CT guidance, a 20-gauge coaxial biopsy device was advanced to the periphery of the lesion. A total of 4 core specimens were obtained. The specimens were placed in a formalin solution. A post procedure CT demonstrated no adverse sequelae or pneumothorax. The patient tolerated the procedure well without adverse event. A negative biopsy does not exclude malignancy. Further imaging or clinical followup based on patient condition and degree of clinical suspicion for malignancy. Suggest rebiopsy, if biopsy results do not match with clinical scenario. CT/Biopsy/Inj or Needle Placement IMPRESSION: 1. CT directed core needle biopsy of the left upper lobe lung nodule using CT image guidance with image documentation as described. Pathology results are pending. 2. Conscious Sedation protocol utilized with independent monitoring. Electronically Signed: Matty Machado MD at 9:37 EST , Service support ,
[2020-07-02 08:57] LABS: Prothrombin Time (Protime)PT. 13.1 SECONDS (11.7-14.9)
[2020-07-02 08:58] LABS: Partial Thromboplast Time 28.5 Seconds (24.1-36.2)
[2020-07-02] MEDS: Midazolam 2 MG/2 ML Syringe IV (09:05)
[2020-07-02] MEDS: fentaNYL 100 MCG/2 ML Ampul IV (09:05)
--- NOTE | 2020-07-02 09:15 | RAD_ITS ---
STUDY: X-RAY CHEST REASON FOR EXAM: Female, 65 years old. IMMEDIATE POST LUNG BX, LT SIDE. INSPR/EXPR VWS TECHNIQUE: AP inspiration and expiration views. COMPARISON: None. FINDINGS: Immediate post left lung biopsy radiographs. There is no evidence of pneumothorax. RAD/Chest Insp/Exp 2 View IMPRESSION: No evidence of pneumothorax on the immediate post left lung biopsy radiographs. Electronically Signed: Matty Machado MD at 10:40 EST , Service support ,
--- NOTE | 2020-07-02 11:25 | RAD_ITS ---
STUDY: X-RAY CHEST REASON FOR EXAM: Female, 65 years old. 2 HOUR POST LUNG BX TECHNIQUE: AP inspiration and expiration views. COMPARISON: Comparison is made with prior study done earlier today. FINDINGS: No evidence of pneumothorax on the delayed post left lung biopsy radiographs. RAD/Chest Insp/Exp 2 View IMPRESSION: No evidence of pneumothorax on the delayed post left lung biopsy radiographs. Electronically Signed: Matty Machado MD at 12:10 EST , Service support ,
== END ==
PROVIDERS: PCP Family Medicine Geriatric Medicine; Referring Provider Family Medicine Geriatric Medicine; Visit Provider Family Medicine Geriatric Medicine
DX: R22.2 Localized swelling, mass and lump, trunk (principal)
CPT/HCPCS: 32408; 36415; 71046; 77012; 85610; 85730; 88172; 88305; 88313; 99155; 99156; J7040; A4216; C2613

== ENCOUNTER → 2020-07-14 16:55 | Outpatient (CLI) | payer MEDICARE, OTHER, SELFPAY ==
[2020-07-02 08:24] VITALS: BMI 32.8
== END ==
PROVIDERS: PCP Family Medicine Geriatric Medicine; Referring Provider Family Medicine Geriatric Medicine; Visit Provider Family Medicine Geriatric Medicine
DX: N39.0 Urinary tract infection, site not specified (principal)
CPT/HCPCS: 87086; 87088

== ENCOUNTER → 2020-07-15 08:18 | Outpatient (CLI) | payer MEDICARE, OTHER, SELFPAY ==
[2020-07-02 08:24] VITALS: BMI 32.8
--- NOTE | 2020-07-14 14:30 | PET_ITS ---
EXAMINATION: FDG PET/CT INDICATIONS: A 65-year-old female with reported history of pulmonary nodularity. COMPARISON EXAMINATION: CT of the chest report dated 06/18/20 INDEX LESION SIZE SUV INTERPRETATION Left lower posterior lung-left lower lobe 7.9-mm (frame 192) 0.6 Quantitative criteria for viable neoplasm are not fulfilled, sequential radiologic investigation recommended TECHNIQUE: Following the intravenous administration of 11.41 mCi of F-18 deoxyglucose via the left antecubital fossa, multiplanar image acquisitions of the neck, chest, abdomen and pelvis to level of mid thigh, obtained at one hour post radiopharmaceutical administration contemporaneously interpreted with the current CT of the neck, chest, abdomen and pelvis to level of mid thigh, dated 07/15/[address] of the chest report dated 06/18/20 reveal: SERUM GLUCOSE LEVEL: 159 mg/dl. HEIGHT: 63 inches. WEIGHT: 92 lbs. FINDINGS: 1. Subtle increased glucose metabolism is defined in the left mid-lower posterior lung-left lower lobe corresponding to a partially calcified pleural-based density defined on CT of the chest dated 07/15/20. The calculated maximal standard uptake value is 0.6. The maximal axial diameter of the corresponding pleural-based density on review of CT of the chest dated 07/15/20 is 7.9-mm (transverse). 2. Normal physiologic distribution of the radiopharmaceutical is apparent in the hepatic (4.1) and splenic parenchyma, both renal units, bladder and visualized intestinal tract. Diffuse radiopharmaceutical concentration is noted in all four quadrants of the abdomen and pelvis. The visualized portion of the cerebral cortex demonstrate symmetric and preserved glucose metabolism. Pertinent CT findings are as follows: CHEST: There are no additional parenchymal densities-nodules defined in the right and left hemithorax with discernible increased FDG concentration. There is atherosclerotic calcification defined in the thoracic aorta without evidence of dilatation-aneurysm formation. Coronary arterial calcification is observed. Subcentimeter mediastinal and bilateral axillary soft tissue densities are non-glucose avid. ABDOMEN AND PELVIS: The gallbladder is surgically absent. There is atherosclerotic calcification defined in the abdominal aorta without evidence of dilatation-aneurysm formation. Pelvic arterial calcification is demonstrated. Cortical cyst formation is defined in both kidneys. Exophytic cyst formation is observed in the left renal unit. Bilateral inguinal soft tissue with fatty hilus is ametabolic. A density defined in the anterior midline abdominal wall reveals no evidence of increased tracer uptake. SKELETAL: Degenerative changes are noted in the cervical, thoracic and lumbar spine without evidence of increased radiopharmaceutical concentration. There are no sclerotic, mixed sclerotic-lytic and/or primarily lytic changes noted on review of the appendicular, axial skeletal structures. PET/PET/CT Tumor Base -Thigh Init IMPRESSION: 1. NEGATIVE EXAMINATION. There is no definitive quantitative scintigraphic evidence of viable neoplasm. 2. The minimally increased FDG distribution defined in the left mid posterior lung-left lower lobe does not fulfill quantitative criteria for viable neoplasm. (Stewart et al, Annals of Internal Medicine, 138:724, 2003). 3. Metabolic and/or anatomic stability may be ensured in the left mid posterior lung-left lower lobe abnormality with repeat FDG PET study and/or CT of the thorax in 3-6 months. (Xiu, Journal of Nuclear Medicine 45:88, P2004 Yaa, Seminars in Thoracic and Cardiovascular Surgery 14:292, 2002). Electronic Signature Taiwo Sifuentes D.O. Accurate Quantification of SUVs for this report are calculated using the exclusive skedge.mean? Technology.??Exclusive U.S. Patent Accuquan? Technology (U.S. Patent No. [id number] [id number]). Electronically Signed: Taiwo Sifuentes DO at 22:03 EST Tel , Service support ,
== END ==
PROVIDERS: PCP Family Medicine Geriatric Medicine; Referring Provider Family Medicine Geriatric Medicine; Visit Provider Family Medicine Geriatric Medicine
DX: R91.8 Other nonspecific abnormal finding of lung field (principal)
CPT/HCPCS: 78815; A9552

== ENCOUNTER → 2020-07-16 14:32 | Outpatient (CLI) | payer MEDICARE, OTHER, SELFPAY ==
[2020-07-02 08:24] VITALS: BMI 32.8
[2020-07-16 14:57] LABS: Absolute Lymphocyte Count 0.67 X10^3/uL (0.83-4.51); Absolute Neutrophil Count 7.4 X10^3/uL (2.0-7.7); Basophil# 0.02 X10^3/uL; Basophil% 0.2 % (0-1); Eosinophil# 0.13 X10^3/uL; Eosinophils% 1.5 % (0-5); Hematocrit 37.5 % (37-47); Hemoglobin 11.5 g/dL (12.0-15.0); Lymphocyte # 0.67 X10^3/ul (4.0); Lymphocyte % 7.9 % (19-41); Mean Corp Hgb Conc 30.7 g/dL (32-36); Mean Corpuscular Hgb 26.7 pg (27.0-32.0); Mean Corpuscular Volume 87.2 fL (81-99); Mean Platelet Vol. 9.6 fl (6.2-12.0); Monocyte# 0.22 X10^3/uL; Monocyte% 2.6 % (0-10); NRBC Flagged by Analyzer 0 % (0-5); Neutrophil # 7.36 X10^3/uL (2.7-7.7); Neutrophil % 87.1 % (47-70); Platelet Count 252 K/mm3 (150-450); RBC Distribution Width CV 14.7 % (11.6-14.6); RBC Distribution Width SD 47.3 fl (35.1-43.9); White Blood Count 8.5 K/mm3 (4.4-11.0)
--- NOTE | 2020-07-16 15:11 | CT_ITS ---
STUDY: CT ABDOMEN AND PELVIS WITH CONTRAST REASON FOR EXAM: Female, 65 years old. ABD PAIN, CHOLECYSTECTOMY, APPENDECTOMY, ROSIBEL/BSO, BLADDER MESH RADIATION DOSAGE (If Supplied By Facility): CTDIvol = ( 15.68 ) mGy, DLP = ( 1212.99 ) mGycm TECHNIQUE: Transaxial images were obtained from the dome of the diaphragm to the symphysis pubis without oral contrast. Oral and amp; IV Gastrografin and amp; 100mL Isovue-300 was administered. Sagittal and coronal images were reconstructed. Individualized dose optimization techniques were used for this CT. COMPARISON: 04/07/2019. FINDINGS: The visualized lung bases are unremarkable. The visualized portions of the heart are within normal limits. Normal liver. Status post cholecystectomy. No significant dilatation of the extrahepatic biliary system. Stable 8mm probable cyst in the spleen. Normal pancreas. Normal bilateral adrenal glands. Up to 1.7 cm cysts in the right kidney. Up to 3 cm cysts in the left kidney. Normal visualized stomach. Normal small intestine. Normal colon. The appendix is not visualized. Calcified abdominal aorta. Normal inferior vena cava. Normal retroperitoneum. Normal urinary bladder. Normal abdominal wall. Normal osseous structures. CT/Abdomen/Pelvis WITH Contrast IMPRESSION: Bilateral renal cysts. Stable splenic cystic nodule. Electronically Signed: Moose Calles DO at 18:33 EST Tel [phone], Service support ,
--- NOTE | 2020-07-16 15:20 | RAD_ITS ---
STUDY: X-RAY - THORACIC SPINE REASON FOR EXAM: Female, 65 years old. BACK PAIN FOR 3 DAYS. TECHNIQUE: 4 view(s) of the thoracic spine were obtained. COMPARISON: None. FINDINGS: Normal kyphosis of the thoracic spine. There is no substantial scoliosis. Degenerative changes of the thoracic vertebrae with spurring at the endplates. Normal disc space heights. The soft tissue structures are unremarkable. RAD/Thoracic Spine 3 Views IMPRESSION: Degenerative changes of the thoracic spine. Electronically Signed: Moose Calles DO at 16:50 EST Tel [phone], Service support ,
[2020-07-16 15:23] LABS: ALB/GLOB Ratio 0.7 RATIO (0.9-2.4); AST(SGOT) 7 U/L (15-37); Alanine Aminotransfer ALT/SGPT 18 U/L (13-56); Albumin, Serum 2.7 g/dL (3.2-5.0); Alkaline Phosphatase 80 U/L (45-117); Amylase 47 U/L (25-115); Anion Gap 2 (5-15); BUN 15 mg/dL (7-18); BUN/Creat Ratio 19.3 RATIO (10-20); Calcium,Total 7.9 mg/dL (8.5-10.1); Chloride 111 mmol/L (98-107); Creatinine, Serum 0.78 mg/dL (0.55-1.02); EST Glomerular Filtration Rate 79 mL/min (>60); Est Glom Filt Rate - Afr Amer 95 mL/min (>60); Globulin 3.7 g/dL (2.2-4.2); Glucose 148 mg/dL (74-106); Lipase 177 U/L (73-393); Potassium 4.4 mmol/L (3.5-5.1); Protein, Total 6.4 g/dL (6.4-8.2); Sodium Level 139 mmol/L (136-145); Thyroid Stim Hormone (TSH) 1.17 uIU/mL (0.358-3.74)
--- NOTE | 2020-07-16 15:25 | RAD_ITS ---
STUDY: X-RAY - LUMBAR SPINE REASON FOR EXAM: Female, 65 years old. LOW BACK PAIN X3 DAYS. TECHNIQUE: 3 view(s) of the lumbar spine were obtained. COMPARISON: None FINDINGS: Normal lumbar lordosis. There is no substantial scoliosis. There is a normal alignment of the vertebrae. Mild degenerative changes of the vertebral bodies with spurring at the endplates. Normal disc space heights. The soft tissue structures are unremarkable. Calcified aorta. RAD/Lumbar Spine 2 or 3 Views IMPRESSION: Degenerative changes of the lumbar spine. Electronically Signed: Moose Calles DO at 16:48 EST Tel [phone], Service support ,
== END ==
PROVIDERS: PCP Family Medicine Geriatric Medicine; Referring Provider Family Medicine Geriatric Medicine; Visit Provider Family Medicine Geriatric Medicine
DX: R10.9 Unspecified abdominal pain (principal); M54.6 Pain in thoracic spine; I10 Essential (primary) hypertension; N39.0 Urinary tract infection, site not specified
CPT/HCPCS: 36415; 72072; 72100; 74177; 80053; 82150; 83690; 84443; 85025; 86769; 87086; 87088; Q9967

== ENCOUNTER → 2020-07-22 09:49 | Outpatient (CLI) | payer MEDICARE, OTHER, SELFPAY ==
[2020-07-02 08:24] VITALS: BMI 32.8
--- NOTE | 2020-07-22 09:52 | CT_ITS ---
STUDY: CTA CHEST REASON FOR EXAM: Female, 65 years old. SOB X 1 WK, HX PE RADIATION DOSAGE (If Supplied By Facility): CTDIvol = ( 11.92 ) mGy, DLP = ( 426.63 ) mGycm TECHNIQUE: The examination was performed with the intravenous administration of IV 100mL Isovue-370. Post-processing of the angiographic images was performed, with multiplanar reformation and 3D reconstruction. Individualized dose optimization techniques were used for this CT. COMPARISON: Comparison is made with prior study dated 03/20/2018. FINDINGS: Normal enhancement of the main pulmonary artery and right and left pulmonary arteries. Normal enhancement of the bilateral peripheral pulmonary arteries. There is no demonstrated pulmonary embolism. There is atherosclerotic calcification of the aortic arch with tortuosity. There is no demonstrated aortic dissection. There are calcifications of the coronary arteries. Normal mediastinum. Normal hilar regions. Normal visualized trachea and bronchi. The lungs are well expanded. Stable calcified granuloma in the superior segment of the left upper lobe. Normal pleura. Normal chest wall structures. Normal osseous structures. The patient is status post cholecystectomy. There is a 3.1 cm x 1.5 cm cyst in upper pole of the left kidney. 1.5 cm cyst in the upper pole of the right kidney. Stable 8 mm cyst in the spleen. CT/CTA Chest W/WO Contrast IMPRESSION: Stable examination. No acute abnormality is seen. Electronically Signed: Matty Machado MD at 10:28 EST , Service support ,
[2020-07-22 13:38] LABS: SARS-COV-2 TOTAL ABS Reactive (Nonreactive)
== END ==
PROVIDERS: PCP Family Medicine Geriatric Medicine; Referring Provider Family Medicine Geriatric Medicine; Visit Provider Family Medicine Geriatric Medicine
DX: R06.02 Shortness of breath (principal); R53.83 Other fatigue
CPT/HCPCS: 36415; 71275; 86769; 87633; 87635; C9803; Q9967; U0003

== ENCOUNTER → 2020-07-22 14:06 | Outpatient (CLI) | payer MEDICARE, OTHER, SELFPAY ==
[2020-07-02 08:24] VITALS: BMI 32.8
== END ==
PROVIDERS: PCP Family Medicine Geriatric Medicine; Referring Provider Family Medicine Geriatric Medicine; Visit Provider Family Medicine Geriatric Medicine
DX: R68.83 Chills (without fever) (principal)
CPT/HCPCS: 87633; 87635; C9803; U0003

== ENCOUNTER → 2020-09-09 10:39 | Outpatient (CLI) | payer MEDICARE, OTHER, SELFPAY ==
[2020-07-02 08:24] VITALS: BMI 32.8
--- NOTE | 2020-09-09 10:46 | RAD_ITS ---
STUDY: X-RAY - ABDOMEN/PELVIS REASON FOR EXAM: Female, 65 years old. Abdominal pain. TECHNIQUE: AP supine and upright views of the abdomen and pelvis. COMPARISON: CT of the abdomen and pelvis, 07/16/2020. FINDINGS: Normal visualized lung bases. There is an unremarkable bowel gas pattern. There is no demonstrated free abdominal air. The visualized liver, spleen and kidneys are grossly normal in size and morphology. Cholecystectomy clips are seen in the right upper quadrant. There is a density beneath the left hemidiaphragm thought to correlate with a healed rib fracture seen on the CT. Normal soft tissue structures. Degenerative changes on the lumbar spine. There are degenerative changes of bilateral hips. RAD/Abd Inc Decub and/or Erect IMPRESSION: No acute intra-abdominal process. Electronically Signed: Alfredo Ayala DO at 17:19 EDT Tel [phone], Service support ,
[2020-09-09 12:46] LABS: Absolute Lymphocyte Count 1.92 X10^3/uL (0.83-4.51); Absolute Neutrophil Count 4.8 X10^3/uL (2.0-7.7); Basophil# 0.06 X10^3/uL; Basophil% 0.8 % (0-1); Eosinophil# 0.25 X10^3/uL; Eosinophils% 3.2 % (0-5); Hematocrit 43.8 % (37-47); Lymphocyte # 1.92 X10^3/ul (0.83-4.51); Lymphocyte % 24.9 % (19-41); Mean Corp Hgb Conc 29.7 g/dL (32-36); Mean Corpuscular Hgb 26.3 pg (27.0-32.0); Mean Corpuscular Volume 88.7 fL (81-99); Mean Platelet Vol. 9.7 fl (6.2-12.0); Monocyte% 7.8 % (0-10); NRBC Flagged by Analyzer 0 % (0-5); Neutrophil # 4.83 X10^3/uL (2.7-7.7); Neutrophil % 62.8 % (47-70); Platelet Count 364 K/mm3 (150-450); RBC Distribution Width CV 13.4 % (11.6-14.6); Red Blood Count 4.94 M/mm3 (4.2-5.4); White Blood Count 7.7 K/mm3 (4.4-11.0)
[2020-09-09 13:13] LABS: Anion Gap 2 (5-15); BUN 11 mg/dL (7-18); BUN/Creat Ratio 13.8 RATIO (10-20); Calcium,Total 9.3 mg/dL (8.5-10.1); Chloride 104 mmol/L (98-107); EST Glomerular Filtration Rate 76 mL/min (>60); Est Glom Filt Rate - Afr Amer 92 mL/min (>60); Glucose 118 mg/dL (74-106); Potassium 4.5 mmol/L (3.5-5.1); Sodium Level 136 mmol/L (136-145)
== END ==
PROVIDERS: PCP Family Medicine Geriatric Medicine; Referring Provider Family Medicine Geriatric Medicine; Visit Provider Family Medicine Geriatric Medicine
DX: R10.9 Unspecified abdominal pain (principal)
CPT/HCPCS: 36415; 74019; 80048; 85025

== ENCOUNTER → 2020-09-15 12:42 | Outpatient (CLI) | payer MEDICARE, OTHER, SELFPAY ==
[2020-07-02 08:24] VITALS: BMI 32.8
--- NOTE | 2020-09-15 13:47 | SP.MBSS_ITS ---
Modified Barium Swallow - Patient Information Study Date: 09/15/20 Study Time: 13:00 Direct Billable Minutes: 135 Total Minutes procedure & reportin Diagnosis: dysphagia Referring Physician: Tal Lundy Chi Reason for Referral: Objective assessment of swallow function ordered d/t patient report of 3-4 month long sensation of medications and foods sticking in her throat.Patient reports symptoms to be worse w/ pills and dry textures (i.e. meat/bread). Additionally reports a globus sensation which may be present in the absence of PO intake or when swallowing her own saliva. Concomitant symptoms include increased frequency of synchronous diaphragmatic flutter (hiccups). Medical History: anxiety, depression, DMII, GERD, hypercholesterolemia, CHRISTOPHER - history obtained from review of electronic medical record and patient report; patient denies: head/neck surgery, hx head/neck CA; reports hospitalization in February of 2019 for PNA Dentition: Natural Teeth Mental Status: WNL Respiratory Status: Oxygenating on Room Air - Penetration-Aspiration Scale Penetration-Aspiration Scale: OBJECTIVE ASSESSMENT OF SWALLOW FUNCTION (QUANTITATIVE ? PER TRIAL): PENETRATION / ASPIRATION SCALE (BO): 1 = does not enter airway 2 = enters airway/above vocal folds/ejected 3 = enters airway/above vocal folds/not ejected 4 = enters airway/contacts vocal folds/ejected 5 = enters airway/contacts vocal folds/not ejected 6 = enters airway/below vocal folds/ejected 7 = enters airway/below vocal folds/not ejected despite effort 8 = enters airway/below vocal folds/no effort - Penetration-Aspiration Scale Score Thin Liquid via teaspoon Result: 1= does not enter airway Thin Liquid via teaspoon Trial 2 Result: 1= does not enter airway Thin Liquid via small single sip from cup Result: 2= enter airway/above vocal folds/ejected Thin Liquid via small single sip from cup Trial 2 Result: 2= enter airway/above vocal folds/ejected Thin Liquid via single sip from straw - large Result: 2= enter airway/above vocal folds/ejected Thin Liquid via single sip from straw - small Result: 2= enter airway/above vocal folds/ejected Thin Liquid via sequential sips from cup Result: 2= enter airway/above vocal folds/ejected Pudding Result: 1= does not enter airway Pudding + esophageal clearance screen Result: 1= does not enter airway Cookie Result: 1= does not enter airway Barium Tablet + esophageal screen Result: 2= enter airway/above vocal folds/ejected - Oral Phase Labial Seal: No Labial Escape Tongue Control During Bolus Hold: Cohesive bolus between tongue to palatal seal Bolus Preparation/Mastication: Timely and efficient chewing and mashing Bolus Transport/Lingual Motion: Brisk tongue motion Oral Residue: Residue collection on oral structures - Pharyngeal Phase Initiation of Pharyngeal Swallow: Bolus head at posterior laryngeal surgace of epiglottis Soft Palate Elevation: No bolus between soft palate and pharyngeal wall Laryngeal Elevation: Comp. Superior move thyroid cart w/comp. apprx arytenoid cart-epig pet Anterior Hyoid Excursion: Complete anterior movement Epiglottic Movement: Complete inversion Laryngeal Vestibule Closure at Height of Swallow: Complete; no air/contrast in laryngeal vestibule Pharyngeal Stripping Wave: Present - complete Pharyngoesophageal Segment Opening: Complete distension and complete duration; no obstruction of flow Tongue Base Retraction: Trace column of contrast between tongue base & post. pharyngeal wall Pharyngeal Residue: Trace residue within or on pharyngeal structures - Esophageal Phase Esophageal Clearance: Esophageal retention - Diagnosis/Impression Diagnosis: Functional Oropharyngeal Swallow Impression: This patient presents w/ an oropharyngeal swallow that is grossly within functional limits, characterized by timely oral prep w/ cohesive bolus formation and organized A-P bolus transfer. Patient independently larger pudding boluses info 2-3 smaller boluses w/ piecemeal deglutition, likely d/t perceived difficulty w/ pharyngeal clearance of food and pills. Mild reduction in base of tongue retraction w/ trace-mild residue retention on the pharyngeal tongue base. Spillage to the posterior laryngeal surface of the epiglottis w/ penetration undercoating the epiglottis during the swallow with larger volume thin liquid boluses. Delayed but complete arytenoid to epiglottic petiole contact which effectively ejected penetrated thin liquid contrast to achieve complete laryngeal vestibule closure and airway protection during deglutition. Adequate pharyngeal contraction and PES distention/duration w/ nearly complete pharyngeal bolus clearance - no vallecular, pyriform, aryepiglottic fold or posterior pharyngeal wall residue evident post deglutition. Screening for esophageal clearance was completed following a trial of pudding due to the patient reporting the sensation of pudding retention despite complete pharyngeal clearance. Additionally, screened [id number] transportation of a barium tablet d/t patient report of difficulty swallowing/clearing pills, which precipitated referral for the Modified Barium Swallow Study. Screening revealed esophageal retention of pudding and of the barium tablet w/out limited motility visibleand barium tablet trapping. Further assessment of esophageal function is recommended. Highly suspect that the reported sensation of pharyngeal retention can actually be attributed to esophageal retention/dysmotility. - Recommendations Diet: Regular Textures, Thin Liquids Compensatory Strategies: Small Bites, Small Sips, Slow Rate, Alternate bites/solids and sips/liquids, Sitting upright, Remain sitting upright for 30 minutes after PO intake - GERD precautions Recommend Repeat Modified Barium Swallow: No Need for Skilled Speech Therapy Services: No Recommended Referrals: GI Consult Education Completed: 1. Described result of evaluation., 2. Pt understands evaluation & agrees with goals and treatment plan. Comment: Images were reviewed with the patient immediately following MBS conclusion. Education provided re: findings, recommendations and potential need for referral for additional assessment of esophageal function. Discussed considerations for modifying rate of intake, bolus size, and positioning during/after intake to potentially reduce symptoms. Education well received w/ the patient verbalizing understanding of the recommendations and education provided. - Image Count: [id number] - Status Active ST Patient: Active - Contact Information [facility] Speech Therapy:: Trish Beltrán M.A., CCC-CIRCULATING PROCESS INSPECTOR [facility] [address] [place] [address] [email or web address] [phone]
== END ==
PROVIDERS: PCP Family Medicine Geriatric Medicine; Referring Provider Family Medicine Geriatric Medicine; Visit Provider Family Medicine Geriatric Medicine
DX: R13.10 Dysphagia, unspecified (principal)
CPT/HCPCS: 74230; 92611

== ENCOUNTER → 2020-09-21 11:06 | Outpatient (CLI) | payer MEDICARE, OTHER, SELFPAY ==
[2020-07-02 08:24] VITALS: BMI 32.8
[2020-09-21 12:27] LABS: Absolute Lymphocyte Count 1.26 X10^3/uL (0.83-4.51); Absolute Neutrophil Count 5.7 X10^3/uL (2.0-7.7); Basophil# 0.04 X10^3/uL; Basophil% 0.5 % (0-1); Eosinophil# 0.48 X10^3/uL; Hematocrit 44.4 % (37-47); Hemoglobin 13.3 g/dL (12.0-15.0); Lymphocyte # 1.26 X10^3/ul (0.83-4.51); Lymphocyte % 15.6 % (19-41); Mean Corpuscular Hgb 26.8 pg (27.0-32.0); Mean Corpuscular Volume 89.5 fL (81-99); Mean Platelet Vol. 9.6 fl (6.2-12.0); Monocyte% 6.2 % (0-10); NRBC Flagged by Analyzer 0 % (0-5); Neutrophil # 5.74 X10^3/uL (2.7-7.7); Neutrophil % 71.2 % (47-70); Platelet Count 354 K/mm3 (150-450); RBC Distribution Width CV 13.4 % (11.6-14.6); RBC Distribution Width SD 43.9 fl (35.1-43.9); Red Blood Count 4.96 M/mm3 (4.2-5.4); White Blood Count 8.1 K/mm3 (4.4-11.0)
[2020-09-21 12:50] LABS: Anion Gap 5 (5-15); BUN 12 mg/dL (7-18); BUN/Creat Ratio 14.6 RATIO (10-20); Calcium,Total 9.4 mg/dL (8.5-10.1); Chloride 101 mmol/L (98-107); Creatinine, Serum 0.82 mg/dL (0.55-1.02); EST Glomerular Filtration Rate 74 mL/min (>60); Est Glom Filt Rate - Afr Amer 90 mL/min (>60); Glucose 134 mg/dL (74-106); Potassium 4.2 mmol/L (3.5-5.1); Sodium Level 137 mmol/L (136-145)
== END ==
PROVIDERS: PCP Family Medicine Geriatric Medicine; Visit Provider Family Medicine Geriatric Medicine
DX: N39.0 Urinary tract infection, site not specified (principal); R53.83 Other fatigue
CPT/HCPCS: 36415; 80048; 85025; 87086; 87088

== ENCOUNTER → 2020-09-23 14:14 | Outpatient (CLI) | payer MEDICARE, OTHER, SELFPAY ==
[2020-07-02 08:24] VITALS: BMI 32.8
== END ==
PROVIDERS: PCP Family Medicine Geriatric Medicine; Referring Provider Family Medicine Geriatric Medicine; Visit Provider Family Medicine Geriatric Medicine
DX: R06.89 Other abnormalities of breathing (principal)
CPT/HCPCS: 87635; C9803; U0002

== ENCOUNTER → 2020-09-24 09:20 | Outpatient (CLI) | payer MEDICARE, OTHER, SELFPAY ==
[2020-07-02 08:24] VITALS: BMI 32.8
--- NOTE | 2020-09-24 09:28 | RAD_ITS ---
STUDY: X-RAY - ESOPHAGUS (BARIUM SWALLOW) WITH FLUOROSCOPY REASON FOR EXAM: Female, 65 years old. DYSPHAGIA TECHNIQUE: 17 view(s) of the esophagus were obtained following swallowing of barium. FLUOROSCOPY TIME (if supplied): (55 seconds) minutes/seconds COMPARISON: None. FINDINGS: There is no demonstrated esophageal foreign body. There is no demonstrated stricture or mucosal abnormality. Normal gastroesophageal junction, without a demonstrated hiatal hernia. The patient ingested a 12 mm tablet of barium. The tablet is trapped at the gastroesophageal junction. There is atherosclerotic calcification of the aortic arch with tortuosity of the descending aorta. Normal visualized pulmonary parenchyma. There are diffuse degenerative changes of the visualized thoracic spine. RAD/Esophagus Dual Contrast IMPRESSION: The 12 mm tablet of barium is trapped at the gastroesophageal junction. Electronically Signed: Matty Machado MD at 10:09 EDT , Service support ,
== END ==
PROVIDERS: PCP Family Medicine Geriatric Medicine; Referring Provider Family Medicine Geriatric Medicine; Visit Provider Family Medicine Geriatric Medicine
DX: R13.10 Dysphagia, unspecified (principal)
CPT/HCPCS: 74221

== ENCOUNTER → 2020-09-30 12:14 | Outpatient (CLI) | payer MEDICARE, OTHER, SELFPAY ==
[2020-07-02 08:24] VITALS: BMI 32.8
--- NOTE | 2020-09-30 12:17 | BI_ITS ---
MAMMOGRAPHY - BILATERAL SCREENING REASON FOR EXAM: Female, 65 years old. Routine annual screening examination. PERTINENT HISTORY: Non-contributory. TECHNIQUE: Digital bilateral breast tonya (3D mammographic acquisition) in the CC and MLO projections. 2-D mediolateral oblique (MLO) and craniocaudad (CC) views of both breasts were obtained. CAD: Full Field Digital Mammography with Computer Added Detection was performed. COMPARISON: Comparison is made with prior study dated 03/25/2019 and 12/07/2017. FINDINGS: Breast Composition: The breasts are almost entirely fatty. There are no dominant masses or suspicious calcifications. No other significant abnormalities are identified. There has been no significant change since the prior study. BI/SCRN MAMM (CAD)W/TONYA BILAT IMPRESSION: Stable bilateral screening mammogram. Yearly follow-up mammogram recommended. (A) ASSESSMENT CATEGORY: BIRADS Category 1: Negative. A letter regarding these results will be sent to the patient by the facility within 30 days. Approximately 10% of breast cancers are not detected by mammography. A normal mammogram should not delay biopsy of a clinically suspicious abnormality. [id number] Electronically Signed: Matty Machado MD at 12:59 EDT , Service support ,
== END ==
PROVIDERS: PCP Family Medicine Geriatric Medicine; Referring Provider Family Medicine Geriatric Medicine; Visit Provider Family Medicine Geriatric Medicine
DX: Z12.31 Encounter for screening mammogram for malignant neoplasm of breast (principal)
CPT/HCPCS: 77063; 77067

== ENCOUNTER → 2020-11-13 17:50 | Outpatient (CLI) | payer MEDICARE, OTHER, SELFPAY ==
[2020-07-02 08:24] VITALS: BMI 32.8
== END ==
PROVIDERS: PCP Family Medicine Geriatric Medicine; Visit Provider Physician Assistant Surgical
DX: N30.00 Acute cystitis without hematuria (principal)
CPT/HCPCS: 87086; 87088

== ENCOUNTER → 2020-11-19 16:57 | Outpatient (CLI) | payer MEDICARE, OTHER, SELFPAY ==
[2020-07-02 08:24] VITALS: BMI 32.8
--- NOTE | 2020-11-19 17:04 | CT_ITS ---
STUDY: CT CHEST WITHOUT CONTRAST REASON FOR EXAM: Female, 65 years old. MULTIPLE RIB FX RADIATION DOSAGE (If Supplied By Facility): CTDIvol = ( 13.52 ) mGy, DLP = ( 473.79 ) mGycm TECHNIQUE: Transaxial imaging was performed without the administration of intravenous contrast material. Individualized dose optimization techniques were used for this CT. COMPARISON: 07/22/2020 FINDINGS: The lungs are normal. There is no demonstrated pleural abnormality. Normal heart and pericardium. There are calcifications of the coronary arteries. Normal mediastinum. Normal hilar regions. Normal unenhanced pulmonary arteries. Normal aorta arch and descending thoracic aorta. Healed fractures of the posterior lateral left eighth and ninth ribs. Status post cholecystectomy. CT/Chest without Contrast IMPRESSION: Healed fractures the posterior lateral left eighth and ninth ribs. Electronically Signed: Taiwo Mattson MD at 18:57 EDT Tel , Service support ,
== END ==
PROVIDERS: PCP Family Medicine Geriatric Medicine; Referring Provider Orthopaedic Surgery; Visit Provider Orthopaedic Surgery
DX: G56.03 Carpal tunnel syndrome, bilateral upper limbs (principal); S22.42XG Multiple fractures of ribs, left side, subsequent encounter for fracture with delayed healing
CPT/HCPCS: 71250

== ENCOUNTER → 2020-11-23 12:04 | Outpatient (CLI) | payer MEDICARE, OTHER, SELFPAY ==
[2020-07-02 08:24] VITALS: BMI 32.8
--- NOTE | 2020-11-23 12:05 | EKG12_ITS ---
Test Reason : PRE OP Blood Pressure : / mmHG Vent. Rate : 079 BPM Atrial Rate : 079 BPM P-R Int : 144 ms QRS Dur : 068 ms QT Int : 378 ms P-R-T Axes : 016 -07 053 degrees QTc Int : 433 ms Normal sinus rhythm Low voltage QRS Borderline ECG Confirmed by LIZZETTE COLINDRES, JENNA ([id number]), make up editor STEVE DUEÑAS ([id number]) on 11/24/2020 8:39:30 AM Referred By: David Isidro Confirmed By:JENNA CROCKER MD
[2020-11-23 13:32] LABS: Hemoglobin 12.4 g/dL (12.0-15.0); Mean Corp Hgb Conc 30.2 g/dL (32-36); Mean Platelet Vol. 9.7 fl (6.2-12.0); Platelet Count 331 K/mm3 (150-450); RBC Distribution Width CV 13.4 % (11.6-14.6); RBC Distribution Width SD 42.4 fl (35.1-43.9); Red Blood Count 4.77 M/mm3 (4.2-5.4); White Blood Count 6.7 K/mm3 (4.4-11.0)
[2020-11-23 13:54] LABS: Anion Gap 4 (5-15); BUN 12 mg/dL (7-18); BUN/Creat Ratio 15.5 RATIO (10-20); Calcium,Total 8.8 mg/dL (8.5-10.1); Chloride 103 mmol/L (98-107); Creatinine, Serum 0.77 mg/dL (0.55-1.02); EST Glomerular Filtration Rate 79 mL/min (>60); Est Glom Filt Rate - Afr Amer 96 mL/min (>60); Glucose 132 mg/dL (74-106); Potassium 4.2 mmol/L (3.5-5.1); Sodium Level 142 mmol/L (136-145)
== END ==
PROVIDERS: PCP Family Medicine Geriatric Medicine; Referring Provider Orthopaedic Surgery; Visit Provider Orthopaedic Surgery
DX: Z01.818 Encounter for other preprocedural examination (principal); Z01.810 Encounter for preprocedural cardiovascular examination
CPT/HCPCS: 36415; 80048; 85027; 93005

== ENCOUNTER → 2020-12-10 13:48 | Outpatient (CLI) | payer MEDICARE, OTHER, SELFPAY ==
[2020-07-02 08:24] VITALS: BMI 32.8
[2020-12-10 17:13] LABS: Absolute Neutrophil Count 5.3 X10^3/uL (2.0-7.7); Basophil# 0.03 X10^3/uL; Basophil% 0.4 % (0-1); Eosinophil# 0.26 X10^3/uL; Eosinophils% 3.1 % (0-5); Hematocrit 43.7 % (37-47); Hemoglobin 13.3 g/dL (12.0-15.0); Lymphocyte % 24.9 % (19-41); Mean Corp Hgb Conc 30.4 g/dL (32-36); Mean Corpuscular Hgb 26.2 pg (27.0-32.0); Mean Platelet Vol. 9.8 fl (6.2-12.0); Monocyte# 0.72 X10^3/uL; Monocyte% 8.5 % (0-10); NRBC Flagged by Analyzer 0 % (0-5); Neutrophil # 5.31 X10^3/uL (2.7-7.7); Neutrophil % 62.9 % (47-70); Platelet Count 347 K/mm3 (150-450); RBC Distribution Width CV 13.8 % (11.6-14.6); RBC Distribution Width SD 43.3 fl (35.1-43.9); Red Blood Count 5.08 M/mm3 (4.2-5.4); White Blood Count 8.4 K/mm3 (4.4-11.0)
[2020-12-10 18:19] LABS: ALB/GLOB Ratio 0.7 RATIO (0.9-2.4); AST(SGOT) 19 U/L (15-37); Alanine Aminotransfer ALT/SGPT 32 U/L (13-56); Albumin, Serum 3.3 g/dL (3.2-5.0); Alkaline Phosphatase 88 U/L (45-117); Anion Gap 5 (5-15); BUN 13 mg/dL (7-18); BUN/Creat Ratio 13.3 RATIO (10-20); Chloride 102 mmol/L (98-107); Creatinine, Serum 0.98 mg/dL (0.55-1.02); EST Glomerular Filtration Rate 60 mL/min (>60); Est Glom Filt Rate - Afr Amer 73 mL/min (>60); Globulin 4.6 g/dL (2.2-4.2); Glucose 102 mg/dL (74-106); Potassium 4.3 mmol/L (3.5-5.1); Protein, Total 7.9 g/dL (6.4-8.2); Sodium Level 137 mmol/L (136-145); Thyroid Stim Hormone (TSH) 1.59 uIU/mL (0.358-3.74)
[2020-12-10 21:29] LABS: Vitamin D,25 Hydroxy 17.1 ng/mL
== END ==
PROVIDERS: PCP Family Medicine Geriatric Medicine; Visit Provider Family Medicine Geriatric Medicine
DX: E11.65 Type 2 diabetes mellitus with hyperglycemia (principal); E55.9 Vitamin D deficiency, unspecified; R53.83 Other fatigue
CPT/HCPCS: 36415; 80053; 82306; 84443; 85025

== ENCOUNTER → 2021-03-16 13:20 | Outpatient (CLI) | payer MEDICARE, OTHER, SELFPAY ==
--- NOTE | 2021-03-16 14:05 | RAD_ITS ---
STUDY: X-RAY - THORACIC SPINE REASON FOR EXAM: Female, 65 years old. BACK PAIN TECHNIQUE: 3 view(s) of the thoracic spine were obtained. COMPARISON: 07/16/2020 FINDINGS: Normal kyphosis of the thoracic spine. Mild levoscoliosis of the upper thoracic spine. There is multilevel endplate spondylosis of the thoracic vertebrae. There is multilevel disc space narrowing of the thoracic spine. The soft tissue structures are unremarkable. RAD/Thoracic Spine 3 Views IMPRESSION: Mild levoscoliosis with diffuse degenerative disc disease. Electronically Signed: Taiwo Mattson MD at 17:56 EDT Tel , Service support ,
--- NOTE | 2021-03-16 14:05 | RAD_ITS ---
STUDY: X-RAY - LUMBOSACRAL SPINE REASON FOR EXAM: Female, 65 years old. BACK PAIN TECHNIQUE: 7 view(s) of the lumbosacral spine were obtained. COMPARISON: 07/16/2020 FINDINGS: Normal lumbar lordosis. Mild levoscoliosis centered at L2. There is normal alignment of the vertebrae. No subluxation on the flexion or extension views to suggest instability. There is multilevel endplate spondylosis of the lumbar vertebrae. Normal disc space heights. Normal bilateral sacral ala, sacroiliac joints, and visualized sacrum. Normal visualized soft tissue structures. RAD/L/S Spine Comp/w Bending Views IMPRESSION: Mild levoscoliosis with diffuse degenerative disc disease. Electronically Signed: Taiwo Mattson MD at 17:58 EDT Tel , Service support ,
[2021-03-16 17:49] LABS: Absolute Lymphocyte Count 1.75 X10^3/uL (0.83-4.51); Basophil# 0.03 X10^3/uL; Basophil% 0.5 % (0-1); Eosinophils% 3.1 % (0-5); Hematocrit 41.8 % (37-47); Hemoglobin 12.5 g/dL (12.0-15.0); Lymphocyte # 1.75 X10^3/ul (0.83-4.51); Mean Corp Hgb Conc 29.9 g/dL (32-36); Mean Corpuscular Volume 87.1 fL (81-99); Mean Platelet Vol. 10.1 fl (6.2-12.0); Monocyte# 0.46 X10^3/uL; Monocyte% 7.1 % (0-10); NRBC Flagged by Analyzer 0 % (0-5); Neutrophil # 4.03 X10^3/uL (2.7-7.7); Platelet Count 279 K/mm3 (150-450); RBC Distribution Width CV 14.3 % (11.6-14.6); RBC Distribution Width SD 45.8 fl (35.1-43.9); White Blood Count 6.5 K/mm3 (4.4-11.0)
[2021-03-16 18:06] LABS: ALB/GLOB Ratio 0.8 RATIO (0.9-2.4); AST(SGOT) 17 U/L (15-37); Alanine Aminotransfer ALT/SGPT 27 U/L (13-56); Albumin, Serum 3.1 g/dL (3.2-5.0); Alkaline Phosphatase 73 U/L (45-117); Anion Gap 8 (5-15); BUN 13 mg/dL (7-18); BUN/Creat Ratio 16.2 RATIO (10-20); Calcium,Total 8.7 mg/dL (8.5-10.1); Chloride 104 mmol/L (98-107); EST Glomerular Filtration Rate 76 mL/min (>60); Est Glom Filt Rate - Afr Amer 92 mL/min (>60); Globulin 4.1 g/dL (2.2-4.2); Glucose 151 mg/dL (74-106); Potassium 3.9 mmol/L (3.5-5.1); Protein, Total 7.2 g/dL (6.4-8.2); Sodium Level 140 mmol/L (136-145)
[2021-03-17 12:19] LABS: Vitamin D,25 Hydroxy 20.4 ng/mL
== END ==
PROVIDERS: PCP Family Medicine Geriatric Medicine; Referring Provider Family Medicine Geriatric Medicine; Visit Provider Family Medicine Geriatric Medicine
DX: M54.6 Pain in thoracic spine (principal); E11.65 Type 2 diabetes mellitus with hyperglycemia; E55.9 Vitamin D deficiency, unspecified; R53.83 Other fatigue; M54.50 Low back pain, unspecified
CPT/HCPCS: 36415; 72072; 72114; 80053; 82306; 85025

== ENCOUNTER → 2021-03-17 10:22 | Outpatient (CLI) | payer MEDICARE, OTHER, SELFPAY ==
[2021-03-17 13:03] LABS: Cholesterol 209 mg/dL (200); High Density Lipoprotein 47 mg/dL; Thyroid Stim Hormone (TSH) 1.35 uIU/mL (0.358-3.74); Triglycerides 267 mg/dL; Very Low Density Lipoprotein 53 mg/dL (5-40)
[2021-03-17 14:48] LABS: Hemoglobin A1c 6.4 % (3.8-5.6)
== END ==
PROVIDERS: PCP Family Medicine Geriatric Medicine
DX: E11.65 Type 2 diabetes mellitus with hyperglycemia (principal)
CPT/HCPCS: 36415; 80061; 83036; 84443

== ENCOUNTER → 2021-03-23 | Outpatient (CLI) | payer MEDICARE, OTHER, SELFPAY ==
--- NOTE | 2021-03-23 09:50 | LES_PTH ---
PATIENT: LACIE WHITE LOC: [facility] U#:[id number] AGE/SX: 66/F ROOM: RE03/23/[address]: Dr. Tal Lundy MD : 1955 BED: DIS: 03/23/2021 SPEC #: [id number] RECD: 03/23/21 12:30 STATUS: AUDI RESilvia #: [id number] LUPE: 03/23/21 09:[address]: Tal Lundy Chi DEPT: SURGICAL PATHOLOGY RECD BY: Danette Stevens Tissues: Skin of arm Procedures: Surgery Specimen Level IV HEADER OPERATION: Not noted PRE-OP DIAGNOSIS: L98.9 TISSUE SUBMITTED: Right wrist MICROSCOPIC DIAGNOSIS Skin lesion of right wrist, shave biopsy: Mild actinic change. Extensive solar elastosis. AM:jade 03/24/2021 MICROSCOPIC DESCRIPTION Slides are reviewed. GROSS DESCRIPTION Received in fixative is one container labeled with the patient's name and designated right wrist. The specimen consists of a shave biopsy of fuchs-white skin measuring 1 x 0.7 x 0.1 cm. The specimen is inked, serially sectioned and submitted entirely in one cassette. / SJ:rg 03/23/21 TC:5 CPT: 80668
== END | disposition home or self-care (01) ==
LOC: POLAB3 11:47 → LABSPEC 11:49
PROVIDERS: PCP Family Medicine Geriatric Medicine; Visit Provider Family Medicine Geriatric Medicine
DX: L57.8 Other skin changes due to chronic exposure to nonionizing radiation (principal)
CPT/HCPCS: 88305

== ENCOUNTER → 2021-11-10 | Outpatient (CLI) | payer MEDICARE, OTHER, SELFPAY ==
--- NOTE | 2021-11-10 12:05 | BI_ITS ---
MAMMOGRAPHY - BILATERAL SCREENING REASON FOR EXAM: Female, 66 years old. Routine annual screening examination. PERTINENT HISTORY: Non-contributory. One month history of lateral breast tenderness. TECHNIQUE: Digital bilateral breast tonya (3D mammographic acquisition) in the CC and MLO projections. 2-D mediolateral oblique (MLO) and craniocaudad (CC) views of both breasts were obtained. CAD: Full Field Digital Mammography with Computer Added Detection was performed. COMPARISON: Comparison is made with prior study dated 09/30/2020 and 03/25/2019. FINDINGS: Breast Composition: The breasts are almost entirely fatty. There are no dominant masses or suspicious calcifications. No other significant abnormalities are identified. There has been no significant change since the prior study. BI/SCRN MAMM (CAD)W/TONYA BILAT IMPRESSION: Stable bilateral screening mammogram. Yearly follow-up mammogram recommended. (A) ASSESSMENT CATEGORY: BIRADS Category 1: Negative. A letter regarding these results will be sent to the patient by the facility within 30 days. Approximately 10% of breast cancers are not detected by mammography. A normal mammogram should not delay biopsy of a clinically suspicious abnormality. [id number] Electronically Signed: Matty Machado MD at 12:58 EDT ,
== END | disposition home or self-care (01) ==
LOC: OPBI 12:02
PROVIDERS: PCP Family Medicine Geriatric Medicine; Visit Provider Family Medicine Geriatric Medicine
DX: Z12.31 Encounter for screening mammogram for malignant neoplasm of breast (principal)
CPT/HCPCS: 77063; 77067

== ENCOUNTER → 2021-11-24 | Outpatient (CLI) | payer MEDICARE, OTHER, SELFPAY ==
[2021-11-24 12:46] LABS: Absolute Lymphocyte Count 1.76 X10^3/uL (0.83-4.51); Absolute Neutrophil Count 4.7 X10^3/uL (2.0-7.7); Basophil# 0.03 X10^3/uL; Basophil% 0.4 % (0-1); Eosinophil# 0.21 X10^3/uL; Eosinophils% 2.9 % (0-5); Hematocrit 41.4 % (37-47); Hemoglobin 12.7 g/dL (12.0-15.0); Lymphocyte # 1.76 X10^3/ul (0.83-4.51); Lymphocyte % 24.1 % (19-41); Mean Corp Hgb Conc 30.7 g/dL (32-36); Mean Corpuscular Hgb 26.5 pg (27.0-32.0); Mean Corpuscular Volume 86.4 fL (81-99); Mean Platelet Vol. 9.7 fl (6.2-12.0); Monocyte# 0.64 X10^3/uL; Monocyte% 8.8 % (0-10); NRBC Flagged by Analyzer 0 % (0-5); Neutrophil # 4.65 X10^3/uL (2.7-7.7); Neutrophil % 63.5 % (47-70); Platelet Count 306 K/mm3 (150-450); RBC Distribution Width CV 13.9 % (11.6-14.6); RBC Distribution Width SD 44.1 fl (35.1-43.9); Red Blood Count 4.79 M/mm3 (4.2-5.4); White Blood Count 7.3 K/mm3 (4.4-11.0)
[2021-11-24 13:15] LABS: ALB/GLOB Ratio 0.8 RATIO (0.9-2.4); AST(SGOT) 16 U/L (15-37); Alanine Aminotransfer ALT/SGPT 26 U/L (13-56); Albumin, Serum 3.2 g/dL (3.2-5.0); Alkaline Phosphatase 85 U/L (45-117); Anion Gap 2 (5-15); BUN 17 mg/dL (7-18); BUN/Creat Ratio 20.4 RATIO (10-20); Calcium,Total 9.4 mg/dL (8.5-10.1); Chloride 104 mmol/L (98-107); Creatinine, Serum 0.83 mg/dL (0.55-1.02); EST Glomerular Filtration Rate 73 mL/min (>60); Est Glom Filt Rate - Afr Amer 88 mL/min (>60); Glucose 94 mg/dL (74-106); Magnesium 2.3 mg/dL (1.6-2.6); Phosphorus 3.8 mg/dL (2.5-4.9); Potassium 4.4 mmol/L (3.5-5.1); Protein, Total 7.2 g/dL (6.4-8.2); Sodium Level 139 mmol/L (136-145)
== END | disposition home or self-care (01) ==
LOC: LAB 11:23
PROVIDERS: PCP Family Medicine Geriatric Medicine; Visit Provider Family Medicine Geriatric Medicine
DX: R25.2 Cramp and spasm (principal)
CPT/HCPCS: 36415; 80053; 83735; 84100; 85025

== ENCOUNTER → 2021-12-13 | Outpatient (CLI) | payer MEDICARE, OTHER, SELFPAY ==
[2021-12-13 17:24] LABS: Absolute Lymphocyte Count 2.26 X10^3/uL (0.83-4.51); Basophil# 0.03 X10^3/uL; Basophil% 0.4 % (0-1); Eosinophil# 0.28 X10^3/uL; Eosinophils% 3.9 % (0-5); Hematocrit 40.3 % (37-47); Hemoglobin 12.6 g/dL (12.0-15.0); Lymphocyte # 2.26 X10^3/ul (0.83-4.51); Lymphocyte % 31.3 % (19-41); Mean Corp Hgb Conc 31.3 g/dL (32-36); Mean Corpuscular Volume 86.5 fL (81-99); Mean Platelet Vol. 9.7 fl (6.2-12.0); Monocyte# 0.66 X10^3/uL; Monocyte% 9.1 % (0-10); NRBC Flagged by Analyzer 0 % (0-5); Neutrophil # 3.96 X10^3/uL (2.7-7.7); Neutrophil % 54.7 % (47-70); Platelet Count 304 K/mm3 (150-450); RBC Distribution Width CV 13.8 % (11.6-14.6); RBC Distribution Width SD 43.8 fl (35.1-43.9); Red Blood Count 4.66 M/mm3 (4.2-5.4); White Blood Count 7.2 K/mm3 (4.4-11.0)
[2021-12-13 17:47] LABS: ALB/GLOB Ratio 0.8 RATIO (0.9-2.4); AST(SGOT) 12 U/L (15-37); Alanine Aminotransfer ALT/SGPT 24 U/L (13-56); Albumin, Serum 3.3 g/dL (3.2-5.0); Alkaline Phosphatase 86 U/L (45-117); Anion Gap 6 (5-15); BUN 16 mg/dL (7-18); BUN/Creat Ratio 18.4 RATIO (10-20); Calcium,Total 9.5 mg/dL (8.5-10.1); Chloride 102 mmol/L (98-107); Creatinine, Serum 0.87 mg/dL (0.55-1.02); EST Glomerular Filtration Rate 69 mL/min (>60); Est Glom Filt Rate - Afr Amer 83 mL/min (>60); Globulin 4.2 g/dL (2.2-4.2); Glucose 130 mg/dL (74-106); Potassium 4.4 mmol/L (3.5-5.1); Protein, Total 7.5 g/dL (6.4-8.2); Sodium Level 140 mmol/L (136-145); Thyroid Stim Hormone (TSH) 1.99 uIU/mL (0.358-3.74)
[2021-12-13 19:09] LABS: Vitamin D,25 Hydroxy 19.1 ng/mL
== END | disposition home or self-care (01) ==
LOC: POLAB3 13:42
PROVIDERS: PCP Family Medicine Geriatric Medicine; Visit Provider Family Medicine Geriatric Medicine
DX: R53.83 Other fatigue (principal); E11.65 Type 2 diabetes mellitus with hyperglycemia; E55.9 Vitamin D deficiency, unspecified
CPT/HCPCS: 36415; 80053; 82306; 84443; 85025

== ENCOUNTER → 2022-02-03 | Outpatient (CLI) | payer MEDICARE, OTHER, SELFPAY | END | disposition home or self-care (01) | LOC: LABSPEC 15:41 | PROVIDERS: PCP Family Medicine Geriatric Medicine; Visit Provider Family Medicine Geriatric Medicine | DX: N39.0 Urinary tract infection, site not specified (principal) | CPT/HCPCS: 87086; 87088 ==

== ENCOUNTER → 2022-03-03 | Outpatient (CLI) | payer MEDICARE, OTHER, SELFPAY | END | disposition home or self-care (01) | LOC: PSN 14:54 | PROVIDERS: PCP Family Medicine Geriatric Medicine; Visit Provider Family Medicine Geriatric Medicine | DX: R68.83 Chills (without fever) (principal) | CPT/HCPCS: 87635; 87804; 87807; C9803; U0003; U0005 ==

== ENCOUNTER → 2022-03-14 | Outpatient (CLI) | payer MEDICARE, OTHER, SELFPAY ==
--- NOTE | 2022-03-14 17:25 | CT_ITS ---
HISTORY: TOBACCO DEPENDENCE. TECHNIQUE: Helically acquired images were obtained of the chest without contrast. A radiation dose optimization technique was used for this scan. 835 images. COMPARISON: 02/19/2021, 07/22/2020. FINDINGS: LARGE AIRWAYS: Patent. LUNGS: Stable 5 mm groundglass right upper lobe nodule. Stable 10 mm partially calcified irregular left lower lobe nodule. PLEURA: No pneumothorax or significant pleural effusion. HEART/PERICARDIUM: Heart within normal limits in size. There is coronary artery calcification. No pericardial effusion. VESSELS: Thoracic aorta nondilated. MEDIASTINUM/GABRIELA: No pathologically enlarged adenopathy. UPPER ABDOMEN: Cholecystectomy. Bilateral renal cysts. BONES: Degenerative change. Old left eighth and ninth rib fractures. CT/Low Dose CT Lung Screening IMPRESSION: Stable 5 mm right upper lobe groundglass pulmonary nodule. Stable 10 mm partially calcified irregular left lower lobe pulmonary nodule. Lung-RADS category 2. Continue annual screening with low-dose CT. Electronically Signed: Nolvia Finney MD at 10:06 EDT ,
== END | disposition home or self-care (01) ==
LOC: CT 17:21
PROVIDERS: PCP Family Medicine Geriatric Medicine; Referring Provider Family Medicine Geriatric Medicine; Visit Provider Family Medicine Geriatric Medicine
DX: Z12.2 Encounter for screening for malignant neoplasm of respiratory organs (principal); F17.210 Nicotine dependence, cigarettes, uncomplicated
CPT/HCPCS: 71271

== ENCOUNTER → 2022-03-30 | Outpatient (CLI) | payer MEDICARE, OTHER, SELFPAY ==
--- NOTE | 2022-03-30 08:30 | PET_ITS ---
EXAMINATION: FDG PET/CT ? INDICATIONS: 67-year-old female with a history of pulmonary nodularity, presenting for reevaluation. ? COMPARISON EXAMINATION: FDG PET study dated 07/15/2020 ? TECHNIQUE: Following the intravenous administration of 13.82 mCi of F-18 deoxyglucose via the right antecubital fossa, multiplanar image acquisitions of the neck, chest, abdomen and pelvis to the level of the midthigh, obtained at one-hour post radiopharmaceutical administration contemporaneously interpreted with FDG PET study dated 07/15/2020 reveal: ? SERUM GLUCOSE LEVEL:? 171 mg/dL? HEIGHT:?? 62 inches WEIGHT:?? 181 pounds ? FINDINGS: ? HEAD/NECK:? There is no evidence of abnormal increased glucose metabolism in the pharyngeal mucosal space, parapharyngeal space, oropharynx, bilateral-lateral and anterior neck, hypopharynx and distribution of the larynx. ? The visualized portion of the cerebral cortical-subcortical structures demonstrate symmetric and preserved glucose metabolism. ? CHEST:? The calcified nodule defined in the left mid posterior lung zone is nonglucose avid. There is no quantitative scintigraphic evidence of abnormal increased glucose metabolism within the context of the bilateral hemithorax pulmonary parenchyma, right and left hemithorax at the pleural interface, mediastinal structures, and left-right thoracic perihilum. ? CT of the chest demonstrates the following anatomic characteristics: Atherosclerotic calcification is defined in the thoracic aorta without evidence of dilatation, aneurysm formation. Bilateral axillary soft tissue densities are nonglucose avid. Subcentimeter mediastinal soft tissue is nonglucose avid. ? ABDOMEN/PELVIS:? Normal physiologic distribution of the radiopharmaceutical is identified in the hepatic and splenic parenchyma, both renal units, urinary bladder, and visualized intestinal tract. Diffuse intestinal tract is identified in all four quadrants of the abdominal-pelvic mesentery. The left kidney demonstrates prominent ureteric activity extending from the renal pelvis to the distal ureter. ? CT of the abdomen and pelvis is remarkable for the following: The gallbladder is surgically absent. Atherosclerotic calcification is defined in the abdominal aorta without evidence of dilatation, aneurysm formation. Pelvic arterial calcification is observed. An exophytic density in the right kidney is nonglucose avid. Exophytic and cortical cyst formation is noted in the left kidney. The uterus is not well defined. ? SKELETAL:? There is no evidence of quantitatively significant enhanced glucose metabolism on meticulous inspection of the appendicular and axial skeletal structures. ? Degenerative changes defined in the thoracic and lumbar spine demonstrate no evidence of increased glucose metabolism. ? PET/PET/CT Tumor Base -Thigh Init IMPRESSION: 1. NEGATIVE EXAMINATION. There is no definitive quantitative scintigraphic evidence of viable neoplasm. 2. Compared to the prior FDG PET study dated 07/15/2020, there is current and continued absence of defined viable neoplastic disease. Electronic Signature Taiwo Sifuentes D.O. Accurate Quantification of SUVs for this report are calculated using the exclusive [employer]. ([place].S. Patent No. [id number] [id number] 983). Standardization and correction of the FDG SUV metric via [employer] technology allow for vendor non-specific objective quantitative examination comparison and optimization of the sensitivity and specificity of the FDG PET-CT examination Electronically Signed: Taiwo Sifuentes, at 20:44 EDT ,
== END | disposition home or self-care (01) ==
LOC: ONC 08:13
PROVIDERS: PCP Family Medicine Geriatric Medicine; Referring Provider Family Medicine Geriatric Medicine; Visit Provider Family Medicine Geriatric Medicine
DX: R91.8 Other nonspecific abnormal finding of lung field (principal)
CPT/HCPCS: 78815; A9552

== ENCOUNTER → 2022-04-12 | Outpatient (CLI) | payer MEDICARE, OTHER, SELFPAY ==
--- NOTE | 2022-04-12 10:16 | RAD_ITS ---
EXAM: XR CERVICAL SPINE, 4 OR 5 VIEWS CLINICAL INDICATION: CERVICAL DEGENERATION TECHNIQUE: Frontal, lateral and bilateral oblique views of the cervical spine. This report was created using [employer] report generation technology. COMPARISON: None. FINDINGS: VERTEBRAE: Mild straightening of the C-spine curvature. Normal vertebral body heights and endplates. No spondylolisthesis. No significant facet arthropathy. DISC SPACES: Mild disc space height narrowing at C4-C5 and C5-C6 disc space levels. Mild stenosis of the left C4-C5 and left C5-C6 intervertebral neural foramen due to osteophytes arising from the uncovertebral joints. SOFT TISSUES: Unremarkable. No prevertebral soft tissue widening. LUNG APICES: Clear. RAD/Cerv Spine 4 or 5 Views IMPRESSION: Mild degenerative disc space narrowing at C4-C5 and C5-C6 disc space levels and mild stenosis of the left C4-C5 and left C5-C6 intervertebral neural foramina due to osteophytes arising from the left uncovertebral joints. Electronically Signed: Nadeem Knowles MD at 12:58 EST ,
== END | disposition home or self-care (01) ==
LOC: RAD 10:14
PROVIDERS: PCP Family Medicine Geriatric Medicine; Referring Provider Anesthesiology Pain Medicine; Visit Provider Anesthesiology Pain Medicine
DX: M50.30 Other cervical disc degeneration, unspecified cervical region (principal)
CPT/HCPCS: 72050

== ENCOUNTER 2022-05-30 14:25 | Emergency (ER) | payer MEDICARE, OTHER, SELFPAY ==
[2022-05-30 14:26] VITALS: BP 104/85; PULSE 83; RESP 15; TEMP 36.4; O2SAT 95; BMI 31.2
[2022-05-30] MEDS: HYDROmorphone 1 MG/ML Syringe IM (16:13)
--- NOTE | 2022-05-30 16:16 | EX.ED.DYSGE1 ---
HPI History of Present Illness Chief Complaint: Other, Pain/Inj Detail of Chief Complaint: Neck and shoulder pain Informant: patient Onset/Context/Timing Onset: Month(s) Narrative Narrative: Patient has a history of chronic neck and shoulder pain and is followed by pain management. Over the last 2 months her symptoms been worsening. She was recently started on Luttrell and she states she will take a half a tab at a time because it makes her sedated. She woke this morning with worsened pain in the left shoulder radiating down her left arm. These are not new findings today. She presents to the ER for help with pain control. She is an appointment scheduled later this month for an MRI. [facility] Medical History Anxiety and depression Cervicocranial syndrome Fatigue GERD (gastroesophageal reflux disease) History of arthritis History of DVT in adulthood Hypercholesterolemia with hypertriglyceridemia Hyperlipidemia IBS (irritable bowel syndrome) Kidney stones Knee pain Limb weakness Obesity (BMI 30.0-34.9) CHRISTOPHER (obstructive sleep apnea) Osteopenia Pneumonia Seasonal allergies Sepsis Shoulder pain COREY (stress urinary incontinence, female) Type 2 diabetes mellitus Urethral hypermobility Vaginal dryness, menopausal Home Medications estradiol 0.01% (0.1 mg/gram) vaginal cream 1 g vaginal MOWEFR Check with primary doctor 03/22/19 [History Last Taken 07/01/20] insulin glargine 100 unit/mL (3 mL) subcutaneous pen 18 unit SQ QHS dm 04/07/19 [History Last Taken 07/01/20] alendronate 35 mg tablet 35 mg PO QWEEK #4 tabs 09/27/19 [Rx Last Taken 07/01/20] fluoxetine 40 mg capsule 40 mg PO QDAY #90 caps 12/02/19 [Rx Last Taken 07/01/20] omeprazole 40 mg capsule,delayed release 40 mg PO QDAY #90 caps 12/02/19 [Rx Last Taken 07/01/20] cholecalciferol (vitamin D3) 25 mcg (1,000 unit) tablet 1,000 unit PO DAILY 12/14/19 [History Last Taken 07/01/20] omega-3 fatty acids-fish oil 300 mg-1,000 mg capsule 1 ea PO BID 12/14/19 [History Last Taken 07/01/20] atorvastatin 40 mg tablet See Rx Instructions .Route .COMPLEX #90 tabs 03/31/20 [Rx Last Taken 07/01/20] meloxicam 15 mg tablet 15 mg PO DAILY PRN pain #60 tabs 04/03/20 [Rx Last Taken 07/01/20] semaglutide 0.25 mg or 0.5 mg (2 mg/1.5 mL) subcutaneous pen injector 0.5 mg SQ QWEEK 07/02/20 [History Last Taken 07/01/20] Allergy/AdvReac Type Severity Reaction Status Date / Time ciprofloxacin [From Cipro] Allergy Hives Verified 05/30/22 14:28 Fish Containing Products Allergy Hives Verified 05/30/22 14:28 Penicillins Allergy Hives Verified 05/30/22 14:28 Sulfa (Sulfonamide Allergy Hives Verified 05/30/22 14:28 Antibiotics) Family History Mother Anemia Adjustment disorder with anxiety Arthritis High cholesterol Bleeding disorder Osteoporosis COPD (chronic obstructive pulmonary disease) Peptic ulcer disease Sister Adjustment disorder with anxiety Brother Adjustment disorder with anxiety Mental disorder Aunt Colon cancer Surgical History History of appendectomy History of arthroscopic surgery of shoulder (04/2019) History of bladder surgery History of carpal tunnel release History of cholecystectomy History of hysterectomy with bilateral oophorectomy History of shoulder surgery Social History Smoking Status: Former smoker how long ago did patient quit smokin alcohol intake: never substance use type: does not use what type of physical activity do you participate in: none ROS ROS ED Constitutional Constitutional ED: Denies chills or fever(s) Eyes Eyes: Denies change in vision or discharge from eye(s) ENT ENT ED: Denies discharge from eye(s), rhinorrhea or sore throat Cardiovascular Cardiovascular: Denies chest pain or palpitations Respiratory/Chest Respiratory/Chest: Denies cough or dyspnea Gastrointestinal Gastrointestinal: Denies abdominal pain, diarrhea, nausea or vomiting Genitourinary Genitourinary ED: Denies dysuria Musculoskeletal Musculoskeletal: Reports extremity pain and neck pain; Denies back pain Integumentary Denies Abrasions or rash Neurologic Neurologic: Reports paresthesias; Denies headache(s) or weakness Psychiatric Psychiatric: Denies anxiety or depression Allergic/Immunologic Allergic/Immunologic ED: Denies lip swelling or urticaria EXAM Physical Exam Const Vital Signs: 05/30/22 14:26 05/30/22 16:20 Temperature 97.5 F L Temperature Source Temporal Pulse Rate 83 Respiratory Rate 15 Respiratory Pattern Normal Blood Pressure 104/85 H Blood Pressure Mean 91 Pulse Ox 95 Oxygen Delivery Method Room Air Positive well nourished and well developed General Appearance ED: well developed HEENT Reports normocephalic and head/scalp atraumatic Eyes PERRL and EOMs intact bilaterally Neck supple Neck Narrative: Left cervical paraspinal tenderness. Chest Wall inspection of chest normal and palpation of chest normal Resp normal respiratory effort and clear to auscultation bilaterally Cardio regular rate and regular rhythm GI normal to inspection, nondistended, normoactive bowel sounds Palpation: soft Back/Spine Back/Spine Narrative: No midline thoracic or lumbar tenderness. Extremity Extremity Narrative: Tenderness across the upper posterior aspect of the left shoulder with palpable muscle spasm. No limitations of the shoulder joint itself. Strong distal pulses with good cap refill. Good range of motion and strength. Neuro oriented x3 Sensorium / Orientation: alert Motor Exam: strength 5/5 throughout Psych mental status grossly normal Skin no rashes or lesions noted MDM MDM MDM Narrative Medical decision making narrative: Patient was given 1 mg of IM Dilaudid. Treatment and Re-Evaluation Narrative: On repeat evaluation she does feel improved. I told her my goal was to get her pain under control at this time so that her home pain medications are more effective. Although she is trying to spread her Luttrell out until her MRI, I advised her that her pain is her doctor can was write her another prescription. I did not want her suffering trying to extend the medication. She also has muscle relaxers at home that she will try to see if that helps with the spasm and pain. At this time she is neuro vastly intact and does not meet any requirements for an emergent MRI. Return instructions are given. Discharge Plan Triage Chief Complaint: Other, Pain/Inj ED Provider: Nancy Rocha Dx/Rx/DC Orders Clinical Impression: Neck pain Instructions: ED Neck Pain Prescriptions: No Action estradiol 0.01 % (0.1 mg/gram) cream 1 g VAGINAL MOWEFR Rx Instructions: --F meloxicam 15 mg tablet 15 mg PO DAILY PRN (Reason: pain) Qty: 60 1RF insulin glargine 100 UNIT/ML insulin pen 18 unit SQ QHS cholecalciferol (vitamin D3) 1,000 UNIT tablet 1,000 unit PO DAILY omega-3 fatty acids-fish oil 1 EACH capsule 1 ea PO BID semaglutide 0.25 MG/0.2 ML pen injector 0.5 mg SQ QWEEK alendronate 35 mg tablet 35 mg PO QWEEK Qty: 4 11RF fluoxetine 40 mg capsule 40 mg PO QDAY Qty: 90 3RF omeprazole 40 mg capsule,delayed release(DR/EC) 40 mg PO QDAY Qty: 90 3RF atorvastatin 40 mg tablet See Rx Instructions .ROUTE .COMPLEX Qty: 90 3RF Dose Instruction: TAKE 1 TABLET BY MOUTH EVERY DAY Rx Instructions: TAKE 1 TABLET BY MOUTH EVERY DAY Primary Care Provider: Tal Lundy Chi Referrals: Kole Barnett MD [Med Staff - Active Staff] - 1 Week if not improving Tal Lundy Chi, MD [Primary Care Provider] - Disposition Disposition: Home, Self Care
[2022-05-30 17:24] VITALS: BP 120/78; PULSE 81; RESP 18; O2SAT 97
== END 2022-05-30 17:26 | disposition home or self-care (01) ==
PROVIDERS: Emergency Provider Emergency Medicine; PCP Family Medicine Geriatric Medicine; Visit Provider Emergency Medicine
DX: M54.2 Cervicalgia (principal); G47.33 Obstructive sleep apnea (adult) (pediatric); Z87.891 Personal history of nicotine dependence; Z86.718 Personal history of other venous thrombosis and embolism
CPT/HCPCS: 96372; 99282

== ENCOUNTER → 2022-06-11 | Outpatient (CLI) | payer MEDICARE, OTHER, SELFPAY ==
--- NOTE | 2022-06-12 07:15 | MRI_ITS ---
STUDY: MRI CERVICAL SPINE WITHOUT CONTRAST REASON FOR EXAM: Female, 67 years old. LEFT CERVICAL RADICULOPATHY TECHNIQUE: Standardized fat and water weighted pulse sequences were obtained in the sagittal and axial planes. COMPARISON: None FINDINGS: Normal foramen magnum and brainstem-cervical cord junction. Normal craniovertebral junction. Normal anterior atlantoaxial articulation. Normal odontoid process. Straightening of C-spine curvature. Normal vertebral bodies and posterior osseous elements. C2-3: Normal endplates. Normal disc height, signal and morphology. Normal central canal and intervertebral neural foramina. C3-4: Normal endplates. Normal disc height. Small left posterior paramedian ventral extradural defect is posterior bulging annulus. Normal central canal and intervertebral neural foramina. C4-5: Normal endplates. Mild disc space height narrowing. Midline ventral extradural defect due to small posterior bulging annulus. Normal central canal and right intervertebral neural foramen. Mild stenosis of the left intervertebral neural foramen due to small osteophyte arising from the left uncovertebral joint. C5-6: Normal endplates. Moderate disc space height narrowing. Prominent left posterior paramedian ventral extradural defect is suspicious for small disc protrusion. Normal central canal and right intervertebral neural foramen. Mild stenosis of the left intervertebral neural foramen. C6-7: Normal endplates. Moderate disc space height narrowing. Normal central canal and right intervertebral neural foramen. Moderate stenosis of the left intervertebral neural foramen due to prominent bone spur. C7-T1: Normal endplates. Normal disc height, signal and morphology. Normal central canal and intervertebral neural foramina. T1-T2, T2-T3, T3-T4 and T4-T5: (Sagittal only). Normal endplates. Normal disc height, signal and morphology. Normal central canal and intervertebral neural foramina. Normal cervical spinal cord. There is a small artifact of the cervical spinal cord at the C3 67 disc space level on series 2, image 8. This is not confirmed on sagittal STIR and T2 axial views. Normal included upper thoracic spinal cord, brainstem and cerebellum. Normal white diaphragmatic sella and normal flattening of the pituitary gland. Normal anterior third ventricle. Normal visualized soft tissue structures. MRI/Spine Cervical (Routine) IMPRESSION: 1. Moderate stenosis of the left C6-C7 intervertebral neural foramen with impingement of the left C7 nerve root sleeve. This is at least due to osteophytic encroachment. CT cervical spine will help clarify if this is entirely due to osteophyte. 2. Mild stenosis of the left C5-C6 intervertebral neural foramen due to small osteophyte coming from the left uncovertebral joint and small left C5-C6 posterior paramedian disc protrusion. 3. Mild stenosis of the left C4-C5 intervertebral neural foramen due to small osteophyte arising from the left uncovertebral joint. 4. No definite MRI evidence of cervical extruded disc fragment. 5. Normal cervical spinal cord. Electronically Signed: Nadeem Knowles MD at 9:35 EST ,
== END | disposition home or self-care (01) ==
PROVIDERS: PCP Family Medicine Geriatric Medicine; Referring Provider Family Medicine Geriatric Medicine; Visit Provider Family Medicine Geriatric Medicine
DX: M50.30 Other cervical disc degeneration, unspecified cervical region (principal); M99.61 Osseous and subluxation stenosis of intervertebral foramina of cervical region; M50.222 Other cervical disc displacement at C5-C6 level; M54.12 Radiculopathy, cervical region
CPT/HCPCS: 72141

== ENCOUNTER → 2022-06-21 | Outpatient (CLI) | payer MEDICARE, OTHER, SELFPAY ==
[2022-06-21 13:20] LABS: Absolute Lymphocyte Count 1.94 X10^3/uL (0.83-4.51); Absolute Neutrophil Count 8.7 X10^3/uL (2.0-7.7); Basophil# 0.06 X10^3/uL; Basophil% 0.5 % (0-1); Eosinophil# 0.17 X10^3/uL; Eosinophils% 1.4 % (0-5); Hematocrit 43.6 % (37-47); Hemoglobin 13.7 g/dL (12.0-15.0); Lymphocyte # 1.94 X10^3/ul (0.83-4.51); Lymphocyte % 15.9 % (19-41); Mean Corp Hgb Conc 31.4 g/dL (32-36); Mean Corpuscular Hgb 26.9 pg (27.0-32.0); Mean Corpuscular Volume 85.7 fL (81-99); Mean Platelet Vol. 10.1 fl (6.2-12.0); Monocyte% 9.8 % (0-10); NRBC Flagged by Analyzer 0 % (0-5); Neutrophil # 8.65 X10^3/uL (2.7-7.7); Neutrophil % 70.8 % (47-70); Platelet Count 402 K/mm3 (150-450); RBC Distribution Width SD 46.7 fl (35.1-43.9); Red Blood Count 5.09 M/mm3 (4.2-5.4); White Blood Count 12.2 K/mm3 (4.4-11.0)
[2022-06-21 13:22] LABS: Vitamin D,25 Hydroxy 21.8 ng/mL
[2022-06-21 13:41] LABS: ALB/GLOB Ratio 0.8 RATIO (0.9-2.4); AST(SGOT) 12 U/L (15-37); Alanine Aminotransfer ALT/SGPT 37 U/L (13-56); Albumin, Serum 3.3 g/dL (3.2-5.0); Alkaline Phosphatase 85 U/L (45-117); Anion Gap 7 (5-15); BUN 19 mg/dL (7-18); BUN/Creat Ratio 23.7 RATIO (10-20); Calcium,Total 9.4 mg/dL (8.5-10.1); Chloride 98 mmol/L (98-107); EST Glomerular Filtration Rate 76 mL/min (>60); Est Glom Filt Rate - Afr Amer 92 mL/min (>60); Globulin 4.1 g/dL (2.2-4.2); Glucose 158 mg/dL (74-106); Potassium 4.1 mmol/L (3.5-5.1); Protein, Total 7.4 g/dL (6.4-8.2); Sodium Level 137 mmol/L (136-145); Thyroid Stim Hormone (TSH) 1.53 uIU/mL (0.358-3.74)
== END | disposition home or self-care (01) ==
LOC: POLAB3 10:00
PROVIDERS: PCP Family Medicine Geriatric Medicine; Visit Provider Family Medicine Geriatric Medicine
DX: E55.9 Vitamin D deficiency, unspecified (principal); R53.83 Other fatigue
CPT/HCPCS: 36415; 80053; 82306; 84443; 85025

== ENCOUNTER → 2022-06-24 | Outpatient (CLI) | payer MEDICARE, OTHER, SELFPAY ==
[2022-06-24 13:30] LABS: Absolute Lymphocyte Count 1.72 X10^3/uL (0.83-4.51); Absolute Neutrophil Count 5.7 X10^3/uL (2.0-7.7); Basophil# 0.05 X10^3/uL; Basophil% 0.6 % (0-1); Eosinophil# 0.27 X10^3/uL; Eosinophils% 3.1 % (0-5); Hematocrit 42.3 % (37-47); Hemoglobin 13.1 g/dL (12.0-15.0); Lymphocyte # 1.72 X10^3/ul (0.83-4.51); Lymphocyte % 19.4 % (19-41); Mean Platelet Vol. 10.1 fl (6.2-12.0); Monocyte# 0.96 X10^3/uL; Monocyte% 10.8 % (0-10); NRBC Flagged by Analyzer 0 % (0-5); Neutrophil # 5.73 X10^3/uL (2.7-7.7); Neutrophil % 64.7 % (47-70); Platelet Count 292 K/mm3 (150-450); Red Blood Count 4.86 M/mm3 (4.2-5.4); White Blood Count 8.9 K/mm3 (4.4-11.0)
[2022-06-24 13:53] LABS: ALB/GLOB Ratio 0.8 RATIO (0.9-2.4); AST(SGOT) 10 U/L (15-37); Alanine Aminotransfer ALT/SGPT 29 U/L (13-56); Albumin, Serum 3.1 g/dL (3.2-5.0); Alkaline Phosphatase 83 U/L (45-117); Anion Gap 7 (5-15); BUN 20 mg/dL (7-18); BUN/Creat Ratio 22.3 RATIO (10-20); Calcium,Total 9.2 mg/dL (8.5-10.1); Chloride 99 mmol/L (98-107); EST Glomerular Filtration Rate 66 mL/min (>60); Est Glom Filt Rate - Afr Amer 80 mL/min (>60); Globulin 4.1 g/dL (2.2-4.2); Glucose 251 mg/dL (74-106); Potassium 4.2 mmol/L (3.5-5.1); Protein, Total 7.2 g/dL (6.4-8.2); Sodium Level 139 mmol/L (136-145)
== END | disposition home or self-care (01) ==
LOC: POLAB3 11:58
PROVIDERS: PCP Family Medicine Geriatric Medicine; Visit Provider Family Medicine Geriatric Medicine
DX: Z01.818 Encounter for other preprocedural examination (principal)
CPT/HCPCS: 36415; 80053; 85025; 85610

== ENCOUNTER → 2022-11-15 | Outpatient (CLI) | payer MEDICARE, OTHER, SELFPAY ==
--- NOTE | 2022-11-15 13:37 | BI_ITS ---
MAMMOGRAPHY - BILATERAL SCREENING REASON FOR EXAM: Female, 67 years old. Routine annual screening examination. PERTINENT HISTORY: Non-contributory. TECHNIQUE: Digital bilateral breast tonya (3D mammographic acquisition) in the CC and MLO projections. 2-D mediolateral oblique (MLO) and craniocaudad (CC) views of both breasts were obtained. CAD: Full Field Digital Mammography with Computer Added Detection was performed. COMPARISON: Mammogram from 11/10/2021, 09/30/2020. FINDINGS: Breast Composition: The breasts are almost entirely fatty. There are no dominant masses or suspicious calcifications. No other significant abnormalities are identified. There has been no significant change since the prior study. BI/SCRN MAMM (CAD)W/TONYA BILAT IMPRESSION: Stable bilateral screening mammogram. Yearly follow-up mammogram recommended. (A) ASSESSMENT CATEGORY: BIRADS Category 1: Negative. A letter regarding these results will be sent to the patient by the facility within 30 days. Approximately 10% of breast cancers are not detected by mammography. A normal mammogram should not delay biopsy of a clinically suspicious abnormality. Electronically Signed: Venancio Donnelly DO at 17:18 EDT ,
--- NOTE | 2022-11-15 13:46 | BD_ITS ---
STUDY: DUAL ENERGY X-RAY ABSORPTIOMETRY / DXA REASON FOR EXAM: Female, 67 years old. [id number] TECHNIQUE: Bone Mineral Density (BMD) measurements of lumbar spine and bilateral hips were obtained. COMPARISON: Comparison is made with prior study April 22, 2020. FINDINGS: Lumbar Spine (L1-L4): g/cm2 (0.881) / T-score (-1.5) / Z-score (0.5) Findings are suggestive of osteopenia with a low fracture risk. Left Femur Total: g/cm2 (0.831) / T-score (-0.9) / Z-score (0.5) Left Femoral Neck: g/cm2 (0.601) / T-score (-2.2) / Z-score (-0.5) Right Femur Total: g/cm2 (0.767) / T-score (-1.4) / Z-score (0.0) Right Femoral Neck: g/cm2 (0.570) / T-score (-2.5) / Z-score (-0.8) The T-Scores on the most recent prior examination were: Lumbar Spine (L1-L4): There has been worsening of bone density since the previous examination. Left Femur Total: which represents an improvement of 1.2%. Right Femur Total: which represents a worsening of 1%. BD/Dexa Bone Density Study IMPRESSION: The patient is considered osteopenic as outlined below according to World [employer] Organization (WHO) criteria with a high fracture risk. There has been worsening of bone density since the previous examination. Reference Information: The T-score is the number of standard deviations above or below the standard which is normal for young adults at their peak bone mineral density. The World Health Organization (WHO) interprets the T-scores as follows: Above -1 Normal bone density Between -1 and -2.5 Osteopenia Equal to / or below -2.5 Osteoporosis As a practical clinical guideline, osteopenia may be graded as follows: Mild -1 through -1.5 Moderate -1.6 through -2.0 Severe -2.1 through -2.4 The Z-score is the number of standard deviations above or below age-matched controls. A Z-score of less than -1.5 would be considered abnormal. References: 1. NIH Osteoporosis and Related Bone Diseases www osteo.org 2. International Society for Clinical Densitometry www iscd.org 3. National Osteoporosis Foundation www nof.org Electronically Signed: Matty Machado MD at 12:52 EDT ,
== END | disposition home or self-care (01) ==
LOC: OPBD 13:35
PROVIDERS: PCP Family Medicine Geriatric Medicine; Referring Provider Family Medicine Geriatric Medicine; Visit Provider Family Medicine Geriatric Medicine
DX: Z12.31 Encounter for screening mammogram for malignant neoplasm of breast (principal); Z78.0 Asymptomatic menopausal state
CPT/HCPCS: 77063; 77067; 77080

== ENCOUNTER → 2022-12-09 | Outpatient (CLI) | payer MEDICARE, OTHER, SELFPAY ==
--- NOTE | 2022-12-09 10:15 | RAD_ITS ---
STUDY: X-RAY - SACRUM/COCCYX REASON FOR EXAM: Female, 67 years old. COCCYX PAIN TECHNIQUE: 3 view(s) of the sacrum and coccyx were obtained. COMPARISON: None. FINDINGS: There is degenerative arthrosis of the bilateral sacroiliac joints. Normal visualized sacral ala and fused sacral bodies. Normal sacrococcygeal junction with a normal angulation. Normal coccygeal segments. The presacral soft tissue structures are unremarkable. Stable well-defined 1.8 cm calcified density overlying the lateral aspect of the left hip joint. RAD/Sacrum-Coccyx min 2 Views IMPRESSION: Mild degree of degenerative changes of the sacroiliac joints bilaterally. Electronically Signed: Matty Machado MD at 14:52 EDT ,
--- NOTE | 2022-12-09 10:15 | RAD_ITS ---
STUDY: X-RAY - PELVIS REASON FOR EXAM: Female, 67 years old. COCCYX PAIN. Pain following a fall. TECHNIQUE: One view of the pelvis was obtained. COMPARISON: None. FINDINGS: There is a non-specific bowel gas pattern. Normal visualized soft tissue structures. There is narrowing with cortical sclerosis and osteophyte formation of the sacroiliac joint consistent with degenerative osteoarthritic changes. There is a 1.2 cm x 1.1 cm well-defined bony density overlying the lateral aspect of the left femoral head. This is unchanged as compared to multiple prior studies. This lies within the anterior muscle group. Normal visualized bilateral superior and inferior pubic rami. Normal pubic symphysis. Normal ischial tuberosities. Normal visualized right femoral head. Normal right acetabulum. There is mild articular joint space narrowing of the right hip. Normal visualized left femoral head. Normal left acetabulum. There is mild articular joint space narrowing of the left hip. RAD/Pelvis 1 or 2 Views IMPRESSION: Degenerative changes. Electronically Signed: Matty Machado MD at 14:41 EDT ,
== END | disposition home or self-care (01) ==
LOC: RAD 10:03
PROVIDERS: PCP Family Medicine Geriatric Medicine; Referring Provider Family Medicine Geriatric Medicine; Visit Provider Family Medicine Geriatric Medicine
DX: M53.3 Sacrococcygeal disorders, not elsewhere classified (principal)
CPT/HCPCS: 72170; 72220

== ENCOUNTER → 2022-12-21 | Outpatient (CLI) | payer MEDICARE, OTHER, SELFPAY ==
--- NOTE | 2022-12-21 13:39 | ST.MBS ---
Modified Barium Swallow Patient Information Study Date: 12/21/22 Study Time: 12:45 Direct Billable Minutes: 68 Total Minutes procedure & reportin Diagnosis: GERD (K21.00), Other Dysphagia (R13.19) Referring Physician: Kole Keane Reason for Referral: Objectively assess swallow function, assess risk for aspiration, and determine recommendations for least restrictive diet textures and compensatory strategies to improve safety of swallow. Medical History: Aurelia James is a 67-year-old female with a history of chronic neck and shoulder pain, anxiety/depression, GERD, obesity, PNA, limb weakness, IBS, hyperlipidemia, seasonal allergies, and Type II diabetes mellitus. See PMH in the pt?s chart for complete report. Patient has a hx of a previous MBSS completed on 09/15/20 due to reports of the patient feeling foods ?stuck in the back of her throat.? ?The patient was recommended for regular textures/thin liquids and was recommended for GI consult due to esophageal retention. No aspiration noted during the study. See MBSS on 09/15/20 for full report. Patient reported following with GI, Dr. Lees, after MBSS completed in 2020 and reported being scoped. Patient reported GI reporting pt has Schatzki ring, but no hiatal hernia. Patient reports having neck surgery completed on August 17, 2022. Additionally patient reporting taking medication daily to help manage GERD. Patient referred for repeat swallow study due to swallowing concerns, which seem to have worsened since neck surgery last July. Patient reporting food and drink feel ?stuck? in the back of her throat. Patient reports foods such as pretzels and bread tend to stick more than other foods. Patient reports foods feeling stuck will often result in patient gagging foods back up a couple times a week. No patient reports of needing the Heimlich, but she did report episodes of coughing on foods. Patient reports drinks will occasionally help foods ?go down.? Additionally, patient reports swallowing difficulty with spit, food, and drinks, which all feel stuck in the Rod?s apple region of patient?s throat. Current Diet Ordered: Regular Textures/ Thin Liquids Dentition: WNL Mental Status: WNL Respiratory Status: Oxygenating on Room Air Penetration-Aspiration Scale Penetration-Aspiration Scale: OBJECTIVE ASSESSMENT OF SWALLOW FUNCTION (QUANTITATIVE ? PER TRIAL): PENETRATION / ASPIRATION SCALE (BO): 1 = does not enter airway 2 = enters airway/above vocal folds/ejected 3 = enters airway/above vocal folds/not ejected 4 = enters airway/contacts vocal folds/ejected 5 = enters airway/contacts vocal folds/not ejected 6 = enters airway/below vocal folds/ejected 7 = enters airway/below vocal folds/not ejected despite effort 8 = enters airway/below vocal folds/no effort VIDEOFLOROSCOPIC SCALE SCORE (BO): Grade I = aspiration of material that has penetrated into the laryngeal vestibule, intact cough reflex Grade II = aspiration < 10 % of the bolus, intact cough reflex Grade III = aspiration of < 10 % of the bolus, reduced cough reflex or aspiration of > 10 % of the bolus, intact cough reflex Grade IV = aspiration of > 10 % of the bolus, reduced cough reflex Penetration-Aspiration Scale Score Thin Liquid via teaspoon: Result: 1= does not enter airway Thin Liquid via teaspoon Trial 2: Result: 1= does not enter airway Thin Liquid via single cup sip: Result: 1= does not enter airway [place] Thick Liquid via single cup sip: Result: 1= does not enter airway Pudding via tsp w/esophageal screen : Result: 1= does not enter airway Thin Liquid via sequential straw sips w/esophageal screen: Result: 2= enter airway/above vocal folds/ejected Comment: Trace penetration 1/2 Cookie w/esophageal screen : Result: 1= does not enter airway Thin Liquid via single straw sip w/esophageal screen : Result: 1= does not enter airway Oral Phase Labial Seal: No Labial Escape Tongue Control During Bolus Hold: Posterior escape of less than half of bolus Bolus Preparation/Mastication: Timely and efficient chewing and mashing Bolus Transport/Lingual Motion: Delayed initiation of tongue motion Oral Residue: Trace residue lining oral structures Pharyngeal Phase Initiation of Pharyngeal Swallow: Bolus head at posterior laryngeal surgace of epiglottis Soft Palate Elevation: No bolus between soft palate and pharyngeal wall Laryngeal Elevation: Comp. Superior move thyroid cart w/comp. apprx arytenoid cart-epig pet Anterior Hyoid Excursion: Complete anterior movement Epiglottic Movement: Complete inversion Laryngeal Vestibule Closure at Height of Swallow: Incomplete; narrow column of air/contrast in laryngeal vestibule Pharyngeal Stripping Wave: Present - complete Pharyngoesophageal Segment Opening: Complete distension and complete duration; no obstruction of flow Tongue Base Retraction: Narrow column of contrast between tongue base & post. pharyngeal wall Pharyngeal Residue: Collection of residue within or on pharyngeal structures Esophageal Phase Esophageal Clearance: Esophageal retention w/ retrograde flow below pharyngoesophageal seg. Treatment Strategies Effects of treatment strategies attemped:: Thin Liquid wash to help w/esophageal retention = effective Diagnosis/Impression Diagnosis: Esophageal Dysphagia (R13.14), Oropharyngeal Swallow Function Grossly WNL Impression: The oral phase is grossly within normal limits with? -Decreased bolus control with <1/2 of the bolus spilling posteriorly to the posterior surface of epiglottis prior to swallow onset observed with thin liquids by sequential sips especially. -Delayed tongue motion for AP transport most notable with thin liquids by large and sequential sips. The pharyngeal phase is grossly within normal limits with... -Mildly reduced tongue base retraction, resulting mild pharyngeal residues after the swallow. -No aspiration observed during the study. Trace penetration with thin liquids via large sequential straw sips which reliably ejected after completion of swallow. The esophageal phase is primarily marked by... -Esophageal retention of pudding and cookie trials in mid-lower esophagus with retrograde flow remaining below UES. This esophageal retention had minimally improved clearance when provided thin liquid wash by sequential straw sips. When provided single sip by straw, esophageal retention improved. -Cervical prothesis present starting at the level of C-4, which did not appear to impact bolus clearance through the UES. Unable to assess if prosthesis is present lower than C-6. Recommendations Diet: Regular Textures and Thin Liquids Compensatory Strategies: Small Bites, Small Sips, Slow Rate, Alternate bites/solids and sips/liquids, Sitting upright and Remain sitting upright for 30 minutes after PO intake Recommend Repeat Modified Barium Swallow: No Need for Skilled Speech Therapy Services: No Comment: No dysphagia therapy warranted at this time. Will recommend patient for standard esophageal precautions such as small bites/sips at reduced rate, alternating bites/sips, washing every 2-5 bites with thin liquid wash by single sip, sitting upright during meals, and for 30-60 minutes after PO intake. Additionally recommended patient for GERD diet (e.g., reducing foods saturated in fats, reduce caffeine, and limit acidic foods), and to reduce size of meals, and increase frequency (e.g, 5 smaller meals). Will recommend patient to continue following with GI, Dr. Lees, to manage GERD and esophageal concerns. Patient receptive to recommendations. Education Completed: 1. Described result of evaluation., 2. Pt understands evaluation & agrees with goals and treatment plan. and 5. Patient demonstrates recommended strategies. Status Active ST Patient: Active Contact Information [facility] Speech Therapy:: Alcon Lo M.A. [employer] WR[employer] Speech-Language Pathologist [facility] [address] [place] [address] [email or web address]
== END | disposition home or self-care (01) ==
LOC: RAD 11:51
PROVIDERS: PCP Family Medicine Geriatric Medicine; Referring Provider Orthopaedic Surgery; Visit Provider Orthopaedic Surgery
DX: R13.19 Other dysphagia (principal)
CPT/HCPCS: 74230; 92611

== ENCOUNTER → 2022-12-21 | Outpatient (CLI) | payer MEDICARE, OTHER, SELFPAY ==
[2022-12-21 12:18] LABS: Absolute Lymphocyte Count 1.55 X10^3/uL (0.83-4.51); Absolute Neutrophil Count 4.2 X10^3/uL (2.0-7.7); Basophil# 0.04 X10^3/uL; Basophil% 0.6 % (0-1); Eosinophil# 0.26 X10^3/uL; Eosinophils% 3.9 % (0-5); Hematocrit 39.9 % (37-47); Hemoglobin 12.4 g/dL (12.0-15.0); Lymphocyte # 1.55 X10^3/ul (0.83-4.51); Lymphocyte % 23.5 % (19-41); Mean Corp Hgb Conc 31.1 g/dL (32-36); Mean Corpuscular Hgb 26.8 pg (27.0-32.0); Mean Corpuscular Volume 86.2 fL (81-99); Mean Platelet Vol. 10.3 fl (6.2-12.0); Monocyte% 7.6 % (0-10); NRBC Flagged by Analyzer 0 % (0-5); Neutrophil # 4.16 X10^3/uL (2.7-7.7); Platelet Count 314 K/mm3 (150-450); RBC Distribution Width CV 14.6 % (11.6-14.6); RBC Distribution Width SD 46.1 fl (35.1-43.9); Red Blood Count 4.63 M/mm3 (4.2-5.4); White Blood Count 6.6 K/mm3 (4.4-11.0)
[2022-12-21 12:36] LABS: Vitamin D,25 Hydroxy 27.6 ng/mL
[2022-12-21 12:50] LABS: ALB/GLOB Ratio 0.8 RATIO (0.9-2.4); AST(SGOT) 14 U/L (15-37); Alanine Aminotransfer ALT/SGPT 21 U/L (13-56); Albumin, Serum 3.4 g/dL (3.2-5.0); Alkaline Phosphatase 104 U/L (45-117); Anion Gap 6 (5-15); BUN 16 mg/dL (7-18); BUN/Creat Ratio 16.5 RATIO (10-20); Calcium,Total 8.6 mg/dL (8.5-10.1); Chloride 106 mmol/L (98-107); Creatinine, Serum 0.97 mg/dL (0.55-1.02); EST Glomerular Filtration Rate 61 mL/min (>60); Est Glom Filt Rate - Afr Amer 73 mL/min (>60); Globulin 4.1 g/dL (2.2-4.2); Glucose 147 mg/dL (74-106); Potassium 4.2 mmol/L (3.5-5.1); Protein, Total 7.5 g/dL (6.4-8.2); Sodium Level 140 mmol/L (136-145); Thyroid Stim Hormone (TSH) 2.04 uIU/mL (0.358-3.74)
[2022-12-22 16:09] LABS: EBV Early Antigen IgG 60.8 U/mL (0.0-8.9)
== END | disposition home or self-care (01) ==
PROVIDERS: PCP Family Medicine Geriatric Medicine; Visit Provider Family Medicine Geriatric Medicine
DX: R53.83 Other fatigue (principal); E55.9 Vitamin D deficiency, unspecified; Z13.29 Encounter for screening for other suspected endocrine disorder
CPT/HCPCS: 36415; 80053; 82306; 84443; 85025; 86663; 86665

== ENCOUNTER → 2022-12-29 | Outpatient (CLI) | payer MEDICARE, OTHER, SELFPAY | END | disposition home or self-care (01) | PROVIDERS: PCP Family Medicine Geriatric Medicine; Referring Provider Family Medicine Geriatric Medicine; Visit Provider Family Medicine Geriatric Medicine | DX: B27.90 Infectious mononucleosis, unspecified without complication (principal) | CPT/HCPCS: 36415 ==

== ENCOUNTER → 2023-01-23 | Outpatient (CLI) | payer MEDICARE, OTHER, SELFPAY ==
--- NOTE | 2023-01-23 15:52 | CT_ITS ---
STUDY: CT ABDOMEN AND PELVIS WITH CONTRAST REASON FOR EXAM: Female, 67 years old. ABD PAIN RADIATION DOSAGE (If Supplied By Facility): CTDIvol = ( 20.11 ) mGy, DLP = ( 1181.89 ) mGycm TECHNIQUE: Transaxial images were obtained from the dome of the diaphragm to the symphysis pubis without oral contrast. IV 100mL Isovue-300 was administered. Sagittal and coronal images were reconstructed. Individualized dose optimization techniques were used for this CT. COMPARISON: July 16, 2020. FINDINGS: The visualized lung bases are unremarkable. The visualized portions of the heart are within normal limits. Normal liver. Status post cholecystectomy. No significant dilatation of the Extrahepatic biliary system. 9 mm hypoattenuated nodule in the spleen. Normal pancreas. Normal bilateral adrenal glands. Up to 2.1 cm cysts in the right kidney. Up to 3.4 cm cysts in the left kidney. Normal visualized stomach. Normal small intestine. Fecal retention in the colon. The appendix is not visualized. Calcified abdominal aorta. Normal inferior vena cava. Normal retroperitoneum. Normal urinary bladder. No acute pathology of the abdominal wall. Normal osseous structures. CT/Abdomen/Pelvis WITH Contrast IMPRESSION: Bilateral renal cysts. Colonic fecal retention. Stable hypoattenuated splenic nodule. Electronically Signed: Moose Calles DO at 18:45 EDT ,
== END | disposition home or self-care (01) ==
LOC: CT 15:50
PROVIDERS: PCP Family Medicine Geriatric Medicine; Referring Provider Family Medicine Geriatric Medicine; Visit Provider Family Medicine Geriatric Medicine
DX: R10.9 Unspecified abdominal pain (principal)
CPT/HCPCS: 74177; Q9967

== ENCOUNTER → 2023-01-23 | Outpatient (CLI) | payer MEDICARE, OTHER, SELFPAY ==
[2023-01-23 16:19] LABS: Absolute Lymphocyte Count 2.19 X10^3/uL (0.83-4.51); Basophil# 0.04 X10^3/uL; Basophil% 0.6 % (0-1); Eosinophil# 0.31 X10^3/uL; Eosinophils% 4.3 % (0-5); Hematocrit 41.9 % (37-47); Hemoglobin 12.7 g/dL (12.0-15.0); Lymphocyte # 2.19 X10^3/ul (0.83-4.51); Lymphocyte % 30.6 % (19-41); Mean Corp Hgb Conc 30.3 g/dL (32-36); Mean Corpuscular Hgb 26.8 pg (27.0-32.0); Mean Corpuscular Volume 88.4 fL (81-99); Mean Platelet Vol. 10.2 fl (6.2-12.0); Monocyte# 0.64 X10^3/uL; Monocyte% 8.9 % (0-10); NRBC Flagged by Analyzer 0 % (0-5); Neutrophil # 3.96 X10^3/uL (2.7-7.7); Neutrophil % 55.3 % (47-70); Platelet Count 293 K/mm3 (150-450); RBC Distribution Width CV 14.9 % (11.6-14.6); Red Blood Count 4.74 M/mm3 (4.2-5.4); White Blood Count 7.2 K/mm3 (4.4-11.0)
[2023-01-23 16:49] LABS: ALB/GLOB Ratio 0.8 RATIO (0.9-2.4); AST(SGOT) 15 U/L (15-37); Alanine Aminotransfer ALT/SGPT 26 U/L (13-56); Albumin, Serum 3.2 g/dL (3.2-5.0); Alkaline Phosphatase 85 U/L (45-117); Amylase 53 U/L (25-115); Anion Gap 1 (5-15); BUN 13 mg/dL (7-18); BUN/Creat Ratio 15.6 RATIO (10-20); Calcium,Total 9.1 mg/dL (8.5-10.1); Chloride 104 mmol/L (98-107); Creatinine, Serum 0.83 mg/dL (0.55-1.02); EST Glomerular Filtration Rate 72 mL/min (>60); Est Glom Filt Rate - Afr Amer 87 mL/min (>60); Globulin 4.2 g/dL (2.2-4.2); Glucose 135 mg/dL (74-106); Lipase 37 U/L (13-75); Potassium 3.9 mmol/L (3.5-5.1); Protein, Total 7.4 g/dL (6.4-8.2); Sodium Level 138 mmol/L (136-145)
== END | disposition home or self-care (01) ==
LOC: POLAB3 15:47
PROVIDERS: PCP Family Medicine Geriatric Medicine; Visit Provider Family Medicine Geriatric Medicine
DX: R10.9 Unspecified abdominal pain (principal)
CPT/HCPCS: 36415; 80053; 82150; 83690; 85025

== ENCOUNTER → 2023-01-25 | Outpatient (CLI) | payer MEDICARE, OTHER, SELFPAY ==
--- NOTE | 2023-01-25 09:34 | US_ITS ---
STUDY: ABDOMINAL ULTRASOUND - RIGHT UPPER QUADRANT REASON FOR VISIT: Female, 67 years old patient with abdominal pain, more on right side. History of cholecystectomy in early 80s. TECHNIQUE: Ultrasound evaluation of the right upper quadrant was performed with real-time and static solis-scale imaging. TECHNICAL QUALITY: Adequate. COMPARISON: CT abdomen and pelvis dated January 23, 2023. FINDINGS: Liver: The liver measures 15.3 cm. There is increased echogenicity consistent with fatty infiltration. The bile ducts are within normal limits. There is hepatic color flow. The direction of portal flow is hepatopetal. There is no demonstrated mass lesion. Gallbladder: The patient is status post cholecystectomy. Common Bile Duct (C.B.D.): The common bile duct measures 6.9 mm. Pancreas: Normal size of the head, body and tail of the pancreas. There is increased echogenicity of the pancreas. There is no demonstrated pancreatic mass or cyst. Right Kidney: Normal size of the right kidney. The right kidney measures 11.0 x 4.6 x 4.8 cm. Normal renal cortex. The right cortex measures 1.4 cm. There is no demonstrated renal mass or cyst. There is no right hydronephrosis. US/Abdomen Limited IMPRESSION: 1. No sonographic evidence of acute abdominal disease. 2. Hepatic steatosis. 3. Cholecystectomy. 4. Common bile duct is at the upper limits of normal. Electronically Signed: Clementina Hernández MD at 18:23 EDT ,
== END | disposition home or self-care (01) ==
LOC: US 09:33
PROVIDERS: PCP Family Medicine Geriatric Medicine; Referring Provider Family Medicine Geriatric Medicine; Visit Provider Family Medicine Geriatric Medicine
DX: R10.9 Unspecified abdominal pain (principal)
CPT/HCPCS: 76705

== ENCOUNTER → 2023-01-26 | Outpatient (CLI) | payer MEDICARE, OTHER, SELFPAY | END | disposition home or self-care (01) | LOC: PSN 11:17 | PROVIDERS: PCP Family Medicine Geriatric Medicine; Referring Provider Family Medicine Geriatric Medicine; Visit Provider Family Medicine Geriatric Medicine | DX: R68.83 Chills (without fever) (principal) | CPT/HCPCS: 87635; C9803 ==

== ENCOUNTER → 2023-02-03 | Outpatient (CLI) | payer MEDICARE, OTHER, SELFPAY ==
--- NOTE | 2023-02-03 09:15 | US_ITS ---
STUDY: ABDOMINAL ULTRASOUND - ELASTOGRAPHY REASON FOR VISIT: Female, 67 years old. Fatty infiltration of the liver. TECHNIQUE: Liver stiffness measurements were obtained on a [employer] RS 85 ultrasound machine using a CA 1-7 probe following the SRU guidelines. 3 measurements were obtained using a 2-D-SWE method. TheIQR/M was 6% suggesting a quality data set. TECHNICAL QUALITY: Adequate. COMPARISON: None. FINDINGS: Liver: Fatty attrition of the liver. Median liver stiffness measured 9.8 kPa. Abdomen: There is no demonstrated mass lesion. US/Elastography Parenchyma/Organ IMPRESSION: Liver stiffness measures 9.8 kPa compatible with F2-F3 (Mild to moderate liver fibrosis) Metavir score. Electronically Signed: Matty Machado MD at 14:08 EDT ,
== END | disposition home or self-care (01) ==
LOC: US 09:14
PROVIDERS: PCP Family Medicine Geriatric Medicine; Referring Provider Family Medicine Geriatric Medicine; Visit Provider Family Medicine Geriatric Medicine
DX: K76.0 Fatty (change of) liver, not elsewhere classified (principal)
CPT/HCPCS: 76981

== ENCOUNTER → 2023-02-17 | Outpatient (CLI) | payer MEDICARE, OTHER, SELFPAY | END | disposition home or self-care (01) | LOC: PSN 11:10 | PROVIDERS: PCP Family Medicine Geriatric Medicine; Referring Provider Family Medicine Geriatric Medicine; Visit Provider Family Medicine Geriatric Medicine | DX: R68.83 Chills (without fever) (principal) | CPT/HCPCS: 87635; 87804; 87807 ==

== ENCOUNTER → 2023-02-27 | Outpatient (CLI) | payer MEDICARE, OTHER, SELFPAY ==
--- NOTE | 2023-02-27 17:10 | RAD_ITS ---
STUDY: X-RAY - ABDOMEN/PELVIS REASON FOR EXAM: Female, 67 years old. ABD PAIN TECHNIQUE: Single AP view of the abdomen / pelvis. COMPARISON: None. FINDINGS: Normal visualized lung bases. There is an unremarkable bowel gas pattern. There is moderate diffuse fecal retention. There is no demonstrated free abdominal air. The visualized liver, spleen and kidneys are grossly normal in size and morphology. Normal soft tissue structures. Normal visualized osseous structures. RAD/Abdomen Single View IMPRESSION: Fecal retention, otherwise negative. Electronically Signed: Eagle Lacey MD at 17:49 EDT ,
--- NOTE | 2023-02-27 17:10 | RAD_ITS ---
STUDY: X-RAY CHEST REASON FOR EXAM: Female, 67 years old. CHEST PAIN TECHNIQUE: Frontal and lateral views of the chest. COMPARISON: 07/02/2020. FINDINGS: The lungs are clear and expanded. There is no demonstrated pleural abnormality. Normal size heart. Normal mediastinum and bertha. Normal visualized pulmonary arteries. There is atherosclerotic calcification of the aortic arch with tortuosity. There are diffuse degenerative changes of the visualized thoracic spine. Normal visualized ribs, clavicles, and shoulders. There is no demonstrated abnormality of the visualized soft tissue structures of the upper abdomen. RAD/Chest PA and Lateral IMPRESSION: No definite acute or significant abnormality seen. Electronically Signed: Eagle Lacey MD at 22:56 EDT ,
[2023-02-27 17:16] LABS: Absolute Lymphocyte Count 2.57 X10^3/uL (0.83-4.51); Absolute Neutrophil Count 6.2 X10^3/uL (2.0-7.7); Basophil# 0.02 X10^3/uL; Basophil% 0.2 % (0-1); Eosinophil# 0.25 X10^3/uL; Eosinophils% 2.5 % (0-5); Hematocrit 42.7 % (37-47); Lymphocyte # 2.57 X10^3/ul (0.83-4.51); Lymphocyte % 25.9 % (19-41); Mean Corp Hgb Conc 30.4 g/dL (32-36); Mean Corpuscular Hgb 27.3 pg (27.0-32.0); Mean Corpuscular Volume 89.7 fL (81-99); Mean Platelet Vol. 9.9 fl (6.2-12.0); Monocyte# 0.78 X10^3/uL; Monocyte% 7.9 % (0-10); NRBC Flagged by Analyzer 0 % (0-5); Neutrophil # 6.23 X10^3/uL (2.7-7.7); Neutrophil % 62.9 % (47-70); Platelet Count 293 K/mm3 (150-450); RBC Distribution Width CV 15.3 % (11.6-14.6); RBC Distribution Width SD 50.9 fl (35.1-43.9); Red Blood Count 4.76 M/mm3 (4.2-5.4); White Blood Count 9.9 K/mm3 (4.4-11.0)
[2023-02-27 17:30] LABS: ALB/GLOB Ratio 0.8 RATIO (0.9-2.4); AST(SGOT) 11 U/L (15-37); Alanine Aminotransfer ALT/SGPT 27 U/L (13-56); Albumin, Serum 3.1 g/dL (3.2-5.0); Alkaline Phosphatase 77 U/L (45-117); Amylase 52 U/L (25-115); Anion Gap 4 (5-15); BUN 17 mg/dL (7-18); BUN/Creat Ratio 19.2 RATIO (10-20); CPK Total, Creatine Kinase 42 U/L (26-192); Calcium,Total 8.9 mg/dL (8.5-10.1); Chloride 106 mmol/L (98-107); Creatinine, Serum 0.88 mg/dL (0.55-1.02); EST Glomerular Filtration Rate 67 mL/min (>60); Est Glom Filt Rate - Afr Amer 82 mL/min (>60); Globulin 4.1 g/dL (2.2-4.2); Glucose 179 mg/dL (74-106); Lipase 35 U/L (13-75); Potassium 4.3 mmol/L (3.5-5.1); Protein, Total 7.2 g/dL (6.4-8.2); Sodium Level 140 mmol/L (136-145); Troponin-I HS 3 pg/mL (3.0-54.0)
[2023-03-01 05:09] LABS: Myoglobin, Serum 33 ng/mL (25-58)
== END | disposition home or self-care (01) ==
PROVIDERS: PCP Family Medicine Geriatric Medicine; Visit Provider Family Medicine Geriatric Medicine
DX: R10.9 Unspecified abdominal pain (principal); R07.9 Chest pain, unspecified; R53.83 Other fatigue; R30.0 Dysuria; R06.02 Shortness of breath
CPT/HCPCS: 36415; 71046; 74018; 80053; 82150; 82550; 83690; 83874; 84484; 85025; 87086; 87088

== ENCOUNTER → 2023-02-28 | Outpatient (CLI) | payer MEDICARE, OTHER, SELFPAY | END | disposition home or self-care (01) | LOC: PSN 09:49 | PROVIDERS: PCP Family Medicine Geriatric Medicine; Referring Provider Family Medicine Geriatric Medicine; Visit Provider Family Medicine Geriatric Medicine | DX: R68.83 Chills (without fever) (principal) | CPT/HCPCS: 87635; 87804; 87807; C9803 ==

== ENCOUNTER → 2023-03-07 | Outpatient (CLI) | payer MEDICARE, OTHER, SELFPAY | END | disposition home or self-care (01) | LOC: SL 19:48 | PROVIDERS: PCP Family Medicine Geriatric Medicine; Referring Provider Nurse Practitioner Acute Care; Visit Provider Nurse Practitioner Acute Care | DX: G47.33 Obstructive sleep apnea (adult) (pediatric) (principal) | CPT/HCPCS: 95811 ==

== ENCOUNTER → 2023-03-16 | Outpatient (CLI) | payer MEDICARE, OTHER, SELFPAY ==
--- NOTE | 2023-03-16 13:20 | CT_ITS ---
STUDY: LOW DOSE CT LUNG CANCER SCREENING REASON FOR EXAM: Female, 67 years old. smoking and gt; 20 pack years quit 2010 RADIATION DOSAGE (If Supplied By Facility): CTDIvol = ( 2.39 ) mGy, DLP = ( 68.78 ) mGycm TECHNIQUE: No contrast was administered. Low dose technique was utilized (average mAS-38 and kVp 120). 1.25 mm axial source images with a slice interval of 1.25-mm were reconstructed in lung windows. 2.5 mm axial source images with a slice interval of 2.5-mm were reconstructed in lung windows. 5.0 mm axial source images with a slice interval of 5.0-mm were reconstructed in soft tissue windows. Nodule measured using lung windows on PACS and/or independent workstation with automated measurement of minimum and maximum diameter. Nodule measurement reported as average diameter rounded to the nearest whole number. Growth is defined as an increase ins size of greater than 1.5 mm. COMPARISON: CT lung cancer screening study dated March 14, 2022. CT of the chest dated November 19, 2020 FINDINGS: Total lung nodules (excluding granulomas): None. Redemonstration of an 8.5 mm calcified granuloma with fibrotic scarring extending to the posterior pleura in the posterior aspect of the left upper lobe. Stable 5.5 mm groundglass nodule in the lateral subpleural region of the right upper lobe see image 66/209 series 2 unchanged/stable for 2 years indicating it is benign. The remaining bilateral lung nicholas are clear, with exception of some mild interstitial scarring scattered throughout both regions. Emphysema: Not present Endobronchial lesion: None Aorta: No aneurysmal dilatation Coronary arteries: Mild left coronary artery atherosclerotic plaque Heart: Normal heart size. No pericardial effusion is present. There are interstitial fibrotic changes of the lungs. No consolidation is present. No pleural effusion is seen. There is no demonstrated pleural abnormality. Normal mediastinum. Normal hilar regions. Normal unenhanced pulmonary arteries. Normal aorta arch and descending thoracic aorta. There are multi-level degenerative changes of the thoracic spine. Upper abdomen included on the [id number]: Nondiagnostic due to lung windows obtained. CT/Low Dose CT Lung Screening IMPRESSION: 1. Redemonstration of an 8.5 mm calcified granuloma with fibrotic scarring extending to the posterior pleura in the posterior aspect of the left upper lobe. Stable 5.5 mm groundglass nodule in the lateral subpleural region of the right upper lobe see image 66/209 series 2 unchanged/stable for 2 years indicating it is benign. The remaining bilateral lung nicholas are clear, with exception of some mild interstitial scarring scattered throughout both regions. 2. Lung-RADS category 2 - Continue annual screening with LDCT in 12 months. IMPORTANT NOTES FOR USE: ACR Lung-RADS Version 1.0 Assessment Categories Release Date: September 23, 2013 Category: Coded 0-4 bases on nodule(s) with highest degree of suspicion. Negative screen is defined as categories 1 and 2; a positive screen is defined as categories 3 and 4. Category 3 and 4A nodules that are unchanged on interval CT should be coded as category 2, and individuals returned to screening in 12 months. Category 4X: Category 3 or 4 nodules with additional imaging findings that increase the suspicion of lung cancer, such as spiculation, GGN that doubles in size in 1 year, enlarged lymph notes, etc. Category Modifiers: S (significant finding unrelated to lung cancer) and C (prior history of treated lung cancer) may be added to the 0-4 Lung-RADS Electronically Signed: Alfonso Fields MD at 19:46 EDT ,
== END | disposition home or self-care (01) ==
LOC: CT 12:55
PROVIDERS: PCP Family Medicine Geriatric Medicine; Referring Provider Nurse Practitioner Acute Care; Visit Provider Nurse Practitioner Acute Care
DX: F17.210 Nicotine dependence, cigarettes, uncomplicated (principal)
CPT/HCPCS: 71271

== ENCOUNTER → 2023-03-29 | Outpatient (CLI) | payer MEDICARE, OTHER, SELFPAY ==
[2023-03-29 18:38] LABS: Anion Gap 5 (5-15); BUN 16 mg/dL (7-18); BUN/Creat Ratio 19.5 RATIO (10-20); Calcium,Total 9.2 mg/dL (8.5-10.1); Chloride 105 mmol/L (98-107); Creatinine, Serum 0.82 mg/dL (0.55-1.02); EST Glomerular Filtration Rate 74 mL/min (>60); Est Glom Filt Rate - Afr Amer 89 mL/min (>60); Glucose 108 mg/dL (74-106); Potassium 3.7 mmol/L (3.5-5.1); Sodium Level 139 mmol/L (136-145); T4 Total, Thyroxin 8.8 ug/dL (4.8-13.9); Thyroid Stim Hormone (TSH) 1.09 uIU/mL (0.358-3.74)
[2023-03-29 20:28] LABS: Ionized Calcium 5.08 mg/dL (4.36-5.20)
[2023-03-30 00:13] LABS: Ionized Calcium Order ORDER TUBE
== END | disposition home or self-care (01) ==
PROVIDERS: PCP Family Medicine Geriatric Medicine; Referring Provider Internal Medicine Gastroenterology; Visit Provider Internal Medicine Gastroenterology
DX: K59.00 Constipation, unspecified (principal)
CPT/HCPCS: 36415; 80048; 82330; 84436; 84443

== ENCOUNTER → 2023-05-11 | Outpatient (CLI) | payer MEDICARE, OTHER, SELFPAY | END | disposition home or self-care (01) | LOC: POLAB3 15:07 → LABSPEC 15:07 | PROVIDERS: PCP Family Medicine Geriatric Medicine; Visit Provider Family Medicine Geriatric Medicine | DX: N39.0 Urinary tract infection, site not specified (principal) | CPT/HCPCS: 87086; 87088 ==

== ENCOUNTER → 2023-06-05 | Outpatient (CLI) | payer MEDICARE, OTHER, SELFPAY ==
--- NOTE | 2023-06-05 12:40 | RAD_ITS ---
INDICATION: CERVICAL DEGENERATIVE DISC DISEASE EXAMINATION/TECHNIQUE: X-RAY - XR Spine Cervical 4 or 5 Views COMPARISON: Prior study dated: 04/12/2022. FINDINGS: VERTEBRAE: Preserved vertebral body height. No fracture. No spondylolisthesis. Straightening of the cervical spine. DISCS: Anterior fusion of C4, C5 and C6 with plate, screws and disc implants new since the previous exam. No critical bony neural foraminal stenosis is seen. NECK SOFT TISSUES: No prevertebral soft tissue widening. LUNG APICES: Clear. RAD/Cerv Spine 4 or 5 Views IMPRESSION: Status post anterior fusion of the lower cervical spine.. Electronically Signed: Jose David Alejandro MD at 12:55 EST ,
--- OUTSIDE RECORDS SUMMARY | 2023-06-05 12:48 | XMS RPT_ITS | CCD ---
Author Name Unknown Address [address] [place] [address] Organization [facility] Care Team Providers Care Business Analysis Specialist Name Role Phone JANET COLINDRES, DR MONK Primary Care Physician SABRINA GONZALES [facility] Primary Care Unavailable ESHA CHRISTENSEN Attending UnavailSABRINA Durand [facility] Primary Care Unavailable CONESHA CHEN Attending UnavailSABRINA Durand [facility] Primary Care Unavailable CONESHA CHEN Attending Unavaila gloria FAJARDO EFEWONGBE B Primary Care Unavailable VEAG XIONG Referring Unavail able JANET COLINDRES, DR MONK Primary Care Unavailable GRACIE ABBOTT DO Attending Unavailable GRACIE ABBOTT DO Attending Unavailable JANET COLINDRES, DR MONK Primary Care Unavailable GRACIE ABBOTT DO Attending Unavailable GRACIE ABBOTT DO Referring Unavailable JANET COLINDRES, DR MONK Primary Care Unavailable GRACIE ABBOTT DO Admitting Unavailable GRACIE ABBOTT DO Attending Unavailable JANET COLINDRES, DR MONK Primary Care Unavailable ISHAAN RIVERA Attending Unavailable SABRINA GONZALES [facility] Primary Care Unavailable VEGA ESTRADA Attending Unavailable KO SANTILLAN Admitting Unavailable GUSTABO YOUNG Attending Unavailable SABRINA GONZALES [facility] Primary Care Unavailable VEGA ESTRADA Referring Unavailable Allergies Allergy Classification Reported Allergen(s) Allergy Type Date of Onset Reaction(s) Facility (7 sources) Ciprofloxacin; Translations: [ciprofloxacin] Drug Allergy 0 [facility] (1 source) Cyproheptadine; Translations: [cyproheptadine] Drug Allergy [facility] (2 sources) Penicillins; Translations: [penicillins] Drug allergy [facility] (2 sources) Sulfonamides (Antibiotic); Translations: [sulfa drugs] Drug allergy Throat Swelling, Itchy throat, [facility] (4 sources) Penicillin; Translations: [PENICILLIN] Drug Allergy 7 [facility] Repository (4 sources) Sulfonamides (Antibiotic); Translations: [SULFA (SULFONAMIDE ANTIBIOTICS)] Propensity to adverse reactions to drug (disorder) 7 [facility] Repository (1 source) empagliflozin; Translations: [EMPAGLIFLOZIN] Drug Allergy 3 [facility] Repository (1 source) metFORMIN; Translations: [METFORMIN HCL ER] Drug Allergy 3 [facility] Repository (1 source) Penicillin; Translations: [PENICILLIN G] Drug Allergy 3 [facility] Repository (1 source) Sulfonamides (Antibiotic); Translations: [SULFA ANTIBIOTICS] Propensity to adverse reactions to drug (disorder) 3 [facility] Repository Medications Current Medications Medication Drug Class(es) Dates Sig (Normalized) Sig (Original) 3 ML semaglutide 1.34 MG/ML Pen Injector [Ozempic] (2 sources) Start: 08-03-2022 Ozempic (1 mg dose) 4 mg/3 mL subcutaneous solution Dose : 1 mg =, Subcutaneous, Monday, 0 Refill(s) Start Date: 08/03/22 Status: Ordered Problems Active Problems Problem Classification Problem Date Documented Date Episodic/Chronic Diabetes mellitus with complications (2 sources) Type 2 diabetes mellitus with hyperglycemia; Translations: [Type 2 diabetes mellitus with hyperglycemia] Onset: 04-18-2023 Chronic Diabetes mellitus without complication (1 source) Type 2 diabetes mellitus without complication; Translations: [Type 2 diabetes mellitus without complications] Onset: 08-18-2022 Chronic Disorders of lipid metabolism (2 sources) Hyperlipidemia, unspecified; Translations: [Hyperlipidemia, unspecified] Onset: 04-18-2023 Chronic Esophageal disorders (1 source) Gastroesophageal reflux disease without esophagitis; Translations: [Gastro-esophageal reflux disease without esophagitis] Onset: 08-18-2022 Chronic Essential hypertension (2 sources) Essential (primary) hypertension; Translations: [Essential (primary) hypertension] Onset: 04-18-2023 Chronic Nutritional deficiencies (2 sources) Vitamin D deficiency, unspecified; Translations: [Vitamin D deficiency, unspecified] Onset: 04-18-2023 Chronic Osteoporosis (2 sources) Age-related osteoporosis without current pathological fracture; Translations: [Age-related osteoporosis without current pathological fracture] Onset: 04-18-2023 Chronic Other aftercare (2 sources) manager terminal (current) use of insulin; Translations: [manager terminal (current) use of insulin] Onset: 04-18-2023 Episodic Other liver diseases (2 sources) Fatty (change of) liver, not elsewhere classified; Translations: [Fatty (change of) liver, not elsewhere classified] Onset: 04-18-2023 Chronic Other nervous system disorders (1 source) Paresthesia of skin; Translations: [Paresthesia] Onset: 06-01-2023 Episodic Residual codes; unclassified (1 source) Sleep apnea; Translations: [Sleep apnea, unspecified] Onset: 08-18-2022 Chronic Transient cerebral ischemia (1 source) Transient cerebral ischemic attack, unspecified; Translations: [TIA (transient ischemic attack)] Onset: 05-30-2023 Chronic Unclassified (2 sources) Acute low back pain without sciatica, unspecified back pain laterality; Translations: [Acute low back pain without sciatica, unspecified back pain laterality] Onset: 11-28-2022 Viral infection (1 source) COVID-19; Translations: [COVID-19] Onset: 05-01-2022 Past or Other Problems Problem Classification Problem Date Documented Da te Episodic/Chronic Other gastrointestinal disorders (1 source) Dysphagia, unspecified; Translations: [Esophageal dysphagia] Onset: 11-02-2020 Episodic Other injuries and conditions due to external causes (2 sources) Unspecified injury of head, initial encounter; Translations: [Injury of head, initial encounter] Onset: 11-28-2022 Episodic Other injuries and conditions due to external causes (2 sources) Unspecified injury of right wrist, hand and finger(s), initial encounter; Translations: [Wrist injury, right, initial encounter] Onset: 11-28-2022 Episodic Other non-traumatic joint disorders (1 source) Pain in unspecified shoulder; Translations: [Neck and shoulder pain] Onset: 05-09-2022 Episodic Spondylosis; intervertebral disc disorders; other back problems (1 source) Cervicalgia; Translations: [Neck and shoulder pain] Onset: 05-09-2022 Episodic Results Test Name Value Interpretation Reference Range Facil ity Vital Signs Date Time Vital Sign Value Performing Clinician Ced camilo 08-18-2022 12:08-0400 Body temperature 98.06 [degF] GRACIE ABBOTT DO [facility] 08-18-2022 12:08-0400 Diastolic Blood Pressure Non-Invasive 48 1 GRACIE ABBOTT DO [facility] 08-18-2022 12:08-0400 Heart rate 81 /min GRACIE ABBOTT DO [facility] 08-18-2022 12:08-0400 Reason For Taking VItal Signs GRACIE ABBOTT DO [facility] 08-18-2022 12:08-0400 Respiratory rate 20 /min GRACIE ABBOTT DO [facility] 08-18-2022 12:08-0400 Systolic Blood Pressure Non-Invasive 109 1 GRACIE ABBOTT DO [facility] 08-18-2022 06:40-0400 Body temperature 98.06 [degF] GRACIE ABBOTT DO [facility] 08-18-2022 06:40-0400 Diastolic Blood Pressure Non-Invasive 63 1 GRACIE ABBOTT DO [facility] 08-18-2022 06:40-0400 Heart rate 71 /min GRACIE ABBOTT DO [facility] 08-18-2022 06:40-0400 Reason For Taking VItal Signs GRACIE ABBOTT DO [facility] 08-18-2022 06:40-0400 Respiratory rate 20 /min GRACIE ABBOTT DO [facility] 08-18-2022 06:40-0400 Systolic Blood Pressure Non-Invasive 102 1 GRACIE ABBOTT DO [facility] 08-18-2022 02:55-0400 Body temperature 98.24 [degF] GRACIE ABBOTT DO [facility] 08-18-2022 02:55-0400 Diastolic Blood Pressure Non-Invasive 71 1 GRACIE ABBOTT DO [facility] 08-18-2022 02:55-0400 Heart rate 68 /min GRACIE ABBOTT DO [facility] 08-18-2022 02:55-0400 Reason For Taking VItal Signs GARCIE ABBOTT DO [facility] 08-18-2022 02:55-0400 Respiratory rate 20 /min GRACIE ABBOTT DO [facility] 08-18-2022 02:55-0400 Systolic Blood Pressure Non-Invasive 117 1 GRACIE ABBOTT DO [facility] 08-17-2022 23:21-0400 Heart rate 68 /min GRACIE ABBOTT DO [facility] 08-17-2022 19:13-0400 Heart rate 77 /min GRACIE ABBOTT DO [facility] 08-17-2022 14:55-0400 Body height 160 cm GRACIE ABBOTT DO [facility] 08-17-2022 14:55-0400 Body weight 81.8 kg GRACIE ABBOTT DO [facility] 08-17-2022 14:55-0400 Body weight 31.95 kg/m2 GRACIE ABBOTT DO [facility] 08-17-2022 09:50-0400 Body temperature 98.06 [degF] GRACIE ABBTOT DO [facility] 08-17-2022 09:50-0400 Respiratory Rate - Anes 13 br/min GRACIE ABBOTT DO [facility] 08-17-2022 09:45-0400 Respiratory Rate - Anes 0 br/min GRACIE ABBOTT DO [facility] 08-17-2022 09:40-0400 Respiratory Rate - Anes 14 br/min GRACIE ABBOTT DO [facility] 08-17-2022 09:35-0400 Body temperature 97.81 [degF] GRACIE ABBOTT DO [facility] 08-17-2022 09:30-0400 Body temperature 97.66 [degF] GRACIE ABBOTT DO [facility] 08-17-2022 09:25-0400 Body temperature 97.5 [degF] GRACIE ABBOTT DO [facility] 08-17-2022 06:48-0400 Body height 160 cm GRACIE ABBOTT DO [facility] 08-17-2022 06:48-0400 Body temperature 98.78 [degF] GRACIE ABBOTT DO [facility] 08-17-2022 06:48-0400 Body weight 81.8 kg GRACIE ABBOTT DO [facility] 08-17-2022 06:48-0400 Heart rate 77 /min GRACIE ABBOTT DO [facility] 08-03-2022 10:17-0500 Blood Pressure Cuff Size GRACIE ABBOTT DO [facility] 08-03-2022 10:17-0500 Blood Pressure Location GRACIE ABBOTT DO [facility] 08-03-2022 10:17-0500 Blood Pressure Method GRACIE ABBOTT DO [facility] 08-03-2022 10:17-0500 Body height 160 cm GRACIE ABBOTT DO [facility] 08-03-2022 10:17-0500 Body weight 81.8 kg GRACIE ABBOTT DO [facility] 08-03-2022 10:17-0500 Body weight 31.95 kg/m2 GRACIE ABBOTT DO [facility] 08-03-2022 10:17-0500 Diastolic Blood Pressure Non-Invasive 74 1 GRACIE ABBOTT DO [facility] 08-03-2022 10:17-0500 Heart rate 80 /min GRACIE ABBOTT DO [facility] 08-03-2022 10:17-0500 Systolic Blood Pressure Non-Invasive 126 1 GRACIE ABBOTT DO [facility] Encounters Encounter Date Encounter Type Care Provider Facility Start: 05-31-2023 End: 06-01-2023 ambulatory KO SANTILLAN Facility:[facility] Start: 05-30-2023 End: 05-31-2023 Emergency department patient visit [facility] Facility:[facility] Start: 04-18-2023 End: 04-18-2023 ambulatory ISHAAN RIVERA [facility] Start: 11-28-2022 End: 11-28-2022 Emergency department patient visit [facility] Facility:[facility] Start: 08-17-2022 End: 08-18-2022 ambulatory GRACIE ABBOTT DO Facility:[facility] Start: 08-17-2022 End: 08-18-2022 Observation GRACIE ABBOTT DO [facility] Start: 08-03-2022 End: 08-04-2022 ambulatory GRACIE ABBOTT DO Facility:[facility] Start: 08-03-2022 End: 08-03-2022 Admission to establishment GRACIE ABBOTT DO [facility] Start: 07-15-[address] LACHO GONZALES MD Faci lity:[facility] Start: 05-09-2022 End: 05-09-2022 Emergency department patient visit [facility] Facility:[facility] Start: 05-01-2022 End: 05-01-2022 Emergency department patient visit [facility] Facility:[facility] Start: 11-02-2020 End: 11-03-2020 ambulatory SARAH FAJARDO [facility] Procedures Date Procedure Procedure Detail Performing Clinician Start: 08-17-2022 Discectomy ant dcmpr n cord cervical ea ntrspc GRACIE ABBOTT DO Immunizations Immunization Date Immunization Notes Care Provider Fa cili 03-16-2021 SARS-CoV-2 (COVID-19 ) [id number] vaccine GRACIE ABBOTT DO [facility] 01-15-2021 influenza virus vaccine, unspecified formulation GRACIE ABBOTT DO [facility] 09-01-2020 SARS-CoV-2 (COVID-19 ) mRNA-1273 vaccine GRACIE ABBOTT DO [facility] 08-01-2020 SARS-CoV-2 (COVID-19 ) [id number] vaccine GRACIE SCAR DO [facility] Payers Date Payer Category Payer Medicare [id number] 2019 Medicare [id number] 1955 Unknown [id number] 1955 Unknown [id number] 1955 Unknown [id number] Social History Date Type Detail Facility Start: 08-03-2022 Tobacco smoking status Ex-smoker (fi nding) [facility] Sex Assigned At Female [facility] Functional Status Date Assessment Result Facility 08-18-2022 Functional Status Room check performed [facility] 08-18-2022 Functional Status 10 [facility] 08-18-2022 Functional Status Single level home [facility] 08-18-2022 Functional Status bilateral knee high [facility] 08-18-2022 Functional Status Walker [facility] 08-17-2022 Functional Status [facility] 08-17-2022 Functional Status [facility] 08-17-2022 Functional Status Supervised [facility] 08-17-2022 Functional Status NPO Status ice chips and sips taken [facility] 08-17-2022 Functional Status ice on [facility] 08-17-2022 Functional Status [facility] 08-17-2022 Functional Status [facility] 08-03-2022 Functional Status Sensory Defici ts Hearing deficit, left ear, Hearing deficit, right ear [facility] Mental Status Date Assessment Result Facility 08-18-2022 Mental Status Oriented x 4 [facility] 08-17-2022 Mental Status [facility] Clinical Notes 05-01-2022 to 06-01-2023 Note Date & Type Note Facility 06-01-2023 Note HNO ID: [id number] Author: SANJANA RYDER RN Service: Care Management Author Type: Registered Nurse Type: Care Mgt Progress Note Filed: 06/01/2023 16:35 Note Text: CARE MANAGEMENT DISCHARGE NOTE SERVICE DATE: June 01, 2023 SERVICE TIME: 4:34 PM Admission Date: 05/31/2023 LOS: 0 days Discharge Arrangement Discharge Arrangement: Home with Self Care Services Arranged Medical Services: Other: See Comment Provider Name: NA Phone: NA Caregiver Assessment Caregiver is ready, willing and able to meet the patient's needs as recommended by the inter-professional team: No Caregiver needed Transportation Arrangements Transportation Arrangements: Car Date of Trip: 06/01/23 Destination: home Handoff Communication: Handoff to: Primary Care Physician Primary Care Physician Name/Phone: Sabrina Gonzales [phone] Additional Information: Discharge written for patient to go home. Patient agreeable to discharge plan and denies needs. Family to transport. Bedside nurse updated. SOC sent to PCP. SIGNATURE: Sanjana Ryder RN PATIENT NAME: Aurelia White DATE: June 01, 2023 TIME: 4:34 PM CONTACT #: [phone] [facility] 06-01-2023 Note HNO ID: [id number] Author: SANJANA RYDER RN Service: Care Management Author Type: Registered Nurse Type: Care Mgt Initial Assessment Filed: 06/01/2023 13:59 Note Text: CARE MANAGEMENT: ASSESSMENT AND DISCHARGE PLAN SERVICE DATE: June 01, 2023 SERVICE TIME: 1:55 PM PCP: Sabrina Gonzales MD - Confirmed. Primary Contact: Extended Emergency Contact Information Primary Emergency Contact: Vega Cha Mobile Relation: Significant other Admission Status: Observation Insurance Provider: MEDICARE A AND B Discharge Planning requested by: Per Department Practice Potential Transition Plans Home Advance Directives Current Advance Directive: None General Dentist Attempted to Assist with AD Completion: Yes Action: Education Provided (Paperwork provided to patient.) Current Living Arrangements and Support Lives with: Spouse/significant other, Family members Type of Residence: Private Residence (House) Does the patient have to climb stairs at home?: stairs outside the home Support: Children, Spouse/significant other, Family members How do you manage to accomplish the following: Independent: Ambulation;Bathe/Shower;Dress;Me als/Meal Prep;Going to the bathroom;Medication Management;Transportation to appointments/community Current Services/Equipment Current Post-Acute Service(s): DME Current DME Type: Continuous Positive Airway Pressure Discharge Planning Patient Goal(s): Be able to go home, General wellness [place] of Choice Explained: [place] Given: No Reason Not Given: No placements necessary Are you interested in bedside delivery of your medications? No Preferred outpatient pharmacy [facility] Discharge Planning Participant(s): Patient;Spouse/significant other;Family Patient/Family Comments: Caregiver Assessment: Caregiver is ready, willing and able to meet the patient's needs as recommended by the inter-professional team: No Caregiver needed Transport at Discharge: Transportation Arrangements: Car Needs Prior to Discharge: Needs Prior to Discharge: To Be Determined Post-Acute Discharge Plan: CM met at bedside with patient, and granddaughter, introduced self and role. Pt is 68 y/o, admit Dx paraesthesia. Patient resides at home in a ranch style house with and granddaughter. 4 steps to enter the home. [employer]. 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 Presented to ED with stroke like symptoms. MRI in process, may need Echo if MRI is positive for stroke. Has CPAP at home provided by [facility] in [place]. Patient does not anticipate any discharge needs. On RA. Pt is AANDO X 3. or daughter to transport at d/c. CM instructed patient that CM team will remain available for any dc needs. SIGNATURE: Sanjana Ryder RN PATIENT NAME: Aurelia White DATE: June 01, 2023 TIME: 1:55 PM CONTACT #: [phone] [facility] 08-18-2022 Hospital Discharg e instructions Patient Education 08/18/2022 11:41:32 Anterior Cervical Diskectomy and Fusion, Care After Anterior Cervical Diskectomy and Fusion, Care After This sheet gives you information about how to care for yourself after your procedure. Your health care provider may also give you more specific instructions. If you have problems or questions, contact your health care provider. What can I expect after the procedure? After the procedure, it is common to have: Neck pain. Discomfort when swallowing. Slight hoarseness. Follow these instructions at home: If you have a neck brace: Wear it as told by your health care provider. Remove it only as told by your health care provider. Keep the brace clean and dry. Ask your health care provider if you should remove the brace to bathe or shower. Incision care Follow instructions from your health care provider about how to take care of your incision. Make sure you: ?Wash your hands with soap and water before and after you change your bandage (dressing). If soap and water are not available, use hand sfdc solution architect. ?Change your dressing as told by your health care provider. ?Leave stitches (sutures), skin glue, or adhesive strips in place. These skin closures may need to stay in place for 2 weeks or longer. If adhesive strip edges start to loosen and curl up, you may trim the loose edges. Do not remove adhesive strips completely unless your health care provider tells you to do that. Check your incision area every day for signs of infection. Check for: ?Redness, swelling, or pain. ?Fluid or blood. ?Warmth. ?Pus or a bad smell. Managing pain, stiffness, and swelling Take bcur-dmq-vcvaehk and prescription medicines only as told by your health care provider. If directed, put ice on the injured area. ?If you have a removable brace, remove it as told by your health care provider. ?Put ice in a plastic bag. ?Place a towel between your skin and the bag. ?Leave the ice on for 20 minutes, 2 3 times a day. Activity Return to your normal activities as told by your health care provider. Ask your health care provider what activities are safe for you. Do exercises as told by your health care provider. Do not take baths, swim, or use a hot tub until your health care provider approves. Do not lift anything that is heavier than 10 lb (4.5 kg), or the limit that you are told, until your health care provider says that it is safe. General instructions Ask your health care provider if the medicine prescribed to you: ?Requires you to avoid driving or using heavy machinery. ?Can cause constipation. You may need to take actions to prevent or treat constipation, such as: ?Drink enough fluid to keep your urine pale yellow. ?Take cvep-qev-lqkigcb or prescription medicines. ?Eat foods that are high in fiber, such as beans, whole grains, and fresh fruits and vegetables. ?Limit foods that are high in fat and processed sugars, such as fried and sweet foods. Do not use any products that contain nicotine or tobacco, such as cigarettes, e-cigarettes, and chewing tobacco. These can delay healing. If you need help quitting, ask your health care provider. Keep all follow-up visits and physical therapy appointments as told by your health care provider. This is important. Contact a health care provider if you have: A fever. Redness, swelling, or pain around your incision. Fluid or blood coming from your incision. Pus or a bad smell coming from your incision. Pain that is not controlled by your pain medicine. Increasing hoarseness or trouble swallowing. Get help right away if you have: Severe pain. Sudden numbness or weakness in your arms. Warmth, tenderness, or swelling in your calf. Chest pain. Difficulty breathing. Summary After the procedure, it is common to have neck pain, discomfort when swallowing, and slight hoarseness. Follow instructions from your health care provider about how to take care of your incision. Check your incision area every day for signs of infection. Return to your normal activities as told by your health care provider. Ask your health care provider what activities are safe for you. Contact a health care provider if you have signs of infection at your incision. This information is not intended to replace advice given to you by your health care provider. Make sure you discuss any questions you have with your health care provider. Document Released: 06/10/2016 Document Revised: 02/07/2019 Document Reviewed: 02/07/2019 [employer] Patient Education 2020 [employer] Follow Up Care 07/07/2022 14:50:13 With:GRACIE ABBOTT DO, Orthopedic Address: [address] [place] [address], [address] [facility] [place] [address]- [phone] When:09/05/2022 14:00:00 Comments:Post Op follow up appt with Dr Abbott in the [place] Office on 09-05-22 at 2pm. With:GRACIE ABBOTT DO, Orthopedic Address: [address] [place] [address], [address] [facility] [place] [address]- [phone] When: Unknown [facility] Ronniegilbert Chen 08-18-2022 Note Discharge Instructions Thank you for allowing [facility] to assist you with your healthcare needs. The following is important discharge information regarding your hospital visit. Your Care Team Gracie Abbott Your Diagnosis Cervical spondylosis Diabetes GERD (gastroesophageal reflux disease) Sleep apnea What to do next Instructions From Your Doctor Activity: Do not drive, smoke, operate machinery, return to work, or engage in activities that require you to be alert when taking narcotics, pain relievers or muscle relaxants No reaching overhead Do not turn your head from side to side, turn your upper body Wear both CHARBEL hose continuously for 6 weeks Remove during shower time and replaced with a clean pair Wash with soap and water, then hang dry for next use No heavy lifting, pulling, or pushing more than 10 pounds for 3 months Must wear your cervical collar at all times Call Dr. Abbott office if: You have any difficulty breathing, swallowing, or swelling of your throat You have a sore throat that does not go away with ice chips, lozenges, pain meds etc. You fall at home, call immediately You experience numbness and/or tingling in your arms or legs that is changed or increased after discharge You develop chills, and/or fever greater than 100 degrees You have drainage from your incision, especially bloody or thick yellow You have increased redness or swelling around the incision You have severe or continued headaches, especially if no headaches were present in the hospital You start having increased pain that is not relieved by your medicine You run out of pain medication Care for your incision: Never put anything on your incision, no creams lotions or antibiotic ointment No hot tubs, swimming, or soaking in water for 6 weeks, or until your incision is healed To shower, cover your incision with a 4 x 4, Tegaderm dressing, and you must wear your cervical collar Change the dressing to your neck daily using a dry 4 x 4 and tape Wear your bone growth stimulator if given 1 daily as instructed If you need to shave using electric razor, do not tilt your head back or shave over the incision General reminders: Do not take any medications, herbal, prescription, or orlz-oej-tpoypav unless prescribed for the next 12 weeks Remember to take your pain medication and/or muscle relaxants as ordered to keep your pain under control No NSAIDs for 3 months, will interfere with the fusion. Swelling around the nerves can cause continued numbness and tingling for days or weeks after surgery Follow Up Appointments Follow Up with GRACIE ABBOTT DO, Orthopedic When 09/05/2022 02:00 PM EDT Why: Post Op follow up appt with Dr Abbott in the [place] Office on 09-05-22 at 2pm. Where: [address] [place] [phone] Follow Up with GRACIE ABBOTT DO, Orthopedic When Where: [facility] [address] [address] [phone] The Following Activity and Diet Have Been Ordered for You No qualifying data available. No qualifying data available. The Following Equipment Has Been Ordered for You No qualifying data available. The Following Treatments Have Been Ordered for You Discharge Labs No qualifying data available. Discharge Radiology No qualifying data available. Other Therapies No qualifying data available. Post Acute Orders No qualifying data available. Someone Will Contact You Regarding These Home Health Referrals No home referrals have been ordered for you. No one will call you. Allergies ciprofloxacin (Hives) penicillins (Hives) sulfa drug (Throat Swelling, Itchy throat, Hives) Medications Please ask your primary doctor or pharmacist before taking any other medication not listed, including over the counter drugs, herbal medications, vitamins and or supplements as they may interact with your home medications. What How Much When Why Instructions Last Dose Unchanged acetaminophen-hydrocodone (acetaminophen-hydrocodone 325 mg-5 mg oral tablet) 1 tab(s) by mouth Three (3) times a day as needed for as needed for pain Unchanged acetaminophen-hydrocodone ([place] 325- 5 mg oral tablet) 1 tab(s) by mouth Every 6 hours as needed for for pain Cervical spondylosis Duration: 7 Days Pickup at [facility] Unchanged atorvastatin (atorvastatin 40 mg oral tablet) 1 tab(s) by mouth Daily at bedtime Unchanged FLUoxetine (FLUoxetine 40 mg oral capsule) 1 cap by mouth Daily at bedtime Unchanged gabapentin (gabapentin 100 mg oral capsule) 1 cap by mouth Three (3) times a day as needed for nerve pain Unchanged insulin glargine (Basaglar 100 unit(s)/ mL 3 mL KwikPen) 16 unit(s) Subcutaneous Daily at bedtime Unchanged lisinopril (lisinopril 2.5 mg oral tablet) 1 tab(s) by mouth Daily at bedtime Unchanged multivitamin (Multivitamin) 1 tab(s) by mouth Every day Unchanged multivitamin with minerals (Viactiv Soft Calcium Chews oral tablet, chewable) 2 tab(s) Chewed Every day Unchanged pantoprazole (pantoprazole 40 mg oral enteric coated tablet) 1 tab(s) by mouth Daily at bedtime Unchanged semaglutide (Ozempic (1 mg dose) 4 mg/ 3 mL subcutaneous solution) 1 Milligram Subcutaneous Every Monday Pharmacy Information [facility]: [address] [place], [place] [phone] What When Comments Stop Taking meloxicam (meloxicam 15 mg oral tablet) TAKE 1 TABLET BY MOUTH ONCE DAILY Please take this list to your next doctor s visit. Bring all medications you take, including over the counter medications, herbals and other supplements with you to your doctor s visit. Patients and families are reminded to discard old lists and to update any records with all medication providers or retail pharmacies. Education Materials Anterior Cervical Diskectomy and Fusion, Care After This sheet gives you information about how to care for yourself after your procedure. Your health care provider may also give you more specific instructions. If you have problems or questions, contact your health care provider. What can I expect after the procedure? After the procedure, it is common to have: Neck pain. Discomfort when swallowing. Slight hoarseness. Follow these instructions at home: If you have a neck brace: Wear it as told by your health care provider. Remove it only as told by your health care provider. Keep the brace clean and dry. Ask your health care provider if you should remove the brace to bathe or shower. Incision care Follow instructions from your health care provider about how to take care of your incision. Make sure you: ? Wash your hands with soap and water before and after you change your bandage (dressing). If soap and water are not available, use hand sfdc solution architect. ? Change your dressing as told by your health care provider. ? Leave stitches (sutures), skin glue, or adhesive strips in place. These skin closures may need to stay in place for 2 weeks or longer. If adhesive strip edges start to loosen and curl up, you may trim the loose edges. Do not remove adhesive strips completely unless your health care provider tells you to do that. Check your incision area every day for signs of infection. Check for: ? Redness, swelling, or pain. ? Fluid or blood. ? Warmth. ? Pus or a bad smell. Managing pain, stiffness, and swelling Take mife-any-ytdjgpm and prescription medicines only as told by your health care provider. If directed, put ice on the injured area. ? If you have a removable brace, remove it as told by your health care provider. ? Put ice in a plastic bag. ? Place a towel between your skin and the bag. ? Leave the ice on for 20 minutes, 2 3 times a day. Activity Return to your normal activities as told by your health care provider. Ask your health care provider what activities are safe for you. Do exercises as told by your health care provider. Do not take baths, swim, or use a hot tub until your health care provider approves. Do not lift anything that is heavier than 10 lb (4.5 kg), or the limit that you are told, until your health care provider says that it is safe. General instructions Ask your health care provider if the medicine prescribed to you: ? Requires you to avoid driving or using heavy machinery. ? Can cause constipation. You may need to take actions to prevent or treat constipation, such as: ? Drink enough fluid to keep your urine pale yellow. ? Take bwwg-dlr-paghcsy or prescription medicines. ? Eat foods that are high in fiber, such as beans, whole grains, and fresh fruits and vegetables. ? Limit foods that are high in fat and processed sugars, such as fried and sweet foods. Do not use any products that contain nicotine or tobacco, such as cigarettes, e-cigarettes, and chewing tobacco. These can delay healing. If you need help quitting, ask your health care provider. Keep all follow-up visits and physical therapy appointments as told by your health care provider. This is important. Contact a health care provider if you have: A fever. Redness, swelling, or pain around your incision. Fluid or blood coming from your incision. Pus or a bad smell coming from your incision. Pain that is not controlled by your pain medicine. Increasing hoarseness or trouble swallowing. Get help right away if you have: Severe pain. Sudden numbness or weakness in your arms. Warmth, tenderness, or swelling in your calf. Chest pain. Difficulty breathing. Summary After the procedure, it is common to have neck pain, discomfort when swallowing, and slight hoarseness. Follow instructions from your health care provider about how to take care of your incision. Check your incision area every day for signs of infection. Return to your normal activities as told by your health care provider. Ask your health care provider what activities are safe for you. Contact a health care provider if you have signs of infection at your incision. This information is not intended to replace advice given to you by your health care provider. Make sure you discuss any questions you have with your health care provider. Document Released: 06/10/2016 Document Revised: 02/07/2019 Document Reviewed: 02/07/2019 [employer] Patient Education 2020 [employer] Additional Information VACCINATE! IT SAVES LIVES! Members of the community who have not yet received the COVID-19 vaccine and would like to receive it can visit one of [facility] vaccine clinics. There are many vaccine clinic locations within the [facility]. For locations and available times, please visit https://gettheshot.coronavirus.o hio.gov/. It is important to note that some COVID mobile vaccine clinics are held outdoors and may be canceled in rainy or stormy conditions. To learn more about pediatric vaccinations (ages 5-11), we invite you to visit the [facility] webpage. https://www.[email or web address].org/p [email or web address]-Vpzvj-Bpurjexsusg-Freq cqvjxu-Rznag-Nqpuwqfjo.html To learn more about the COVID-19 vaccine, we invite you to visit the CDC website for a list of frequently asked questions. https://www.cdc.gov/coronavirus/ 2019-ncov/vaccines/faq.html [facility] Patient Portal Access Instructions: Stay connected with your healthcare team and access your personal medical information anytime with the [facility] Patient Portal.If you would like a full copy of your medical records, please contact the [facility] Medical Records Department, Monday through Monday between 8a.m. and 4:30p.m. Please follow the directions below to access the portal: 1.Access the email account you provided upon registration to the [facility].2.Look for an invitation email from [facility].3.Open the email and access the invitation link: Accept Invitation to [facility].Fill in the required nicholas to create your account. Sign into [email or web address].[email or web address] with your username and password that you created in the above steps to stay up to date. You can then view a summary of results, a summary of your visits, and the ability to download your summaries to your computer or send the information securely to a physician. Remember that your healthcare information is confidential, so carefully consider who you will allow to register on the [facility] Patient Portal for access to your information. You can also access the [facility] Patient Portal on the [employer]. Simply click on Health Records under Health Data and then click on the [employer] logo. HOW TO SAFELY DISPOSE OF PRESCRIPTION MEDICATIONS Please use one of the following methods to safely dispose of your unused medications. 1.Use a drug disposal kit: the drug disposal pouch allows you to safely discard your old and unused drugs. Ask your nurse to give you one when you are discharged.2.Visit a local take-back location: Many local pharmacies and police departments have programs that collect old and unwanted prescription drugs. Call your local pharmacy or go to http://makerSQR.buySAFE/0R8Ds4j to find one close to you.3.Make use of household items: Use cat litter or old coffee grounds to dispose medications if other options are not available. Mix your drugs with these household products, seal them in an airtight container and throw it into the garbage. Call [facility]: [phone] to be sure your drugs can be disposed of in this way. Some medicines may require a different approach.4.Never flush your medications down the toilet. IF YOU HAVE BEEN PRESCRIBED AN OPIOID FOR PAIN If you have been prescribed an opioid (such as hydrocodone, oxycodone or morphine), it is critical to understand the possible side effects and risks of opioid pain medications. Even when taken as directed, opioids can have several side effects including: Tolerance, meaning you might need to take more of a medication for the same pain relief. Nausea, vomiting and/or constipation. Sleepiness, dizziness, dry mouth, confusion, depression or itching. Physical dependence, meaning you have withdrawal symptoms when a medication is stopped, can develop within a few days. KNOW YOUR RESPONSIBILITIES It is important to know exactly how much and how often to take the opioid pain medications you are prescribed. Never take opioids in higher amounts or more often than prescribed. Do not combine opioids with alcohol or other drugs that cause drowsiness, such as benzodiazepines, also known as benzos, including diazepam and alprazolam, muscle relaxants or sleep aids. Never sell or share prescription opioids. This is illegal. Store opioids in a secure place and out of reach of others (including children, family, friends and visitors). The last page of this document has been signed and retained as a CHART COPY. Signatures Patient Education Materials Anterior Cervical Diskectomy and Fusion, Care After Medication Leaflets My discharge plan and instructions have been reviewed and explained to me and ICHRISTOPHER LYNN M understand my current condition and have read and understand these discharge instructions. I have received a written copy of the plan/instructions. If I have questions, I am aware that I should contact my doctor. 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 [facility] 08-17-2022 Note ORIGINAL Images acquired, not reported on this accession number. [facility] 08-17-2022 Note Date of Service 08/17/2022 Chief Complaint Status post ACDF Subjective The patient was seen and examined in the PACU. She is lying in bed resting comfortably. Her pain is controlled. She denies any acute numbness tingling or weakness Objective Vitals and Measurements T: 37.1 C (Temporal Artery) HR: 77 RR: 15 BP: 117/53 SpO2: 96% HT: 160 cm WT: 81.8 kg Intake and Output 7AM Yesterday to 7AM Today Intake and Output (Last 24 hours) Intake Output Total Summary Total Intake 0.00 Total Output 0.00 Fluid Balance 0.00 Physical Exam A&O, NAD NCAT, EOMI Neck soft and supple, dressing clean dry and intact, cervical collar in place Regular rate and rhythm Clear to auscultation bilaterally Abdomen soft and nontender Extremities: Sensation and motor intact grossly without focal deficit, pulses and reflexes are normal and symmetric, no tenderness to palpation or edema Weight Dosing Weight: 81.8 kg (08/17/22) Medications Medications (1) Active Scheduled: (1) clindamycin PMX 600 mg 50 mL, IV Piggyback, PREOP pharm Continuous: (0) PRN: (0) Lab Results No 36 Hour Lab Data EKG No qualifying data available. Assessment/Plan Orders: Antiembolism Stocking Application Thigh High Blood Glucose Monitoring POC Communication Order (scheduled) IV Catheter Insertion/Care NPO Sequential Compression Device Application Sign Consent Sign Consent Type and Screen (AO) Okay to admit to floor See orders Discharge planning, likely home tomorrow Digitally Signed by GRACIE ABBOTT DO on 08/18/2022 06:43 AM [facility] 08-17-2022 Anesthesiology Consult note Patient: AURELIA WHITE Age: 67 years Sex: Female : 1955 Associated Diagnoses: None Author: SUZANNA SERRANO APRN-ROBBIN Preoperative Information Anesthesia history Patient's history: negative. Family's history: negative. Health Status Allergies: Allergic Reactions (Selected) Severity Not Documented Ciprofloxacin- No reactions were documented. Cyproheptadine- No reactions were documented. Penicillins- No reactions were documented. Sulfa drug- No reactions were documented., Allergies (4) ActiveReaction ciprofloxacinNone Documented cyproheptadineNone Documented penicillinsNone Documented sulfa drugNone Documented Current medications: (Selected) Inpatient Medications Ordered Cleocin Phosphate: 600 mg, 50 mL, 100 mL/hr, IV Piggyback, PREOP pharm Documented Medications Documented Basaglar 100 unit(s)/mL 3 mL KwikPen: 10 unit(s), 0.1 mL, Subcutaneous, Daily, 15 mL, 0 Refill(s) FLUoxetine 40 mg oral capsule: TAKE 1 CAPSULE BY MOUTH ONCE DAILY FOR 90 DAYS Ozempic (1 mg dose) 4 mg/3 mL subcutaneous solution: 0.5 mg, Subcutaneous, qWeek, 3 mL, 0 Refill(s) acetaminophen-hydrocodone 325 mg-5 mg oral tablet: TAKE 1 TABLET BY MOUTH THREE TIMES DAILY NEEDED for acute pain atorvastatin 40 mg oral tablet: TAKE 1 TABLET BY MOUTH DAILY AT BEDTIME gabapentin 100 mg oral capsule: TAKE 1 CAPSULE BY MOUTH THREE TIMES DAILY insulin detemir (Levemir): 16 unit(s), Subcutaneous, qHS, baslagar6, 0 Refill(s) lisinopril 2.5 mg oral tablet: TAKE 1 TABLET BY MOUTH ONCE DAILY FOR 90 DAYS meloxicam 15 mg oral tablet: TAKE 1 TABLET BY MOUTH ONCE DAILY pantoprazole 40 mg oral enteric coated tablet: TAKE 1 TABLET BY MOUTH DAILY, Medications (1) Active Scheduled: (1) clindamycin PMX 600 mg 50 mL, IV Piggyback, PREOP pharm Continuous: (0) PRN: (0) Problem list: Active Problems (4) Diabetes GERD (gastroesophageal reflux disease) Osteopenia Sleep apnea Histories Past Medical History: No active or resolved past medical history items have been selected or recorded. Family History: Procedure history: Appendectomy ([id number]). Carpal tunnel ([id number]). Comments: 08/03/2022 10:11 Ashley Anderson RN bilateral Arthroscopy of shoulder ([id number]). Comments: 08/03/2022 10:11 Ashley Anderson RN bilateral, calcium deposits Hysterectomy ([id number]). Cholecystectomy ([id number]). Social History Social & Psychosocial Habits Alcohol 08/03/2022 Use: Never Substance Abuse 08/03/2022 Use: Never Tobacco 08/03/2022 Tobacco Use: Former smoker, quit more Stopped at age: 55 Years Home/Environment 08/03/2022 Domestic Concerns None Living situation: Home/Independent . Physical Examination No qualifying data available Measurements from flowsheet : Measurements 08/17/2022 6:30 EDT Body Mass Index 31.95 kg/m2 Pain assessment: baseline left arm numbness and pain. General: Alert and oriented. Airway: Normal temporomandibular joint mobility. Mallampati classification: II (soft palate, fauces, uvula visible). Dentition Evaluation: Denies loose/chipped teeth. Respiratory: Lungs are clear to auscultation, Respirations are non-labored. Cardiovascular: Normal rate, Regular rhythm. Neurologic: Alert, Oriented. Review / Management Results review: No qualifying data available , Lab results 08/17/2022 6:30 EDT Body Mass Index 31.95 kg/m2 Sleep Apnea Snore Yes Sleep Apnea Tired Yes Sleep Apnea Obstruction Yes Sleep Apnea Pressure No Sleep Apnea BMI No Sleep Apnea Neck No Sleep Apnea Score 4 High Risk for Sleep Apnea Yes Infectious Disease Symptoms Runny nose Safety Brochure Information Reviewed Yes [facility] Video Viewed No Teaching Evaluation No further teaching needed Admission Note-Nursing Same Day Patient History (Modified) . Assessment and Plan [place] [employer] Anesthesiologists (ASA) physical status classification: Class III. Anesthetic Preoperative Plan Anesthetic technique: General. Maintenance airway: Oral endotracheal tube. Postoperative pain management: Per surgeon. Risks discussed: nausea, vomiting, sore throat, dental injury, hypotension, allergic reaction, serious complications. Informed consent: signed by patient. Digitally Signed by SUZANNA SERRANO on 08/17/2022 06:53 AM [facility] 05-01-2022 Note COVID 19 RESULT: SARS-CoV-2 (Agent of COVID-19) Detected by RT-PCR or equivalent method. This test has been authorized by FDA under an Emergency Use Authorization (EUA). INFLUENZA A PCR: Negative for Influenza A by RT-PCR INFLUENZA B PCR: Negative for Influenza B by RT-PCR RSV PCR: Negative for Respiratory Syncytial Virus (RSV) by PCR [facility] Summary Purpose Family History No Family History Records FoundNo Family History Records FoundNo Family History Records FoundNo Family History Records FoundNo Family History Records FoundNo Family History Records FoundNo Family History Records FoundNo Family History Records FoundNo Family History Records Found Advance Directives No Advanced Directives Records FoundNo Advanced Directives Records FoundNo Advanced Directives Records FoundNo Advanced Directives Records FoundNo Advanced Directives Records FoundNo Advanced Directives Records FoundNo Advanced Directives Records FoundNo Advanced Directives Records FoundNo Advanced Directives Records Found Additional Source Comments INFORMATION SOURCE (unrecogn ized section and content) DATE CREATED AUTHOR AUTHOR'S ORGANIZ ATION 03/28/2021 [facility] DATE CREATED AUTHOR AUTHOR'S ORGANIZ ATION 07/07/2021 [facility] DATE CREATED AUTHOR AUTHOR'S ORGANIZ ATION 11/28/2022 [facility] DATE CREATED AUTHOR AUTHOR'S ORGANIZ ATION 12/02/2022 [facility] DATE CREATED AUTHOR AUTHOR'S ORGANIZ ATION 03/05/2023 [facility] DATE CREATED AUTHOR AUTHOR'S ORGANIZ ATION 04/23/2023 [facility] DATE CREATED AUTHOR AUTHOR'S ORGANIZ ATION 06/01/2023 [facility] DATE CREATED AUTHOR AUTHOR'S ORGANIZ ATION 06/03/2023 [facility] Care Team (unrecognized sect ion and content) Care Team Personnel Name: LACHO GONZALES MD Member Role: Primary Care Physician Address: Address: [facility] [place] [address]- Care Team Related Persons Name: VEGA CHA Address: [address] [place] [address] Patient Care team informatio n (unrecognized section and content) Care Team Personnel Name: LACHO GONZALES MD Member Role: Primary Care Physician Address: Address: [facility] [place] [address]- Care Team Related Persons Name: VEGA CHA Address: Home [address] [place] [address] FOR RECORDS PERTAINING TO PATIENTS WHO ARE OR HAVE BEEN ENROLLED IN A CHEMICAL DEPENDENCY/SUBSTANCEABUSE PROGRAM, SOME INFORMATION MAY BE OMITTED. This clinical summary was aggregated from multiple sources. Caution should be exercised in using it in the provision of clinical care. This summary normalizes information from multiple sources, and as a consequence, information in this document may materially change the coding, format and clinical context of patient data. In addition, data may be omitted in some cases. CLINICAL DECISIONS SHOULD BE BASED ON THE PRIMARY CLINICAL RECORDS. [facility]. provides no warranty or guarantee of the accuracy or completeness of information in this document.
== END | disposition home or self-care (01) ==
PROVIDERS: PCP Family Medicine Geriatric Medicine; Referring Provider Clinical Nurse Specialist Adult Health; Visit Provider Clinical Nurse Specialist Adult Health
DX: M50.30 Other cervical disc degeneration, unspecified cervical region (principal)
CPT/HCPCS: 72050

== ENCOUNTER → 2023-06-28 | Outpatient (CLI) | payer MEDICARE, OTHER, SELFPAY ==
[2023-06-28 12:05] LABS: Absolute Lymphocyte Count 1.47 X10^3/uL (0.83-4.51); Absolute Neutrophil Count 4.3 X10^3/uL (2.0-7.7); Basophil# 0.04 X10^3/uL; Basophil% 0.6 % (0-1); Eosinophil# 0.13 X10^3/uL; Hematocrit 38.4 % (37-47); Hemoglobin 11.8 g/dL (12.0-15.0); Lymphocyte # 1.47 X10^3/ul (0.83-4.51); Lymphocyte % 22.4 % (19-41); Mean Corp Hgb Conc 30.7 g/dL (32-36); Mean Corpuscular Hgb 27.8 pg (27.0-32.0); Mean Corpuscular Volume 90.6 fL (81-99); Mean Platelet Vol. 10.3 fl (6.2-12.0); Monocyte# 0.58 X10^3/uL; Monocyte% 8.9 % (0-10); NRBC Flagged by Analyzer 0 % (0-5); Neutrophil % 65.6 % (47-70); Platelet Count 296 K/mm3 (150-450); RBC Distribution Width SD 42.7 fl (35.1-43.9); Red Blood Count 4.24 M/mm3 (4.2-5.4); White Blood Count 6.6 K/mm3 (4.4-11.0)
--- OUTSIDE RECORDS SUMMARY | 2023-06-28 12:14 | XMS RPT_ITS | CCD ---
Author Name Unknown Address [address] [place] [address] Organization [facility] Care Team Providers Care Wine Fermenter Name Role Phone JANET COLINDRES, DR MONK Primary Care Physician SABRINA GONZALES [facility] Primary Care Unavailable ESHA CHRISTENSEN Attending SABRINA Sylvester [facility] Primary Care Unavailable ESHA CHRISTENSEN Attending SABRINA Sylvester [facility] Primary Care Unavailable ESHA CHRISTENSEN Attending Zahra GONZALES MD, DR MONK Primary Care Unavailable GRACIE ABBOTT DO Attending Unavailable GRACIE ABBOTT DO Attending Queta GONZALES MD, DR MONK Primary Care Unavailable GRACIE ABBOTT DO Attending Unavailable GRACIE ABBOTT DO Referring Unavailable JANET COLINDRES, DR MONK Primary Care Unavailable GRACIE ABBOTT DO Admitting Unavailable GRACIE ABBOTT DO Attending Queta GONZALES MD, DR MONK Primary Care Unavailable ISHAAN RIVERA Attending Unavailable SABRINA GONZALES [facility] Primary Care Unavailable VEGA ESTRADA Attending Unavailable KO SANTILLAN Admitting Unavailable GUSTABO YOUNG Attending Unavailable SABRINA GONZALES [facility] Primary Care Unavailable VEGA ESTRADA Referring Unavailable Allergies Allergy Classification Reported Allergen(s) Allergy Type Date of Onset Reaction(s) Facility (6 sources) Ciprofloxacin; Translations: [ciprofloxacin] Drug Allergy 0 [facility] (1 source) Cyproheptadine; Translations: [cyproheptadine] Drug Allergy [facility] (2 sources) Penicillins; Translations: [penicillins] Drug allergy [facility] (2 sources) Sulfonamides (Antibiotic); Translations: [sulfa drugs] Drug allergy Throat Swelling, Itchy throat, Hives [facility] (3 sources) Penicillin; Translations: [PENICILLIN] Drug Allergy 7 [facility] Repository (3 sources) Sulfonamides (Antibiotic); Translations: [SULFA (SULFONAMIDE ANTIBIOTICS)] Propensity to adverse reactions to drug (disorder) 7 [facility] Repository (1 source) empagliflozin; Translations: [EMPAGLIFLOZIN] Drug Allergy 3 [facility] Repository (1 source) metFORMIN; Translations: [METFORMIN HCL ER] Drug Allergy 3 [facility] Repository (1 source) Penicillin; Translations: [PENICILLIN G] Drug Allergy 3 [facility] Repository (1 source) Sulfonamides (Antibiotic); Translations: [SULFA ANTIBIOTICS] Propensity to adverse reactions to drug (disorder) 3 [facility] Repository Medications Current Medications Medication Drug Class(es) [...] Onset: 04-18-2023 Chronic Other aftercare (2 sources) terminologist (current) use of insulin; Translations: [terminologist (current) use of insulin] Onset: 04-18-2023 Episodic [...] Problem Date Documented Da te Episodic/Chronic Other injuries and conditions due to external [...] Date Time Vital Sign Value Performing Clinician Faci lity 08-18-2022 12:08-0400 Body temperature 98.06 [degF] GRACIE ABBOTT DO [facility] 08-18-2022 12:08-0400 Diastolic Blood Pressure Non-Invasive 48 1 GRACIE ABBOTT DO [facility] 08-18-2022 12:08-0400 Heart rate 81 /min GRACIE ABBOTT DO [facility] 08-18-2022 12:08-0400 Reason For Taking VItal Signs GRACIE ABBOTT DO [facility] 08-18-2022 12:08-0400 Respiratory rate 20 /min GRACIE ABBOTT DO [facility] 08-18-2022 12:08-0400 Systolic Blood Pressure Non-Invasive 109 1 GRACIE ABBOTT DO [facility] 08-18-2022 06:40-0400 Body temperature 98.06 [degF] GRACIE ABBOTT DO [facility] 08-18-2022 06:40-0400 Diastolic Blood Pressure Non-Invasive 63 1 GRACIE ABBOTT DO [facility] 08-18-2022 06:40-0400 Heart rate 71 /min GRACIE ABBOTT DO [facility] 08-18-2022 06:40-0400 Reason For Taking VItal Signs GRACIE ABBOTT DO [facility] 08-18-2022 06:40-0400 Respiratory rate 20 /min GRACIE ABBOTT DO [facility] 08-18-2022 06:40-0400 Systolic Blood Pressure Non-Invasive 102 1 GRACIE ABBOTT DO [facility] 08-18-2022 02:55-0400 Body temperature 98.24 [degF] GRACIE ABBOTT DO [facility] 08-18-2022 02:55-0400 Diastolic Blood Pressure Non-Invasive 71 1 GRACIE ABBOTT DO [facility] 08-18-2022 02:55-0400 Heart rate 68 /min GRACIE ABBOTT DO [facility] 08-18-2022 02:55-0400 Reason For Taking VItal Signs GRACIE ABBOTT DO [facility] 08-18-2022 02:55-0400 Respiratory rate 20 /min GRACIE ABBOTT DO [facility] 08-18-2022 02:55-0400 Systolic Blood Pressure Non-Invasive 117 1 GRACIE ABBOTT DO [facility] 08-17-2022 23:21-0400 Heart rate 68 /min GRACIE ABBOTT DO [facility] 08-17-2022 19:13-0400 Heart rate 77 /min GRACIE ABBOTT DO [facility] 08-17-2022 14:55-0400 Body height 160 cm GRACIE ABBOTT DO [facility] 08-17-2022 14:55-0400 Body weight 81.8 kg GRACIE ABBOTT DO [facility] 08-17-2022 14:55-0400 Body weight 31.95 kg/m2 GRACIE ABBOTT DO [facility] 08-17-2022 09:50-0400 Body temperature 98.06 [degF] GRACIE ABBOTT DO [facility] 08-17-2022 09:50-0400 Respiratory Rate - Anes 13 br/min GRACIE ABBOTT DO [facility] 08-17-2022 09:45-0400 Respiratory Rate - Anes 0 br/min GRACIE ABBOTT DO [facility] 08-17-2022 09:40-0400 Respiratory Rate - Anes 14 br/min GRACIE ABBOTT DO [facility] 08-17-2022 09:35-0400 Body temperature 97.81 [degF] GRACIE ABBOTT DO [facility] 08-17-2022 09:30-0400 Body temperature 97.66 [degF] GRACIE ABBOTT DO [facility] 08-17-2022 09:25-0400 Body temperature 97.5 [degF] GRACIE ABBOTT DO [facility] 08-17-2022 06:48-0400 Body height 160 cm GRACIE ABBOTT DO [facility] 08-17-2022 06:48-0400 Body temperature 98.78 [degF] GRACIE ABBOTT DO [facility] 08-17-2022 06:48-0400 Body weight 81.8 kg GRACIE ABBOTT DO [facility] 08-17-2022 06:48-0400 Heart rate 77 /min GRACIE ABBOTT DO [facility] 08-03-2022 10:17-0500 Blood Pressure Cuff Size GRACIE ABBOTT DO [facility] 08-03-2022 10:17-0500 Blood Pressure Location GRACIE ABBOTT DO [facility] 08-03-2022 10:17-0500 Blood Pressure Method GRACIE ABBOTT DO [facility] 08-03-2022 10:17-0500 Body height 160 cm GRACIE ABBOTT DO [facility] 08-03-2022 10:17-0500 Body weight 81.8 kg GRACIE ABBOTT DO [facility] 08-03-2022 10:17-0500 Body weight 31.95 kg/m2 GRACIE ABBOTT DO [facility] 08-03-2022 10:17-0500 Diastolic Blood Pressure Non-Invasive 74 1 GRACIE ABBOTT DO [facility] 08-03-2022 10:17-0500 Heart rate 80 /min GRACIE ABBOTT DO [facility] 08-03-2022 10:17-0500 Systolic Blood Pressure Non-Invasive 126 1 GRACIE ABBOTT DO [facility] Encounters Encounter Date Encounter Type Care Provider Facility Start: 05-31-2023 End: 06-01-2023 ambulatory KO SANTILLAN Facility:[facility] Start: 05-30-2023 End: 05-31-2023 Emergency department patient visit SABRINA VINCENT JANET Facility:[facility] Start: 04-18-2023 End: 04-18-2023 ambulatory ISHAAN RIVERA [facility] Start: 11-28-2022 End: 11-28-2022 Emergency department [facility] Facility:[facility] Start: 08-17-2022 End: 08-18-2022 ambulatory GRACIE ABBOTT DO Facility:[facility] Start: 08-17-2022 End: 08-18-2022 Observation GRACIE ABBOTT DO [facility] Start: 08-03-2022 End: 08-04-2022 ambulatory GRACIE ABBOTT DO Facility:[facility] Start: 08-03-2022 End: 08-03-2022 Admission to establishment GRACIE ABBOTT DO [facility] Start: 07-15-[address] LACHO GONZALES MD Faci lity:[facility] Start: 05-09-2022 End: 05-09-2022 Emergency department patient [facility] Facility:[facility] Start: 05-01-2022 End: 05-01-2022 Emergency department patient visit [facility] Facility:[facility] Procedures Date Procedure Procedure Detail Performing Clinician Start: 08-17-2022 Discectomy ant dcmpr n cord cervical ea ntrspc GRACIE ABBOTT DO Immunizations Immunization Date Immunization Notes Care Provider Олег johnson 03-16-2021 SARS-CoV-2 (COVID-19 ) mRNA-1273 vaccine GRACIE ABBOTT DO [facility] 01-15-2021 influenza virus vaccine, unspecified formulation GRACIE ABBOTT DO [facility] 09-01-2020 SARS-CoV-2 (COVID-19 ) mRNA-1273 vaccine GRACIE ABBOTT DO [facility] 08-01-2020 SARS-CoV-2 (COVID-19 ) mRNA-1273 vaccine GRACIE ABBOTT DO [facility] Payers Date Payer Category Payer Medicare [id number] 2019 Medicare [id number] 1955 Unknown [id number] 1955 Unknown [id number] 1955 Unknown [id number] Social History Date Type Detail Facility Start: 08-03-2022 Tobacco smoking status Ex-smoker (fi nding) [facility] Sex Assigned At Female [facility] Functional Status Date Assessment Result Facility 08-18-2022 Functional Status Room check performed [facility] 08-18-2022 Functional Status 10 [facility] 08-18-2022 Functional Status Single level home [facility] 08-18-2022 Functional Status bilateral knee high [facility] 08-18-2022 Functional Status Walker [facility] 08-17-2022 Functional Status [facility] 08-17-2022 Functional Status [facility] 08-17-2022 Functional Status Supervised [facility] 08-17-2022 Functional Status NPO Status ice chips and sips taken [facility] 08-17-2022 Functional Status ice on [facility] 08-17-2022 Functional Status [facility] 08-17-2022 Functional Status [facility] 08-03-2022 Functional Status Sensory Defici ts Hearing deficit, left ear, Hearing deficit, right ear [facility] Mental Status Date Assessment Result Facility 08-18-2022 Mental Status Oriented x 4 [facility] 08-17-2022 Mental Status [facility] Clinical Notes 05-01-2022 to 06-01-2023 Note Date & Type Note Facility 06-01-2023 Note HNO ID: [id number] Author: SANJANA RYDER RN Service: Care Management [...] Physician Primary Care Physician Name/Phone: Sabrina Gonzales [phone] Additional Information: Discharge written for patient to go home. Patient agreeable to discharge plan and denies needs. Family to transport. Bedside nurse updated. SOC sent to PCP. SIGNATURE: Sanjana Ryder RN PATIENT NAME: Aurelia White DATE: June 01, 2023 TIME: 4:34 PM CONTACT #: [phone] [facility] 06-01-2023 Note HNO ID: [id number] Author: SANJANA RYDER RN Service: Care Management Author Type: Registered Nurse Type: Maged Mgt Initial Assessment Filed: 06/01/2023 13:59 Note Text: CARE MANAGEMENT: ASSESSMENT AND DISCHARGE PLAN SERVICE DATE: June 01, 2023 SERVICE TIME: 1:55 PM PCP: Sabrina Gonzales MD - Confirmed. Primary Contact: Extended Emergency Contact Information Primary Emergency Contact: ChaVega olguin Mobile Relation: Significant other Admission Status: Observation Insurance Provider: MEDICARE A AND B Discharge Planning requested by: Per Department Practice Potential Transition Plans Home Advance Directives Current Advance Directive: None Cat Hooker Attempted to Assist with AD Completion: Yes [...] Be able to go home, General wellness Fourmile of Choice Explained: Fourmile of Choice Given: No Reason Not Given: No placements necessary Are you interested in bedside delivery of your medications? No Preferred outpatient pharmacy is [facility] Discharge Planning Participant(s): Patient;Spouse/significant other;Family Patient/Family Comments: [...] steps to enter the home. 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 Presented to ED with stroke like symptoms. MRI in process, may need Echo if MRI is positive for stroke. Has CPAP at home provided by [facility] in [place]. Patient does not anticipate any discharge needs. On RA. Pt is AANDO X 3. or daughter to transport at d/c. CM instructed patient that CM team will remain available for any dc needs. SIGNATURE: Sanjana Ryder RN PATIENT NAME: Aurelia White DATE: June 01, 2023 TIME: 1:55 PM CONTACT #: [phone] [facility] 08-18-2022 Hospital Discharg e instructions Patient [...] and water are not available, use hand press operator automatic. ?Change your dressing as told by your [...] smell. Managing pain, stiffness, and swelling Take hcfo-lxx-yujpkhw and prescription medicines only as told by [...] to keep your urine pale yellow. ?Take lcri-ycb-gnkctzz or prescription medicines. ?Eat foods that are [...] 06/10/2016 Document Revised: 02/07/2019 Document Reviewed: 02/07/2019 [employer] Patient Education 2020 [employer]. Follow Up Care 07/07/2022 14:50:13 With:GRACIE ABBOTT DO, Orthopedic Address: [address] [place] [address] [address] [facility] [place] [address]- [phone] When:09/05/2022 14:00:00 Comments:Post Op follow up appt with Dr Abbott in the [place] Office on 09-05-22 at 2pm. With:GRACIE ABBOTT DO, Orthopedic Address: [address] [place] [address] [place] [address]- [phone] When: Unknown [facility] 08-18-2022 Note Discharge Instructions Thank you for allowing [facility] to assist you with your healthcare needs. [...] not take any medications, herbal, prescription, or fzaq-omv-hkujfop unless prescribed for the next 12 weeks [...] up appt with Dr Abbott in the [place] Office on 09-05-22 at 2pm. Where: [facility] [address] [place] [address]- [phone] Follow Up with GRACIE ABBOTT DO, Orthopedic When Where: [facility] [address] [place] [address]- [phone] The Following Activity and Diet Have Been [...] for as needed for pain Unchanged acetaminophen-hydrocodone ([place] 325- 5 mg oral tablet) 1 tab(s) by mouth Every 6 hours as needed for for pain Cervical spondylosis Duration: 7 Days Pickup at [facility] Unchanged atorvastatin (atorvastatin 40 mg oral [...] 1 Milligram Subcutaneous Every Monday Pharmacy Information [facility]: [address] [place], [place] [phone] What When Comments Stop Taking meloxicam (meloxicam [...] and water are not available, use hand press operator automatic. ? Change your dressing as told by [...] smell. Managing pain, stiffness, and swelling Take jinm-vas-yuzgqgr and prescription medicines only as told by [...] keep your urine pale yellow. ? Take lwrl-poo-vnqscfa or prescription medicines. ? Eat foods that [...] 06/10/2016 Document Revised: 02/07/2019 Document Reviewed: 02/07/2019 [employer] Patient Education 2020 [employer]. Additional Information VACCINATE! IT SAVES LIVES! Members of the community who have not yet received the COVID-19 vaccine and would like to receive it can visit one of [facility] vaccine clinics. There are many vaccine clinic locations within the [facility]. For locations and available times, please visit [email or web address].o hio.gov/. It is important to note that some COVID mobile vaccine clinics are held outdoors and may be canceled in rainy or stormy conditions. To learn more about pediatric vaccinations (ages 5-11), we invite you to visit the [facility] webpage. https://www.[email or web address].org/p ages/8711-Sxjjl-Vpoortplgsl-Freq emofvq-Vdhjc-Zcwjhfhqx.html To learn more about the COVID-19 vaccine, we invite you to visit the CDC website for a list of frequently asked questions. https://www.cdc.gov/coronavirus/ 2019-ncov/vaccines/faq.html [facility] Patient Portal Access Instructions: Stay connected with your healthcare team and access your personal medical information anytime with the [facility] Patient Portal.If you would like a full copy of your medical records, please contact the [facility] Medical Records Department, Monday through Monday between 8a.m. and 4:30p.m. Please follow the directions below to access the portal: 1.Access the email account you provided upon registration to the [facility].2.Look for an invitation email from [facility].3.Open the email and access the invitation link: Accept Invitation to [facility]4.Fill in the required nicholas to create your account. Sign into [email or web address] with your username and password that you [...] you will allow to register on the [facility] Patient Portal for access to your information. You can also access the [facility] Patient Portal on the [employer]. Simply click on Health Records under Health Data and then click on the [place] logo. HOW TO SAFELY DISPOSE OF PRESCRIPTION [...] Call your local pharmacy or go to [email or web address] to find one close to you.3.Make use of household items: Use cat litter or old coffee grounds to dispose medications if other options are not available. Mix your drugs with these household products, seal them in an airtight container and throw it into the garbage. Call [facility]: [phone] to be sure your drugs can be [...] aware that I should contact my doctor. 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 [facility] 08-17-2022 Note ORIGINAL Images acquired, not reported on this accession number. [facility] 08-17-2022 Note Date of Service 08/17/2022 Chief [...] GRACIE ABBOTT DO on 08/18/2022 06:43 AM [facility] 08-17-2022 Anesthesiology Consult note Patient: AURELIA WHITE Age: 67 years Sex: Female : 1955 Associated Diagnoses: None Author: SUZANNA SERRANO APRN-SIGNAL WORKER Preoperative Information Anesthesia history Patient's history: negative. [...] or recorded. Family History: Procedure history: Appendectomy ([id number]). Carpal tunnel ([id number]). Comments: 08/03/2022 10:11 Ashley Anderson RN bilateral Arthroscopy of shoulder ([id number]). Comments: 08/03/2022 10:11 Ashley Anderson RN bilateral, calcium deposits Hysterectomy ([id number]). Cholecystectomy ([id number]). Social History Social & Psychosocial Habits Alcohol [...] Runny nose Safety Brochure Information Reviewed Yes [facility] Video Viewed No Teaching Evaluation No further teaching needed Admission Note-Nursing Same Day Patient History (Modified) . Assessment and Plan [employer] of Anesthesiologists (ASA) physical status classification: Class III. Anesthetic Preoperative Plan Anesthetic technique: General. Maintenance airway: Oral endotracheal tube. Postoperative pain management: Per surgeon. Risks discussed: nausea, vomiting, sore throat, dental injury, hypotension, allergic reaction, serious complications. Informed consent: signed by patient. Digitally Signed by SUZANNA SERRANO on 08/17/2022 06:53 AM [facility] 05-01-2022 Note COVID 19 RESULT: SARS-CoV-2 (Agent of COVID-19) Detected by RT-PCR or equivalent method. This test has been authorized by FDA under an Emergency Use Authorization (EUA). INFLUENZA A PCR: Negative for Influenza A by RT-PCR INFLUENZA B PCR: Negative for Influenza B by RT-PCR RSV PCR: Negative for Respiratory Syncytial Virus (RSV) by PCR [facility] Summary Purpose Family History No Family [...] DATE CREATED AUTHOR AUTHOR'S ORGANIZ ATION 03/28/2021 [place] DATE CREATED AUTHOR AUTHOR'S ORGANIZ ATION 07/07/2021 [facility] DATE CREATED AUTHOR AUTHOR'S ORGANIZ ATION 11/28/2022 [facility] DATE CREATED AUTHOR AUTHOR'S ORGANIZ ATION 03/05/2023 [facility] DATE CREATED AUTHOR AUTHOR'S ORGANIZ ATION 04/23/2023 [facility] DATE CREATED AUTHOR AUTHOR'S ORGANIZ ATION 06/01/2023 [facility] DATE CREATED AUTHOR AUTHOR'S ORGANIZ ATION 06/05/2023 [facility] DATE CREATED AUTHOR AUTHOR'S ORGANIZ ATION 06/25/2023 [place] Care Team (unrecognized sect ion and content) Care Team Personnel Name: LACHO GONZALES MD Member Role: Primary Care Physician Address: Address: [facility]/[address] [place] [address]- Care Team Related Persons Name: VEGA CHA Address: [address] [place] [address] Patient Care team informatio n (unrecognized section and content) Care Team Personnel Name: LACHO GONZALES MD Member Role: Primary Care Physician Address: Address: [facility]/[place] [address] [place] [address]- Care Team Related Persons Name: VEGA CHA Address: Home [address] [place] [address] FOR RECORDS PERTAINING TO PATIENTS WHO ARE [...] BE BASED ON THE PRIMARY CLINICAL RECORDS. [employer] [facility]. provides no warranty or guarantee of the accuracy or completeness of information in this document.
[2023-06-28 12:30] LABS: ALB/GLOB Ratio 0.8 RATIO (0.9-2.4); AST(SGOT) 13 U/L (15-37); Alanine Aminotransfer ALT/SGPT 19 U/L (13-56); Albumin, Serum 3.1 g/dL (3.2-5.0); Alkaline Phosphatase 80 U/L (45-117); Anion Gap 3 (5-15); BUN 12 mg/dL (7-18); BUN/Creat Ratio 15.5 RATIO (10-20); Calcium,Total 9.1 mg/dL (8.5-10.1); Chloride 108 mmol/L (98-107); Creatinine, Serum 0.78 mg/dL (0.55-1.02); EST Glomerular Filtration Rate 78 mL/min (>60); Est Glom Filt Rate - Afr Amer 95 mL/min (>60); Globulin 3.9 g/dL (2.2-4.2); Glucose 94 mg/dL (74-106); Potassium 4.1 mmol/L (3.5-5.1); Sodium Level 142 mmol/L (136-145)
== END | disposition home or self-care (01) ==
LOC: POLAB3 10:52
PROVIDERS: PCP Family Medicine Geriatric Medicine; Visit Provider Family Medicine Geriatric Medicine
DX: E11.65 Type 2 diabetes mellitus with hyperglycemia (principal); E55.9 Vitamin D deficiency, unspecified; R53.83 Other fatigue
CPT/HCPCS: 36415; 80053; 82306; 84443; 85025

== ENCOUNTER → 2023-08-08 | Outpatient (CLI) | payer MEDICARE, OTHER, SELFPAY ==
--- NOTE | 2023-08-08 17:05 | RAD_ITS ---
STUDY: X-RAY - PELVIS AND RIGHT HIP REASON FOR EXAM: Female, 68 years old. PAIN IN RIGHT HIP LOW BACK PAIN TECHNIQUE: 3 views of the pelvis and hip. COMPARISON: None. FINDINGS: There is a non-specific bowel gas pattern. Normal visualized soft tissue structures. Normal bilateral iliac wings, sacroiliac joints and visualized sacrum. Normal bilateral superior and inferior pubic rami. Normal pubic symphysis. Normal bilateral ischial tuberosities. Normal visualized femoral head. Normal acetabulum. There is mild articular joint space narrowing of the hip. RAD/HIP, UNI W/ Pelvis 2-3 Views IMPRESSION: Mild arthrosis. Electronically Signed: Taiwo Mattson MD at 23:43 EDT ,
--- NOTE | 2023-08-08 17:10 | RAD_ITS ---
STUDY: X-RAY - LUMBAR SPINE REASON FOR EXAM: Female, 68 years old. PAIN IN RIGHT HIP LOW BACK PAIN TECHNIQUE: 5 view(s) of the lumbar spine were obtained. COMPARISON: None FINDINGS: Normal lumbar lordosis. There is no substantial scoliosis. There is a normal alignment of the vertebrae. There is multilevel endplate spondylosis of the lumbar vertebrae. There is multi-level degenerative disc disease with multi-level disc space narrowing. Multilevel facet hypertrophy in the lower lumbar spine. The soft tissue structures are unremarkable. RAD/L/S Spine Min 4 Views IMPRESSION: Degenerative changes of the spine, as detailed above. MRI may be useful. Electronically Signed: Taiwo Mattson MD at 23:42 EDT ,
== END | disposition home or self-care (01) ==
LOC: RAD 17:02
PROVIDERS: PCP Family Medicine Geriatric Medicine; Referring Provider Family Medicine Geriatric Medicine; Visit Provider Family Medicine Geriatric Medicine
DX: M25.551 Pain in right hip (principal); M54.50 Low back pain, unspecified
CPT/HCPCS: 72110; 73502

== ENCOUNTER → 2023-08-11 | Outpatient (CLI) | payer MEDICARE, OTHER, SELFPAY ==
--- NOTE | 2023-08-11 16:28 | MRI_ITS ---
EXAM: MR LUMBAR SPINE WITHOUT INTRAVENOUS CONTRAST CLINICAL INDICATION: DISC DISEASE, LOW BACK PAIN INTO R HIP TECHNIQUE: Multiplanar and multisequence MR images of the lumbar spine without intravenous contrast. COMPARISON: Lumbar spine radiographs, 08/08/2023 FINDINGS: VERTEBRAE: No significant abnormality. Vertebral body heights are preserved. Normal vertebral bodies and posterior elements. Normal alignment. No spondylolisthesis. There is preservation of the normal lumbar lordosis. SPINAL CORD: No significant abnormality. Normal position and signal intensity of the conus medullaris. SOFT TISSUES: No significant abnormality. KIDNEYS AND URETERS: Left renal cyst for which no follow-up is indicated. DISCS/SPINAL CANAL/NEURAL FORAMINA: L1-L2: Mild bilateral facet arthrosis. No disc herniation, spinal canal stenosis, or neural foraminal narrowing. L2-L3: Mild bilateral facet arthrosis. No disc herniation, spinal canal stenosis, or neural foraminal narrowing. L3-L4: Asymmetrical disc bulge towards the left with left foraminal to extraforaminal disc herniation and mild bilateral facet arthrosis. Mild spinal canal stenosis and mild bilateral neural foraminal narrowing. Abutment without impingement of the bilateral traversing L4 nerve roots. L4-L5: Disc bulge without disc herniation. Mild bilateral facet arthrosis. Mild spinal canal stenosis and mild bilateral neural foraminal narrowing. L5-S1: Mild disc bulge with superimposed right foraminal disc herniation and mild bilateral facet arthrosis. Mild right greater than left neural foraminal narrowing and mild spinal canal stenosis. MRI/Spine Lumbar (Routine) IMPRESSION: Multilevel degenerative changes resulting in mild multilevel spinal canal stenosis and mild bilateral neural foraminal narrowing. No distinct nerve root impingement. Electronically Signed: Jose Quiñones DO at 17:47 EDT ,
== END | disposition home or self-care (01) ==
LOC: MRI 16:16
PROVIDERS: PCP Family Medicine Geriatric Medicine; Referring Provider Family Medicine Geriatric Medicine; Visit Provider Family Medicine Geriatric Medicine
DX: M51.9 Unspecified thoracic, thoracolumbar and lumbosacral intervertebral disc disorder (principal)
CPT/HCPCS: 72148

== ENCOUNTER → 2023-09-27 | Outpatient (CLI) | payer MEDICARE, OTHER, SELFPAY ==
--- NOTE | 2023-09-27 13:04 | NEURO ---
NCS and/or EMG Patient Report Ordering Doctor: Kole Barnett DATE OF SERVICE: 09/27/23 Aurelia presents for electrodiagnostic testing of the upper limbs. She reports numbness and tingling in both hands, worse on the left side. She has a history of cervical spine surgery and ongoing neck pain. She has history of carpal tunnel release. Electrodiagnostic findings: Left median motor nerve demonstrates normal distal latency, amplitude with borderline reduced conduction velocity at the wrist. Right median motor nerve demonstrates normal distal latency and amplitude with reduced conduction velocity at the wrist. Ulnar motor response is normal bilaterally, including conduction velocity across both elbows. Normal median and ulnar F?waves. Prolonged median sensory latency at the wrist bilaterally. Normal median palmar latency bilaterally. Normal ulnar and radial sensory responses. Needle EMG testing was performed in the upper limbs. All muscles tested showed no evidence of denervation with normal motor unit action potentials. Electrodiagnostic impression: This is an abnormal study in the upper limbs 1. Electrodiagnostic evidence suggestive of bilateral median mononeuropathy. This is consistent with a mild bilateral recurrent carpal tunnel syndrome. 2. No electrodiagnostic evidence is noted for cervical radiculopathy. 3. There is no electrodiagnostic evidence for ulnar neuropathy, including cubital tunnel syndrome. Multi Select Codes Neurology Neurology Interp Codes: 96862-21 Musc test done w/n test comp (interp) (2) and 22478-18 Nrv cndj test 13/> studies (interp)
== END | disposition home or self-care (01) ==
LOC: PSN 09:21
PROVIDERS: PCP Family Medicine Geriatric Medicine; Referring Provider Anesthesiology Pain Medicine; Visit Provider Anesthesiology Pain Medicine
DX: M54.12 Radiculopathy, cervical region (principal)
CPT/HCPCS: 95886; 95913

== ENCOUNTER → 2023-12-07 | Outpatient (CLI) | payer MEDICARE, OTHER, SELFPAY ==
--- NOTE | 2023-12-07 12:08 | RAD_ITS ---
EXAM: XR LUMBOSACRAL SPINE, 4 OR 5 VIEWS CLINICAL INDICATION: Low back pain, unspecified TECHNIQUE: Frontal, lateral and bilateral oblique views of the lumbar spine. COMPARISON: 08/08/2023 FINDINGS: VERTEBRAE: Small anterior osteophytes are seen in the lower lumbar spine. Preserved vertebral body height. No fracture. No spondylolisthesis. Preservation of the normal lumbar lordosis. No significant facet arthropathy. DISC SPACES: No acute findings. Disc spaces are maintained. GASTROINTESTINAL TRACT: Unremarkable as visualized. Included bowel gas pattern is non-obstructive. RAD/L/S Spine Min 4 Views IMPRESSION: No acute osseous abnormalities. There has been no change from the reference exam. Electronically Signed: Deion Fritz MD at 23:56 EDT ,
== END | disposition home or self-care (01) ==
LOC: RAD 12:07
PROVIDERS: PCP Family Medicine Geriatric Medicine; Referring Provider Family Medicine Geriatric Medicine; Visit Provider Family Medicine Geriatric Medicine
DX: M54.50 Low back pain, unspecified (principal)
CPT/HCPCS: 72110

== ENCOUNTER → 2024-04-01 | Outpatient (CLI) | payer MEDICARE, OTHER, SELFPAY | END | disposition home or self-care (01) | LOC: POLAB3 15:08 | PROVIDERS: PCP Family Medicine Geriatric Medicine; Referring Provider Family Medicine Geriatric Medicine; Visit Provider Family Medicine Geriatric Medicine | DX: R68.83 Chills (without fever) (principal) | CPT/HCPCS: 87631 ==

== ENCOUNTER → 2024-06-04 | Outpatient (CLI) | payer MEDICARE, OTHER, SELFPAY ==
--- NOTE | 2024-06-04 16:50 | CT_ITS ---
STUDY: LOW DOSE CT LUNG CANCER SCREENING REASON FOR EXAM: Female, 69 years old. h/o TObacco Dependency. Patient smoked 1 pack per day for 40 years. RADIATION DOSAGE (If Supplied By Facility): CTDIvol = ( 3.02 ) mGy, DLP = ( 86.48 ) mGycm TECHNIQUE: No contrast was administered. Low dose technique was utilized (average mAS-38 and kVp 120). 1.25 mm axial source images with a slice interval of 1.25-mm were reconstructed in lung windows. 2.5 mm axial source images with a slice interval of 2.5-mm were reconstructed in lung windows. 5.0 mm axial source images with a slice interval of 5.0-mm were reconstructed in soft tissue windows. COMPARISON: Comparison is made with prior study dated March 16, 2023. NODULES: Stable 8.5 mm calcified granuloma in the posterior aspect of the left upper lobe. Stable faint groundglass nodular density in the peripheral lateral aspect of the right upper lobe as noted on axial image #66. Emphysema: Hyperinflation and mild COPD. Endobronchial lesion: None Aorta: Atherosclerotic plaque formation of the aortic arch. CORONARY ARTERIES: Coronary artery calcification is seen. Heart: Unremarkable Pulmonary artery: Unremarkable Mediastinal nodes: Unremarkable Other chest and abdominal findings: Degenerative changes of the thoracic spine. CT/Low Dose CT Lung Screening IMPRESSION: Lung-RADS category 2 - Continue annual screening with LDCT in 12 months. IMPORTANT NOTES FOR USE: ACR Lung-RADS Version 1.1 Assessment Categories Release Date: 2018 Category: Coded 0-4 bases on nodule(s) with highest degree of suspicion. Negative screen is defined as categories 1 and 2; a positive screen is defined as categories 3 and 4. Category 3 and 4A nodules that are unchanged on interval CT should be coded as category 2, and individuals returned to screening in 12 months. Category 4X: Category 3 or 4 nodules with additional imaging findings that increase the suspicion of lung cancer, such as spiculation, GGN that doubles in size in 1 year, enlarged lymph notes, etc. Category Modifiers: S (significant finding unrelated to lung cancer) Electronically Signed: Matty Machado MD at 13:34 EST ,
== END | disposition home or self-care (01) ==
LOC: CT 16:46
PROVIDERS: PCP Family Medicine Geriatric Medicine; Referring Provider Internal Medicine Critical Care Medicine; Visit Provider Internal Medicine Critical Care Medicine
DX: F17.210 Nicotine dependence, cigarettes, uncomplicated (principal)
CPT/HCPCS: 71271

== ENCOUNTER 2024-07-02 11:11 | Outpatient (CLI) | payer MEDICARE, OTHER, SELFPAY ==
[2024-07-02 11:16] VITALS: BP 114/45; PULSE 71; RESP 16; TEMP 35.8; O2SAT 98; BMI 26.2
[2024-07-02] MEDS: 0.9% NaCl Peripheral Flush Adult/Peds IV (11:26)
[2024-07-02] MEDS: 0.9% Normal Saline (1000mL) 1,000 ML 999 ML IV ×2 (11:27→12:30)
[2024-07-02 13:43] VITALS: BP 118/52; PULSE 76; RESP 16; TEMP 36.4
== END 2024-07-02 23:59 | disposition home or self-care (01) ==
LOC: MEDOUTP 11:11
PROVIDERS: PCP Family Medicine Geriatric Medicine; Referring Provider Family Medicine Geriatric Medicine; Visit Provider Family Medicine Geriatric Medicine
DX: E86.0 Dehydration (principal)
CPT/HCPCS: 96360; 96361; A4216

== ENCOUNTER → 2024-07-02 | Outpatient (CLI) | payer MEDICARE, OTHER, SELFPAY ==
[2024-07-02 11:57] LABS: Partial Thromboplast Time 33.5 Seconds (24.1-36.2)
[2024-07-02 12:09] LABS: ALB/GLOB Ratio 0.8 RATIO (0.9-2.4); AST(SGOT) 12 U/L (15-37); Alanine Aminotransfer ALT/SGPT 21 U/L (13-56); Albumin, Serum 3.2 g/dL (3.2-5.0); Alkaline Phosphatase 76 U/L (45-117); Anion Gap 4 (5-15); BUN 11 mg/dL (7-18); CPK Total, Creatine Kinase 35 U/L (26-192); Calcium,Total 9.2 mg/dL (8.5-10.1); Chloride 102 mmol/L (98-107); Creatinine, Serum 0.69 mg/dL (0.55-1.02); EST Glomerular Filtration Rate 90 mL/min (>60); Est Glom Filt Rate - Afr Amer 108 mL/min (>60); Globulin 4.1 g/dL (2.2-4.2); Glucose 95 mg/dL (74-106); Potassium 3.8 mmol/L (3.5-5.1); Protein, Total 7.3 g/dL (6.4-8.2); Sodium Level 138 mmol/L (136-145); Troponin-I HS < 3 pg/mL (3.0-54.0)
[2024-07-02 12:24] LABS: Absolute Lymphocyte Count 1.58 X10^3/uL (0.83-4.51); Absolute Neutrophil Count 3.8 X10^3/uL (2.0-7.7); Basophil# 0.05 X10^3/uL; Basophil% 0.8 % (0-1); Eosinophil# 0.17 X10^3/uL; Eosinophils% 2.8 % (0-5); Hematocrit 41.6 % (37-47); Lymphocyte # 1.58 X10^3/ul (0.83-4.51); Lymphocyte % 25.7 % (19-41); Mean Corp Hgb Conc 31.3 g/dL (32-36); Mean Corpuscular Hgb 27.8 pg (27.0-32.0); Mean Corpuscular Volume 89.1 fL (81-99); Mean Platelet Vol. 10.9 fl (6.2-12.0); Monocyte# 0.55 X10^3/uL; NRBC Flagged by Analyzer 0 % (0-5); Neutrophil # 3.76 X10^3/uL (2.7-7.7); Neutrophil % 61.2 % (47-70); Platelet Count 258 K/mm3 (150-450); RBC Distribution Width CV 14.2 % (11.6-14.6); Red Blood Count 4.67 M/mm3 (4.2-5.4); White Blood Count 6.1 K/mm3 (4.4-11.0)
[2024-07-02 20:43] LABS: Vitamin B12 338 pg/mL (211-911)
[2024-07-03 11:07] LABS: Myoglobin, Serum 23 ng/mL (25-58)
== END | disposition home or self-care (01) ==
LOC: POLAB3 10:09
PROVIDERS: PCP Family Medicine Geriatric Medicine; Visit Provider Family Medicine Geriatric Medicine
DX: R07.9 Chest pain, unspecified (principal); E11.65 Type 2 diabetes mellitus with hyperglycemia; E11.649 Type 2 diabetes mellitus with hypoglycemia without coma; Z79.4 Long term (current) use of insulin; E55.9 Vitamin D deficiency, unspecified; R53.83 Other fatigue; E78.5 Hyperlipidemia, unspecified
CPT/HCPCS: 36415; 80053; 82306; 82550; 82607; 83874; 84443; 84484; 85025; 85610; 85730

== ENCOUNTER → 2024-08-12 | Outpatient (CLI) | payer MEDICARE, OTHER, SELFPAY ==
--- NOTE | 2024-08-12 15:57 | BI_ITS ---
EXAM: SCRN MAMM (CAD)W/TONYA BILAT DATE: 08/12/2024 CLINICAL HISTORY: F, Age 69 y/o , SCREENING. No family history. BREAST CANCER RISK ASSESSMENT: Not assessed. TECHNIQUE: Bilateral screening digital breast tomosynthesis with 2D and 3D images. Computer aided detection. COMPARISON: Prior exam(s) dating back to November 15, 2022.. FINDINGS: Bilateral Breast Mammographic Findings: No significant masses, calcifications or other abnormalities are identified. TISSUE DENSITY: The breast tissue is almost entirely fatty. No suspicious masses, areas of developing architectural distortion, or suspicious calcifications. BI/SCRN MAMM (CAD)W/TONYA BILAT IMPRESSION: Right Breast: BI-RADS category 1, negative findings. Left Breast: BI-RADS category 1, negative findings. Normal interval followup mammograms are recommended in 12 months. A letter with findings and recommendations will be mailed to the patient. ASSESSMENT: BIRADS 1 NEGATIVE RECOMMENDATION: 1: ROUTINE ANNUAL FOLLOW-UP Bilateral in 1 Year Reading Location: [place] [id number]
== END | disposition home or self-care (01) ==
LOC: OPBI 15:56
PROVIDERS: PCP Family Medicine Geriatric Medicine; Referring Provider Family Medicine Geriatric Medicine; Visit Provider Family Medicine Geriatric Medicine
DX: Z12.31 Encounter for screening mammogram for malignant neoplasm of breast (principal)
CPT/HCPCS: 77063; 77067

== ENCOUNTER → 2025-01-02 | Outpatient (CLI) | payer MEDICARE, OTHER, SELFPAY ==
[2025-01-02 10:59] LABS: Hematocrit 37.7 % (37-47); Hemoglobin 11.9 g/dL (12.0-15.0); Immature Granulocytes Count 0.020 X10^3/uL (0.0-0.0); Mean Corp Hgb Conc 31.6 g/dL (32-36); Mean Corpuscular Volume 88.7 fL (81-99); Mean Platelet Vol. 11.2 fl (6.2-12.0); NRBC Flagged by Analyzer 0 % (0-5); Platelet Count 228 K/mm3 (150-450); RBC Distribution Width CV 14.2 % (11.6-14.6); RBC Distribution Width SD 45.5 fl (35.1-43.9); Red Blood Count 4.25 M/mm3 (4.2-5.4); White Blood Count 5.7 K/mm3 (4.4-11.0)
[2025-01-02 12:16] LABS: AST(SGOT) 17 U/L (<=31); Alanine Aminotransfer ALT/SGPT 13 U/L (<=34); Albumin, Serum 4.2 g/dL (3.4-4.8); Alkaline Phosphatase 71 U/L (35-104); Anion Gap 9 (5-15); BUN 12 mg/dL (4-19); BUN/Creat Ratio 14.4 RATIO (10-20); Calcium,Total 9.4 mg/dL (7.6-11.0); Carbon Dioxide 28.8 mmol/L (21.0-32.0); Chloride 103 mmol/L (98-108); Globulin 2.9 g/dL (2.2-4.2); Glucose 74 mg/dL (70-99); Potassium 3.8 mmol/L (3.3-5.1); Vitamin D,25 Hydroxy 24.2 ng/mL (30-100)
[2025-01-02 18:38] LABS: Xtra Tube Kwok EXTRA TUBE
== END | disposition home or self-care (01) ==
LOC: POLAB3 10:38
PROVIDERS: PCP Family Medicine Geriatric Medicine; Visit Provider Family Medicine Geriatric Medicine
DX: E11.65 Type 2 diabetes mellitus with hyperglycemia (principal); E55.9 Vitamin D deficiency, unspecified; R53.83 Other fatigue
CPT/HCPCS: 36415; 80053; 82306; 84443; 85025

== ENCOUNTER → 2025-04-07 | Outpatient (CLI) | payer MEDICARE, OTHER, SELFPAY ==
--- NOTE | 2025-04-07 12:07 | CT_ITS ---
PROCEDURE: ABDOMEN/PELVIS WITH CONTRAST 04/07/2025 REASON FOR EXAM: ABDOMINAL PAIN Upper abdominal pain. TECHNIQUE: Procedure Code: [id number] Modality: CT Procedure: ABDOMEN/PELVIS WITH CONTRAST Coronal and Sagittal reconstruction series were provided. CONTRAST: Isovue 300 VOLUME: 85 mL One or more dose reduction techniques were used (e.g., Automated exposure control, adjustment of the mA and/or kV according to patient size, use of iterative reconstruction technique. RADIATION DOSE SUMMARY: CTDlvol: 13.1 mGy DLP: 810.35 mGycm COMPARISON: January 23, 2023. FINDINGS: Lung bases: The lung bases are clear. Coronary artery calcification. Liver: Normal size. No mass. Stable mild degree of central intrahepatic biliary ductal dilatation most likely secondary to the post cholecystectomy state. Gallbladder: Surgically absent. Spleen: Stable 1 cm cyst in the superior posterior aspect of the spleen. Pancreas: Normal size without evidence of mass surrounding inflammation or ductal dilation. Adrenals: Unremarkable Kidneys: Stable bilateral renal cysts. No evidence of hydronephrosis. No abnormal calcification is seen. Bladder: Unremarkable Reproductive Organs: Status post hysterectomy Bowel: Scattered sigmoid diverticula. Appendix: Status post appendectomy. Lymph nodes: Unremarkable. Vasculature: Mild diffuse atherosclerotic calcifications are noted. Peritoneum / Retroperitoneum: Unremarkable Bones: Degenerative changes of the spine. CT/Abdomen/Pelvis WITH Contrast IMPRESSION: Status post cholecystectomy, appendectomy and hysterectomy. Stable bilateral renal cysts. Stable mild dilatation of the central intrahepatic biliary ducts most likely se condary to the post cholecystectomy state. Reading Location: [place] [id number]
== END | disposition home or self-care (01) ==
LOC: CT 12:04
PROVIDERS: PCP Family Medicine Geriatric Medicine; Referring Provider Family Medicine Geriatric Medicine; Visit Provider Family Medicine Geriatric Medicine
DX: K85.90 Acute pancreatitis without necrosis or infection, unspecified (principal)
CPT/HCPCS: 74177; Q9967

== ENCOUNTER → 2025-04-07 | Outpatient (CLI) | payer MEDICARE, OTHER, SELFPAY ==
[2025-04-07 12:11] LABS: Color, Urine Yellow (Yellow); Glucose, Dipstick Normal (Normal); Ketone-Dipstick Negative (Negative); Leukocyte Esterase-Dipstick 100 /ul (Negative); Nitrite-Dipstick Positive (Negative); Occult Blood-Urine 10 /ul (Negative); Protein-Dipstick 30 mg/dl (Negative); Specific Gravity, Urine 1.015 (1.002-1.030); Urine Bilirubin Dipstick Negative (Negative)
[2025-04-07 12:13] LABS: Hematocrit 37.2 % (37-47); Hemoglobin 11.9 g/dL (12.0-15.0); Immature Granulocytes Count 0.010 X10^3/uL (0.0-0.0); Mean Corp Hgb Conc 32.0 g/dL (32-36); Mean Corpuscular Volume 87.5 fL (81-99); Mean Platelet Vol. 11.1 fl (6.2-12.0); NRBC Flagged by Analyzer 0 % (0-5); Platelet Count 243 K/mm3 (150-450); RBC Distribution Width CV 13.3 % (11.6-14.6); RBC Distribution Width SD 42.5 fl (35.1-43.9); Red Blood Count 4.25 M/mm3 (4.2-5.4); White Blood Count 5.0 K/mm3 (4.4-11.0)
[2025-04-07 13:02] LABS: Cholesterol 270 mg/dL (<=200); Low Density Lipoprotein Calc. 166 mg/dL; Triglycerides 246 mg/dL; Very Low Density Lipoprotein 49 mg/dL (5-40); cholesterol:hdl ratio screen 4.66
[2025-04-07 13:32] LABS: Amylase 75 U/L (28-100); Lipase 44 U/L (13-75)
[2025-04-07 13:34] LABS: AST(SGOT) 19 U/L (<=31); Alanine Aminotransfer ALT/SGPT 14 U/L (<=34); Albumin, Serum 4.0 g/dL (3.4-4.8); Alkaline Phosphatase 75 U/L (35-104); Anion Gap 8 (5-15); BUN 15 mg/dL (4-19); BUN/Creat Ratio 17.3 RATIO (10-20); Calcium,Total 9.3 mg/dL (7.6-11.0); Carbon Dioxide 28.7 mmol/L (21.0-32.0); Chloride 103 mmol/L (98-108); Globulin 3.0 g/dL (2.2-4.2); Glucose 104 mg/dL (70-99); Potassium 4.3 mmol/L (3.3-5.1)
[2025-04-07 19:44] LABS: Xtra Tube Kwok EXTRA TUBE
== END | disposition home or self-care (01) ==
LOC: POLAB3 11:43
PROVIDERS: PCP Family Medicine Geriatric Medicine; Visit Provider Family Medicine Geriatric Medicine
DX: E78.5 Hyperlipidemia, unspecified (principal); R53.83 Other fatigue; K85.90 Acute pancreatitis without necrosis or infection, unspecified; N39.0 Urinary tract infection, site not specified
CPT/HCPCS: 36415; 80053; 80061; 81002; 82150; 83690; 85025; 87086; 87088; 87186

== ENCOUNTER → 2025-04-11 | Outpatient (CLI) | payer MEDICARE, OTHER, SELFPAY ==
--- NOTE | 2025-04-11 08:56 | MRI_ITS ---
PROCEDURE: MRI ABD WITH AND W/O CONTRAST 04/11/2025 REASON FOR EXAM: DILATED BILE DUCT, RIGHT UPPER QUADRANT PAIN TECHNIQUE: Procedure Code: MRIABDWW Modality: MR Procedure: MRI ABD WITH AND W/O CONTRAST Multiplanar and multisequence images were obtained. CONTRAST: Clariscan VOLUME: 14 mL COMPARISON: CT abdomen and pelvis with IV contrast, 04/07/2025. FINDINGS: Liver: Normal. Biliary: The gallbladder is surgically absent. There is mild intrahepatic biliary ductal dilatation. There is no extrahepatic biliary ductal dilatation. There are no filling defects in the biliary tree. Pancreas: Normal appearance of the parenchyma and ductal system. Spleen: There is a 9 millimeter cyst in the spleen. There is no associated contrast enhancement. Adrenals: Normal. Kidneys: There is a 4.0 centimeter cortical cyst in the upper pole of the left kidney. There is a 3.3 centimeter cortical cyst in the upper pole of the left kidney. There is a 2.0 centimeter cortical cyst in the upper pole of the right kidney. There is a 5 millimeter cortical cyst in the interpolar region of the right kidney. There is a 2.5 centimeter cortical cyst in the interpolar region of the right kidney. All of these cysts demonstrate morphology consistent with Bosniak 1 cysts. 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 GI tract: The visualized portion of the gastrointestinal tract is unremarkable. Status post appendectomy. Peritoneum / Retroperitoneum: There are no abnormal intra or retroperitoneal masses or fluid collections. There is scarring in the right upper quadrant anterior abdominal wall. Lymph Nodes: There is no significant mesenteric or retroperitoneal lymphadenopathy. Major Vessels: Unremarkable. Bones: No significant abnormalities. MRI/MRI Abd WITH and W/O Contrast IMPRESSION: One. There is mild intrahepatic biliary ductal dilatation. There is no extrah epatic biliary ductal dilatation. There are no filling defects in the biliary tree. Two. Splenic cyst, likely posttraumatic. Three. Multiple Bosniak 1 cortical cysts in both kidneys. Four. Other findings as noted. Reading Location: [place] [id number]
== END | disposition home or self-care (01) ==
LOC: MRI 08:51
PROVIDERS: PCP Family Medicine Geriatric Medicine; Referring Provider Family Medicine Geriatric Medicine; Visit Provider Family Medicine Geriatric Medicine
DX: K83.8 Other specified diseases of biliary tract (principal); R10.11 Right upper quadrant pain
CPT/HCPCS: 74183; A9575; A4216

== ENCOUNTER 2025-04-21 16:29 | Inpatient (IN) | payer MEDICARE, OTHER, SELFPAY ==
[2025-04-21 16:33] VITALS: BP 121/62; PULSE 80; RESP 16; TEMP 36.8; O2SAT 93; BMI 25.9
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
[2025-04-21 18:35] VITALS: O2SAT 92
[2025-04-21 22:00] VITALS: RESP 15; O2SAT 93
[2025-04-21 22:10] LABS: Mucous, Urine 0 SEEN /hpf (<or=2+)
[2025-04-21] MEDS: Insulin Glargine-YFGN 100 UNIT/ML Pen 18 UNIT SC (22:12)
[2025-04-21] MEDS: Senna/Docusate Sodium 1 Tablet PO (22:14)
[2025-04-21 22:16] LABS: Color, Urine Yellow (Yellow); Glucose, Dipstick Normal (Normal); Ketone-Dipstick Negative (Negative); Leukocyte Esterase-Dipstick 25 /ul (Negative); Nitrite-Dipstick Negative (Negative); Occult Blood-Urine Negative /ul (Negative); Protein-Dipstick Negative (Negative); Specific Gravity, Urine 1.010 (1.002-1.030); Urine Bilirubin Dipstick Negative (Negative)
[2025-04-21 22:39] LABS: Red Blood Cells-Urine 0-5 SEEN /hpf (0-5); Squamous Epithelial Cells - UA 0-5 SEEN /hpf (5-10)
--- NOTE | 2025-04-22 02:52 | NURSING ---
04/21/25 @ 22:00 - STR/CATHED FOR UA COLLECTION AND SENT TO LAB. PT TOLERATED WELL.
[2025-04-22 05:59] LABS: Hematocrit 35.1 % (37-47); Hemoglobin 10.8 g/dL (12.0-15.0); Immature Granulocytes Count 0.020 X10^3/uL (0.0-0.0); Mean Corp Hgb Conc 30.8 g/dL (32-36); Mean Corpuscular Volume 88.6 fL (81-99); Mean Platelet Vol. 10.7 fl (6.2-12.0); NRBC Flagged by Analyzer 0 % (0-5); Platelet Count 198 K/mm3 (150-450); RBC Distribution Width CV 13.1 % (11.6-14.6); RBC Distribution Width SD 42.3 fl (35.1-43.9); Red Blood Count 3.96 M/mm3 (4.2-5.4); White Blood Count 4.9 K/mm3 (4.4-11.0)
[2025-04-22 06:24] LABS: AST(SGOT) 20 U/L (<=31); Alanine Aminotransfer ALT/SGPT 11 U/L (<=34); Albumin, Serum 3.4 g/dL (3.4-4.8); Alkaline Phosphatase 65 U/L (35-104); Anion Gap 9 (5-15); BUN 10 mg/dL (4-19); BUN/Creat Ratio 15.7 RATIO (10-20); Calcium,Total 8.9 mg/dL (7.6-11.0); Carbon Dioxide 29.5 mmol/L (21.0-32.0); Chloride 102 mmol/L (98-108); Cholesterol 111 mg/dL (<=200); Estimated Creatinine Clearance 59.06 ml/min (50-250); Globulin 2.9 g/dL (2.2-4.2); Glucose 90 mg/dL (70-99); Low Density Lipoprotein Calc. 41 mg/dL; Magnesium 2.0 mg/dL (1.5-2.2); Potassium 4.2 mmol/L (3.3-5.1); Triglycerides 199 mg/dL; Very Low Density Lipoprotein 40 mg/dL (5-40); cholesterol:hdl ratio screen 2.92
[2025-04-22 06:43] VITALS: BP 114/48; PULSE 72; RESP 16; TEMP 36.9; O2SAT 96
--- NOTE | 2025-04-22 07:18 | REHABEVAL_ITS ---
Admission Information Primary Diagnosis:: R radial fx and L2 compression fx Status Changes from Prescreening?: No changes Identified Actual Problem List:: Pain, ALteration in Cmfrt, Depression, Bowel, Constipation, Alteration in Sleep, Mobility Impaired, Self Care Deficit, Fluid Change-Dehydration and Alteration-Leisure Activ. Potential Problem List:: DVT, Bleeding, Infection, UTI, Aspiration, Falls, Skin Integrity and Depression Risk of Complications DVT: LMWH and CHARBEL Hose Bleeding: Monitor Lab Values, Nursing to Teach Precautions for anti-coagulation therapy., Wound, if applicable, to be assessed every shift. and Stroke patients assessed for lethargy or change in status. Infection: Clinical Staff to Monitor for S/S of infection: and S/S of infection include fever, redness, warmth, etc. Urinary Tract Infection: Monitor for frequency, burning, discomfort, or incontinence. and Nursing will obtain urine sample for urinalysis and C&S when ordered. Aspiration: Clinical staff will monitor for coughing, drooling, congestion., Speech will evaluate swallowing and dsyphasia. and Nursing will monitor patient swallowing during meals. Falls: Patient will be evaluated for Fall Precautions and Patient will be placed on Fall Precautions as indicated per protocol. Skin Breakdown: Nursing will assess skin daily using assessment tool. and Nursing will place on Skin Breakdown Precautions as indicated. Pain: Clinical staff will assess patient's pain level per protocol., Medications will be given, if needed, and the pain level reassessed. and Other methods: Massage, distraction, decrease stimulus, etc. used PRN. Plan of Care Patient requires physician specializing in physical medicine and rehab oversight to provide close medical supervision of rehab issues including: Pain Management, Sleep Problems, Bowel and Bladder, Medical and co-morbidity Management, DVT prophylaxis, Rehabilitation Leadership and Coordination of treatment team Patient needs Physical Therapy: For a minimum of 1 hour and At least 5 out of 7 days Patient needs Physical Therapy to improve:: Mobility, Strengthening, Transfers, Stretching, ROM, Endurance, Stairs, Gait and Balance Patient needs Occupational Therapy: For a minimum of 1 hour and At least 5 out of 7 days Patient needs Occupational Therapy to improve ADL's incl.: Eating, Grooming, Bathing, Dressing, Toileting, Toilet transfers, Community Reintegration, Higher functioning activities, Household tasks, Adaptive Equipment, Splinting and Other activities as determined Patient requires 24/7 Rehabilitation Nursing for: Pain Issues, Identifying and preventing risk factors, Monitoring and reporting current medical conditions, Assisting with ambulation, transfer, and all ADL's, Teaching patients about disease process and medications, Family teaching, Providing safe environment, Bowel and Bladder Issues, Skin integrity and Medication Management Patient needs Event Sales Representative/ Case Management for: Discharge Planning, Arranging Home Equipment or Services and Family Interventions Patient needs Dietary and Nutrition Services for: Adequate Nutrition, Nutritional Supplements and Nutritional Education Goals Goals Patient will remain: free from falls Patient will perform eating at: MOD I level of assist. Patient will perform bed mobility at: MOD I level of assist. Patient will complete transfers from bed to chair at: MOD I level of assist. Patient will ambulate: - (250 feet with least restrictive device on various surfaces at supervision) Patient will complete upper body dressing at: - (Min assist) Patient will complete lower body dressing at: - (Min assist with adaptive equipment as needed for increased independence) Patient will complete toilet transfer at: - (Supervision) Patient will complete toileting at: - (Supervision) Patient will perform bathing at: - (She will complete upper body bathing at min assist and lower body bathing at standby assist with adaptive equipment as needed) Patient will perform Tub/Shower transfer at: - (Supervision using DME as needed) Patient will complete grooming at: - (Supervision level while standing at the sink) Patient will achieve: - (She will complete 5 steps with 1 handrail at standby assist to allow access to her home entrance.) Patient will have pain level of: of 3 or less Patient's skin will: remain intact Patient will receive: adequate nutrition. Discharge Planning Pt Prognosis for Sig. Practical Improv. w/in Reasonable Time: Good Estimated Length of stay (days): 21 Anticipated D/C Destination: TBD Was Preadmission Assessment Accurate?: Yes
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
[2025-04-22] MEDS: Cholecalciferol (VIT D3) 25 MCG TABLET (1,000 UNITS) 50 MCG PO (07:47)
[2025-04-22] MEDS: Senna/Docusate Sodium 1 Tablet PO (07:47)
[2025-04-22] MEDS: Lidocaine 5% Patch 1 PATCH TOPICAL (11:07)
[2025-04-22] MEDS: HYDROcodone Bitartrate/Apap 5/325 Tablet PO ×2 (12:12→20:36)
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
[2025-04-22 17:42] VITALS: BP 100/46; PULSE 82; RESP 17; TEMP 36.6; O2SAT 95
--- NOTE | 2025-04-22 20:29 | NURSING ---
MOM cocktail provided at this time. Pt tolerated ok and await results.
[2025-04-22] MEDS: Senna/Docusate Sodium 1 Tablet 2 TABLET PO (21:10)
[2025-04-23] MEDS: HYDROcodone Bitartrate/Apap 5/325 Tablet PO ×2 (05:08→20:39)
[2025-04-23 05:16] VITALS: BP 125/57; PULSE 75; RESP 16; TEMP 36.9; O2SAT 99
[2025-04-23] MEDS: Cholecalciferol (VIT D3) 25 MCG TABLET (1,000 UNITS) 50 MCG PO (08:04)
[2025-04-23] MEDS: Senna/Docusate Sodium 1 Tablet 2 TABLET PO (08:05)
--- NOTE | 2025-04-23 08:18 | PN_ITS ---
Subjective Subjective Afebrile VSS - Maintaining appropriate oxygen saturation on RA Oral intake - FOOD she ate 75 to 100% of her breakfast yesterday and then refused lunch. She ate poorly for dinner. FLUIDS did better yesterday and took a total of 1720 cc p.o. 1 bowel movement today Blood sugar record was reviewed. No hypoglycemia yesterday. Blood sugars are little erratic secondary to erratic intake with meals. Blood sugar at at bedtime was 189 and the fasting today is 99. Not on any medication currently for diabetes. PVR is negative for urine retention. Discussed with nursing - no problems that need addressed Reviewed the THERAPY notes - Using a QC today to walk into the BR. SBA to walk in shower. Sup when standing for safety. upper dressing at set up. toilet transfer at sup. Min assist for toileting. Medication list reviewed. Urine culture still pending. Hemoccult stool was negative. Tells me that the pain is better controlled now. She slept well last night. Very alert this morning. Denies N/V/abd pain, lightheadedness, dysuria, cough, CP and SOB. Objective Data Objective Data Vital Signs: Vital Signs Temp Pulse Resp BP Pulse Ox O2 Del Method 98.5 F 75 16 125/57 H 99 Room Air 04/23/25 05:16 04/23/25 05:16 04/23/25 05:16 04/23/25 05:16 04/23/25 05:16 04/23/25 07:23 Oxygen Delivery Method Room Air Weight: 146 lb 6.403 oz Body Mass Index (BMI) 25.9 Intake & Output: Intake and Output for Last 24 Hours 04/21/25 04/22/25 04/23/25 23:59 23:59 23:59 Intake Total 240 / 240 1720 / 1720 300 / 300 Output Total 200 / 200 1590 / 1590 400 / 400 Balance 40 / 40 130 / 130 -100 / -100 Lab / Micro Data 04/22/25 05:25 04/22/25 05:25 Labs: Laboratory Results - last 24 hr 04/22/25 12:00: POC Glucose 129 H 04/22/25 16:25: POC Glucose 106 04/22/25 21:14: POC Glucose 189 H 04/23/25 06:17: POC Glucose 99 Physical Exam Const alert and oriented x3 Resp normal respiratory effort and clear to auscultation bilaterally Effort and Inspection: able to speak in complete sentences Cardio regular rate, regular rhythm, no murmurs, no rub and no gallops Cardio Narrative: No ectopy GI normal to inspection, nondistended, normoactive bowel sounds, soft to palpation and non-tender GI Narrative: No guarding with palpation Extremity no calf tenderness and no pedal edema Psych Psych Narrative: + hx of anxiety/depression.....has been on Prozac since her dtr 9 years ago. Not getting counselling. She is open to resuming counselling to help her process what has happened to her. she is worried about the great grand child. She is afraid of her GD. Has been having insomnia. Dr. Lundy placed her on doxepin 10 mg at HS but, it gave her "terrible nightlmares". Tells me that she has gained 10 lbs recently........thinks she may be stress eating. She was more open with me today. It seems clear that her interactions with her GD have exacerbated anxiety/depression. She is not handling the stress well and there has been a lot of yelling. She found out recently that her GD is not only an alcoholic but, she has been abusing other drugs as well. APS talked with her yesterday. Assessment & Plan Assessment/Plan (1) Debility: (2) Right radial fracture: QUALIFIERS: Encounter type: subsequent encounter Fracture type: c losed (3) Vertebral compression fracture: QUALIFIERS: Encounter type: subsequent encounter Fracture of vertebra location: lumbar Lumbar vertebra fracture level: L2 (4) Urinary tract infection: QUALIFIERS: Urinary tract infection type: acute cystitis H ematuria presence: without hematuria Qualified Code(s): N30.00 - Acute cystitis without hematuria (5) Type 2 diabetes mellitus: QUALIFIERS: Diabetes mellitus skilled nursing insulin use: with intermodal dispatcher use Diabetes mellitus complication status: with other specified complication Qualified Code(s): E11.69 - Type 2 diabetes mellitus with other specified complication; Z79.4 - nursing home (current) use of insulin (6) Hypercholesterolemia with hypertriglyceridemia: (7) CHRISTOPHER (obstructive sleep apnea): (8) Osteopenia: QUALIFIERS: Osteopenia location: unspecified Qualified Code(s): M 85.80 - Other specified disorders of bone density and structure, unspecified site (9) Vitamin D deficiency: (10) Liver fibrosis: (11) Anxiety and depression: (12) Lumbar canal stenosis: QUALIFIERS: Neurogenic claudication status: without neurogenic claudication Qualified Code(s): M48.061 - Spinal stenosis, lumbar region without neurogenic claudication (13) Noncompliance: (14) Lung nodule: (15) IBS (irritable bowel syndrome): QUALIFIERS: Irritable bowel syndrome type: unspecified Qualified Code(s): K58.9 - Irritable bowel syndrome without diarrhea PLAN: Plan 1. Continue therapy 2. Start baclofen 2.5 mg twice daily 3. Try Trazodone PRN at HS for insomnia. Was having problems at home and she was placed on Doxepin but, it gives her nightmares and she does not like taking it. If she has side effects with Trazodone would consider a low dose of Klonopin at HS. 4. She is going to need counselling to process everything that has been happening to her lately. Has had counselling in the past.....when her dtr passed 9 years ago but, no counselling recently. She is open to getting counselling. Life with her GD has been very stressful. HERMAN has a 18 month old child. HERMAN is a poly substance abuser. Aurelia is worried about the child and her GD. There is a long hx of Alcoholism on Aurelia's mothers side of the family. Aurelia is now afraid of her granddaughter. APS and CPS are involved. 5. C/O persistent pain in the RUQ. CT scan on 04/07 unremarkable. Has not see a Sales And In Home Delivery Specialist. She is on Protonix 40 mg daily. She has mild to moderate fibrosis of the liver on elastography in 2022. Recommend she follow up with GI at [place]. 6. Add a low-dose sliding insulin scale to the drug regimen. She is open to discontinuing Ozempic and starting an oral agent. Has not tolerated Metformin in the past. Would consider Jardiance since she has arterial calcifications on CT of the abd and she is diabetic. BS's are not that elevated. She may no longer need medication for DM since she has lost a significant amount of weight. Will hold off on starting an oral agent for now and continue to monitor blood sugars AC and at bedtime for the next 2 days. Started low-dose sliding insulin scale in case her blood sugars increase above 200. 7. Check a microalbumin/creat ratio....the last one on record is from 2019. Had been elevated in the past but, the one from 2019 was normal. Charges/Coding Visit Charges Inpatient E&M: 60130 Subs Hosp L1
[2025-04-23 10:15] VITALS: BMI 25.2
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
--- NOTE | 2025-04-23 15:36 | CASEMGMT ---
Social Work SW met with pt to discuss advance directives. Pt requesting to complete Health Care POA and Living Will. SW assisted pt in completing documents. Pt naming her dgt Viry De Leon as primary decision maker with significant other Marvin Douglasayo and Son Colt Lloyd as alternates. Original given to pt and copy placed on chart and copy sent to HIM for scanning. REINA Kaur
[2025-04-23 16:27] LABS: Creatinine, Urine (random) 179.00 mg/dL (28.00-217.00); Protein, Urine (Random) 38.3 mg/dL (0.0-12.0); Protein:Creat Ratio 214 mg/g CRE (0-200)
[2025-04-23 17:44] VITALS: BP 104/42; PULSE 77; RESP 16; TEMP 36.5; O2SAT 95
--- NOTE | 2025-04-23 23:34 | NURSING ---
Ice pack applied to lower back for pain.
[2025-04-24] MEDS: HYDROcodone Bitartrate/Apap 5/325 Tablet PO ×3 (04:39→21:48)
[2025-04-24] MEDS: Lidocaine 5% Patch 1 PATCH TOPICAL (04:41)
[2025-04-24 05:08] VITALS: BP 137/54; PULSE 83; RESP 16; TEMP 36.7; O2SAT 98
[2025-04-24] MEDS: Cholecalciferol (VIT D3) 25 MCG TABLET (1,000 UNITS) 50 MCG PO (08:01)
[2025-04-24] MEDS: Senna/Docusate Sodium 1 Tablet 2 TABLET PO (08:03)
[2025-04-24 08:16] VITALS: BP 115/67; PULSE 80
[2025-04-24 18:00] VITALS: BP 113/58; PULSE 74; RESP 17; TEMP 36.7; O2SAT 97
[2025-04-24 21:00] VITALS: BP 116/41; PULSE 81; RESP 16; TEMP 37.1; O2SAT 97
[2025-04-25] MEDS: Lidocaine 5% Patch 1 PATCH TOPICAL (05:33)
[2025-04-25 06:00] VITALS: BP 114/42; PULSE 76; RESP 16; TEMP 37.2; O2SAT 94
[2025-04-25] MEDS: Cholecalciferol (VIT D3) 25 MCG TABLET (1,000 UNITS) 50 MCG PO (07:59)
[2025-04-25] MEDS: Senna/Docusate Sodium 1 Tablet 2 TABLET PO ×2 (08:00→20:59)
[2025-04-25] MEDS: HYDROcodone Bitartrate/Apap 5/325 Tablet PO (08:07)
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
--- NOTE | 2025-04-25 15:18 | CASEMGMT ---
Team meeting held with pt and pt's dgt Viry present for meeting. PT/OT/SN/Physician report updates on pt. Pt is progressing with therapy. SW updated pt and dgt that Medicare has allowed for 13 days of RU care with DC on 05/04. Pt expressing she is somewhat worried she will not be ready to return home at this time. SW explained that goal is to return home by this date, but is pt is not ready after another week of therapy, SNF option can be explored. Plan is to reteam pt next week and team and pt will decide at that time if pt will be ready to return home on 05/04. Pt agreeable to this. REINA Kaur
[2025-04-25 17:55] VITALS: BP 110/61; PULSE 75; RESP 16; TEMP 36.9; O2SAT 96
[2025-04-25 21:07] VITALS: BP 121/54; PULSE 75; RESP 17; TEMP 37.2
[2025-04-26] MEDS: HYDROcodone Bitartrate/Apap 5/325 Tablet PO ×2 (03:14→20:20)
[2025-04-26 05:54] VITALS: BP 98/42; PULSE 73; RESP 17; TEMP 37.4; O2SAT 98
[2025-04-26] MEDS: Lidocaine 5% Patch 1 PATCH TOPICAL (05:59)
[2025-04-26] MEDS: Senna/Docusate Sodium 1 Tablet 2 TABLET PO ×2 (08:01→20:20)
[2025-04-26] MEDS: Cholecalciferol (VIT D3) 25 MCG TABLET (1,000 UNITS) 50 MCG PO (08:01)
[2025-04-26 18:00] VITALS: BP 112/50; PULSE 70; RESP 16; TEMP 37.1; O2SAT 97
[2025-04-27 06:00] VITALS: BP 115/50; PULSE 69; RESP 17; TEMP 36.8; O2SAT 97
[2025-04-27] MEDS: Lidocaine 5% Patch 1 PATCH TOPICAL (06:10)
[2025-04-27] MEDS: HYDROcodone Bitartrate/Apap 5/325 Tablet PO ×2 (06:57→20:24)
[2025-04-27] MEDS: Senna/Docusate Sodium 1 Tablet 2 TABLET PO ×2 (08:22→20:20)
[2025-04-27] MEDS: Cholecalciferol (VIT D3) 25 MCG TABLET (1,000 UNITS) 50 MCG PO (08:22)
[2025-04-27 08:26] VITALS: BP 112/47; PULSE 70
[2025-04-27 17:38] VITALS: BP 112/54; PULSE 70; RESP 16; TEMP 37.2; O2SAT 97
[2025-04-27 17:39] VITALS: BP 99/60
[2025-04-28 03:16] VITALS: O2SAT 97
[2025-04-28] MEDS: Lidocaine 5% Patch 1 PATCH TOPICAL (06:28)
[2025-04-28 07:38] VITALS: BP 99/45; PULSE 80; RESP 16; TEMP 36.7; O2SAT 99
--- NOTE | 2025-04-28 07:50 | PCM.PROGNOTE ---
Subjective Subjective Afebrile VSS -blood pressure over the weekend ranged from 99/45 to 121/54. Heart rate is within normal limits. Aurelia states that she has never had HTN. She came to us on Lisinopril 10 mg daily......has refused for the past 2 days. Maintaining appropriate oxygen saturation on RA Oral intake - FOOD improved. Eating 75 to 100% of most of her meals now. FLUIDS highly variable The blood sugar record was reviewed. Blood sugars are under good control with no hypoglycemia. Not on any medication. Discussed with nursing - no problems that need addressed Reviewed the THERAPY notes Medication list reviewed. Had only 2 doses of [place] yesterday and 2 doses on Monday. Urine culture from straight cath specimen grew F[place]sea vaginae, Enterococcus faecalis and strep angiosus........AF and asymptomatic. Had only 05 WBC's on the UA. and no bacteria seen. Nitrite negative Continues to c/o severe pain in the R arm and back pain........states "I can't live like this". Requesting to see pain management to discuss kyphoplasty. No lightheadedness, cephalgia, CP, SOB, dysuria. Objective Data Objective Data Vital Signs: Vital Signs Temp Pulse Resp BP Pulse Ox O2 Del Method 98.0 F 80 16 99/45 L 99 Room Air 04/28/25 07:38 04/28/25 07:38 04/28/25 07:38 04/28/25 07:38 04/28/25 07:38 04/28/25 07:38 Oxygen Delivery Method Room Air Weight: 142 lb 10.225 oz Body Mass Index (BMI) 25.2 Intake & Output: Intake and Output for Last 24 Hours 04/26/25 04/27/25 04/28/25 23:59 23:59 23:59 Intake Total 1110 / 1110 2812 / 2812 Output Total 950 / 950 1150 / 1150 Balance 160 / 160 1662 / 1662 Lab / Micro Data 04/22/25 05:25 04/22/25 05:25 Labs: Laboratory Results - last 24 hr 04/27/25 11:24: POC Glucose 136 H 04/27/25 20:18: POC Glucose 135 H Micro: Microbiology 04/21/25 22:00 Urine, Catheterized Urine Culture - Final F[place]sea vaginae Strep anginosus Enterococcus faecalis 04/23/25 05:30 Stool Stool Occult Blood (LIUDMILA) - Final Physical Exam Const alert and oriented x3 Resp normal respiratory effort and clear to auscultation bilaterally Effort and Inspection: able to speak in complete sentences Cardio regular rate, regular rhythm, no murmurs, no rub and no gallops Cardio Narrative: No ectopy GI normal to inspection, nondistended, normoactive bowel sounds, soft to palpation and non-tender GI Narrative: No guarding with palpation Extremity no calf tenderness and no pedal edema Assessment & Plan Assessment/Plan (1) Debility: (2) Right radial fracture: QUALIFIERS: Encounter type: subsequent encounter Fracture type: closed (3) Vertebral compression fracture: QUALIFIERS: Encounter type: subsequent encounter Fracture of vertebra location: lumbar Lumbar vertebra fracture level: L2 (4) Type 2 diabetes mellitus: QUALIFIERS: Diabetes mellitus complication status: with other specified complication Diabetes mellitus fci insulin use: with adjunct faculty for medical terminology use Qualified Code(s): E11.69 - Type 2 diabetes mellitus with other specified complication; Z79.4 - intermodal customer service (current) use of insulin (5) Osteopenia: QUALIFIERS: Osteopenia location: unspecified Qualified Code(s): M85.80 - Other specified disorders of bone density and structure, unspecified site (6) Vitamin D deficiency: (7) Liver fibrosis: (8) Anxiety and depression: (9) Lumbar canal stenosis: QUALIFIERS: Neurogenic claudication status: without neurogenic claudication Qualified Code(s): M48.061 - Spinal stenosis, lumbar region without neurogenic claudication (10) Lung nodule: (11) IBS (irritable bowel syndrome): QUALIFIERS: Irritable bowel syndrome type: unspecified Qualified Code(s): K58.9 - Irritable bowel syndrome without diarrhea PLAN: Plan 1. Continue therapy 2. Discontinue lisinopril 3. Discontinue Accu-Chek 4. Add Tums 500 milligrams twice daily to the current drug regimen and continue Cholecalciferol [address] 5[address] Nuñez to discuss kyphoplasty -risks and benefits 6. Continue [place] as needed pain 7. Continue baclofen 2.5 mg twice daily 8. Hold Celebrex for possible kyphoplasty 9. CBC with differential and BMP in the a.m. 10. Give her a requisition for DEXA at discharge Charges/Coding Visit Charges Inpatient E&M: 91333 Subs Hosp L1
[2025-04-28] MEDS: Senna/Docusate Sodium 1 Tablet 2 TABLET PO ×2 (08:06→21:20)
[2025-04-28] MEDS: Cholecalciferol (VIT D3) 25 MCG TABLET (1,000 UNITS) 50 MCG PO (08:07)
[2025-04-28] MEDS: HYDROcodone Bitartrate/Apap 5/325 Tablet PO ×2 (08:59→21:20)
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
--- NOTE | 2025-04-28 14:48 | CASEMGMT ---
Social Work SW received VM from dtr requesting SW assistance to pt on filing short term disability. SW spoke with pt at bedside. Confirmed requested assistance with calling to file a claim as medical information is needed. SW assisted pt, calling claim number and provided information as needed. Once call was completed, SW provided pt with counseling resources and encouraged pt to select agency for this worker to make first appt prior to DC. Pt agreed. SW reviewed DC needs for 05/04. Pt plans to DC home with SO. SW inquired about DME - pt will need a quad cane. She is purchasing the other DME items. Pt agreeable to skilled HHC. SW provided list of skilled HHC agencies within geographical area, INN with insurance, that include quality and resource data via [employer] guide. Pt to review and notify BEATRIZ of preferences. Pt appreciative of assistance. [facility] Time spent: 60 minutes Mary Carmen Jasso MSW LASER/ELECTRO OPTICS TECHNICIAN
[2025-04-28 18:00] VITALS: BP 101/37; PULSE 72; RESP 16; TEMP 37.1; O2SAT 98
[2025-04-28 21:57] VITALS: PULSE 73; RESP 16; O2SAT 98
--- NOTE | 2025-04-29 00:20 | NURSING ---
After assisting patient to bed at , this nurse turned on bed alarm as ordered d/t patient self-transferring. Patient utilized call light to use the restroom at this time. This nurse entered room and went to turn off bed alarm prior to assisting patient to the restroom. The bed alarm was turned off. This nurse and CUSTOMER SERVICE TECHNICIAN did not turn the bed alarm off. After assisting patient to the bathroom, this nurse turned bed alarm back on. Patient denies turning it off.
[2025-04-29 05:54] LABS: Hematocrit 35.2 % (37-47); Hemoglobin 11.1 g/dL (12.0-15.0); Immature Granulocytes Count 0.010 X10^3/uL (0.0-0.0); Mean Corp Hgb Conc 31.5 g/dL (32-36); Mean Corpuscular Volume 88.0 fL (81-99); Mean Platelet Vol. 10.4 fl (6.2-12.0); NRBC Flagged by Analyzer 0 % (0-5); Platelet Count 321 K/mm3 (150-450); RBC Distribution Width CV 14.2 % (11.6-14.6); RBC Distribution Width SD 45.5 fl (35.1-43.9); Red Blood Count 4.00 M/mm3 (4.2-5.4); White Blood Count 5.9 K/mm3 (4.4-11.0)
[2025-04-29 06:00] VITALS: BP 102/48; PULSE 69; RESP 16; TEMP 37; O2SAT 95
[2025-04-29 06:16] LABS: Anion Gap 10 (5-15); BUN 18 mg/dL (4-19); BUN/Creat Ratio 26.2 RATIO (10-20); Calcium,Total 9.5 mg/dL (7.6-11.0); Carbon Dioxide 27.5 mmol/L (21.0-32.0); Chloride 102 mmol/L (98-108); Estimated Creatinine Clearance 58.36 ml/min (50-250); Glucose 98 mg/dL (70-99); Potassium 4.9 mmol/L (3.3-5.1)
[2025-04-29] MEDS: HYDROcodone Bitartrate/Apap 5/325 Tablet PO ×2 (07:07→20:43)
[2025-04-29] MEDS: Lidocaine 5% Patch 1 PATCH TOPICAL (07:59)
[2025-04-29] MEDS: Cholecalciferol (VIT D3) 25 MCG TABLET (1,000 UNITS) 50 MCG PO (07:59)
[2025-04-29] MEDS: Senna/Docusate Sodium 1 Tablet 2 TABLET PO (08:00)
--- NOTE | 2025-04-29 10:45 | PCM.PROGNOTE ---
Subjective Subjective Afebrile VSS - Maintaining appropriate oxygen saturation on RA Oral intake - FOOD-excellent FLUIDS fair to poor Discussed with nursing - no problems that need addressed Reviewed the THERAPY notes Medication list reviewed. Lab from this morning was personally reviewed. White blood cell count is normal at 5.9 and platelets are within normal limits at 321,000. Hemoglobin is 11.1 and stable. White blood cell differential is unremarkable. Sodium is 140 and the potassium is 4.9. BUN is 18 and the creatinine is 0.7 which is stable. BUN/creatinine ratio is elevated at 26.2 and this is more likely than not secondary to poor fluid intake. Calcium is normal. I reviewed Dr. Nuñez's consult from yesterday. The xray images from [facility] were ordered to be pushed over to [facility] for him to review. Slept well last night. C/O feeling stiff and painful this morning.......felt better after walking. Denies CP, SOB, cough, lightheadedness, dysuria. would like to have the franny decreased to 1 tab BID because she is having some loose stool. Objective Data Objective Data Vital Signs: Vital Signs Temp Pulse Resp BP Pulse Ox O2 Del Method 98.6 F 69 16 102/48 L 95 Room Air 04/29/25 06:00 04/29/25 06:00 04/29/25 06:00 04/29/25 06:00 04/29/25 06:00 04/29/25 06:00 Oxygen Delivery Method Room Air Weight: 142 lb 10.225 oz Body Mass Index (BMI) 25.2 Intake & Output: Intake and Output for Last 24 Hours 04/27/25 04/28/25 04/29/25 23:59 23:59 23:59 Intake Total 2812 / 2812 1140 / 1140 600 / 600 Output Total 1150 / 1150 950 / 1200 800 / 800 Balance 1662 / 1662 190 / -60 -200 / -200 Lab / Micro Data 04/29/25 05:35 04/29/25 05:35 Labs: Laboratory Results - last 24 hr 04/29/25 05:35: WBC 5.9, RBC 4.00 L, Hgb 11.1 L, Hct 35.2 L, MCV 88.0, MCH 27.8, MCHC 31.5 L, RDW Std Deviation 45.5 H, RDW Coeff of Mihir 14.2, Plt Count 321, MPV 10.4, Immature Gran % (Auto) 0.200, Neut % (Auto) 51.2, Lymph % (Auto) 32.5, Smith % (Auto) 10.6 H, Eos % (Auto) 4.6, Baso % (Auto) 0.9, Absolute Neuts (auto) 3.0, Absolute Lymphs (auto) 1.90, Nucleated RBC % 0, Sodium 140, Potassium 4.9, Chloride 102, Carbon Dioxide 27.5, Anion Gap 10, BUN 18, Creatinine 0.70, Estim Creat Clear Calc 58.36, Est GFR (MDRD) Non-Af 92, BUN/Creatinine Ratio 26.2 H, Glucose 98, Calcium 9.5 Micro: Microbiology 04/21/25 22:00 Urine, Catheterized Urine Culture - Final Fannyhessea vaginae Strep anginosus Enterococcus faecalis 04/23/25 05:30 Stool Stool Occult Blood (LIUDMILA) - Final Physical Exam Const alert, oriented x3 and no apparent distress Constitutional Narrative: Appears comfortable sitting in the recliner at the bedside. HEENT Mouth: dry mucous membranes Resp normal respiratory effort and clear to auscultation bilaterally Effort and Inspection: able to speak in complete sentences Cardio regular rate, regular rhythm, no murmurs, no rub and no gallops Cardio Narrative: No ectopy GI normal to inspection, nondistended, normoactive bowel sounds, soft to palpation and non-tender GI Narrative: No guarding with palpation Extremity no calf tenderness and no pedal edema Skin General Skin Exam: no breakdown Psych cooperative Psych Narrative: Making good eye contact with me. Many somatic complaints. Appearance: appropriate Attitude: No agitated Assessment & Plan Assessment/Plan (1) Debility: (2) Right radial fracture: QUALIFIERS: Encounter type: subsequent encounter Fracture type: closed (3) Vertebral compression fracture: QUALIFIERS: Encounter type: subsequent encounter Fracture of vertebra location: lumbar Lumbar vertebra fracture level: L2 (4) Type 2 diabetes mellitus: QUALIFIERS: Diabetes mellitus alf insulin use: with alf use Diabetes mellitus complication status: with other specified complication Qualified Code(s): E11.69 - Type 2 diabetes mellitus with other specified complication; Z79.4 - senior living (current) use of insulin (5) Osteopenia: QUALIFIERS: Osteopenia location: unspecified Qualified Code(s): M85.80 - Other specified disorders of bone density and structure, unspecified site (6) Vitamin D deficiency: (7) Liver fibrosis: (8) Anxiety and depression: (9) Lumbar canal stenosis: QUALIFIERS: Neurogenic claudication status: without neurogenic claudication Qualified Code(s): M48.061 - Spinal stenosis, lumbar region without neurogenic claudication (10) Lung nodule: (11) IBS (irritable bowel syndrome): QUALIFIERS: Irritable bowel syndrome type: unspecified Qualified Code(s): K58.9 - Irritable bowel syndrome without diarrhea PLAN: Plan 1. Continue therapy 2. Patient will not need prior authorization for kyphoplasty since she is in an acute inpatient rehab unit. Will communicate this to Dr. Nuñez's office. 3. Decrease senna to 1 tablet twice daily Charges/Coding Visit Charges Inpatient E&M: 67238 [facility] L1
--- NOTE | 2025-04-29 17:08 | CASEMGMT ---
Social Work SW left VM with Lisa at [facility] to update on DC date, counseling at DC, skilled C PT/OT/SW. Mary Carmen Jasso MENTAL RETARDATION AIDE BULL GANG SUPERVISOR
[2025-04-29 18:00] VITALS: BP 107/47; PULSE 81; RESP 18; TEMP 37.2; O2SAT 97
[2025-04-29] MEDS: Senna/Docusate Sodium 1 Tablet PO (20:28)
[2025-04-29 22:00] VITALS: RESP 16; O2SAT 95
[2025-04-30] VITALS (15 sets, daily range): BP systolic 104–150; BP diastolic 41–61; PULSE 63–84; RESP 12–20; TEMP 36.2–37.3; O2SAT 95–100; BMI 24.7
--- NOTE | 2025-04-30 08:47 | PRE.ANES_ITS ---
ASA Classification* ASA Classification ASA Classification: 2 Assessment & Plan Anesthesia* Anesthesia Assessment Anesthesia Assessment: Discussed sedation and/or anesthesia options, risks, benefits, and alternatives with patient/parents/legal guardian/POA. Questions invited. The patient/parents/legal guardian/POA seems to understand and agrees to proceed with anesthesia plan. Reviewed the physical assessment, medical history, allergy history and patient home medications list prior to surgery/procedure/anesthetic and documented any changes. Performed airway and anesthesia risk assessments. Anesthesia Type Anesthesia Type: General Anesthesia Focused Assessment* Temperature: 98.0 F Pulse Rate: 74 Blood Pressure: 107/47 Respiratory Rate: 12 Pulse Ox: 97 Airway Assessment Mouth opens: >3 cm Mallampati Score: II Labs Anesthesia Preop lab: CBC WBC, (4.4-11.0) 5.9 K/mm3 04/29/25, 05:35 RBC, (4.2-5.4) 4.00 M/mm3 L 04/29/25, 05:35 Hgb, (12.0-15.0) 11.1 g/dL L 04/29/25, 05:35 Hct, (37-47) 35.2 % L 04/29/25, 05:35 Plt Count, (150-450) 321 K/mm3 04/29/25, 05:35 CHEMISTRY Potassium, (3.3-5.1) 4.9 mmol/L 04/29/25, 05:35 Sodium, (133-145) 140 mmol/L 04/29/25, 05:35 Magnesium, (1.5-2.2) 2.0 mg/dL 04/22/25, 05:25 Phosphorus, (2.7-4.5) 3.5 mg/dL 04/22/25, 05:25 BUN, (4-19) 18 mg/dL 04/29/25, 05:35 Creatinine, (0.70-1.20) 0.70 mg/dL 04/29/25, 05:35 Glucose [facility], (70-110) 82 mg/dL , 16:31 Glucose, (70-99) 98 mg/dL 04/29/25, 05:35 POC Glucose, (74-106) 135 mg/dL H 04/27/25, 20:18 TSH, (0.300-4.200) 2.440 uIU/mL 01/02/25, 10:38 COAG PT, (11.7-14.9) 13.0 SECONDS 07/02/24, 10:11 Pre-Assessment Diagnosis/Proposed Procedure Planned Operative Procedure(s): Kyphoplasty, L2 Anesthesia History 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 When Was Last Pacemaker Check QUESTION #4 FULL TEXT: You/Your Family Experience fever (hyperthermia) with Anesthesia Last Oral Intake Last Oral intake: Last Oral Intake NPO since Meds taken in AM with sips of water? 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 Has anyone observed you stop breathing during sleep? STOP Results Positive 04/21/25 22:18 QUESTION #5 FULL TEXT : Do you snore loudly (louder than talking or can be heard through closed doors)? 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 Specify any problems Hx of Preganancy in last 3 N/A 04/21/25 22:18 Months Nurse Filling Out Transfusion CKAYLOR 04/21/25 22:18 & Questions: Date: 04/21/25 04/21/25 22:18 Time: 22:21 04/21/25 22:18 Patient unable to answer at this time (ie. 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 Hx Now Gestational Age (in weeks): EDC: Hx Hx Para Hx Section SAB Does the father of the baby or his family experience fever w Father of the baby Malignant Hypertension history comment Active Medications Active Medications: Current Medications Generic Name Dose Route Start Last Admin Trade Name Freq PRN Reason Stop Dose Admin Acetaminophen 650 mg 04/22/25 09:23 04/29/25 20:29 Acetaminophen 325 Mg Tablet PO 650 mg Q6H PRN Administration PAIN 1-10 Hydrocodone Bitart/Acetaminophen 1 tablet 04/22/25 09:18 04/29/25 20:43 Hydrocodone Bitartrate/Apap 5/325 Tablet PO 1 tablet Q6H PRN PRN Administration pain 5-10 Ascorbic Acid 500 mg 04/22/25 10:00 04/29/25 08:00 Ascorbic Acid 500 Mg Tablet PO 500 mg DAILY NIECY Administration Atorvastatin Calcium 20 mg 04/22/25 22:00 04/29/25 20:28 Atorvastatin Calcium 20 Mg Tablet PO 20 mg QHS NIECY Administration Baclofen 2.5 mg 04/23/25 21:00 04/30/25 06:15 Baclofen 10 Mg Tablet PO 2.5 mg 0600,2100 [facility] Administration Bisacodyl 10 mg 04/21/25 18:28 Bisacodyl 10 Mg Suppository RC X1 PRN Constipation Calcium Carbonate 500 mg 04/28/25 08:00 04/29/25 16:55 Calcium Carbonate 500 Mg Tablet PO 500 mg BIDCM NIECY Administration Celecoxib 100 mg 04/22/25 10:00 04/28/25 08:06 Celecoxib 100 Mg Capsule PO 100 mg On Hold: 04/28/25 09:48 DAILY NIECY Administration Cholecalciferol 50 mcg 04/22/25 10:00 04/29/25 07:59 Cholecalciferol (Vit D3) 25 Mcg Tablet (1,000 Units) PO 50 mcg DAILY NIECY Administration Enoxaparin Sodium 40 mg 04/23/25 06:00 04/29/25 15:57 Enoxaparin 40 Mg/0.4 Ml Syringe SC Not Given DAILY@0600 [facility] Fluoxetine HCl 40 mg 04/22/25 10:00 04/29/25 08:00 Fluoxetine Hcl 40 Mg Capsule PO 40 mg DAILY NIECY Administration Glucagon 1 mg 04/21/25 18:18 Glucagon 1 Mg/Ml Syringe IM X1 PRN Hypoglycemia Protocol Glucagon 1 mg 04/23/25 14:15 Glucagon 1 Mg/Ml Syringe IM X1 PRN Hypoglycemia Protocol Dextrose 250 mls @ 0 mls/hr 04/21/25 18:18 Dextrose 10%-Water IV .Q0M PRN HYPOGLYCEMIA Protocol As Directed Dextrose 250 mls @ 0 mls/hr 04/23/25 14:15 Dextrose 10%-Water IV .Q0M PRN HYPOGLYCEMIA Protocol As Directed Lidocaine 1 patch 04/24/25 06:00 04/30/25 06:16 Lidocaine 5% Patch TOPICAL Not Given DAILY@0600 [facility] Protocol Magnesium Hydroxide 30 ml 04/21/25 18:28 04/22/25 20:23 Magnesium Hydroxide 30 Ml Udc PO 30 ml X1 PRN Administration Constipation Multivitamins 1 tablet 04/22/25 08:00 04/29/25 08:00 Multivitamins,Therapeutic Tablet PO 1 tablet BREAKFAST [facility] Administration Ondansetron HCl 4 mg 04/21/25 18:48 Ondansetron Odt 4 Mg Tablet PO Q6H PRN NAUSEA/VOMITING Pantoprazole Sodium 40 mg 04/22/25 10:00 04/29/25 08:00 Pantoprazole Sodium 40 Mg Tablet PO 40 mg DAILY NIECY Administration Senna/Docusate Sodium 1 tablet 04/29/25 22:00 04/29/25 20:28 Senna/Docusate Sodium 1 Tablet PO 1 tablet BID NIECY Administration PFSH Medical History Lung nodule Chest wall contusion Postmenopause atrophic vaginitis Urethral hypermobility COREY (stress urinary incontinence, female) Lumbar canal stenosis Liver fibrosis Multiple renal cysts Head contusion Smoking greater than 20 pack years Strain of left knee Strain of left wrist Pharyngitis, acute Bilateral carpal tunnel syndrome Hypercholesterolemia with hypertriglyceridemia Knee pain Limb weakness Fatigue Shoulder pain History of arthritis Anxiety and depression Pneumonia Sepsis Cervicocranial syndrome CHRISTOPHER (obstructive sleep apnea) Obesity (BMI 30.0-34.9) History of DVT in adulthood Osteopenia Type 2 diabetes mellitus GERD (gastroesophageal reflux disease) Kidney stones Hyperlipidemia IBS (irritable bowel syndrome) Seasonal allergies Home Medications Medication Instructions Recorded Last Taken Type insulin glargine 100 unit/mL (3 18 unit SQ QHS dm 03/29 007/01/20 History mL) subcutaneous pen fluoxetine 40 mg capsule 40 mg PO QDAY Depression #90 caps 12/02/19 07/01/20 Rx semaglutide 0.25 mg or 0.5 mg (2 0.5 mg SQ QWEEK DM 07/01/20 History mg/1.5 mL) subcutaneous pen injector Held on 04/22/25. Instructions: Ordered acetaminophen 325 mg capsule 975 mg PO Q6H PRN pain Unknown History ascorbic acid (vitamin C) 500 mg 500 mg PO DAILY suppl ement 04/21/25 Unknown History tablet (C-500) atorvastatin 40 mg tablet 20 mg PO DAILY cholesterol 1 06/21/24 Unknown History cholecalciferol (vitamin D3) 25 1,000 unit PO DAILY pisano pplement 04/21/25 Unknown History mcg (1,000 unit) capsule (Vitamin D3) enoxaparin 40 mg/0.4 mL 40 mg subcut DAILY blood thi nner 04/21/25 Unknown History subcutaneous syringe (Lovenox) ergocalciferol (vitamin D2) 1,250 50,000 unit PO QWEEK supplement 04/21/25 Unknown History mcg (50,000 unit) capsule lisinopril 10 mg tablet 10 mg PO DAILY BP 04/21/25 U nknown History methocarbamol 750 mg tablet 750 mg PO TID muscle spasm s 04/21/25 Unknown History multivitamin with minerals-folic 1 tab PO DAILY supple ment 04/21/25 Unknown History acid 12 mcg chewable tablet (Centrum Adults) nitrofurantoin 100 mg PO DAILY antibacteria 04/21/25 Unknown History monohydrate/macrocrystals 100 mg capsule (Macrobid) ondansetron 4 mg disintegrating 4 mg PO Q6H nausea and vomiting 04/21/25 Unknown History tablet oxycodone 5 mg tablet 5 mg PO Q6H PRN pain 5 Unknown History pantoprazole 40 mg granules 40 mg PO DAILY GERD Unknown History delayed-release for susp in packet sennosides 8.6 mg-docusate sodium 1 tab-cap PO BID sto ol softner 04/21/25 Unknown History 50 mg tablet (Senna with Docusate Sodium) vibegron 75 mg tablet (Gemtesa) 75 mg PO DAILY overact alexander bladder 04/21/25 Unknown History Allergy/AdvReac Type Severity Reaction Status Date / Time ciprofloxacin (From Cipro) Allergy Hives Verified 04/21/25 18:34 Penicillins Allergy Hives Verified 04/21/25 18:34 Sulfa (Sulfonamide Allergy Hives Verified 04/21/25 18:34 Antibiotics) Family History Mother Anemia Adjustment disorder with anxiety Arthritis High cholesterol Bleeding disorder Osteoporosis COPD (chronic obstructive pulmonary disease) Peptic ulcer disease Sister Adjustment disorder with anxiety Brother Adjustment disorder with anxiety Mental disorder Aunt Colon cancer Surgical History History of carpal tunnel release History of arthroscopic surgery of shoulder (04/2019) History of bladder surgery History of appendectomy History of shoulder surgery History of cholecystectomy History of hysterectomy with bilateral oophorectomy Social History 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
--- NOTE | 2025-04-30 09:00 | RAD_ITS ---
PROCEDURE: SPINE 1 VIEW ANY LEVEL 04/30/2025 REASON FOR EXAM: KYPHOPLASTY, L2 TECHNIQUE: Procedure Code: RADSPCV Modality: DX Procedure: SPINE 1 VIEW ANY LEVEL COMPARISON: None. FINDINGS: Metallic vertebroplasty probes pointed at the pedicles of L2. Contrast injected in the vertebra. No evidence of contrast extravasation to the disc space or spinal canal.. No acute bony abnormalities. No soft tissue abnormalities. RAD/Spine 1 View Any Level IMPRESSION: Metallic vertebroplasty probes pointed at the pedicles of L2. No evidence of c ontrast extravasation to the disc space or canal. Reading Location: [id number]
[2025-04-30] MEDS: Lactated Ringers 1,000 ML 15 ML IV (09:06)
[2025-04-30] MEDS: Midazolam 2 MG/2 ML Syringe IV (10:09)
[2025-04-30] MEDS: Cefazolin 1 GM/5 ML Vial 2 GM IV (10:10)
[2025-04-30] MEDS: Lactated Ringers 1,000 ML 1000 ML IV (10:10)
[2025-04-30] MEDS: Lidocaine 1% (5 ml sdv) 5 ML Vial IV (10:16)
[2025-04-30] MEDS: Lidocaine 0.5% (50 ml) 50 ML Vial (10:39)
[2025-04-30] MEDS: fentaNYL 100 MCG/2 ML Ampul IV (10:41)
--- NOTE | 2025-04-30 11:19 | OP.PCM_ITS ---
Operative Report (Standard) Operative Information Date of Procedure: 04/30/25 Pre-Operative Diagnosis: L2 compression fracture Post-Operative Diagnosis: Same Surgery/Procedure Performed: L2 kyphoplasty data management specialist: No Type of Anesthesia: General RN Documented Start/Stop Times: Operation Date: 04/30/25 10:00 Case Time Into Pre-Op 04/30/25 08:46 Anesthesia Start 04/30/25 10:09 Into Room 04/30/25 10:09 Procedure Start 04/30/25 10:36 Procedure End 04/30/25 11:14 Procedure Start Time: 10:36 Procedure Stop Time: 11:14 Select all DRAINS/GRAFTS/IMPLANTS that apply: None Estimated Blood Loss: 5 Specimen collected: No Surgical Findings: L2 compression fracture Complications Complications: No
--- NOTE | 2025-04-30 11:19 | PCM.OPRPT ---
Operative Report (Standard) Operative Information Date of Procedure: 04/30/25 Pre-Operative Diagnosis: L2 compression fracture Post-Operative Diagnosis: Same Surgery/Procedure Performed: L2 kyphoplasty repair cameraman: No Type of Anesthesia: General RN Documented Start/Stop Times: Operation Date: 04/30/25 10:00 Case Time Into Pre-Op 04/30/25 08:46 Anesthesia Start 04/30/25 10:09 Into Room 04/30/25 10:09 Procedure Start 04/30/25 10:36 Procedure End 04/30/25 11:14 Anesthesia End 04/30/25 11:22 Out of Room 04/30/25 11:22 Into Recovery 04/30/25 11:25 Procedure Start Time: 10:36 Procedure Stop Time: 11:14 Select all DRAINS/GRAFTS/IMPLANTS that apply: None Estimated Blood Loss: 5 Specimen collected: No Description of surgery: Informed consent was obtained prior to the procedure. The risks, benefits, and alternatives were discussed in detail, and the patient expressed understanding and agreed to proceed. General anesthesia was used. 2 grams ancef was administered for prophylactic antibiotics. The patient was positioned in the prone position on the fluoroscopy table. Standard monitors were applied.. Vitals were closely monitored throughout the procedure to ensure patient safety and stability. The skin overlying the L2 vertebra and surrounding area was sterilized with duraprep and draped in a sterile fashion with ioban. Lidocaine and bupivicane mixture was used at the procedural site to ensure local numbness and comfort. Standard monitors were applied, and conscious sedation was used. Vitals were closely monitored throughout the procedure to ensure patient safety and stability. A bipedicular approach was used to access the L2 vertebra. Under fluoroscopic guidance, a 10-gauge trochar was introduced bilaterally through each pedicle and advanced into the vertebral body. AP, lateral and oblique fluoroscopy was used as needed. A drill was advanced through each trochar to create a cavity within the vertebral body. The drill was then removed. Balloons were inserted through the trochars bilaterally and inflated gradually to a maximum pressure of 200 PSI, allowing for partial yarsanism of vertebral height without compromising vertebral wall integrity. After optimal inflation was achieved, the balloons were deflated and removed, creating a cavity for cement injection. Cement was prepared and injected under fluoroscopic guidance, with 2 cc on the right side and then 1.5 cc on the left side. Cement viscosity and flow were monitored closely, and real-time fluoroscopy confirmed even cement distribution within the vertebral body without extravasation. The trochars were removed, and the access sites bandaged. Hemostasis was achieved, and sterile dressings were applied. No cement was noted to leak back after removal of the trochars. No complications were encountered during the procedure. Patient was able to move bilateral lower extremities in recovery and noted no numbness/tingling in the legs. I discussed no showering for 3 days and avoiding sumerging in water until atleast our follow up appointment in 1 week. Surgical Findings: L2 compression fracture Complications Complications: No
--- NOTE | 2025-04-30 11:30 | PCM.POST.ANE ---
Anesthesia: Postop Eval I Current Vital Signs Temperature: 98.3 F Pulse Rate: 84 Blood Pressure: 150/60 Respiratory Rate: 20 Pulse Ox: 100 Oxygen Delivery Method: Room Air Assessment Airway patent: Yes Spontaneous unlabored respirations: Yes Mental status: Awake and Calm nausea: No Vomiting: No Anesthesia Complication: No Fluid Hydration Crystalloid volume administer (ml): 800 Total IV fluid infused: 800 Progress Note Anesthesia document: Postop Eval 1 completed: Yes
--- NOTE | 2025-04-30 11:59 | POSTOPAN2_ITS ---
Anesthesia Postop Eval I Sum Postop Eval Completion status Anesthesia document: Postop Eval 1 completed: Yes Anesthesia Postop Eval I Summary Anesthesia Postop Eval I Summary: Anesthesia Postop Eval I: Assessment Summary Airway patent Yes 04/30/25 11:31 [email or web address] Spontaneous unlabored Yes 04/30/25 11:31 [email or web address] respirations Mental status Awake,Calm 04/30/25 11:31 [email or web address] nausea No 04/30/25 11:31 [email or web address] Vomiting No 04/30/25 11:31 [email or web address] Anesthesia Postop Eval I: Fluid Summary Crystalloid volume administer 800 04/30/25 11:31 [email or web address] (ml) Colloids volume administered ( ml) Blood Product volume administered (ml) Total IV fluid infused 800 04/30/25 11:31 [email or web address] Anesthesia Postop Eval I: Summary Notes Anesthesia Complication No 04/30/25 11:31 [email or web address] Anesthesia Complication Comment: Post-operative progress note Anesthesia: Postop Eval II Evaluation Mental status: Awake Pain Level: 3 nausea: No Vomiting: No
--- NOTE | 2025-04-30 11:59 | PCM.POSTANE2 ---
Anesthesia Postop Eval I Sum Postop Eval Completion status Anesthesia document: Postop Eval 1 completed: Yes Anesthesia Postop Eval I Summary Anesthesia Postop Eval I Summary: Anesthesia Postop Eval I: Assessment Summary Airway patent Yes 04/30/25 11:31 [email or web address] Spontaneous unlabored Yes 04/30/25 11:31 MACHINING [email or web address] respirations Mental status Awake,Calm 04/30/25 11:31 [email or web address] [email or web address] nausea No 04/30/25 11:31 MACHINING [email or web address] Vomiting No 04/30/25 11:31 [email or web address] [email or web address] Anesthesia Postop Eval I: Fluid Summary Crystalloid volume administer 800 04/30/25 11:31 MACHINING [email or web address] (ml) Colloids volume administered ( ml) Blood Product volume administered (ml) Total IV fluid infused 800 04/30/25 11:31 [email or web address] [email or web address] Anesthesia Postop Eval I: Summary Notes Anesthesia Complication No 04/30/25 11:31 [email or web address] [email or web address] Anesthesia Complication Comment: Post-operative progress note Anesthesia: Postop Eval II Evaluation Mental status: Awake Pain Level: 3 nausea: No Vomiting: No
--- NOTE | 2025-04-30 14:03 | PN_ITS ---
Subjective Subjective Afebrile Vital signs stable Maintaining appropriate oxygen saturation on room air. Was on 2 L of nasal O2 in recovery post kyphoplasty. Oxygen saturation ranged from 95 to 100% Aurelia was seen and examined after returning from kyphoplasty with Dr. Nuñez. She tells me she is in a "little pain" now. Denies any radicular pain. She denies shortness of breath, chest pain, palpitations, lightheadedness, nausea. Objective Data Objective Data Vital Signs: Vital Signs Temp Pulse Resp BP Pulse Ox O2 Del Method O2 Flow Rate 97.2 F L 69 16 104/57 L 95 Nasal Cannula 2 04/30/25 12:57 04/30/25 12:57 04/30/25 12:57 04/30/25 12:57 04/30/25 12:57 04/30/25 12:57 04/30/25 12:57 Oxygen Flow Rate (L/min) 2 Oxygen Delivery Method Nasal Cannula Weight: 139 lb 15.896 oz Body Mass Index (BMI) 24.7 Intake & Output: Intake and Output for Last 24 Hours 04/28/25 04/29/25 04/30/25 23:59 23:59 23:59 Intake Total 1140 / 1140 1360 / 1360 1300 / 1300 Output Total 950 / 1200 2024 330 / 330 Balance 190 / -60 -665 / -665 970 / 970 Lab / Micro Data 04/29/25 05:35 04/29/25 05:35 Micro: Microbiology 04/21/25 22:00 Urine, Catheterized Urine Culture - Final Fannyhessea vaginae Strep anginosus Enterococcus faecalis 04/23/25 05:30 Stool Stool Occult Blood (LIUDMILA) - Final Radiography Diagnostic Testing: Radiology Impression Spine X-Ray 04/30/25 09:00 IMPRESSION: Metallic vertebroplasty probes pointed at the pedicles of L2. No evidence of contrast extravasation to the disc space or canal. Reading Location: [facility] Physical Exam Const alert and no apparent distress General Appearance: cooperative Resp normal respiratory effort and clear to auscultation bilaterally Resp Narrative: No conversational dyspnea and able to speak in complete sentences Effort and Inspection: Negative for tachypneic Cardio regular rate, regular rhythm and no gallops Cardio Narrative: No ectopy GI normal to inspection, nondistended, normoactive bowel sounds, soft to palpation and non-tender GI Narrative: No guarding with palpation Extremity no calf tenderness General Extremity: Negative for edema Assessment & Plan Assessment/Plan (1) Debility: (2) Right radial fracture: QUALIFIERS: Encounter type: subsequent encounter Fracture type: c losed (3) Vertebral compression fracture: QUALIFIERS: Encounter type: subsequent encounter Fracture of vertebra location: lumbar Lumbar vertebra fracture level: L2 (4) Type 2 diabetes mellitus: QUALIFIERS: Diabetes mellitus tool specialist insulin use: with tool specialist use Diabetes mellitus complication status: with other specified complication Qualified Code(s): E11.69 - Type 2 diabetes mellitus with other specified complication; 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 Resume therapy in the morning 2. Continue preoperative orders Charges/Coding Visit Charges Inpatient E&M: 81855 Subs Hosp L1
[2025-04-30] MEDS: Senna/Docusate Sodium 1 Tablet PO (21:04)
[2025-05-01] MEDS: Lidocaine 5% Patch 1 PATCH TOPICAL (04:47)
[2025-05-01 04:56] VITALS: BP 123/60; PULSE 72; RESP 18; TEMP 36.8; O2SAT 96
[2025-05-01] MEDS: Cholecalciferol (VIT D3) 25 MCG TABLET (1,000 UNITS) 50 MCG PO (07:42)
[2025-05-01] MEDS: Senna/Docusate Sodium 1 Tablet PO ×2 (07:42→20:19)
--- NOTE | 2025-05-01 11:32 | PCM.PROGNOTE ---
Subjective Subjective Aurelia was seen on team rounds today. Her son Colt was present in the room and daughter Viry was on the speaker phone. All questions were answered to their satisfaction Postoperative day #1 status post kyphoplasty Afebrile VSS - Maintaining appropriate oxygen saturation on RA Oral intake - FOOD good FLUIDS fair. She received some IV fluid with the kyphoplasty yesterday. Weight is down 7 pounds since admission. Discussed with nursing - no problems that need addressed Reviewed the THERAPY notes-has been made mod I in her room Medication list reviewed. She had fentanyl and Dilaudid with her procedure yesterday but she has not taken any [place]ma since approximately 11 PM on 04/29/25. She is smiling today and tells me that her pain is better since the kyphoplasty. Denies cephalgia, chest pain, shortness of breath, abdominal pain, nausea/vomiting, dysuria and calf pain. Tells me she was able to sleep on her right side last night for the first time since the trauma. She is calm and smiling today. Objective Data Objective Data Vital Signs: Vital Signs Temp Pulse Resp BP Pulse Ox O2 Del Method O2 Flow Rate 98.2 F 72 18 123/60 H 96 Room Air 2 05/01/25 04:56 05/01/25 04:56 05/01/25 04:56 05/01/25 04:56 05/01/25 04:56 05/01/25 04:56 04/30/25 12:57 Oxygen Flow Rate (L/min) 2 Oxygen Delivery Method Room Air Weight: 139 lb 15.896 oz Body Mass Index (BMI) 24.7 Intake & Output: Intake and Output for Last 24 Hours 04/29/25 04/30/25 05/01/25 23:59 23:59 23:59 Intake Total 1360 / 1360 2190 / 2190 515 / 515 Output Total 2024 / 2024 730 / 730 500 / 500 Balance -665 / -665 1460 / 1460 Lab / Micro Data 04/29/25 05:35 04/29/25 05:35 Micro: Microbiology 04/21/25 22:00 Urine, Catheterized Urine Culture - Final Fannyhessea vaginae Strep anginosus Enterococcus faecalis 04/23/25 05:30 Stool Stool Occult Blood (LIUDMILA) - Final Radiography Diagnostic Testing: Radiology Impression Spine X-Ray 04/30/25 09:00 IMPRESSION: Metallic vertebroplasty probes pointed at the pedicles of L2. No evidence of contrast extravasation to the disc space or canal. Reading Location: [facility] Physical Exam Const alert and no apparent distress General Appearance: cooperative Resp normal respiratory effort and clear to auscultation bilaterally Cardio regular rate, regular rhythm and no gallops Cardio Narrative: No ectopy GI normal to inspection, nondistended, normoactive bowel sounds, soft to palpation and non-tender GI Narrative: No guarding with palpation Extremity no calf tenderness General Extremity: Negative for edema Skin General Skin Exam: no breakdown Rashes: no rashes Wound Narrative: There is some dried blood on the bandages over the low back with no fresh blood. There is no erythema around the bandage. Neuro CN's II-XII intact bilaterally and no focal motor deficits Psych affect normal Psych Narrative: Smiling today. Sleeping well. Appearance: appropriate Attitude: No agitated Assessment & Plan Assessment/Plan (1) Debility: (2) Right radial fracture: QUALIFIERS: Encounter type: subsequent encounter Fracture type: closed (3) Vertebral compression fracture: QUALIFIERS: Encounter type: subsequent encounter Fracture of vertebra location: lumbar Lumbar vertebra fracture level: L2 (4) Type 2 diabetes mellitus: QUALIFIERS: Diabetes mellitus [facility] insulin use: with [facility] use Diabetes mellitus complication status: with other specified complication Qualified Code(s): E11.69 - Type 2 diabetes mellitus with other specified complication; Z79.4 - jail (current) use of insulin (5) Osteopenia: QUALIFIERS: Osteopenia location: unspecified Qualified Code(s): M85.80 - Other specified disorders of bone density and structure, unspecified site (6) Vitamin D deficiency: (7) Liver fibrosis: (8) Anxiety and depression: (9) Lumbar canal stenosis: QUALIFIERS: Neurogenic claudication status: without neurogenic claudication Qualified Code(s): M48.061 - Spinal stenosis, lumbar region without neurogenic claudication (10) S/P kyphoplasty: PLAN: Plan 1. Continue therapy 2. BMP and CBC in the a.m. 3. Will follow-up with Dr. Nuñez postdischarge for pain management 4. Change the baclofen to 2.5 mg at at bedtime and 2.5 mg every 8 hours as needed muscle spasm 5. Requisition for a DEXA at discharge The patient is unsafe to use a straight cane and requires a quad cane for ambulation in the home and the community. The patient cannot use a straight cane due to right forearm fracture and unsteadiness wiith a straight cane. R arm is in a splint and sling and is throwing off her balance. Charges/Coding Visit Charges Inpatient E&M: 13652 Subs Hosp L2
--- NOTE | 2025-05-01 12:50 | CASEMGMT ---
Addendum entered by Mary Carmen Jasso 05/02/25 12:36: BEATRIZ spoke with pt, who spoke with [facility] and is completing paperwork, then will schedule with clinician end of April/beginning of May. BEATRIZ inquired if pt was agreeable to [facility] sending records to [facility] for hand-off, pt agreed. Pt signed ROR. SW faxed. Addendum entered by Mary Carmen Jasso 05/02/25 09:02: Both [facility] agencies can accept. BEATRIZ updated pt and pt prefers [facility]. SW secured. SOC 05/05 Addendum entered by Mary Carmen Jasso 05/01/25 13:43: [facility] cannot accept Medicare. BEATRIZ phoned [facility] and they do have providers that can accept Medicare. However, the pt must call to schedule herself. BEATRIZ updated pt and pt will contact to schedule and provide information. Addendum entered by Mary Carmen Jasso 05/01/25 13:34: BEATRIZ assisted pt with FMLA paperwork. Pt selected [facility] or [facility] for counseling options. SW to contact agencies and notify pt of outcome. Original Note: Social Work IDT met with patient and son, Colt at bedside, then dtr Viry participated via conference call for Team meeting. Discussed patient's progress in PT/OT/SN/MD. Pt is Rehan using a quad cane. BEATRIZ inquired about AOC for [facility]. Pt prefers either [facility] or [facility]. BEATRIZ sent referrals via [facility]. BEATRIZ will return after Team to assist pt with FMLA paperwork as she cannot write with her dominant hand, and will discuss counseling to make a referral. Plan: DC home 05/04, [facility] PT/OT/BEATRIZ, quad cane Mary Carmen Jasso [employer] REPORT WRITER
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
[2025-05-01 18:00] VITALS: BP 108/38; PULSE 80; RESP 14; TEMP 37.2; O2SAT 98
[2025-05-01 20:00] VITALS: PULSE 80; RESP 14; O2SAT 98
[2025-05-01] MEDS: HYDROcodone Bitartrate/Apap 5/325 Tablet PO (20:19)
[2025-05-02 06:00] VITALS: BP 115/48; PULSE 69; RESP 16; TEMP 36.7
[2025-05-02 06:05] LABS: Hematocrit 34.0 % (37-47); Hemoglobin 10.5 g/dL (12.0-15.0); Mean Corp Hgb Conc 30.9 g/dL (32-36); Mean Corpuscular Volume 89.5 fL (81-99); Mean Platelet Vol. 10.8 fl (6.2-12.0); Platelet Count 333 K/mm3 (150-450); RBC Distribution Width CV 14.3 % (11.6-14.6); RBC Distribution Width SD 46.0 fl (35.1-43.9); Red Blood Count 3.80 M/mm3 (4.2-5.4); White Blood Count 7.4 K/mm3 (4.4-11.0)
[2025-05-02 06:33] LABS: Anion Gap 7 (5-15); BUN 19 mg/dL (4-19); BUN/Creat Ratio 27.3 RATIO (10-20); Calcium,Total 9.2 mg/dL (7.6-11.0); Carbon Dioxide 28.9 mmol/L (21.0-32.0); Chloride 103 mmol/L (98-108); Estimated Creatinine Clearance 57.88 ml/min (50-250); Glucose 98 mg/dL (70-99); Potassium 4.6 mmol/L (3.3-5.1)
[2025-05-02] MEDS: Lidocaine 5% Patch 1 PATCH TOPICAL (06:36)
[2025-05-02] MEDS: Senna/Docusate Sodium 1 Tablet PO ×2 (08:01→20:31)
[2025-05-02] MEDS: Cholecalciferol (VIT D3) 25 MCG TABLET (1,000 UNITS) 50 MCG PO (08:02)
[2025-05-02 17:02] VITALS: BP 115/44; PULSE 79; RESP 17; TEMP 37.2
[2025-05-02 20:20] VITALS: PULSE 79; RESP 17; O2SAT 99
[2025-05-03 06:00] VITALS: BP 126/57; PULSE 75; RESP 18; TEMP 37.1; O2SAT 98
[2025-05-03] MEDS: Lidocaine 5% Patch 1 PATCH TOPICAL (06:06)
[2025-05-03] MEDS: Cholecalciferol (VIT D3) 25 MCG TABLET (1,000 UNITS) 50 MCG PO (08:30)
[2025-05-03] MEDS: Senna/Docusate Sodium 1 Tablet PO ×2 (08:31→20:27)
[2025-05-03 18:00] VITALS: BP 98/40; PULSE 79; RESP 15; TEMP 36.6; O2SAT 98
[2025-05-04 06:00] VITALS: BP 107/58; PULSE 77; RESP 16; TEMP 36.8; O2SAT 95
--- NOTE | 2025-05-04 06:46 | NURSING ---
dressing removed from back x 2. steristrips intact. pt instructed not to remove steristrips to let them come off naturally. pt verbalizes understanding.
[2025-05-04] MEDS: Cholecalciferol (VIT D3) 25 MCG TABLET (1,000 UNITS) 50 MCG PO (08:07)
[2025-05-04] MEDS: Senna/Docusate Sodium 1 Tablet PO (08:07)
[2025-05-04] MEDS: Lidocaine 5% Patch 1 PATCH TOPICAL (11:03)
--- NOTE | 2025-05-04 14:18 | NURSING ---
Discharged home and verbalized DC instruct.
== END 2025-05-04 14:20 | disposition home health service (06) | DRG 516 ==
PROVIDERS: Anesthesiology; Admitting Provider Internal Medicine; PCP Family Medicine Geriatric Medicine; Visit Provider Internal Medicine
PROC: 0QS03ZZ Reposition Lumbar Vertebra, Percutaneous Approach (ICD-10-PCS; principal; 2025-04-30 09:45)
DX: M80.08XD Age-related osteoporosis with current pathological fracture, vertebra(e), subsequent encounter for fracture with routine healing (principal); N30.00 Acute cystitis without hematuria; B95.2 Enterococcus as the cause of diseases classified elsewhere; E11.69 Type 2 diabetes mellitus with other specified complication; K74.00 Hepatic fibrosis, unspecified; F32.9 Major depressive disorder, single episode, unspecified; F41.9 Anxiety disorder, unspecified; M48.061 Spinal stenosis, lumbar region without neurogenic claudication; G47.33 Obstructive sleep apnea (adult) (pediatric); E78.2 Mixed hyperlipidemia; K76.0 Fatty (change of) liver, not elsewhere classified; K58.9 Irritable bowel syndrome, unspecified; S52.501D Unspecified fracture of the lower end of right radius, subsequent encounter for closed fracture with routine healing; Z86.718 Personal history of other venous thrombosis and embolism; Z79.899 Other long term (current) drug therapy; Z87.891 Personal history of nicotine dependence; G47.00 Insomnia, unspecified; F43.10 Post-traumatic stress disorder, unspecified; R91.1 Solitary pulmonary nodule; Y04.8XXD Assault by other bodily force, subsequent encounter; S52.601D Unspecified fracture of lower end of right ulna, subsequent encounter for closed fracture with routine healing; Z91.199 Patient's noncompliance with other medical treatment and regimen due to unspecified reason
CPT/HCPCS: 36415; 72020; 76000; 80048; 80053; 80061; 81001; 82274; 82570; 82962; 83036; 83735; 84100; 84156; 85025; 85027; 87077; 87086; 87088; 87186; 97110; 97116; 97150; 97162; 97166; 97530; 97535; C1713; J2405

== ENCOUNTER → 2025-05-26 | Outpatient (CLI) | payer MEDICARE, OTHER, SELFPAY ==
--- NOTE | 2025-05-26 16:39 | CT_ITS ---
PROCEDURE: CHEST WITHOUT CONTRAST 05/26/2025 REASON FOR EXAM: LUNG NODULE IN FORMER SMOKER TECHNIQUE: Chest CT without contrast. Coronal and Sagittal reconstruction series were provided. One or more dose reduction techniques were used (e.g., Automated exposure control, adjustment of the mA and/or kV according to patient size, use of iterative reconstruction technique RADIATION DOSE SUMMARY: CTDlvol: 9 mGy DLP: 318 mGycm COMPARISON: June 04, 2024, March 16, 2023, March 14, 2022 FINDINGS: Hardware: None Lymph nodes: None appear enlarged Heart and Vasculature: Normal-size heart. No pericardial effusion. Aorta is atherosclerotic without aneurysm. Coronary Artery Calcifications: Present Lungs and Airways: Calcified granuloma is 8.5 mm and unchanged in the superior segment left lower lobe on image 35 (previously reported left upper lobe). Pure ground-glass nodule right upper lobe image 31 is 8 mm. No change. No new nodule. Pleura: No pleural effusion or pneumothorax. Upper Abdomen: Cholecystectomy. Bilateral renal cysts are simple, benign Bones: Degenerative changes of the thoracic spine. Upper lumbar vertebroplasty. CT/Chest without Contrast IMPRESSION: 1. No new nodule. Benign granuloma superior segment left lower lobe. Ground- glass nodule right upper lobe. ACR Lung-RADS guidelines suggest the following: Category 2 (Benign appearance or behavior). C ontinue annual screening with Low Dose chest CT in 12 months. Reading Location: [id number]
== END | disposition home or self-care (01) ==
LOC: CT 16:38
PROVIDERS: PCP Nurse Practitioner Family; Referring Provider Nurse Practitioner Acute Care; Visit Provider Nurse Practitioner Acute Care
DX: R91.1 Solitary pulmonary nodule (principal)
CPT/HCPCS: 71250